=== PATIENT | male | born 1970 | race Two or more races ===

== ENCOUNTER 2024-06-05 03:49 | Inpatient (IN) | payer MEDICARE, MEDICAID ==
[2024-06-05] VITALS (32 sets, daily range): BP systolic 93–166; BP diastolic 49–80; PULSE 0–81; RESP 13–24; TEMP 97.5–100; O2SAT 0–100
[~2024-06-05] VITALS: Ht 170.2 cm; Wt 73.2 kg
[~2024-06-05 03:49] MED LIST: B-CO-6 PO; CARV-217 PO; CHOL20004 PO; CLON0.2D6 TD; DOCU-94 PO; GENT0.1C3 TOP; LOSA-535 PO; MINO10TA2 PO; POM PO
--- NOTE | 2024-06-05 04:13 | ED.PDOC ---
CPR-HPI HPI Comments 53-year-old male came to ER via EMS in cardiac arrest. Per EMS, patient picked up at home, initial call of low blood sugar, upon arrival patient noted to be pale, clammy, diaphoretic, apneic. Blood sugar 51, given D10 and went up to 92. Patient still verbally responding to name, however while patient is being velasco sferred to the gurney, patient aspirated, froth coming out of his mouth and went into cardio respiratory arrest, pulseless and unresponsive. CPR initiated immediately, bagging done, chest compressions, IO fluids, Epinephrine x3 and Calcium given while en route to the ER. Patient does have a history of diabetes, end-stage renal disease, on dialysis. Chief Complaint: CPR Time Seen by MD: 03:44 Reviewed Notes: Alligator Trapper Notes Allergies: Coded Allergies: UNOBTAINABLE (Unverified , 06/05/24) arrived CPR in progress Information Source: Emergency Med Personnel Mode of Arrival: EMS Timing: Minutes Duration: Total time prior hopital: (15 minutes) Onset: Witnessed Inital rhythm: Bradycardia Treatment: CPR, IV, Epinephrine Response: Sustained return of pulse Associated signs and symptoms: Other (Weakness, diaphoresis) Past Medical History PAST MEDICAL HISTORY: DM, ESRD Past Medical History (Other): Dialysis Surgical History: Unobtainable Family History Family History: Unobtainable Social History Smoker: Unobtainable Alcohol: Unobtainable Drugs: Unobtainable Lives In: Home Unable to Obtain due to: Medical Urgency, Intubated Physical Exam General Appearance: Severe Distress, Other (CPR in progress) HEENT: PERRL/EOMI Neck: Normal Inspection Respiratory: Other (Crackles bilaterally) Cardiovascular: Other (CPR in progress) Breast Exam: Normal Gastrointestinal: Other (Peritoneal dialysis catheter in place) Genitalia: Normal Pelvic: Deferred Rectal: Deferred Extremities: Other (IO 2 right tibia) Neurologic: Other (Unresponsive) Cerebellar Function: Unable to Test Reflexes: NOT DONE Skin: Cyanosis Lymphatic: NOT DONE Was a procedure done? 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: Attending Physician Indication: Hypotension, Volume resuscitation, Suspected infection Room prepared for procedure: Yes Call Out Operator performed hand hygien: Yes Maximal sterile barrier precau: Mask/Eye shield, Sterile gown, Cap, Sterlie gloves, Large sterlie drape Skin Preparation: Providine iodine Skin preparation completely dr: Yes Insertion site: Right, Femoral Central line catheter type: Tunneled- not dialysis Number of lumens: 3 Central line exchanged over a: Yes Antiseptic ointment applied to: Yes Post Assessment: Chest X-Ray Informed consent obtained: No Risks/benefits/alt described: No Intubation Indication: Respiratory Insufficiency Prep: Preoxygenation Pretreated with: Nothing Medicated with: Nothing Intubation Approach: Orotracheal Intubation size: cm (8.0) Informed consent obtained: No Risks/benefits/alt described: No Other Procedure Procedure Arterial Line Placement to Right Femoral Artery Indication Post Cardiac Arrest Prep Chloroprep Success Yes Informed consent obtained: No Risks, benefits, and alternati: No Differential Dx CPR Differential Diagnosis: Cardiopulmonary arrest, Dysrhythmia, Electrolyte disorder, Myocardial Infarction, Respiratory Failure X-Ray, Labs, Meds, VS Vital Signs Date Time Temp Pulse Resp B/P (MAP) Pulse Ox O2 Delivery O2 Flow Rate FiO2 06/05/24 04:22 159/103 06/05/24 04:21 131/80 06/05/24 04:21 70 18 127/83 (98) 96 100 06/05/24 04:00 132 06/05/24 03:49 95.1 0 0 0/0 (0) 0 Lab Test 06/05/24 04:00 Range/Units White Blood Count 15.3 H 4.4-10.8 10^3/uL Red Blood Count 4.46 L 4.5-5.90 10^6/uL Hemoglobin 13.5 13.5-17.5 g/dL Hematocrit 41.4 41.0-53.0 % Mean Corpuscular Volume 93.0 80.0-100.0 fL Mean Corpuscular Hemoglobin 30.3 28.0-32.0 pg Mean Corpuscular Hemoglobin Concent 32.5 32.0-36.0 g/dL Red Cell Distribution Width 19.4 H 11.8-14.3 % Platelet Count 75 L 140-450 10^3/uL Mean Platelet Volume 6.8 L 6.9-10.8 fL Neutrophils (%) (Auto) 37.0-80.0 % Lymphocytes (%) (Auto) 10.0-50.0 % Monocytes (%) (Auto) 0.0-12.0 % Basophils (%) (Auto) 0.0-2.0 % Neutrophils # (Auto) 1.6-8.6 10 ^3/uL Lymphocytes # (Auto) 0.4-5.4 10 ^3/uL Monocytes # (Auto) 0-1.3 10 ^3/uL Differential Total Cells Counted Pending Neutrophils % (Manual) Pending Band Neutrophils % (Manual) Pending Lymphocytes % (Manual) Pending Monocytes % (Manual) Pending Eosinophils % (Manual) Pending Basophils % (Manual) Pending Metamyelocytes % (manual) Pending Myelocytes % (Manual) Pending Promyelocytes % (Manual) Pending Blast Cells % (Manual) Pending Reactive Lymphocytes Pending Platelet Estimate Pending Sodium Level 141 136-145 mmol/L Potassium Level 4.2 3.5-5.1 mmol/L Chloride Level 97 L 98-107 mmol/L Carbon Dioxide Level 32 H 20-31 mmol/L Anion Gap 12 5-15 Blood Urea Nitrogen 57 H 9-23 mg/dL Creatinine 15.78 *H 0.700-1.30 mg/dL Glomerular Filtration Rate Calc 3 >90 mL/min BUN/Creatinine Ratio 3.6 L 10.0-20.0 Serum Glucose 201 H 74-106 mg/dL Calcium Level 10.1 8.7-10.4 mg/dL Total Bilirubin < 0.2 L 0.2-1.0 mg/dL Aspartate Amino Transferase (AST) 30 13-40 U/L Alanine Aminotransferase (ALT) 25 7-40 U/L Alkaline Phosphatase 105 46-116 U/L Troponin I High Sensitivity Pending B-Type Natriuretic Peptide Pending Total Protein 5.3 L 5.7-8.2 g/dL Albumin 3.1 L 3.2-4.8 g/dL Lipase 84 H 12-53 U/L Current Medications Medications (Trade) Dose Ordered Sig/Richard Route Start Time Stop Time Status Last Admin Propofol 100 ml @ 2.181 mls/ hr Q24H IV 06/05/24 04:15 06/05/24 04:22 Epinephrine HCl 250 ml @ 7.5 mls/hr Q24H ONCE IV 06/05/24 04:15 06/06/24 04:14 06/05/24 04:21 Time of 1ST Reevaluation: 04:01 Reevaluation 1ST: Unchanged Patient Education/Counseling: Other (Medical urgency), Pt Unresponsive Family Education/Counseling: No Family Present Departure 1 Departure Time of Disposition: 04:41 (Patient presented as a cardiac arrest. ACLS per protocol. We achieve ROSC. Patient was intubated, central line was placed, arterial line was placed. We will admit patient to the ICU for further workup and expert consultation) Impression: Primary Impression: Cardiac arrest Additional Impressions: Hypoglycemia Peritoneal dialysis catheter in place Disposition: ADMITTED INPATIENT Admit to: ICU Condition: Critical Critical Care Note Critical Care Time?: Yes (45 min-critical care time only) Critical care comment: Post arrest Authorized and Performed by: Griselda Rodriguez MD Total critical care time: Approximately 32 minutes Due to a high probability of clinically significant, life threatening deterioration, the patient required my highest level of preparedness to interven e emergently and I personally spent this critical care time directly and personally managing the patient. This critical care time included obtaining a history; examining the patient; pulse oximetry; ordering and review of studies; arranging urgent treatment with development of a management plan; evaluation of patient's response to treatment; frequent reassessment; and, discussions with other providers. This critical care time was performed to assess and manage the high probability of imminent, life-threatening deterioration that could result in multi-organ failure. It was exclusive of separately billable procedures and treating other patients and teaching time. Please see my other sections and the rest of the note for further information on patient assessment and treatment. Heart Score Heart Score: Heart Score Response (Comments) Value History N/A 0 EKG N/A 0 Age N/A 0 Risk Factors N/A 0 Troponin N/A 0 Total 0 Stability Stability form required: No I personally scribed for GRISELDA RODRIGUEZ MD ([email or web address]) on 06/05/24 at 04:13. Electr onically submitted by Kyle Arana ([email or web address]). I personally scribed for GRISELDA RODRIGUEZ MD ([email or web address]) on 06/05/24 at 04:25. El ectronically submitted by Kyle Arana ([email or web address]). GRISELDA RODRIGUEZ MD Jun 05, 2024 04:13
[2024-06-05 04:18] LABS: Band Neutrophils % (manual) 0; Basophils % (manual) 0 (0.0-2.0); Blast Cells 0; Hematocrit 41.4 % (41.0-53.0); Hemoglobin 13.5 g/dL (13.5-17.5); Mean Corpuscular Hemoglobin 30.3 pg (28.0-32.0); Mean Corpuscular Hgb Conc. 32.5 g/dL (32.0-36.0); Metamyelocytes % 0; Myelocytes % 0; Platelet Count (auto) 75 10^3/uL (140-450); Promyelocytes % 0; Red Blood Cells 4.46 10^6/uL (4.5-5.90); Red Cell Distribution Width 19.4 % (11.8-14.3); White Blood Cell 15.3 10^3/uL (4.4-10.8)
[2024-06-05] MEDS: EPINEPHrine HCL 250 ML IV ONE ×2 (04:20→04:21)
[2024-06-05] MEDS: PROPOFOL 100 ML IV ONE (04:20)
[2024-06-05] MEDS: PROPOFOL 100 ML IV SCH (04:22)
[2024-06-05 04:27] LABS: Alanine Aminotransferase 25 U/L (7-40); Alkaline Phosphatase 105 U/L (46-116); Anion Gap 12 (5-15); Aspartate Aminotransferase 30 U/L (13-40); BUN/Creatinine Ratio 3.6 (10.0-20.0); Calcium 10.1 mg/dL (8.7-10.4); Potassium 4.2 mmol/L (3.5-5.1); Sodium 141 mmol/L (136-145)
[2024-06-05] MEDS: EPINEPHrine HCL 250 ML IV SCH (04:30)
[2024-06-05 04:33] LABS: Albumin 3.1 g/dL (3.2-4.8); Bilirubin, Total < 0.2 mg/dL (0.2-1.0); Blood Urea Nitrogen 57 mg/dL (9-23); Carbon Dioxide 32 mmol/L (20-31); Chloride 97 mmol/L (98-107); Glucose 201 mg/dL (74-106); Total Protein 5.3 g/dL (5.7-8.2)
[2024-06-05 04:34] LABS: Lipase 84 U/L (12-53)
[2024-06-05] MEDS: MIDAZOLAM DRIP 50 mg/50mL 50 ML IV ONE (04:35)
[2024-06-05] MEDS: NOREPINEPHRINE 8 MG/250ML KIT 250 ML IV ONE (04:35)
--- NOTE | 2024-06-05 04:47 | DVH ---
CHEST RADIOGRAPH Indication: cardiac arrest Technique: Single frontal view of the chest was obtained COMPARISON: None FINDINGS: Lines and Tubes: Endotracheal tube is above the laurie. The nasogastric tube extends below the diaphr agm with its tip outside field of view. Lungs: Diffuse lung disease, probably multifocal pneumonia or edema. Pleura: No effusion. No pneumothorax. Cardiomediastinal contours: Unremarkable Bones: Unremarkable IMPRESSION: 1. Diffuse lung disease, probably edema or pneumonia.
[2024-06-05 04:54] LABS: Base Excess -11.2 mmol/L (-2.0-3.0)
[2024-06-05] MEDS: NOREPINEPHRINE 8 MG/250ML KIT 250 ML IV SCH (05:30)
[2024-06-05 05:37] LABS: Eosinophils % (manual) 3 (0-7); Lymphocytes % (manual) 35 (10.0-50.0); Monocytes % (manual) 10 (0-12); Reactive Lymphocytes 5
[2024-06-05 05:42] LABS: Platelet Estimate Decreased
[2024-06-05 06:05] LABS: Lactic Acid w/Reflex 6.7 mmol/L (0.4-2.0)
[2024-06-05 06:43] LABS: Base Excess -4.8 mmol/L (-2.0-3.0)
[2024-06-05] MEDS: fentaNYL Drip 2500mCg/250mlNS 250 ML IV SCH (07:15)
[2024-06-05] MEDS: MIDAZOLAM DRIP 50 mg/50mL 50 ML IV SCH (07:15)
--- NOTE | 2024-06-05 08:24 | RESUS ---
CODE BLUE ASSESSSMENT History of Events History of Events: Pt BIBA with CPR in progress via AMBER machine. Per EMS, called to home due to low blood sugar. Pt aspirated during assessment. While moving pt onto EMS rovid, pt coded. Pt received x3 of Epi and IO established to proximal R tibia. Field blood sugar of 51; received 1amp D10 with blood sugar reassess of 92 prior to coding. Initial Information Date: Jun 05, 2024 Time: 03:44 Location of Arrest: In Field Arrest Witnessed: Yes (by EMS) CPR started initial time: 03:30 CPR started by whom: EMS Pre-Hospital Care: ACLS Type of arrest: Cardiac, Respiratory, Adult, Witnessed Spontaneous Respirations: No Pulse Present: No Monitoring: ECG, Pulse Oximetry, Telemetry Crash Cart Opened and Supplies: Yes Airway Ventilation Breathing at Onset: Assisted Oxygen Delivery Method: Ambu-Bag Time of first Assisted Ventila: 03:44 (0330 by EMS; 0344 RT took over upon arrival to ER) Artificial Ventilation: Bag/Mask Intubation Time: 03:50 Intubation Size: 8.0 cuffed Intubated by: Dr Rodriguez Intubation Attempts: 1 Intubated orally: Yes Intubated Nasaly: No Tube secured at: 24 (cm at teeth) Cricoid pressure done: Yes CO2 indicator used: Yes Confirmation: Auscultation, Exhaled CO2, Chest X-ray Circulation Circulation #1: Time: 03:44 Pulse Rate (adult): 0 Blood Pressure Systolic: 0 Blood Pressure Diastolic: 0 Temperature (Fahrenheit): 95.1 (F; rectal) Circulation Comment: Asystole Circulation #2: Time: 03:47 Pulse Rate (adult): 0 Blood Pressure Systolic: 0 Blood Pressure Diastolic: 0 Circulation Comment: Asystole Circulation #3: Time: 03:50 Pulse Rate (adult): 0 Blood Pressure Systolic: 0 Blood Pressure Diastolic: 0 Circulation Comment: Asystole Circulation #4: Time: 03:54 Pulse Rate (adult): 0 Blood Pressure Systolic: 0 Blood Pressure Diastolic: 0 Circulation Comment: PEA Circulation #5: Time: 03:57 Pulse Rate (adult): 76 Circulation Comment: Initial rhythm on monitor PEA; Dr Rodriguez viewed heart via ultrasound and while viewing heart, spontaneous return of activity noted. ROSC official time 0358 Circulation #6: Time: 04:02 Pulse Rate (adult): 125 Blood Pressure Systolic: 131 Blood Pressure Diastolic: 80 Circulation #7: Time: 04:06 Pulse Rate (adult): 107 Blood Pressure Systolic: 159 Blood Pressure Diastolic: 103 Circulation #8: Time: 04:10 Pulse Rate (adult): 94 Blood Pressure Systolic: 127 Blood Pressure Diastolic: 83 Procedure - IV Procedure - IV #1: IV start time: 03:52 IV Side: Right IV Location: Hand IV Catheter Type: Saline Lock IV Placed: ALEKSANDAR IV Placed by Joanna Houston RN IV Gauge: 20 IV Line Care: Saline Flush Procedure - IV #2: IV start time: 03:53 IV Side: Left IV Location: Antecubital IV Catheter Type: Saline Lock IV Placed: ALEKSANDAR IV Placed by John Kerr RN IV Gauge: 20 IV Line Care: Saline Flush Medications & Response Medications and Responses #1: Medication Time: 03:46 ADULT Medications Given ADULT: Epinephrine 1 mg Route of Administration: IO Heart Rate: 0 EKG Rhythm: Asystole Blood Pressure Systolic: 0 Blood Pressure Diastolic: 0 Respiratory Rate: 0 O2 Sat by Pulse Oximetry: 0 EKG Rhythm: Asystole Medications and Responses #2: Medication Time: 03:47 ADULT Medications Given ADULT: Calcium Chloride 10 mL Route of Administration: IO Heart Rate: 0 EKG Rhythm: Asystole Blood Pressure Systolic: 0 Blood Pressure Diastolic: 0 Respiratory Rate: 0 O2 Sat by Pulse Oximetry: 0 EKG Rhythm: Asystole Medications and Responses #3: Medication Time: 03:49 ADULT Medications Given ADULT: Sodium Bacarbinate 50 meq Route of Administration: IO Heart Rate: 0 EKG Rhythm: Asystole Blood Pressure Systolic: 0 Blood Pressure Diastolic: 0 Respiratory Rate: 0 O2 Sat by Pulse Oximetry: 0 EKG Rhythm: Asystole Medications and Responses #4: Medication Time: 03:53 ADULT Medications Given ADULT: Epinephrine 1 mg Route of Administration: IV Heart Rate: 0 EKG Rhythm: Asystole Blood Pressure Systolic: 0 Blood Pressure Diastolic: 0 Respiratory Rate: 0 O2 Sat by Pulse Oximetry: 0 EKG Rhythm: Asystole Medications and Responses #5: Medication Time: 03:54 ADULT Medications Given ADULT: 2 Amps Na Bicarb Route of Administration: IV Heart Rate: 0 EKG Rhythm: PEA Blood Pressure Systolic: 0 Blood Pressure Diastolic: 0 Respiratory Rate: 0 O2 Sat by Pulse Oximetry: 0 EKG Rhythm: PEA Medications and Responses #6: Medication Time: 03:56 ADULT Medications Given ADULT: Epinephrine 1 mg Route of Administration: IV Heart Rate: 0 EKG Rhythm: PEA Blood Pressure Systolic: 0 Blood Pressure Diastolic: 0 Respiratory Rate: 0 O2 Sat by Pulse Oximetry: 0 EKG Rhythm: PEA Procedure - NG/OG Tube Procedure - NG/OG Tube : Type of gastric tube placed: OG Gastric Tube Location: Oral Tube Size: 16 GI Tube Secured: Yes Gastric Tube Suction Type/Desc: Clamped NG/OG tube inserted by: Shantel Blank RN Comment Secured at 55cm at the lip to ETT Procedure - Central Venous Cat Central venous catheter time: 04:24 Central venous catheter site: Rt Femoral Central Venous Catheter Insert: Dr Rodriguez Nurses Notes Randall Coma Scale Eye Opening: None (1) Randall Coma Scale Verbal: None (1) Randall Coma Scale Motor: None (1) Glascow Total: 3 Pupil Reaction: Non Reactive Bedside Blood Glucose: 127 EKG Rhythm: Atrial Fibrillation (HR 131 @ 0402) Nurses Notes - Comment: 0403: Epi drip started at 2mcg per protocol 0409: Propofol drip started 5mg per protocol Time Code Ended Time Code Ended: 03:58 Post Arrest Status: Ventilated Outcome of code: Successful Family notified: Yes Code Team Present: Dr Rodriguez - ER MD; John Kerr RN - ER Charge; Mary Love RN - Supervisor Gate Services; Alpesh Pittman RN; Mary Lou Morris, RN; Shantel Blank RN; Joanna Houston RN; Elza Cardoso, RT; Hao Hill, ERT; Olimpia P, ERT; Sergey Pena, ERT; Betsy S, ERT Post Resuscitation Neurologica Pupil Size: 5 Comment: Equal; fixed - nonreactive ROSC Time of ROSC: 03:58 Mary Naranjo Jun 05, 2024 08:24
[2024-06-05] MEDS ORDERED: ONDANSETRON HCL 4 MG/2 ML VIAL IV PRN (10:15)
[2024-06-05] MEDS ORDERED: VANCOMYCIN PER PHARMACY 0 MG IV SCH (10:15)
[2024-06-05] MEDS ORDERED: DEXTROSE (50%) 50ML SYRG IV PRN (10:30)
--- NOTE | 2024-06-05 10:44 | DVHHP2 ---
History of Present Illness Reason for Visit: CPR History of Present Illness This 53-year-old male is seen in the emergency department orally vented. Medical history obtained from nursing staff and medical record. Unable to contact at this time. According to medical record the patient was noted to be pale, clammy, and diaphoretic and apneic blood sugar was obtained at that time which was in 50s therefore was given D10. The patient was able to communicate at that time and spontaneously lost pulse for which EMS initiated CPR. Twelve lead EKG revealing AFib with RVR. Currently on dual vasopressors for BP support. Past medical history of peritoneal dialysis and diabetes. Past Medical History Peritoneal dialysis Diabetes type 2 Past Surgical History Unknown Family History Unknown Past Social History Unknown Review of Systems Review of Systems ROS see HPI Allergies: Coded Allergies: UNOBTAINABLE (Unverified , 06/05/24) arrived CPR in progress Medications Current Medications Medications Dose Ordered Sig/Richard Route Start Time Stop Time Status Last Admin Dose Admin Propofol 100 ml @ 2.181 mls/ hr Q24H IV 06/05/24 04:15 06/05/24 04:22 2.181 MLS/HR Fentanyl Citrate 250 ml @ 2.5 mls/hr Q24H IV 06/05/24 04:15 Epinephrine HCl 250 ml @ 7.5 mls/hr Q24H IV 06/05/24 04:30 Norepinephrine Bitartrate 250 ml @ 3.75 mls/hr Q24H IV 06/05/24 05:30 06/05/24 05:30 3.75 MLS/HR Midazolam HCl 50 ml @ 1 mls/hr Q24H IV 06/05/24 04:35 06/05/24 07:15 1 MLS/HR Ondansetron HCl 4 mg Q4HP PRN IV 06/05/24 10:15 Enoxaparin Sodium 40 mg DAILY SC 06/06/24 10:00 UNV Vancomycin HCl 0 ml @ 0 mls/hr UD IV 06/05/24 10:15 UNV Cefepime HCl 50 ml @ 12.5 mls/hr DAILY IV 06/06/24 10:00 UNV Diagnostic Test (Pha) 1 strip Q6HR 06/05/24 12:00 Insulin Human Regular Q6HR SC 06/05/24 12:00 Dextrose 50 ml UD PRN IV 06/05/24 10:30 Sodium Bicarbonate 50 ml/ Sodium Chloride 1,050 ml @ 50 mls/hr Q21H IV 06/05/24 10:30 Exam Vital Signs Vital Signs Date Time Temp Pulse Resp B/P (MAP) Pulse Ox O2 Delivery O2 Flow Rate FiO2 06/05/24 09:19 65 18 100 Mechanical Ventilator+ 50 50 06/05/24 09:15 94.6 117/53 (74) 94.6 06/05/24 03:50 0 HEENT: Atraumatic, PERRLA, Mucous membr. moist/pink Respiratory: Other (Diminished lung sounds. Mechanical ventilation) Cardiovascular: Regular rate, Normal S1, Normal S2 Abdominal: Normal bowel sounds, Soft, No tenderness, No hepatospenomegaly Extremities: No clubbing, No cyanosis, No edema, Normal pulses Skin: No rashes, No breakdown, No significant lesion Neuro: Other (Sedated) Labs/Xrays Labs Test 06/05/24 07:30 06/05/24 07:11 06/05/24 06:37 06/05/24 05:00 Range/Units POC Glucose 194 H 70-106 mg/dl Lactic Acid Level 3.5 *H 0.4-2.0 mmol/L Troponin I High Sensitivity 643 *H </=54 ng/L Blood Gas Specimen Type Arterial Blood Gas Sample Site Arterial line Blood Gas Patient Temperature 37.0 Arterial Blood Date Drawn [id number] Arterial Blood pH 7.274 L 7.350-7.450 Arterial Blood Partial Pressure CO2 49.3 H 35.0-48.0 mmHg Arterial Blood Partial Pressure O2 75.0 L 83.0-108.0 mmHg Arterial Blood HCO3 22.3 21.0-28.0 mmol/L Arterial Blood Oxygen Saturation 92.1 L 94.0-98.0 % Arterial Blood Base Excess -4.8 L -2.0-3.0 mmol/L Arterial Blood Oxyhemoglobin 90.5 L 94.0-98.0 % Arterial Blood Carboxyhemoglobin 1.3 0.5-1.5 % Arterial Blood Methemoglobin 0.4 0.0-1.5 % Kevin Test N/a Blood Gas Total Hemoglobin 13.80 13.5-17.5 g/dL Blood Gas Set Respiration Rate 18.0 Blood Gas Modality Vent - ac Blood Gas Spontaneous Rate 18 FiO2 % 50.0 Blood Gas Tidal Volume 500.0 Blood Gas PEEP or CPAP 5.0 Test 06/05/24 04:47 06/05/24 04:00 Range/Units Blood Gas Critical Value Read Back Yes Blood Gas Notified Whom юлия Pinzon Blood Gas Notified Time [id number] Blood Gas Notified By Elza fernandez, constance White Blood Count 15.3 H 4.4-10.8 10^3/uL Red Blood Count 4.46 L 4.5-5.90 10^6/uL Hemoglobin 13.5 13.5-17.5 g/dL Hematocrit 41.4 41.0-53.0 % Mean Corpuscular Volume 93.0 80.0-100.0 fL Mean Corpuscular Hemoglobin 30.3 28.0-32.0 pg Mean Corpuscular Hemoglobin Concent 32.5 32.0-36.0 g/dL Red Cell Distribution Width 19.4 H 11.8-14.3 % Platelet Count 75 L 140-450 10^3/uL Mean Platelet Volume 6.8 L 6.9-10.8 fL Neutrophils (%) (Auto) 37.0-80.0 % Lymphocytes (%) (Auto) 10.0-50.0 % Monocytes (%) (Auto) 0.0-12.0 % Basophils (%) (Auto) 0.0-2.0 % Neutrophils # (Auto) 1.6-8.6 10 ^3/uL Lymphocytes # (Auto) 0.4-5.4 10 ^3/uL Monocytes # (Auto) 0-1.3 10 ^3/uL Differential Total Cells Counted 100.0 100 Neutrophils % (Manual) 47 37.0-80.0 Band Neutrophils % (Manual) 0 Lymphocytes % (Manual) 35 10.0-50.0 Monocytes % (Manual) 10 0-12 Eosinophils % (Manual) 3 0-7 Basophils % (Manual) 0 0.0-2.0 Metamyelocytes % (manual) 0 Myelocytes % (Manual) 0 Promyelocytes % (Manual) 0 Blast Cells % (Manual) 0 Reactive Lymphocytes 5 Platelet Estimate Decreased Sodium Level 141 136-145 mmol/L Potassium Level 4.2 3.5-5.1 mmol/L Chloride Level 97 L 98-107 mmol/L Carbon Dioxide Level 32 H 20-31 mmol/L Anion Gap 12 5-15 Blood Urea Nitrogen 57 H 9-23 mg/dL Creatinine 15.78 *H 0.700-1.30 mg/dL Glomerular Filtration Rate Calc 3 >90 mL/min BUN/Creatinine Ratio 3.6 L 10.0-20.0 Serum Glucose 201 H 74-106 mg/dL Calcium Level 10.1 8.7-10.4 mg/dL Total Bilirubin < 0.2 L 0.2-1.0 mg/dL Aspartate Amino Transferase (AST) 30 13-40 U/L Alanine Aminotransferase (ALT) 25 7-40 U/L Alkaline Phosphatase 105 46-116 U/L B-Type Natriuretic Peptide 302.91 0-100 pg/mL Total Protein 5.3 L 5.7-8.2 g/dL Albumin 3.1 L 3.2-4.8 g/dL Lipase 84 H 12-53 U/L PROCEDURE(s): CXRP - CHEST PORTABLE REASON: cardiac arrest ORDER NUMBER(s): [id number], ACCESSION NUMBER(s): [id number] CHEST RADIOGRAPH Indication: cardiac arrest Technique: Single frontal view of the chest was obtained COMPARISON: None FINDINGS: Lines and Tubes: Endotracheal tube is above the laurie. The nasogastric tube extends below the diaphragm with its tip outside field of view. Lungs: Diffuse lung disease, probably multifocal pneumonia or edema. Pleura: No effusion. No pneumothorax. Cardiomediastinal contours: Unremarkable Bones: Unremarkable IMPRESSION: 1. Diffuse lung disease, probably edema or pneumonia. Assessment/Plan Assessment/Plan # CPR with ROSC # sepsis with shock # aspiration pneumonia Admit to ICU Vanco and cefepime IV fluid resuscitation Pancultures Titrate vasopressors to keep SBP >90 mmHg Cxray in AM # NSTEMI # acute transient AFib with RVR Therapeutic Lovenox Check electrolytes and replete as needed IV fluid Cardiology consult Echo # acute respiratory failure Continue with current vent settings, titrate FiO2 to keep o2 Sat >92% Pulmonary consult Med neb # acute on chronic renal failure # peritoneal dialysis Nephrology consult Indwelling urinary catheter # episodes of hypoglycemia # diabetes type 2 Insulin sliding scale Check A1c PUD/PPI prophylaxis Medical plan discussed with RN Plan discussed with: Patient My Orders Orders - PH[facility]IP [facility] Procedure Category Date Status Time Admit ADMIT 06/05/24 Transmitted 10:03 Code Status CODE 06/05/24 Transmitted 10:03 Ondansetron Hcl PHA 06/05/24 In Process (Zofran) 10:15 Enoxaparin Sodium PHA 06/06/24 Logged (Lovenox) 10:00 Complete Blood Count LAB 06/06/24 Verified 04:00 Comprehensive LAB 06/06/24 Verified Metabolic Panel 04:00 Echo 2d Mode Cardiac US 06/05/24 Logged DOP 10:03 Condition: Serious FAY 06/05/24 In Process 10:03 *Dr. [facility] [employer] CONS 06/05/24 Transmitted -[place] 10:03 * Cardiology Consult CONS 06/05/24 Transmitted 10:03 *Consult Dr Jael Loo CONS 06/05/24 Transmitted 10:03 Urinalysis LAB 06/05/24 Logged 10:03 Insert Castano Catheter FAY 06/05/24 In Process 10:03 Hemoglobin A1c LAB 06/05/24 In Process 10:03 Lipid Panel LAB 06/05/24 In Process 10:03 Thyroid Stimulating LAB 06/05/24 In Process Hormone 10:03 Drug Screen LAB 06/05/24 Logged 10:03 Blood Culture DENNY 06/05/24 In Process 10:03 Urine Bacterial DENNY 06/05/24 Logged Culture 10:03 Respiratory Culture DENNY 06/05/24 Logged W/ Gs 10:03 Vancomycin Per PHA 06/05/24 Logged Pharmacy 10:15 Cefepime 1gm/ 50ml PHA 06/06/24 Logged (Maxipime 1gm/50ml) 10:00 Cefepime 1gm/ 50ml PHA 06/05/24 In Process (Maxipime 1gm/50ml) 10:15 Glucose Blood PHA 06/05/24 In Process (Accu-Chek Comfort 12:00 Insulin R (Human) PHA 06/05/24 In Process (Insulin R) 12:00 Dextrose 50% Syringe PHA 06/05/24 In Process 10:30 Sod Chl 0.45% PHA 06/05/24 In Process (Sodi... W/Sodium 10:30 Sodium Chloride 0.9% PHA 06/05/24 In Process 10:30 Chest Portable XY 06/06/24 Logged 04:00 Electrocardigram EKG 06/06/24 Logged 04:00 Magnesium LAB 06/05/24 Verified 10:42 Electrocardigram EKG 06/05/24 Verified 10:42 Enoxaparin Sodium PHA 06/05/24 Verified (Lovenox) 22:00 Date of Service: Jun 05, 2024 Billing Provider: PHILIP [facility]SI[facility] Common Visit Codes: 02083-EXRQSYY INP/OBS CARE (HIGH) PHILIP H[facility] Jun 05, 2024 10:44
--- NOTE | 2024-06-05 10:45 | ECG ---
[facility] Test Date: 2024-06-05 Test Time: 04:02:29 Pat Name: ALBERTO GALICIA Department: ER Room: [address] [place] [address] A Gender: M Gang Supervisor: NASRIN : 1970 Requested By: PHILIP [facility]SI[facility] Order Number: [id number] Reading MD: Alberto Alicea Measurements Intervals [place] Rate: 131 P: 0 MT: 0 QRS: -86 QRSD: 167 T: 106 QT: 373 QTc: 551 Interpretive Statements Atrial fibrillation RBBB and LAFB Consider left ventricular hypertrophy Abnormal T, consider ischemia, lateral leads Baseline wander in lead(s) V2 Electronically Signed On 06-05-2024 16:11:02 PST by Alberto Alicea Please click the below link to view image of tracing.
[2024-06-05] MEDS ORDERED: IPRATROPIUM BROM 0.5 MG/2.5ML INH SOL NEB PRN (11:00)
[2024-06-05] MEDS ORDERED: ALBUTEROL SULF 2.5 MG/0.5ML(0.5%) NEB SOLN NEB PRN (11:00)
[2024-06-05] MEDS: CEFEPIME 1GM/ 50ML 50 ML IV ONE (11:00)
[2024-06-05] MEDS: SODIUM CHLORIDE 0.9% 2,000 ML IV ONE (11:13)
[2024-06-05 11:14] LABS: Cholesterol 208 mg/dL (< 200); HDL Cholesterol 33 mg/dL (40-59); LDL Cholesterol 143 mg/dL (< 100); Triglycerides 174 mg/dL (< 150)
[2024-06-05] MEDS: PANTOPRAZOLE 40 MG/10 ML VIAL INJ IV ONE (11:28)
[2024-06-05] MEDS: ACCU-CHEK COMFORT CURVE STRIP VI SCH (12:00)
[2024-06-05] MEDS ORDERED: ENOXAPARIN SOD 100 MG/1 ML SYRINGE SC SCH (12:00)
[2024-06-05] MEDS: InsuLIN REG 1unit/0.01ml Soln (100units/ml) SC SCH (13:00)
--- NOTE | 2024-06-05 14:43 | DVHSR ---
APPROVED REPORT EXAM: Two-dimensional and M-mode echocardiogram with Doppler and color Doppler. Blood Pressure: 117/53 mmHg INDICATION Post CPR RISK FACTORS Height: 5'7", Weight: 160 DIMENSIONS LVDd4.1 (3.8-5.7cm)LA (2D)3.7 (1.9-4.0cm)Aortic Root3.8 (2.0-3.7cm) LVDs3.0 (2.5-4.0cm)LA (MM) (1.9-4.0cm)Aortic Cusp Exc1.7 (1.5-2.0cm) EF (%) 50.0 (55-70%)Rt. Atrium3.2 (1.9-4.0cm)Asc. Aorta cm IVSd1.8 (0.7-1.1cm)RV (D) (1.8-2.4cm) PWd1.6 (0.7-1.1cm) Mitral Valve MitralMitral Stenosis E wave0.92m/sMV Mean GR.mmHg A wave0.84m/sMV Peak GR.mmHg E/A ratio1.12D MVAcm2 DECEL [id number] 1/2 Timems Aortic Valve Aortic ValveAortic Stenosis V11.31m/Jeyson Mean GR.4mmHg V21.44m/Jeyson Peak GR.8mmHg LVOT Diameter2.0 (1.8-2.4cm)Doppler AVA2.86cm2 Pulmonic Valve V21.02m/s Tricuspid Valve TR Velocity2.96m/s [id number] Other Information Technically limited study due to body habitus, patient position and on vent. Conclusion lvef 45% by visual estimate severe concentric LVH pattern small LV cavity RV not well seen left atrium enlarged no severe valve abnormaliteis noted peritoneal fluid noted, hx of PD trivial pericardial effusion noted
[2024-06-05] MEDS: SODIUM BICARB 50mEq/50ml Vial 50 ML in SOD CHL 0.45% 1,000 ML IV SCH (15:06)
[2024-06-05] MEDS: ALBUTEROL SULF 2.5 MG/0.5ML(0.5%) NEB SOLN NEB SCH (15:30)
[2024-06-05] MEDS: IPRATROPIUM BROM 0.5 MG/2.5ML INH SOL NEB SCH (15:30)
--- NOTE | 2024-06-05 16:05 | DVHINCON2 ---
CATHY SHEETS [facility] 06/05/24 1605: Date Seen: Jun 05, 2024 Referring Physician ALEXANDRIA Britton Reason for Consultation NSTEMI History of Present Illness This is a 53-year-old man who presented to the emergency room via EMS with a chief complaint cardiopulmonary arrest. At time of assessment, the patient was found mechanically ventilated with 50% FiO2, on dual vasopressor, and chemically sedated. Information obtained from records and family at bedside including son and . Per , they live out of the area and were visiting their son. States it got late to drive back home so they decided to stay the night. Reports the patient skipped his peritoneal dialysis last night and found himself with blood sugar levels in the 300s ng/dL before going to bed for which he took his long acting insulin. Later on throughout the night the patient woke up for what was assumed to intake a sugary drink as he had done in the past when he experiences acute hypoglycemic events. He was found to be altered and clammy which prompted family to check his blood sugars and found at 39 ng/dL. Upon EMS arrival the patient was found pale clammy and with respiratory distress. He was medicated with D10 with improvement in blood glucose level. Per records, the patient aspirated and subsequently went into cardiopulmonary arrest with ACLS protocol initiated including respiratory support, CPR, IVF, three rounds of epinephrine, and calcium chloride. Upon arrival to the emergency room he underwent a 12 lead electrocardiogram revealing an atrial fibrillation rhythm wi th rapid ventricular rate and with subsequent transition into a normal sinus rhythm without AV james blocking agents used. Troponin levels peaked at 698 ng/L. Per , the patient underwent a cardiac catheterization and coronary angiogram at [facility] in 2021 and was found with CAD not severe for intervention. 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 Significant medical history includes hypertension, insulin-dependent diabetes mellitus, and end-stage renal disease on peritoneal dialysis. Past Medical History Past medical history reviewed. No other significant than mentioned above. Past Surgical History Peritoneal dialysis access Family History Family history reviewed. Social History Per family, there is no use of illicit drugs, alcohol, or tobacco use. Allergies: Coded Allergies: UNOBTAINABLE (Unverified , 06/05/24) arrived CPR in progress Home Meds Home medications reviewed. Current Medications Current Medications Medications (Trade) Dose Ordered Sig/Richard Route PRN Reason Start Time Stop Time Status Last Admin Propofol 100 ml @ 2.181 mls/ hr Q24H IV 06/05/24 04:15 06/05/24 04:22 Fentanyl Citrate 250 ml @ 2.5 mls/hr Q24H IV 06/05/24 04:15 Epinephrine HCl 250 ml @ 7.5 mls/hr Q24H IV 06/05/24 04:30 06/05/24 07:15 Norepinephrine Bitartrate 250 ml @ 3.75 mls/hr Q24H IV 06/05/24 05:30 06/05/24 05:30 Midazolam HCl 50 ml @ 1 mls/hr Q24H IV 06/05/24 04:35 06/05/24 07:15 Ondansetron HCl (Zofran) 4 mg Q4HP PRN IV NAUSEA / VOMITING 06/05/24 10:15 Enoxaparin Sodium (Lovenox) 40 mg DAILY SC 06/06/24 10:00 06/05/24 10:44 DC Vancomycin HCl 0 ml @ 0 mls/hr UD IV 06/05/24 10:15 Cefepime HCl 50 ml @ 12.5 mls/hr DAILY IV 06/06/24 10:00 Diagnostic Test (Pha) (Accu-Chek Comfort Curve T) 1 strip Q6HR 06/05/24 12:00 06/05/24 12:00 Insulin Human Regular (InsuLIN R) Q6HR SC 06/05/24 12:00 06/05/24 13:00 Dextrose 50 ml UD PRN IV Blood Sugar LESS THAN 60 06/05/24 10:30 Sodium Bicarbonate 50 ml/ Sodium Chloride 1,050 ml @ 50 mls/hr Q21H IV 06/05/24 10:30 06/05/24 15:06 Enoxaparin Sodium (Lovenox) 70 mg DAILY SC 06/05/24 12:00 Hold Albuterol (Ventolin Medneb) 2.5 mg Q4HPRN PRN NEB SHORTNESS OF BREATH 06/05/24 11:00 Albuterol (Ventolin Medneb) 2.5 mg Q6HR NEB 06/05/24 12:00 06/05/24 15:30 Ipratropium [place] (Atrovent Medneb) 0.5 mg Q4HPRN PRN NEB SHORTNESS OF BREATH 06/05/24 11:00 Ipratropium [place] (Atrovent Medneb) 0.5 mg Q6HR NEB 06/05/24 12:00 06/05/24 15:30 Pantoprazole Sodium (Protonix) 40 mg DAILY IV 06/06/24 10:00 Review of Systems Constitutional: Clamminess Ears, Nose, & Throat: No symptom reported Eyes: No symptom reported Neurological: ALOC Pulmonary/Respiratory: Respiratory distress Cardiovascular: No symptom reported Gastrointestinal: No symptom reported Genitourinary: No symptom reported Musculoskeletal: No symptom reported Skin: No symptom reported Psychiatric: No symptom reported Endocrine: No symptom reported Hemotologic/Lymphatic: No symptom reported Vital Signs Vital Signs Date Time Temp Pulse Resp B/P (MAP) Pulse Ox O2 Delivery O2 Flow Rate FiO2 06/05/24 13:46 100.9 79 18 126/53 (77) 99 100.9 06/05/24 13:16 40 06/05/24 09:19 Mechanical Ventilator+ 06/05/24 03:50 0 Physical Exam General Appearance: Withdrawn. Chemically sedated. Mechanically ventilated with 50% FiO2 Head Exam: Normal inspection Neck Exam: Normal inspection. Normal alignment Pulmonary/Respiratory: Diminished bilateral breath sounds Cardiovascular/Chest: Regular rate and rhythm. S1, S2. Sinus rhythm with nonspecific lateral ST changes. No murmurs. Peripheral Pulses: 2+ Radial (R). 2+ Radial (L). 2+ Pedal (R). 2+ Pedal (L) Abdominal Exam: Normal bowel sounds. Soft. Ankle Exam: Positive ankle edema Lower extremities: Positive lower extremity edema Neuro/Mental Status: Chemically sedated. Withdrawn Thoughts/Psych: Unable to assess at this time Appearance: Withdrawn Skin Exam: Normal inspection. Pale color. Warm. Dry Labs/Diagnostic Data Labs Test 06/05/24 12:04 06/05/24 07:11 06/05/24 06:37 06/05/24 05:00 Range/Units POC Glucose 158 H 70-106 mg/dl Lactic Acid Level 3.5 *H 0.4-2.0 mmol/L Magnesium Level 2.6 1.6-2.6 mg/dL Troponin I High Sensitivity 643 *H </=54 ng/L Blood Gas Specimen Type Arterial Blood Gas Sample Site Arterial line Blood Gas Patient Temperature 37.0 Arterial Blood Date Drawn [id number] Arterial Blood pH 7.274 L 7.350-7.450 Arterial Blood Partial Pressure CO2 49.3 H 35.0-48.0 mmHg Arterial Blood Partial Pressure O2 75.0 L 83.0-108.0 mmHg Arterial Blood HCO3 22.3 21.0-28.0 mmol/L Arterial Blood Oxygen Saturation 92.1 L 94.0-98.0 % Arterial Blood Base Excess -4.8 L -2.0-3.0 mmol/L Arterial Blood Oxyhemoglobin 90.5 L 94.0-98.0 % Arterial Blood Carboxyhemoglobin 1.3 0.5-1.5 % Arterial Blood Methemoglobin 0.4 0.0-1.5 % Kevin Test N/a Blood Gas Total Hemoglobin 13.80 13.5-17.5 g/dL Blood Gas Set Respiration Rate 18.0 Blood Gas Modality Vent - ac Blood Gas Spontaneous Rate 18 FiO2 % 50.0 Blood Gas Tidal Volume 500.0 Blood Gas PEEP or CPAP 5.0 Triglycerides Level 174 H < 150 mg/dL Cholesterol Level 208 H < 200 mg/dL LDL Cholesterol 143 H < 100 mg/dL HDL Cholesterol 33 L 40-59 mg/dL Thyroid Stimulating Hormone (TSH) 5.41 H 0.55-4.78 uIU/mL Test 06/05/24 04:47 06/05/24 04:00 Range/Units Blood Gas Critical Value Read Back Yes Blood Gas Notified Whom юлия Pinzon Blood Gas Notified Time [id number] Blood Gas Notified By Elza fernandez rrt White Blood Count 15.3 H 4.4-10.8 10^3/uL Red Blood Count 4.46 L 4.5-5.90 10^6/uL Hemoglobin 13.5 13.5-17.5 g/dL Hematocrit 41.4 41.0-53.0 % Mean Corpuscular Volume 93.0 80.0-100.0 fL Mean Corpuscular Hemoglobin 30.3 28.0-32.0 pg Mean Corpuscular Hemoglobin Concent 32.5 32.0-36.0 g/dL Red Cell Distribution Width 19.4 H 11.8-14.3 % Platelet Count 75 L 140-450 10^3/uL Mean Platelet Volume 6.8 L 6.9-10.8 fL Neutrophils (%) (Auto) 37.0-80.0 % Lymphocytes (%) (Auto) 10.0-50.0 % Monocytes (%) (Auto) 0.0-12.0 % Basophils (%) (Auto) 0.0-2.0 % Neutrophils # (Auto) 1.6-8.6 10 ^3/uL Lymphocytes # (Auto) 0.4-5.4 10 ^3/uL Monocytes # (Auto) 0-1.3 10 ^3/uL Differential Total Cells Counted 100.0 100 Neutrophils % (Manual) 47 37.0-80.0 Band Neutrophils % (Manual) 0 Lymphocytes % (Manual) 35 10.0-50.0 Monocytes % (Manual) 10 0-12 Eosinophils % (Manual) 3 0-7 Basophils % (Manual) 0 0.0-2.0 Metamyelocytes % (manual) 0 Myelocytes % (Manual) 0 Promyelocytes % (Manual) 0 Blast Cells % (Manual) 0 Reactive Lymphocytes 5 Platelet Estimate Decreased Sodium Level 141 136-145 mmol/L Potassium Level 4.2 3.5-5.1 mmol/L Chloride Level 97 L 98-107 mmol/L Carbon Dioxide Level 32 H 20-31 mmol/L Anion Gap 12 5-15 Blood Urea Nitrogen 57 H 9-23 mg/dL Creatinine 15.78 *H 0.700-1.30 mg/dL Glomerular Filtration Rate Calc 3 >90 mL/min BUN/Creatinine Ratio 3.6 L 10.0-20.0 Serum Glucose 201 H 74-106 mg/dL Hemoglobin A1c 6.3 H <5.7 % A1C Calcium Level 10.1 8.7-10.4 mg/dL Total Bilirubin < 0.2 L 0.2-1.0 mg/dL Aspartate Amino Transferase (AST) 30 13-40 U/L Alanine Aminotransferase (ALT) 25 7-40 U/L Alkaline Phosphatase 105 46-116 U/L B-Type Natriuretic Peptide 302.91 0-100 pg/mL Total Protein 5.3 L 5.7-8.2 g/dL Albumin 3.1 L 3.2-4.8 g/dL Lipase 84 H 12-53 U/L Assessment Cardiopulmonary arrest with ROSC Acute hypoxic respiratory failure ESRD on PD with missed treatment Insulin-dependent diabetes mellitus with acute hypoglycemic events NSTEMI, likely type II secondary to above Transient atrial fibrillation with RVR, now NSR Coronary artery disease, moderate degree HX hypertension Dyslipidemia, newly diagnosed ? Thyroid disease Thrombocytopenia Plan/Recommendation (Dr. Tucker) The patient with missed peritoneal dialysis and acute hypoglycemic events experienced cardiopulmonary arrest with ROSC. He underwent a transthoracic echocardiogram revealing an LVEF of 45% with severe concentric LVH pattern, small LV cavity, and no severe valve abnormalities noted. Continue vasopressor for hemodynamic support. Initiate beta-stefan when appropriate given transient atrial fibrillation. Anticoagulation contraindicated given thrombocytopenia. Initiate lipid lowering agent. Continue Nephrology recommendations. Monitor ECG changes and notify. DVT/VTE prophylaxis: SCDs. There are no invasive cardiac interventions recommended at this time. Thank you for allowing us to participate in this patient's care. Please call if you have any questions or concerns. Critical care time: 35 min. This medical document was created using an electronic medical record system with voice recognition software and computerized dictation system. Although this document has been carefully reviewed, there might still be some phonetic and typographical errors. Occasional wrong-word or ``sound-alike substitutions may have occurred due to the inherent limitations of voice recognition software. These areas are purely typographical due to imperfections of the software programs and do not reflect any compromise in the patient's medical care. Please read the chart carefully and recognize, using context, where these substitutions have occurred. Plan discussed with: Spouse, Son, Other NYHA Physical activity limitations: NA Date of Service: Jun 05, 2024 Billing Provider: CATHY SHEETS Cardiology Common Codes: 18032-GAUEVLOC CARE 30-74 MIN ALON TUCKER MD 06/06/24 1223: Allergies: Coded Allergies: UNOBTAINABLE (Unverified , 06/05/24) arrived CPR in progress Plan/Recommendation trop could be 2/2 to cardiac arrest out of hospital underlyng cad per family plan for PD pressors as needed Plan discussed with: Other (rn) CATHY SHEETS Jun 05, 2024 16:05 ALON TUCKER MD Jun 06, 2024 12:23
[2024-06-05] MEDS: ATORVASTATIN 20 MG TAB PO SCH (22:00)
--- NOTE | 2024-06-05 23:26 | DVHINCON2 ---
Date of service: Jun 05, 2024 Referring Physician LYNN Ruiz Reason for Consultation Acute hypoxic respiratory failure requiring mechanical ventilator, pulmonary edema, aspiration pneumonia History of Present Illness This 53-year-old man with past medical history of end-stage renal disease and diabetes is seen in the ED today orally vented. Medical history obtained from nursing staff and medical record. Unable to contact at this time. According to medical record the patient was noted to be pale, clammy, and di aphoretic and apneic. Blood sugar was obtained at that time which was in 50s, therefore was given D10. The patient was able to communicate at that time and spontaneously lost pulse, for which EMS initiated CPR. Twelve lead EKG revealing AFib with RVR. Currently on dual vasopressors for BP support. Patient was admitted for further care, and pulmonary consultation is requested for evaluation and management of acute hypoxic respiratory failure requiring mechanical ventilator, pulmonary edema, and aspiration pneumonia. Review of Systems: 14-point review of systems negative unless otherwise noted above. Past Medical History: End-stage renal disease and diabetes Past Surgical History: Peritoneal dialysis access Medications: Reviewed. Allergies: Unknown. Family History: Unknown Social History: Unknown Allergies: Coded Allergies: UNOBTAINABLE (Unverified , 06/05/24) arrived CPR in progress Current Medications Current Medications Medications (Trade) Dose Ordered Sig/Richard Route PRN Reason Start Time Stop Time Status Last Admin Propofol 100 ml @ 2.181 mls/ hr Q24H IV 06/05/24 04:15 06/05/24 20:15 Fentanyl Citrate 250 ml @ 2.5 mls/hr Q24H IV 06/05/24 04:15 Epinephrine HCl 250 ml @ 7.5 mls/hr Q24H IV 06/05/24 04:30 06/05/24 07:15 Norepinephrine Bitartrate 250 ml @ 3.75 mls/hr Q24H IV 06/05/24 05:30 06/05/24 05:30 Midazolam HCl 50 ml @ 1 mls/hr Q24H IV 06/05/24 04:35 06/05/24 07:15 Ondansetron HCl (Zofran) 4 mg Q4HP PRN IV NAUSEA / VOMITING 06/05/24 10:15 Enoxaparin Sodium (Lovenox) 40 mg DAILY SC 06/06/24 10:00 06/05/24 10:44 DC Vancomycin HCl 0 ml @ 0 mls/hr UD IV 06/05/24 10:15 Cefepime HCl 50 ml @ 12.5 mls/hr DAILY IV 06/06/24 10:00 Diagnostic Test (Pha) (Accu-Chek Comfort Curve T) 1 strip Q6HR 06/05/24 12:00 06/05/24 19:20 Insulin Human Regular (InsuLIN R) Q6HR SC 06/05/24 12:00 06/05/24 19:18 Dextrose 50 ml UD PRN IV Blood Sugar LESS THAN 60 06/05/24 10:30 Sodium Bicarbonate 50 ml/ Sodium Chloride 1,050 ml @ 50 mls/hr Q21H IV 06/05/24 10:30 06/05/24 15:06 Enoxaparin Sodium (Lovenox) 70 mg DAILY SC 06/05/24 12:00 Hold Albuterol (Ventolin Medneb) 2.5 mg Q4HPRN PRN NEB SHORTNESS OF BREATH 06/05/24 11:00 Albuterol (Ventolin Medneb) 2.5 mg Q6HR NEB 06/05/24 12:00 06/05/24 18:42 Ipratropium [place] (Atrovent Medneb) 0.5 mg Q4HPRN PRN NEB SHORTNESS OF BREATH 06/05/24 11:00 Ipratropium [place] (Atrovent Medneb) 0.5 mg Q6HR NEB 06/05/24 12:00 06/05/24 18:42 Pantoprazole Sodium (Protonix) 40 mg DAILY IV 06/06/24 10:00 Atorvastatin Calcium (Lipitor) 40 mg HS PO 06/05/24 22:00 Vital Signs Vital Signs Date Time Temp Pulse Resp B/P (MAP) Pulse Ox O2 Delivery O2 Flow Rate FiO2 06/05/24 22:30 98.8 75 18 108/55 (72) 99 209.8 101/55 (70) 06/05/24 22:00 Mechanical Ventilator+ 30 30 06/05/24 03:50 0 Physical Exam Gen.: Patient lying in bed in medical ICU. Sedated, intubated on mechanical ventilator. Head: Normocephalic, atraumatic. Eyes: PERRLA. Ears: Normal external anatomy. Throat: Endotracheal tube and orogastric tube in place. Neck: Supple, trachea midline. Chest: Transmitted breath sounds bilaterally. Decreased air entry bilaterally. No wheezing. Bibasilar crackles. Cardiovascular: Positive S1, positive S2. Regular rate and rhythm. Abdomen: Positive bowel sounds in all 4 quadrants. Soft, nontender, nondistended. : Castano in place. Normal external genitalia. Rectal: Deferred. Skin: Warm, dry. Intact. Extremities: 2+ radial pulses bilaterally. No lower extremity edema. Neuro: Sedated. Labs/Diagnostic Data Labs Test 06/05/24 19:14 06/05/24 07:11 06/05/24 06:37 06/05/24 05:00 Range/Units POC Glucose 171 H 70-106 mg/dl Lactic Acid Level 3.5 *H 0.4-2.0 mmol/L Magnesium Level 2.6 1.6-2.6 mg/dL Troponin I High Sensitivity 643 *H </=54 ng/L Blood Gas Specimen Type Arterial Blood Gas Sample Site Arterial line Blood Gas Patient Temperature 37.0 Arterial Blood Date Drawn [id number] Arterial Blood pH 7.274 L 7.350-7.450 Arterial Blood Partial Pressure CO2 49.3 H 35.0-48.0 mmHg Arterial Blood Partial Pressure O2 75.0 L 83.0-108.0 mmHg Arterial Blood HCO3 22.3 21.0-28.0 mmol/L Arterial Blood Oxygen Saturation 92.1 L 94.0-98.0 % Arterial Blood Base Excess -4.8 L -2.0-3.0 mmol/L Arterial Blood Oxyhemoglobin 90.5 L 94.0-98.0 % Arterial Blood Carboxyhemoglobin 1.3 0.5-1.5 % Arterial Blood Methemoglobin 0.4 0.0-1.5 % Kevin Test N/a Blood Gas Total Hemoglobin 13.80 13.5-17.5 g/dL Blood Gas Set Respiration Rate 18.0 Blood Gas Modality Vent - ac Blood Gas Spontaneous Rate 18 FiO2 % 50.0 Blood Gas Tidal Volume 500.0 Blood Gas PEEP or CPAP 5.0 Triglycerides Level 174 H < 150 mg/dL Cholesterol Level 208 H < 200 mg/dL LDL Cholesterol 143 H < 100 mg/dL HDL Cholesterol 33 L 40-59 mg/dL Thyroid Stimulating Hormone (TSH) 5.41 H 0.55-4.78 uIU/mL Test 06/05/24 04:47 06/05/24 04:00 Range/Units Blood Gas Critical Value Read Back Yes Blood Gas Notified Whom юлия Pinzon Blood Gas Notified Time [id number] Blood Gas Notified By Elza fernandez, constance White Blood Count 15.3 H 4.4-10.8 10^3/uL Red Blood Count 4.46 L 4.5-5.90 10^6/uL Hemoglobin 13.5 13.5-17.5 g/dL Hematocrit 41.4 41.0-53.0 % Mean Corpuscular Volume 93.0 80.0-100.0 fL Mean Corpuscular Hemoglobin 30.3 28.0-32.0 pg Mean Corpuscular Hemoglobin Concent 32.5 32.0-36.0 g/dL Red Cell Distribution Width 19.4 H 11.8-14.3 % Platelet Count 75 L 140-450 10^3/uL Mean Platelet Volume 6.8 L 6.9-10.8 fL Neutrophils (%) (Auto) 37.0-80.0 % Lymphocytes (%) (Auto) 10.0-50.0 % Monocytes (%) (Auto) 0.0-12.0 % Basophils (%) (Auto) 0.0-2.0 % Neutrophils # (Auto) 1.6-8.6 10 ^3/uL Lymphocytes # (Auto) 0.4-5.4 10 ^3/uL Monocytes # (Auto) 0-1.3 10 ^3/uL Differential Total Cells Counted 100.0 100 Neutrophils % (Manual) 47 37.0-80.0 Band Neutrophils % (Manual) 0 Lymphocytes % (Manual) 35 10.0-50.0 Monocytes % (Manual) 10 0-12 Eosinophils % (Manual) 3 0-7 Basophils % (Manual) 0 0.0-2.0 Metamyelocytes % (manual) 0 Myelocytes % (Manual) 0 Promyelocytes % (Manual) 0 Blast Cells % (Manual) 0 Reactive Lymphocytes 5 Platelet Estimate Decreased Sodium Level 141 136-145 mmol/L Potassium Level 4.2 3.5-5.1 mmol/L Chloride Level 97 L 98-107 mmol/L Carbon Dioxide Level 32 H 20-31 mmol/L Anion Gap 12 5-15 Blood Urea Nitrogen 57 H 9-23 mg/dL Creatinine 15.78 *H 0.700-1.30 mg/dL Glomerular Filtration Rate Calc 3 >90 mL/min BUN/Creatinine Ratio 3.6 L 10.0-20.0 Serum Glucose 201 H 74-106 mg/dL Hemoglobin A1c 6.3 H <5.7 % A1C Calcium Level 10.1 8.7-10.4 mg/dL Total Bilirubin < 0.2 L 0.2-1.0 mg/dL Aspartate Amino Transferase (AST) 30 13-40 U/L Alanine Aminotransferase (ALT) 25 7-40 U/L Alkaline Phosphatase 105 46-116 U/L B-Type Natriuretic Peptide 302.91 0-100 pg/mL Total Protein 5.3 L 5.7-8.2 g/dL Albumin 3.1 L 3.2-4.8 g/dL Lipase 84 H 12-53 U/L Assessment Impression: Acute hypoxic respiratory failure On mechanical ventilator S/p cardiac arrest s/p ROSC Lactic acidosis Metabolic acidosis Elevated troponin End-stage renal disease, on peritoneal dialysis Pulmonary edema. Aspiration pneumonia Atelectasis Plan: s/p intubation on mechanical ventilator. CXR image and report reviewed. Devices in place. Diffuse lung disease, probably edema or pneumonia. No pneumothorax. No pleural effusion. ABG reviewed, notable for acidemia. On AC mode; RR 18, VT 500, PEEP 5, FiO2 45% Titrate FIO2 to keep O2 saturation above 90%. VAP bundle. Daily ABG and CXR while intubated Sedate for ventilator synchrony On pressors for hemodynamic support Levophed 8 mcg/min, epinephrine 6 mcg/min Titrate to keep mean arterial pressure greater than 65 mmHg. Follow up Echo results Follow up Cardiology recommendations Continue antibiotics. F/u cultures. On bicarb drip. Monitor renal function Monitor electrolytes. Supplement as necessary. Monitor ins and outs. PD per Nephrology Follow up Nephrology recs S/p right femoral arterial line Right femoral central line removed by ID. GI prophylaxis. DVT prophylaxis. Prognosis: Poor given patient's multiple co-morbidities. Condition: Critical Rest of plan per hospitalist and other consultants. A total of 35 minutes of critical care time was spent reviewing the patient record, examining the patient, making a diagnostic and therapeutic plan, discu ssing this plan with the medical personnel, following up on diagnostic studies and following the patient for clinical stability excluding any and all procedures. At least 50% of this time was spent in direct, [id number] contact. Thank you, ALEXANDRIA Britton, for allowing me to participate in this patient's care. Further recommendations will depend on the patient's clinical course. Please do not hesitate to contact me if you have any questions or concerns. This medical document was created using an electronic medical record system with [employer] computerized dictation system. Although these documentations are being carefully reviewed, there may still be some phonetic and typographical changes. The errors are purely typographical, due to imperfection on the software [id number], and do not reflect any compromise in the patient's medical care. Plan discussed with: Spouse, Other (ALEKSANDAR Brandon, ALEKSANDAR Verma/MD Gunnar) AJIT CARDONA MD Jun 05, 2024 23:26
[2024-06-06] VITALS (104 sets, daily range): BP systolic 90–142; BP diastolic 39–68; PULSE 71–85; RESP 6–32; TEMP 97.2–100.4; O2SAT 80–100
[2024-06-06 03:53] LABS: Basophils # (auto) 0 10 ^3/uL (0-0.2); Basophils % (auto) 0.1 % (0.0-2.0); Eosinophils # (auto) 0 10 ^3/uL (0-0.8); Hematocrit 35.5 % (41.0-53.0); Hemoglobin 11.7 g/dL (13.5-17.5); Lymphocytes # (auto) 1.5 10 ^3/uL (0.4-5.4); Lymphocytes % (auto) 6.2 % (10.0-50.0); Mean Corpuscular Hgb Conc. 33.1 g/dL (32.0-36.0); Mean Corpuscular Volume 90.7 fL (80.0-100.0); Monocytes % (auto) 4.1 % (0.0-12.0); Neutrophils # (auto) 22.4 10 ^3/uL (1.6-8.6); Neutrophils % (auto) 89.6 % (37.0-80.0); Platelet Count (auto) 157 10^3/uL (140-450); Red Blood Cells 3.91 10^6/uL (4.5-5.90); Red Cell Distribution Width 19.1 % (11.8-14.3)
--- NOTE | 2024-06-06 04:06 | DVH ---
Critical finding: Examination: CXRP Clinical Indication: post cpr Comparison: None. Technique: Frontal radiograph of the chest was obtained. Findings: Mild cardiomegaly with central pulmonary venous congestion in both lungs. Inhomogeneous radiopacitie s in both lungs, predominantly in both lower lungs suggestive of patchy consolidations. No pleural e ffusion on either side in current study. There is no pneumothorax. Endotracheal tube is noted with its distal end located approximately 5.9 cm proximal to the laurie; n eeds advancement by at least approximately 2 cm. Nasogastric tube is noted with its distal end in the stomach, in appropriate position. Aortic knob calcification noted. No acute osseous abnormality is seen. Impression: 1. Mild cardiomegaly with central pulmonary venous congestion in both lungs. 2. Patchy consolidations in both lungs, predominantly in both lower lungs, likely suggestive of pulm onary edema in the appropriate clinical setting. Advised clinical correlation. 3. Endotracheal tube is noted with its distal end located approximately 5.9 cm proximal to the ishan a, needs advancement by at least approximately 2 cm. 4. Nasogastric tube noted with its distal end in the stomach, in appropriate position. Electronically Signed 06/06/2024 04:05 Ángela Ruiz
[2024-06-06 04:36] LABS: Alanine Aminotransferase 36 U/L (7-40); Alkaline Phosphatase 76 U/L (46-116); Calcium 8.8 mg/dL (8.7-10.4); Carbon Dioxide 22 mmol/L (20-31); Potassium 4.4 mmol/L (3.5-5.1)
[2024-06-06 04:37] LABS: Anion Gap 17 (5-15); BUN/Creatinine Ratio 4.7 (10.0-20.0)
[2024-06-06 04:38] LABS: Aspartate Aminotransferase 31 U/L (13-40)
[2024-06-06 04:40] LABS: Albumin 3.1 g/dL (3.2-4.8); Bilirubin, Total 0.2 mg/dL (0.2-1.0); Blood Urea Nitrogen 75 mg/dL (9-23); Chloride 93 mmol/L (98-107); Glucose 170 mg/dL (74-106); Sodium 132 mmol/L (136-145); Total Protein 5.2 g/dL (5.7-8.2)
[2024-06-06 08:00] LABS: Base Excess -2.9 mmol/L (-2.0-3.0)
[2024-06-06] MEDS: PANTOPRAZOLE 40 MG/10 ML VIAL INJ IV SCH (09:48)
[2024-06-06] MEDS: CEFEPIME 1GM/ 50ML 50 ML IV SCH (09:49)
--- NOTE | 2024-06-06 09:50 | ECG ---
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
[2024-06-06] MEDS ORDERED: ENOXAPARIN SOD 40 MG/0.4 ML SYRINGE SC SCH (10:00)
--- NOTE | 2024-06-06 11:18 | DVH ---
INDICATION: madi TECHNIQUE: Multiple real-time sonographic images of the kidneys and bladder were obtained. COMPARISON: None FINDINGS: The right kidney measures 8.4 cm in length, which is normal in size. There is increased echogenicity of the right kidney. No hydronephrosis. There is a right renal cyst measuring 1 cm. The left kidney measures 9.1 cm in length, which is normal in size. There is increased echogenicity o f the left kidney. No hydronephrosis. There is a subcentimeter nonobstructive left renal calcificatio n The urinary bladder is decompressed with Castano catheter. Small volume ascites. IMPRESSION: Echogenic bilateral kidneys suggestive of chronic medical renal disease. No hydronephrosis. Small vol ume ascites.
[2024-06-06 11:43] LABS: Magnesium 2.5 mg/dL (1.6-2.6)
[2024-06-06 11:52] LABS: Phosphorus 5.5 mg/dL (2.4-5.1)
--- NOTE | 2024-06-06 11:55 | DVHPN2 ---
Progress Note Date Seen: Jun 06, 2024 Medical Necessity Reason Pt with a Central, PICC or Fol: No Subjective Other Systems: intubated sedated on 1 pressor Objective vital signs Vital Sign Date Time Temp Pulse Resp B/P (MAP) Pulse Ox O2 Delivery O2 Flow Rate FiO2 06/06/24 11:22 110/45 06/06/24 10:02 79 20 99 30 06/06/24 08:45 99.3 210.7 06/06/24 06:00 Mechanical Ventilator+ 06/05/24 03:50 0 Total Intake and Output 06/05/24 06/05/24 06/06/24 15:00 23:00 07:00 Intake Total 2506.98 ml 1401.78 ml 827.46 ml Output Total 0 ml Balance 2506.98 ml 1401.78 ml 827.46 ml medications Current Medications Medications Dose Ordered Sig/Richard Route Start Time Stop Time Status Last Admin Dose Admin Propofol 100 ml @ 2.181 mls/ hr Q24H IV 06/05/24 04:15 06/06/24 11:22 19.629 MLS/HR Fentanyl Citrate 250 ml @ 2.5 mls/hr Q24H IV 06/05/24 04:15 Epinephrine HCl 250 ml @ 7.5 mls/hr Q24H IV 06/05/24 04:30 06/05/24 07:15 22.5 MLS/HR Norepinephrine Bitartrate 250 ml @ 3.75 mls/hr Q24H IV 06/05/24 05:30 06/06/24 11:22 18.75 MLS/HR Midazolam HCl 50 ml @ 1 mls/hr Q24H IV 06/05/24 04:35 06/06/24 05:56 8 MLS/HR Ondansetron HCl 4 mg Q4HP PRN IV 06/05/24 10:15 Vancomycin HCl 0 ml @ 0 mls/hr UD IV 06/05/24 10:15 Cefepime HCl 50 ml @ 12.5 mls/hr DAILY IV 06/06/24 10:00 06/06/24 09:49 12.5 MLS/HR Diagnostic Test (Pha) 1 strip Q6HR 06/05/24 12:00 06/06/24 05:57 1 STRIP Insulin Human Regular Q6HR SC 06/05/24 12:00 06/06/24 05:38 3 UNITS Dextrose 50 ml UD PRN IV 06/05/24 10:30 Sodium Bicarbonate 50 ml/ Sodium Chloride 1,050 ml @ 50 mls/hr Q21H IV 06/05/24 10:30 06/05/24 15:06 50 MLS/HR Enoxaparin Sodium 70 mg DAILY SC 06/05/24 12:00 Hold Albuterol 2.5 mg Q4HPRN PRN NEB 06/05/24 11:00 Albuterol 2.5 mg Q6HR NEB 06/05/24 12:00 06/06/24 06:39 2.5 MG Ipratropium [place] 0.5 mg Q4HPRN PRN NEB 06/05/24 11:00 Ipratropium [place] 0.5 mg Q6HR NEB 06/05/24 12:00 06/06/24 06:39 0.5 MG Pantoprazole Sodium 40 mg DAILY IV 06/06/24 10:00 06/06/24 09:48 40 MG Atorvastatin Calcium 40 mg HS PO 06/05/24 22:00 06/06/24 09:48 40 MG Peritoneal Dialysis Solution 2,000 ml @ 0 mls/hr Q4HR IP 06/06/24 14:00 Examination: GENERAL:Abnormal, HEENT:Abnormal, LUNGS:Abnormal, CVS:Abnormal, ABDOMEN:Abnormal laboratory and microbiology Laboratory Tests 06/06/24 03:10 Test 06/06/24 03:10 Range/Units Serum Glucose 170 H 74-106 mg/dL Microbiology Date/Time Source Procedure Growth Status 06/05/24 18:40 Nose MRSA Screen - Final Complete 06/05/24 05:00 Blood Blood Culture - Preliminary NO GROWTH AFTER 24 HOURS OF INCUBATION. Resulted Problem List/Assessment/Plan Problem List/Assessment/Plan cardiac arrest out of hospital afib rvr nstemi esrd on PD hypoglycemic episode r/o aspiration acidemia on admit currently SR cont lovenox, PLT was low but is normal now, echo shows mild CHF per family, pt will get eval for revasc with their own cards as outpt asa daily statin PD today planned wean off 1 remaining pressor after PD today, consider daily awakening and extubation when feasible with specialist Plan discussed with: Patient Date of Service: Jun 06, 2024 Billing Provider: ALON TUCKER MD Common Visit Codes: NOT BILLABLE ALON TUCKER MD Jun 06, 2024 11:55
[2024-06-06 12:31] LABS: Hepatitis B Surface Antigen Negative (Negative)
--- NOTE | 2024-06-06 12:41 | DVHINCON2 ---
Date of service: Jun 06, 2024 Referring Physician Graciela Snow, nurse practitioner Reason for Consultation End-stage renal disease to manage peritoneal dialysis History of Present Illness Patient is a 53-year-old male with past medical history significant for diabetes mellitus type 2, hypertension and congestive heart failure on home protein dialysis followed by his dialysis unit at [place] apparently patient wi th visiting with his to his son here up in the [place] area where patient become pale diaphoretic with hypoglycemia EMS was activated patient apparently with throwing up and aspirated subsequently developed cardiac arrest patient is intubated and admitted to the ICU. Nephrology is consulted to manage her peritoneal dialysis Past Medical History Diabetes mellitus, hypertension, Congestive heart failure, End-stage renal disease on home protein hemodialysis Past Surgical History Protein dialysis catheter Allergies: Coded Allergies: UNOBTAINABLE (Unverified , 06/05/24) arrived CPR in progress Current Medications Current Medications Medications (Trade) Dose Ordered Sig/Richard Route PRN Reason Start Time Stop Time Status Last Admin Enoxaparin Sodium (Lovenox) 40 mg DAILY SC 06/06/24 10:00 06/05/24 10:44 DC Cefepime HCl 50 ml @ 12.5 mls/hr DAILY IV 06/06/24 10:00 06/06/24 09:49 Pantoprazole Sodium (Protonix) 40 mg DAILY IV 06/06/24 10:00 06/06/24 09:48 Atorvastatin Calcium (Lipitor) 40 mg HS PO 06/05/24 22:00 06/06/24 09:48 Peritoneal Dialysis Solution 2,000 ml @ 0 mls/hr Q4HR IP 06/07/24 06:00 06/07/24 21:00 Family History: Chronic liver disease G8 BROTHER Diabetes mellitus G8 MOTHER G8 FATHER G8 BROTHER G8 BROTHER G8 BROTHER G8 BROTHER G8 BROTHER FH: chronic kidney disease G8 MOTHER G8 FATHER G8 BROTHER G8 BROTHER G8 BROTHER Hypertension G8 MOTHER G8 FATHER G8 BROTHER G8 BROTHER G8 BROTHER G8 BROTHER G8 BROTHER Liver cancer G8 BROTHER Liver disease G8 BROTHER Liver transplant G8 BROTHER Review of Systems Review of systems can not be obtained H&P Exam Vital Signs/I&O Vital Sign Date Time Temp Pulse Resp B/P (MAP) Pulse Ox O2 Delivery O2 Flow Rate FiO2 06/06/24 12:21 96/40 06/06/24 10:02 79 20 99 30 06/06/24 08:45 99.3 210.7 06/06/24 06:00 Mechanical Ventilator+ 06/05/24 03:50 0 Intake and Output 06/05/24 06/06/24 19:00 07:00 Intake Total 3374.96 ml 1361.26 ml Output Total 0 ml Balance 3374.96 ml 1361.26 ml Intake Oral 60 ml IV Total 3374.96 ml 1301.26 ml Output Urine Total 0 ml Physical Exam Patient intubated on ventilator Lungs clear to auscultation bilaterally Cardiac exam regular rate and rhythm GI soft nontender bowel sounds are present normal Extremity 1+ edema Neuro patient is a sedated Labs/Diagnostic Data Labs/Diagnostic Data Laboratory Tests Test 06/06/24 11:33 06/06/24 07:32 06/06/24 03:10 06/05/24 23:39 Range/Units Hepatitis B Surface Antigen Negative Negative Blood Gas Specimen Type Arterial Blood Gas Sample Site Arterial line Blood Gas Patient Temperature 37.0 Arterial Blood Date Drawn [id number] Arterial Blood pH 7.380 7.350-7.450 Arterial Blood Partial Pressure CO2 37.7 35.0-48.0 mmHg Arterial Blood Partial Pressure O2 85.1 83.0-108.0 mmHg Arterial Blood HCO3 21.8 21.0-28.0 mmol/L Arterial Blood Oxygen Saturation 95.5 94.0-98.0 % Arterial Blood Base Excess -2.9 L -2.0-3.0 mmol/L Arterial Blood Oxyhemoglobin 93.9 L 94.0-98.0 % Arterial Blood Carboxyhemoglobin 1.5 0.5-1.5 % Arterial Blood Methemoglobin 0.2 0.0-1.5 % Kevin Test N/a Blood Gas Total Hemoglobin 12.30 L 13.5-17.5 g/dL Blood Gas Set Respiration Rate 18.0 Blood Gas Modality Vent - ac Blood Gas Spontaneous Rate 19 FiO2 % 30.0 Blood Gas Tidal Volume 500.0 Blood Gas PEEP or CPAP 5.0 White Blood Count 25.0 #H 4.4-10.8 10^3/uL Red Blood Count 3.91 L 4.5-5.90 10^6/uL Hemoglobin 11.7 L 13.5-17.5 g/dL Hematocrit 35.5 #L 41.0-53.0 % Mean Corpuscular Volume 90.7 80.0-100.0 fL Mean Corpuscular Hemoglobin 30.0 28.0-32.0 pg Mean Corpuscular Hemoglobin Concent 33.1 32.0-36.0 g/dL Red Cell Distribution Width 19.1 H 11.8-14.3 % Platelet Count 157 # 140-450 10^3/uL Mean Platelet Volume 7.5 6.9-10.8 fL Neutrophils (%) (Auto) 89.6 H 37.0-80.0 % Lymphocytes (%) (Auto) 6.2 L 10.0-50.0 % Monocytes (%) (Auto) 4.1 0.0-12.0 % Eosinophils (%) (Auto) 0.0 0.0-7.0 % Basophils (%) (Auto) 0.1 0.0-2.0 % Neutrophils # (Auto) 22.4 H 1.6-8.6 10 ^3/uL Lymphocytes # (Auto) 1.5 0.4-5.4 10 ^3/uL Monocytes # (Auto) 1.0 0-1.3 10 ^3/uL Eosinophils # (Auto) 0 0-0.8 10 ^3/uL Basophils # (Auto) 0 0-0.2 10 ^3/uL Nucleated Red Blood Cells 0.0 % Sodium Level 132 #L 136-145 mmol/L Potassium Level 4.4 3.5-5.1 mmol/L Chloride Level 93 L 98-107 mmol/L Carbon Dioxide Level 22 # 20-31 mmol/L Anion Gap 17 H 5-15 Blood Urea Nitrogen 75 #H 9-23 mg/dL Creatinine 15.88 *H 0.700-1.30 mg/dL Glomerular Filtration Rate Calc 3 >90 mL/min BUN/Creatinine Ratio 4.7 L 10.0-20.0 Serum Glucose 170 H 74-106 mg/dL Calcium Level 8.8 8.7-10.4 mg/dL Phosphorus Level 5.5 H 2.4-5.1 mg/dL Magnesium Level 2.5 1.6-2.6 mg/dL Total Bilirubin 0.2 0.2-1.0 mg/dL Aspartate Amino Transferase (AST) 31 13-40 U/L Alanine Aminotransferase (ALT) 36 7-40 U/L Alkaline Phosphatase 76 46-116 U/L Total Protein 5.2 L 5.7-8.2 g/dL Albumin 3.1 L 3.2-4.8 g/dL Random Vancomycin Level 24.1 H 5-10 ug/mL POC Glucose 179 H 70-106 mg/dl Test 06/05/24 19:14 06/05/24 12:04 06/05/24 07:30 06/05/24 07:11 Range/Units POC Glucose 171 H 158 H 194 H 70-106 mg/dl Lactic Acid Level 3.5 *H 0.4-2.0 mmol/L Magnesium Level 2.6 1.6-2.6 mg/dL Troponin I High Sensitivity 643 *H </=54 ng/L Test 06/05/24 06:37 06/05/24 05:00 06/05/24 04:47 06/05/24 04:00 Range/Units Blood Gas Specimen Type Arterial Arterial Blood Gas Sample Site Arterial line Arterial line Blood Gas Patient Temperature 37.0 37.0 Arterial Blood Date Drawn [id number] Arterial Blood pH 7.274 L 7.165 *L 7.350-7.450 Arterial Blood Partial Pressure CO2 49.3 H 49.5 H 35.0-48.0 mmHg Arterial Blood Partial Pressure O2 75.0 L 440.2 *H 83.0-108.0 mmHg Arterial Blood HCO3 22.3 17.4 L 21.0-28.0 mmol/L Arterial Blood Oxygen Saturation 92.1 L 99.8 H 94.0-98.0 % Arterial Blood Base Excess -4.8 L -11.2 L -2.0-3.0 mmol/L Arterial Blood Oxyhemoglobin 90.5 L 98.3 H 94.0-98.0 % Arterial Blood Carboxyhemoglobin 1.3 1.1 0.5-1.5 % Arterial Blood Methemoglobin 0.4 0.4 0.0-1.5 % Kevin Test N/a N/a Blood Gas Total Hemoglobin 13.80 14.10 13.5-17.5 g/dL Blood Gas Set Respiration Rate 18.0 18.0 Blood Gas Modality Vent - ac Vent - ac Blood Gas Spontaneous Rate 18 FiO2 % 50.0 100.0 Blood Gas Tidal Volume 500.0 500.0 Blood Gas PEEP or CPAP 5.0 5.0 Lactic Acid Level 6.7 *H 0.4-2.0 mmol/L Troponin I High Sensitivity 698 *H 566 *H </=54 ng/L Triglycerides Level 174 H < 150 mg/dL Cholesterol Level 208 H < 200 mg/dL LDL Cholesterol 143 H < 100 mg/dL HDL Cholesterol 33 L 40-59 mg/dL Thyroid Stimulating Hormone (TSH) 5.41 H 0.55-4.78 uIU/mL Blood Gas Critical Value Read Back Yes Blood Gas Notified Whom юлия Pinzon Blood Gas Notified Time [id number] Blood Gas Notified By Elza fernandez rrt White Blood Count 15.3 H 4.4-10.8 10^3/uL Red Blood Count 4.46 L 4.5-5.90 10^6/uL Hemoglobin 13.5 13.5-17.5 g/dL Hematocrit 41.4 41.0-53.0 % Mean Corpuscular Volume 93.0 80.0-100.0 fL Mean Corpuscular Hemoglobin 30.3 28.0-32.0 pg Mean Corpuscular Hemoglobin Concent 32.5 32.0-36.0 g/dL Red Cell Distribution Width 19.4 H 11.8-14.3 % Platelet Count 75 L 140-450 10^3/uL Mean Platelet Volume 6.8 L 6.9-10.8 fL Neutrophils (%) (Auto) 37.0-80.0 % Lymphocytes (%) (Auto) 10.0-50.0 % Monocytes (%) (Auto) 0.0-12.0 % Basophils (%) (Auto) 0.0-2.0 % Neutrophils # (Auto) 1.6-8.6 10 ^3/uL Lymphocytes # (Auto) 0.4-5.4 10 ^3/uL Monocytes # (Auto) 0-1.3 10 ^3/uL Differential Total Cells Counted 100.0 100 Neutrophils % (Manual) 47 37.0-80.0 Band Neutrophils % (Manual) 0 Lymphocytes % (Manual) 35 10.0-50.0 Monocytes % (Manual) 10 0-12 Eosinophils % (Manual) 3 0-7 Basophils % (Manual) 0 0.0-2.0 Metamyelocytes % (manual) 0 Myelocytes % (Manual) 0 Promyelocytes % (Manual) 0 Blast Cells % (Manual) 0 Reactive Lymphocytes 5 Platelet Estimate Decreased Sodium Level 141 136-145 mmol/L Potassium Level 4.2 3.5-5.1 mmol/L Chloride Level 97 L 98-107 mmol/L Carbon Dioxide Level 32 H 20-31 mmol/L Anion Gap 12 5-15 Blood Urea Nitrogen 57 H 9-23 mg/dL Creatinine 15.78 *H 0.700-1.30 mg/dL Glomerular Filtration Rate Calc 3 >90 mL/min BUN/Creatinine Ratio 3.6 L 10.0-20.0 Serum Glucose 201 H 74-106 mg/dL Hemoglobin A1c 6.3 H <5.7 % A1C Calcium Level 10.1 8.7-10.4 mg/dL Total Bilirubin < 0.2 L 0.2-1.0 mg/dL Aspartate Amino Transferase (AST) 30 13-40 U/L Alanine Aminotransferase (ALT) 25 7-40 U/L Alkaline Phosphatase 105 46-116 U/L B-Type Natriuretic Peptide 302.91 0-100 pg/mL Total Protein 5.3 L 5.7-8.2 g/dL Albumin 3.1 L 3.2-4.8 g/dL Lipase 84 H 12-53 U/L Microbiology Date/Time Source Procedure Growth Status 06/05/24 18:40 Nose MRSA Screen - Final Complete Assessment End-stage renal disease on home protein dialysis Acute respiratory failure intubated on ventilator Status post cardiac arrest Septic shock Aspiration pneumonia Congestive heart failure, ejection fraction 45% Anemia of chronic kidney disease, well compensated Recommendations Start peritoneal dialysis five exchanges per 24 hours using 2.5% and 4.25% Leidy shiela PD solution Send PD fluid for white blood cell count and culture and sensitivity Closely monitor fluid and electrolytes IV antibiotics IV pressors Maintain map more than 65 mm Hg Blood cultures Pulmonary consult Cardiology consult We will continue to follow Patient seen and examined by myself ICU bed 10. Critical care time 35 minutes. I discussed my plan of care with the and the primary nurse at the bedside I would like to thank Graciela for the consult, will follow Plan discussed with: Spouse, Other (Nurse) OLEKSANDR JASSO MD Jun 06, 2024 12:41
[2024-06-06 12:54] LABS: Hepatitis C Antibody Negative (Negative)
[2024-06-06] MEDS: CALCIUM ACETATE 667 MG CAP NG SCH (14:00)
[2024-06-06] MEDS: PERITONEAL DIALYSIS 2.5% SOLN 2,000 ML IP SCH (14:00)
[2024-06-06 16:16] LABS: Urine Bacteria None Seen /hpf (None Seen)
--- NOTE | 2024-06-06 16:40 | DVH ---
CT brain without contrast CLINICAL INDICATION: Altered mental status FINDINGS: The study was performed in a multidetector scanner. This study performed taking axial imag es from the skull base up to the vertex. Both brain and bone windows are photographed. Dose lowering techniques have been used including automated exposure control and adjustment of mA and /or KV according to patient size. No intraparenchymal hemorrhage or edema. No extra-axial hemorrhage. No hydrocephalus or midline shift No calvarial fractures There is soft tissue swelling in the left temporal region. Air-fluid level in the right maxillary sinus. Air-fluid levels in the ethmoid sinus. Mucosal thickeni ng in the left maxillary sinus. IMPRESSION: 1. No acute intracranial pathology in the brain. Mild cortical atrophy Severe paranasal sinus disease Soft tissue swelling left temporal scalp Computed Tomographic Radiation Dosimetry Report: Total CTDI vol = 65 mGy Total DLP = 1293 mGy-cm All CT scans at this medical facility are performed using dose modulation techniques as appropriate t o a performed exam including the following: Automated exposure control was utilized; adjustment of the MA and/or KvP according to patient size; a nd use of iterative reconstruction technique.
[2024-06-06 17:23] LABS: Urine Blood TRACE /uL (Negative); Urine Clarity Clear (Clear); Urine Color Colorless (Yellow); Urine Protein, UAD 2+ (Negative); Urine Specific Gravity 1.011 (1.001-1.035); Urine Squamous Epithelial Cell None Seen /hpf (<5); Urine Urobilinogen Normal (Negative); Urine WBC 1 /hpf (0 - 3); Urine pH 7.5 (5.0-9.0)
[2024-06-06 17:45] LABS: Amphetamine Screen, Urine Neg (NEGATIVE); Barbiturate Scree,Urine Neg (NEGATIVE); Benzodiazephine Screen, Urine Pos (NEGATIVE); Cannabinoid Screen, Urine Neg (NEGATIVE); Cocaine Screen, Urine Neg (NEGATIVE); Creatinine, Urine 14.89 mg/dL (30.0-125.0); Opiate Scree,Urine Neg (NEGATIVE); Phencyclidine Screen, Urine Neg (NEGATIVE)
[2024-06-06 18:01] LABS: Protein, Urine 222.9 mg/dL (1-14)
[2024-06-06 18:04] LABS: Creatinine, Urine 15.02 mg/dL (30.0-125.0); Urine Protein/Creatinine Ratio 14.84
--- NOTE | 2024-06-06 18:27 | DVHPNRES ---
Progress Note Date Seen: Jun 06, 2024 Resident Creating Document: PAUL FRYE RESIDENT Medical Necessity Reason Pt with a Central, PICC or Fol: Yes The following are medically ne: Central Line, Castano Catheter Subjective Review of Systems YOLI GALICIA is a 53-year-old male with a PMH of type 2 DM, ESRD on peritoneal dialysis, HTN presented to the ED with cardiopulmonary arrest. Per on the day of admission patient went to the bathroom in the middle of the night at 2:00 a.m., and he is unable to respond properly when call him become quickly unresponsive, diaphoretic, pale, call me and blood sugar was 50s then called EMS, arrived, patient was able to communicate at the time and spontaneously collapse, initiated CPR, and in ER CPR was continued for 14 minutes and obtain his ROSC., patient is intubated, shifted to ICU. patient seen and examined at the bedside along with the family. Unable to obtain ROS due to patient clinical status. Currently intubated with the mechanical ventilation. Monitor . Objective vital signs Vital Sign Date Time Temp Pulse Resp B/P (MAP) Pulse Ox O2 Delivery O2 Flow Rate FiO2 06/06/24 16:00 98.2 75 19 127/51 (76) 208.8 128/64 (85) 06/06/24 15:55 99 30 06/06/24 06:00 Mechanical Ventilator+ 06/05/24 03:50 0 Total Intake and Output 06/05/24 06/05/24 06/06/24 14:59 22:59 06:59 Intake Total 2479.48 ml 1217.28 ml 944.65 ml Output Total 0 ml Balance 2479.48 ml 1217.28 ml 944.65 ml medications Current Medications Medications Dose Ordered Sig/Richard Route Start Time Stop Time Status Last Admin Dose Admin Propofol 100 ml @ 2.181 mls/ hr Q24H IV 06/05/24 04:15 06/06/24 15:33 15.267 MLS/HR Fentanyl Citrate 250 ml @ 2.5 mls/hr Q24H IV 06/05/24 04:15 Epinephrine HCl 250 ml @ 7.5 mls/hr Q24H IV 06/05/24 04:30 06/05/24 07:15 22.5 MLS/HR Norepinephrine Bitartrate 250 ml @ 3.75 mls/hr Q24H IV 06/05/24 05:30 06/06/24 11:22 18.75 MLS/HR Midazolam HCl 50 ml @ 1 mls/hr Q24H IV 06/05/24 04:35 06/06/24 12:21 6 MLS/HR Vancomycin HCl 0 ml @ 0 mls/hr UD IV 06/05/24 10:15 Cefepime HCl 50 ml @ 12.5 mls/hr DAILY IV 06/06/24 10:00 06/06/24 09:49 12.5 MLS/HR Diagnostic Test (Pha) 1 strip Q6HR 06/05/24 12:00 06/06/24 12:59 1 STRIP Insulin Human Regular Q6HR SC 06/05/24 12:00 06/06/24 05:38 3 UNITS Dextrose 50 ml UD PRN IV 06/05/24 10:30 Albuterol 2.5 mg Q4HPRN PRN NEB 06/05/24 11:00 Albuterol 2.5 mg Q6HR NEB 06/05/24 12:00 06/06/24 12:44 2.5 MG Ipratropium [place] 0.5 mg Q4HPRN PRN NEB 06/05/24 11:00 Ipratropium [place] 0.5 mg Q6HR NEB 06/05/24 12:00 06/06/24 12:44 0.5 MG Pantoprazole Sodium 40 mg DAILY IV 06/06/24 10:00 06/06/24 09:48 40 MG Peritoneal Dialysis Solution 2,000 ml @ 0 mls/hr DAILY@0600,1000,1400,1800 IP 06/07/24 06:00 Peritoneal Dialysis Solution 2,000 ml @ 0 mls/hr DAILY@1400,1800 IP 06/06/24 14:00 06/06/24 19:00 06/06/24 14:00 0 MLS/HR Peritoneal Dialysis Solution 2,000 ml DAILY IP 06/06/24 22:00 Calcium Acetate 667 mg TID NG 06/06/24 14:00 06/06/24 14:00 667 MG Examination Pt is lying on bed, General Appearance: Sedated, on mechanical ventilation HEENT: Atraumatic, Mucous membranes moist/pink Respiratory: Clear to auscultation, Normal air movement, No added sounds Cardiovascular: Regular rate, Normal S1, Normal S2, No murmurs Abdominal: Active bowel sounds, Soft, distended likely due to fluid overload, peritoneal dialysis shunt intact Extremities: edematous upper extremities but normal lower extremities Skin: No Significant rash, except past surgical scars Neuro: pupils are constricted Nurse was there as sharperone during examination laboratory and microbiology Laboratory Tests 06/06/24 03:10 Test 06/06/24 03:10 Range/Units Serum Glucose 170 H 74-106 mg/dL Microbiology Date/Time Source Procedure Growth Status 06/05/24 18:40 Nose MRSA Screen - Final Complete 06/05/24 05:00 Blood Blood Culture - Preliminary NO GROWTH AFTER 24 HOURS OF INCUBATION. Resulted Labs and/or images reviewed: Labs reviewed by me, Image(s) reviewed by me Problem List/Assessment/Plan Problem List/Assessment/Plan NEUROLOGY # ? anoxic/ hypoxic encephalopathy # ? anoxic brain injury - currently on mechanical ventilator - ordered head CT, pending CARDIOVASCULAR # cardiopulmonary arrest status post CPR with ROSC # Septic shock likely due to peritoneal origin # NSTEMI likely due to demand mediated # ? acute on chronic diastolic heart failure # Coronary artery disease, moderate degree # HX hypertension # Dyslipidemia, newly diagnosed - ordered pancultures, along with peritoneal fluid analysis and culture - monitor lab - Levophed, propofol, epinephrine,midazolam, fentanyl started on 06/05 - echo showed LVEF 45% - currently on vancomycin and cefepime # Acute transient AFib with RVR - monitor - correct electrolytes if needed - cardiology on board RESPIRATORY # Acute hypoxic respiratory failure likely due to septic shocks # septic shock # ? aspiration pneumonia - ABG reviewed, CXR dialy - CXR reviewed, , diffuse lung disease likely edema or pneumonia - currently on vancomycin and cefepime - ventilatory settings: RRR 18, VT 500, peep 5, FiO2 30% GI/LIVER # likely bacterial peritonitis - currently on antibiotics - monitor lab - Fluid sent to culture and cell count - PUD prophylaxis pantoprazole /KIDNEY/METABOLIC # ESRD on peritoneal dialysis - Nephrology onboard - currently undergoing peritoneal dialysis - Monitor renal function - Monitor electrolytes. Supplement as necessary. - Monitor ins and outs. ENDO # type 2 DM with HbA1c 6.3 - Accu-Cheks and ISS MSK HEME # Thrombocytopenia - monitor lab - hold heparin ID # likely bacterial peritonitis # septic shock likely due to above - currently on antibiotics - monitor lab - Fluid sent to culture and cell count SKIN - Intact peritoneal dialysis catheter LINES Right femoral vein catheter 0n 06/05 Castano catheter DRIPS Levophed Versed, Diprivan NUTRITION Nepro 30ml/hr Goals of care/advance care planning; FULL CODE; discussed on for 27 minutes. PUD prophylaxis: Pantoprazole DVT prophylaxis: HOLD Heparin due low platelets Goals of care has been discussed with the for more than 27 minutes, full code status Critical care time including chart review, discussing with the patient's family excluding procedures: 81 minutes Case discussed with Dr. Tanner. Plan discussed with: Spouse My Orders My Orders Orders - PAUL FRYE Procedure Category Date Status Time Head Without Contrast CT 06/06/24 Resulted 15:53 Body Fluid Ph LAB 06/06/24 Logged 15:53 Body Fluids, Diff. LAB 06/06/24 Logged Cell Count 15:53 Protein, Body Fluid LAB 06/06/24 Logged 15:53 Lactate LAB 06/06/24 Logged Dehydrogenase, Fluid 15:53 Complete Blood Count LAB 06/07/24 Verified 04:00 Comprehensive LAB 06/07/24 Verified Metabolic Panel 04:00 Lactic Acid W/ Reflex LAB 06/07/24 Verified Order 04:00 Magnesium LAB 06/07/24 Verified 04:00 PTPTT LAB 06/06/24 Logged 15:55 Chest Xray 1 View XY 06/07/24 Logged 04:00 Date of Service: Jun 06, 2024 Billing Provider: JOSE TANNER MD Common Visit Codes: [id number] CARE 30-74 MIN, [id number] CARE-EACH +30MIN PAUL FRYE Jun 06, 2024 18:27 JOSE TANNER MD Jun 07, 2024 14:52
[2024-06-06] MEDS ORDERED: CLON-818 PO (19:12)
[2024-06-06] MEDS ORDERED: MIN25T PO (19:12)
[2024-06-06] MEDS: PERITONEAL DIALYSIS 4.25% IP SCH (21:17)
[2024-06-06] MEDS: PERITONEAL DIALYSIS 2.5% IP ONE (22:20)
[2024-06-07] VITALS (97 sets, daily range): BP systolic 105–208; BP diastolic 36–95; PULSE 80–104; RESP 7–35; TEMP 96.6–100.9; O2SAT 88–100
[2024-06-07 03:49] LABS: Basophils # (auto) 0.1 10 ^3/uL (0-0.2); Basophils % (auto) 0.3 % (0.0-2.0); Eosinophils # (auto) 0.1 10 ^3/uL (0-0.8); Eosinophils % (auto) 0.4 % (0.0-7.0); Hematocrit 32.9 % (41.0-53.0); Lymphocytes % (auto) 5.5 % (10.0-50.0); Mean Corpuscular Hemoglobin 30.2 pg (28.0-32.0); Mean Corpuscular Hgb Conc. 33.3 g/dL (32.0-36.0); Mean Corpuscular Volume 90.6 fL (80.0-100.0); Monocytes % (auto) 5.6 % (0.0-12.0); Neutrophils # (auto) 15.7 10 ^3/uL (1.6-8.6); Neutrophils % (auto) 88.2 % (37.0-80.0); Platelet Count (auto) 98 10^3/uL (140-450); Red Blood Cells 3.63 10^6/uL (4.5-5.90); Red Cell Distribution Width 19.8 % (11.8-14.3); White Blood Cell 17.8 10^3/uL (4.4-10.8)
[2024-06-07 03:59] LABS: Alanine Aminotransferase 26 U/L (7-40); Alkaline Phosphatase 75 U/L (46-116); Anion Gap 17 (5-15); Aspartate Aminotransferase 27 U/L (13-40); BUN/Creatinine Ratio 4.9 (10.0-20.0); Calcium 9.1 mg/dL (8.7-10.4); Carbon Dioxide 21 mmol/L (20-31); Magnesium 2.4 mg/dL (1.6-2.6); Potassium 3.9 mmol/L (3.5-5.1)
[2024-06-07 04:05] LABS: Chloride 94 mmol/L (98-107); Glucose 198 mg/dL (74-106); INR 1.07 (0.9-1.15); Partial Thromboplastin Time 29.1 SEC (24.5-34.5); Prothrombin Time 11.3 sec (9.3-11.8); Sodium 132 mmol/L (136-145)
[2024-06-07 04:06] LABS: Albumin 3.1 g/dL (3.2-4.8); Bilirubin, Total 0.2 mg/dL (0.2-1.0); Total Protein 5.3 g/dL (5.7-8.2)
[2024-06-07 04:07] LABS: Blood Urea Nitrogen 80 mg/dL (9-23)
--- NOTE | 2024-06-07 05:20 | DVH ---
CHEST RADIOGRAPH Indication: PNA Technique: Single frontal view of the chest was obtained COMPARISON: XY CHEST PORTABLE on DOS: 06/06/24, XY CHEST PORTABLE on DOS: 06/05/24 FINDINGS: Lines and Tubes: Endotracheal tube and enteric catheter in satisfactory position. Lungs: Right lower lobe airspace disease. Pleura: No effusion. No pneumothorax. Cardiomediastinal contours: Unremarkable Bones: Unremarkable IMPRESSION: Lines and tubes in satisfactory position. No significant interval change.
[2024-06-07] MEDS: PERITONEAL DIALYSIS 2.5% SOLN 2,000 ML IP SCH (05:29)
[2024-06-07 05:38] LABS: Platelet Estimate Decreased
[2024-06-07 07:14] LABS: Base Excess -4.4 mmol/L (-2.0-3.0)
--- NOTE | 2024-06-07 10:01 | DVHPN2 ---
Progress Note Date Seen: Jun 07, 2024 Medical Necessity Reason Pt with a Central, PICC or Fol: Yes The following are medically ne: Central Line, Castano Catheter Subjective Review of Systems: RESPIRATORY:Abnormal Other Systems: Patient seen and examined by myself today in follow-up, patient remained intubated on ventilator Objective vital signs Vital Sign Date Time Temp Pulse Resp B/P (MAP) Pulse Ox O2 Delivery O2 Flow Rate FiO2 06/07/24 09:30 100.0 94 18 140/57 (84) 100 212.0 139/64 (89) 06/07/24 08:27 30 06/07/24 08:00 Mechanical Ventilator+ Total Intake and Output 06/06/24 06/06/24 06/07/24 15:00 23:00 07:00 Intake Total 596.641 ml 6196.539 ml 2203.4 ml Output Total 0 ml Balance 596.641 ml 6196.539 ml 2203.4 ml medications Current Medications Medications Dose Ordered Sig/Richard Route Start Time Stop Time Status Last Admin Dose Admin Propofol 100 ml @ 2.181 mls/ hr Q24H IV 06/05/24 04:15 06/07/24 05:31 13.086 MLS/HR Fentanyl Citrate 250 ml @ 2.5 mls/hr Q24H IV 06/05/24 04:15 Epinephrine HCl 250 ml @ 7.5 mls/hr Q24H IV 06/05/24 04:30 06/05/24 07:15 22.5 MLS/HR Norepinephrine Bitartrate 250 ml @ 3.75 mls/hr Q24H IV 06/05/24 05:30 06/06/24 11:22 18.75 MLS/HR Midazolam HCl 50 ml @ 1 mls/hr Q24H IV 06/05/24 04:35 06/06/24 22:09 4 MLS/HR Vancomycin HCl 0 ml @ 0 mls/hr UD IV 06/05/24 10:15 Cefepime HCl 50 ml @ 12.5 mls/hr DAILY IV 06/06/24 10:00 06/06/24 09:49 12.5 MLS/HR Diagnostic Test (Pha) 1 strip Q6HR 06/05/24 12:00 06/07/24 05:30 1 STRIP Insulin Human Regular Q6HR SC 06/05/24 12:00 06/07/24 05:17 3 UNITS Dextrose 50 ml UD PRN IV 06/05/24 10:30 Albuterol 2.5 mg Q4HPRN PRN [facility] 06/05/24 11:00 Albuterol 2.5 mg Q6HR [facility] 06/05/24 12:00 06/07/24 06:26 2.5 MG Ipratropium [place] 0.5 mg Q4HPRN PRN [facility] 06/05/24 11:00 Ipratropium [place] 0.5 mg Q6HR [facility] 06/05/24 12:00 06/07/24 06:26 0.5 MG Pantoprazole Sodium 40 mg DAILY IV 06/06/24 10:00 06/06/24 09:48 40 MG Peritoneal Dialysis Solution 2,000 ml @ 0 mls/hr DAILY@0600,1000,1400,1800 IP 06/07/24 06:00 06/07/24 05:29 2,000 MLS/HR Calcium Acetate 667 mg TID NG 06/06/24 14:00 06/06/24 22:20 667 MG Enteral Nutritional Formula 1,000 ml 30ML/HR GT 06/06/24 23:00 Hold Docusate Sodium 100 mg BID GT 06/07/24 10:00 Hold Heparin Sodium (Porcine) 5,000 units Q12HR SC 06/07/24 10:00 Hold Peritoneal Dialysis Solution 2,000 ml HS IP 06/07/24 22:00 Examination: LUNGS:Normal, CVS:Normal, MSK:Normal laboratory and microbiology Laboratory Tests 06/07/24 03:02 Test 06/07/24 03:02 Range/Units Serum Glucose 198 H 74-106 mg/dL Microbiology Date/Time Source Procedure Growth Status 06/05/24 18:40 Nose MRSA Screen - Final Complete 06/05/24 05:00 Blood Blood Culture - Preliminary NO GROWTH AFTER 24 HOURS OF INCUBATION. Resulted Problem List/Assessment/Plan Problem List/Assessment/Plan End-stage renal disease on home protein dialysis Acute respiratory failure intubated on ventilator Status post cardiac arrest Septic shock Aspiration pneumonia Congestive heart failure, ejection fraction 45% Anemia of chronic kidney disease, well compensated Recommendations Continue peritoneal dialysis five exchanges per 24 hours using 2.5% and 4.25% Dianeal PD solution Send PD fluid for white blood cell count and culture and sensitivity Closely monitor fluid and electrolytes IV antibiotics IV pressors Maintain map more than 65 mm Hg Blood cultures Pulmonary consult Cardiology consult We will continue to follow I discussed my plan of care with the and the primary nurse at the bedside Plan discussed with: Spouse, Other (Nurse) My Orders My Orders Orders - OLEKSANDR JASSO MD Procedure Category Date Status Time Kidney US 06/06/24 Resulted 10:07 Document Fluid Input FAY 06/06/24 In Process And Outpu 10:15 Peritoneal Dialysis PHA 06/07/24 In Process 2.5% Soln 06:00 Calcium Acetate PHA 06/06/24 In Process Capsule (Phoslo 14:00 Body Fluids, Diff. LAB 06/06/24 Logged Cell Count 15:23 Body Fluid Culture W/ DENNY 06/06/24 Logged GS 15:23 Peritoneal Dialysis PHA 06/07/24 In Process 4.25% Soln 22:00 OLEKSANDR JASSO MD Jun 07, 2024 10:01
--- NOTE | 2024-06-07 10:09 | DVHPNRES ---
Progress Note Date Seen: Jun 07, 2024 Resident Creating Document: PAUL FRYE RESIDENT Medical Necessity Reason Pt with a Central, PICC or Fol: Yes The following are medically ne: Central Line, Castano Catheter Subjective Review of Systems YOLI GALICIA is a 53-year-old male with a PMH of type 2 DM, ESRD on peritoneal dialysis, HTN presented to the ED with cardiopulmonary arrest. Patient seen and examined at the bedside along with the family. Unable to obtain ROS due to patient clinical status. Currently intubated with the mechanical ventilation. Monitor . Off the levophed since housing assistant today. Undergoing peritoneal dialysis. CPAP trail tomorrow morning. Objective vital signs Vital Sign Date Time Temp Pulse Resp B/P (MAP) Pulse Ox O2 Delivery O2 Flow Rate FiO2 06/07/24 09:30 100.0 94 18 140/57 (84) 100 212.0 139/64 (89) 06/07/24 08:27 30 06/07/24 08:00 Mechanical Ventilator+ Total Intake and Output 06/06/24 06/06/24 06/07/24 15:00 23:00 07:00 Intake Total 596.641 ml 6196.539 ml 2203.4 ml Output Total 0 ml Balance 596.641 ml 6196.539 ml 2203.4 ml medications Current Medications Medications Dose Ordered Sig/Richard Route Start Time Stop Time Status Last Admin Dose Admin Propofol 100 ml @ 2.181 mls/ hr Q24H IV 06/05/24 04:15 06/07/24 05:31 13.086 MLS/HR Fentanyl Citrate 250 ml @ 2.5 mls/hr Q24H IV 06/05/24 04:15 Epinephrine HCl 250 ml @ 7.5 mls/hr Q24H IV 06/05/24 04:30 06/05/24 07:15 22.5 MLS/HR Norepinephrine Bitartrate 250 ml @ 3.75 mls/hr Q24H IV 06/05/24 05:30 06/06/24 11:22 18.75 MLS/HR Midazolam HCl 50 ml @ 1 mls/hr Q24H IV 06/05/24 04:35 06/06/24 22:09 4 MLS/HR Vancomycin HCl 0 ml @ 0 mls/hr UD IV 06/05/24 10:15 Cefepime HCl 50 ml @ 12.5 mls/hr DAILY IV 06/06/24 10:00 06/06/24 09:49 12.5 MLS/HR Diagnostic Test (Pha) 1 strip Q6HR 06/05/24 12:00 06/07/24 05:30 1 STRIP Insulin Human Regular Q6HR SC 06/05/24 12:00 06/07/24 05:17 3 UNITS Dextrose 50 ml UD PRN IV 06/05/24 10:30 Albuterol 2.5 mg Q4HPRN PRN NEB 06/05/24 11:00 Albuterol 2.5 mg Q6HR NEB 06/05/24 12:00 06/07/24 06:26 2.5 MG Ipratropium [place] 0.5 mg Q4HPRN PRN NEB 06/05/24 11:00 Ipratropium [place] 0.5 mg Q6HR NEB 06/05/24 12:00 06/07/24 06:26 0.5 MG Pantoprazole Sodium 40 mg DAILY IV 06/06/24 10:00 06/06/24 09:48 40 MG Peritoneal Dialysis Solution 2,000 ml @ 0 mls/hr DAILY@0600,1000,1400,1800 IP 06/07/24 06:00 06/07/24 05:29 2,000 MLS/HR Calcium Acetate 667 mg TID NG 06/06/24 14:00 06/06/24 22:20 667 MG Enteral Nutritional Formula 1,000 ml 30ML/HR GT 06/06/24 23:00 Future Hold Docusate Sodium 100 mg BID GT 06/07/24 10:00 Future Hold Heparin Sodium (Porcine) 5,000 units Q12HR SC 06/07/24 10:00 Future Hold Peritoneal Dialysis Solution 2,000 ml HS IP 06/07/24 22:00 Examination Pt is lying on bed, General Appearance: Sedated, on mechanical ventilation RR 18, VT 500, peep 5, FiO2 30% HEENT: Atraumatic, Mucous membranes moist/pink Respiratory: Clear to auscultation, Normal air movement, No added sounds Cardiovascular: Regular rate, Normal S1, Normal S2, No murmurs Abdominal: Active bowel sounds, Soft, distended likely due to fluid overload, peritoneal dialysis shunt intact Extremities: 1+ edematous upper and lower extremities, intact right femoral catheter Skin: No Significant rash, except past surgical scars Neuro: pupils are constricted laboratory and microbiology Laboratory Tests 06/07/24 03:02 Test 06/07/24 03:02 Range/Units Serum Glucose 198 H 74-106 mg/dL Microbiology Date/Time Source Procedure Growth Status 06/05/24 18:40 Nose MRSA Screen - Final Complete 06/05/24 05:00 Blood Blood Culture - Preliminary NO GROWTH AFTER 24 HOURS OF INCUBATION. Resulted Labs and/or images reviewed: Labs reviewed by me, Image(s) reviewed by me Problem List/Assessment/Plan Problem List/Assessment/Plan NEUROLOGY # ? anoxic/ hypoxic encephalopathy # ? anoxic brain injury - currently on mechanical ventilator - ordered head CT, no acute intracranial pathology except mild cortical atrophy and showed severe paranasal sinus disease with soft tissue swelling of left temporal scalp CARDIOVASCULAR # cardiopulmonary arrest status post CPR with ROSC # Septic shock likely due to peritoneal origin # NSTEMI likely due to demand mediated # ? acute on chronic diastolic heart failure # ? Coronary artery disease, moderate degree # HX hypertension # Dyslipidemia, newly diagnosed - ordered pancultures, along with peritoneal fluid analysis and culture, pemding - monitor lab - Off from Levophed, since 06/06 housing assistant - propofol, epinephrine,midazolam, fentanyl started on 06/05 - echo showed LVEF 45% - currently on vancomycin and cefepime # Acute transient AFib with RVR - monitor - correct electrolytes if needed - cardiology on board RESPIRATORY # Acute hypoxic respiratory failure likely due to septic shock # septic shock # ? aspiration pneumonia - ABG reviewed, CXR dialy - CXR reviewed, , diffuse lung disease likely edema or pneumonia - currently on vancomycin and cefepime - Flagylstarted today 06/07 - ventilatory settings: RR 18, VT 500, peep 5, FiO2 30% - CPAP trail tomorrow. GI/LIVER # likely acute bacterial peritonitis - currently on antibiotics vancomysin, cefepime and added flagyl - monitor lab - Fluid sent to culture and cell count - PUD prophylaxis pantoprazole /KIDNEY/METABOLIC # ESRD on peritoneal dialysis - Nephrology onboard - currently undergoing peritoneal dialysis - Monitor renal function - Monitor electrolytes. Supplement as necessary. - Monitor ins and outs. ENDO # type 2 DM with HbA1c 6.3 - Accu-Cheks and ISS MSK HEME # Thrombocytopenia - monitor lab - held heparin ID # likely bacterial peritonitis # septic shock likely due to above - currently on antibiotics - monitor lab - Fluid sent to culture and cell count SKIN - Intact peritoneal dialysis catheter LINES Right femoral vein catheter 0n 06/05 Castano catheter DRIPS Sarah Kilgore Currently Off from Levophed since housing assistant today 06/07 NUTRITION NPO Goals of care/advance care planning; FULL CODE; discussed on for 27 minutes. PUD prophylaxis: Pantoprazole DVT prophylaxis: HOLD Heparin Goals of care has been discussed with the for more than 27 minutes, full code status Critical care time including chart review, discussing with the patient's family excluding procedures: 54 minutes Case discussed with Dr. Tanner. Plan discussed with: Spouse My Orders My Orders Orders - PAUL FRYE Procedure Category Date Status Time Head Without Contrast CT 06/06/24 Resulted 15:53 Body Fluid Ph LAB 06/06/24 Logged 15:53 Body Fluids, Diff. LAB 06/06/24 Logged Cell Count 15:53 Protein, Body Fluid LAB 06/06/24 Logged 15:53 Lactate LAB 06/06/24 Logged Dehydrogenase, Fluid 15:53 Chest Xray 1 View XY 06/07/24 Resulted 04:00 Date of Service: Jun 07, 2024 Billing Provider: JOSE TANNER MD Common Visit Codes: [id number] CARE 30-74 MIN PAUL FRYE Jun 07, 2024 10:09 JOSE TANNER MD Jun 08, 2024 14:40
--- NOTE | 2024-06-07 12:32 | DVHPN2 ---
Progress Note Date Seen: Jun 07, 2024 Medical Necessity Reason Pt with a Central, PICC or Fol: Yes The following are medically ne: Central Line, Castano Catheter Subjective Other Systems: off pressor Objective vital signs Vital Sign Date Time Temp Pulse Resp B/P (MAP) Pulse Ox O2 Delivery O2 Flow Rate FiO2 06/07/24 11:48 94 22 127/52 (77) 100 30 06/07/24 11:00 99.1 210.4 06/07/24 10:00 Mechanical Ventilator+ Total Intake and Output 06/06/24 06/06/24 06/07/24 14:59 22:59 06:59 Intake Total 639.934 ml 6227.356 ml 2207.1 ml Output Total 0 ml Balance 639.934 ml 6227.356 ml 2207.1 ml medications Current Medications Medications Dose Ordered Sig/Richard Route Start Time Stop Time Status Last Admin Dose Admin Propofol 100 ml @ 2.181 mls/ hr Q24H IV 06/05/24 04:15 06/07/24 10:26 13.086 MLS/HR Fentanyl Citrate 250 ml @ 2.5 mls/hr Q24H IV 06/05/24 04:15 Midazolam HCl 50 ml @ 1 mls/hr Q24H IV 06/05/24 04:35 06/07/24 10:02 4 MLS/HR Vancomycin HCl 0 ml @ 0 mls/hr UD IV 06/05/24 10:15 Cefepime HCl 50 ml @ 12.5 mls/hr DAILY IV 06/06/24 10:00 06/07/24 10:18 12.5 MLS/HR Diagnostic Test (Pha) 1 strip Q6HR 06/05/24 12:00 06/07/24 12:05 1 STRIP Insulin Human Regular Q6HR SC 06/05/24 12:00 06/07/24 12:05 4 UNITS Dextrose 50 ml UD PRN IV 06/05/24 10:30 Albuterol 2.5 mg Q4HPRN PRN NEB 06/05/24 11:00 Albuterol 2.5 mg Q6HR NEB 06/05/24 12:00 06/07/24 11:48 2.5 MG Ipratropium [place] 0.5 mg Q4HPRN PRN NEB 06/05/24 11:00 Ipratropium [place] 0.5 mg Q6HR NEB 06/05/24 12:00 06/07/24 11:48 0.5 MG Pantoprazole Sodium 40 mg DAILY IV 06/06/24 10:00 06/07/24 10:18 40 MG Peritoneal Dialysis Solution 2,000 ml @ 0 mls/hr DAILY@0600,1000,1400,1800 IP 06/07/24 06:00 06/07/24 10:13 0 MLS/HR Calcium Acetate 667 mg TID NG 06/06/24 14:00 06/06/24 22:20 667 MG Enteral Nutritional Formula 1,000 ml 30ML/HR GT 06/06/24 23:00 Hold Docusate Sodium 100 mg BID GT 06/07/24 10:00 Hold Heparin Sodium (Porcine) 5,000 units Q12HR SC 06/07/24 10:00 Hold Peritoneal Dialysis Solution 2,000 ml HS IP 06/07/24 22:00 Acetaminophen 650 mg Q6HP PRN [place] 06/07/24 12:15 UNV Metronidazole 100 ml @ 100 mls/hr Q8HR IV 06/07/24 14:00 UNV Examination: GENERAL:Abnormal, HEENT:Abnormal, LUNGS:Abnormal, CVS:Abnormal, ABDOMEN:Abnormal laboratory and microbiology Laboratory Tests 06/07/24 03:02 Test 06/07/24 03:02 Range/Units Serum Glucose 198 H 74-106 mg/dL Microbiology Date/Time Source Procedure Growth Status 06/05/24 18:40 Nose MRSA Screen - Final Complete 06/05/24 05:00 Blood Blood Culture - Preliminary NO GROWTH AFTER 48 HOURS OF INCUBATION. Resulted Problem List/Assessment/Plan Problem List/Assessment/Plan cardiac arrest out of hospital afib rvr nstemi esrd on PD hypoglycemic episode r/o aspiration acidemia on admit bacterial peritonitis currently SR cont lovenox, PLT was low but is normal now, echo shows mild CHF per family, pt will get eval for revasc with their own cards as outpt asa daily statin PD today planned off pressor consider daily awakening and extubation when feasible with specialist Plan discussed with: Other (rn) Date of Service: Jun 07, 2024 Billing Provider: ALON TUCKER MD Common Visit Codes: NOT BILLABLE ALON TUCKER MD Jun 07, 2024 12:32
[2024-06-07] MEDS: ACETAMINOPHEN 650 MG RECT SUPP PR PRN (12:45)
[2024-06-07] MEDS: metroNIDAZOLE 500MG/100ML 100 ML IV ONE (12:48)
[2024-06-07] MEDS: metroNIDAZOLE 500MG/100ML 100 ML IV SCH (13:27)
--- NOTE | 2024-06-07 13:27 | DVH ---
Date: 06/07/2024 12:30 PM Examination: XY KUB ABDOMEN SINGLE VIEW History: peritonitis Comparison: None TECHNIQUE: Frontal views of the abdomen was obtained. FINDINGS: Bowel gas pattern is unremarkable. Contrast opacifies the rectosigmoid colon. Large stool burden. The lung bases are unremarkable. No acute osseous abnormality identified. IMPRESSION: Nonobstructive bowel gas pattern. Large stool burden.
[2024-06-07 14:52] LABS: Body Fluid Polymorphonuclear 5 % (0-25); Body Fluid Red Blood Cells 0 CUMM (0-2000); Body Fluid White Blood Cells 146 CUMM (0-200)
[2024-06-07] MEDS: ACETAMINOPHEN IV 1000 MG/100ML (10MG/ML) IV ONE (16:36)
[2024-06-07] MEDS: VANCOMYCIN 500mg/100mL 100 ML IV ONE (17:35)
[2024-06-07 19:58] LABS: Potassium 3.7 mmol/L (3.5-5.1)
[2024-06-07 19:59] LABS: Anion Gap 16 (5-15); Carbon Dioxide 22 mmol/L (20-31)
[2024-06-07 20:04] LABS: BUN/Creatinine Ratio 5.1 (10.0-20.0); Magnesium 2.1 mg/dL (1.6-2.6)
[2024-06-07 20:33] LABS: Blood Urea Nitrogen 78 mg/dL (9-23); Chloride 94 mmol/L (98-107); Glucose 224 mg/dL (74-106); Sodium 132 mmol/L (136-145)
[2024-06-07 20:34] LABS: Creatine Kinase IFCC 172 U/L (46-171)
[2024-06-07] MEDS: PERITONEAL DIALYSIS 4.25% IP SCH (22:00)
[2024-06-07] MEDS: PERITONEAL DIALYSIS 2.5% IP ONE (22:24)
[2024-06-08] VITALS (108 sets, daily range): BP systolic 86–220; BP diastolic 30–106; PULSE 78–204; RESP 12–26; TEMP 96.1–98.7; O2SAT 88–100
[2024-06-08 03:45] LABS: Basophils # (auto) 0 10 ^3/uL (0-0.2); Basophils % (auto) 0.1 % (0.0-2.0); Eosinophils # (auto) 0.3 10 ^3/uL (0-0.8); Eosinophils % (auto) 1.5 % (0.0-7.0); Hemoglobin 10.3 g/dL (13.5-17.5); Lymphocytes # (auto) 0.9 10 ^3/uL (0.4-5.4); Mean Corpuscular Hemoglobin 30.2 pg (28.0-32.0); Mean Corpuscular Hgb Conc. 33.2 g/dL (32.0-36.0); Mean Corpuscular Volume 90.9 fL (80.0-100.0); Monocytes # (auto) 1.5 10 ^3/uL (0-1.3); Monocytes % (auto) 8.1 % (0.0-12.0); Neutrophils # (auto) 15.3 10 ^3/uL (1.6-8.6); Neutrophils % (auto) 85.3 % (37.0-80.0); Platelet Count (auto) 106 10^3/uL (140-450); Red Blood Cells 3.41 10^6/uL (4.5-5.90); Red Cell Distribution Width 19.9 % (11.8-14.3)
[2024-06-08 04:05] LABS: Alanine Aminotransferase 21 U/L (7-40); Alkaline Phosphatase 107 U/L (46-116); Anion Gap 15 (5-15); Aspartate Aminotransferase 27 U/L (13-40); BUN/Creatinine Ratio 5.3 (10.0-20.0); Bilirubin, Total 0.3 mg/dL (0.2-1.0); Calcium 8.9 mg/dL (8.7-10.4); Carbon Dioxide 23 mmol/L (20-31); Magnesium 2.3 mg/dL (1.6-2.6); Potassium 3.6 mmol/L (3.5-5.1)
[2024-06-08 04:21] LABS: Albumin 3.1 g/dL (3.2-4.8); Blood Urea Nitrogen 78 mg/dL (9-23); Chloride 94 mmol/L (98-107); Glucose 212 mg/dL (74-106); Sodium 132 mmol/L (136-145); Total Protein 5.3 g/dL (5.7-8.2)
--- NOTE | 2024-06-08 04:49 | DVH ---
CHEST RADIOGRAPH Indication: pna Technique: Single frontal view of the chest was obtained Comparison: XY CHEST XRAY 1 VIEW on DOS: 06/07/24 FINDINGS: Lines and Tubes: The endotracheal tube terminates 4.5 cm above the laurie. The enteric tube courses b elow the left hemidiaphragm and the tip extends outside the field of view. Lungs: There are bibasilar opacities. Pleura: No effusion. No pneumothorax. Cardiomediastinal contours: Unremarkable Bones: No acute osseous abnormality. IMPRESSION: 1. Bibasilar opacities which may reflect atelectasis or pneumonia. 2. Stable position of the support lines and tubes.
[2024-06-08] MEDS: NOREPINEPHRINE 8 MG/250ML KIT 250 ML IV SCH (05:20)
[2024-06-08 08:31] LABS: Base Excess -6.2 mmol/L (-2.0-3.0)
[2024-06-08] MEDS ORDERED: ACETAMINOPHEN IV 1000 MG/100ML (10MG/ML) IV PRN (09:15)
[2024-06-08] MEDS: POTASSIUM CHL 20MEQ/100ML 100 ML IV SCH (09:43)
[2024-06-08] MEDS: MIDAZOLAM HCL 2MG/2ML 2ml VIAL (1mg/ml) IV ONE ×3 (09:43→09:44)
--- NOTE | 2024-06-08 10:08 | DVHINCON2 ---
Date of service: Jun 08, [address] Asher Reason for Consultation Possible brain injury, anoxic History of Present Illness Mr. Montano is a 53 years old right-handed gentleman with a history of diabetes, coronary artery disease, end-stage kidney failure on peritoneal dialysis, the patient was was brought to the [facility] on 06/05/24 with CPR ongoing. At this time, he is sedated, intubated, the history is obtained from his , I have also discussed with his nurse and primary care team On 06/05/2024, the patient was woke up not feeling well, and his sugar level was 39, and he had profuse sweating, his found he blood pressure was 250/?, and soon after, he become nonresponsive, 911 doubt and in 5-10 minutes, EMS crew came over, he was found to be pale, clammy, diaphoretic, apneic, his sugar was 51, the patient aspirated, and went into cardio respiratory arrest when he was transferred to a [place], CPR started immediately, and the total downtime was said to be 28 minutes. Since then, the patient was being nonresponsiveness sedated In the morning on 06/08/2024, the patient had an event in that he was shaking the head, shoulders, stomach for more than 30 minutes, resolved after 6 mg of Ativan, after gag testing, a triggered another similar events. His claimed this happened on 06/07/2024 He was no history of seizure, stroke Blood culture, 05/1974: No growth Peritoneal fluid culture, 06/07/2024: UDS, 06/06/2024: Benzo Urinalysis, 06/06/2024: WBC: 1, urine leukocyte esterase: Negative ABG, 06/05/2024: Combined metabolic and respiratory acidosis, WBC/HB/PLT/MCV, 06/08/2024: 19/10.3/106/90.9 Na, 06/06/2019 5:132, 06/08/2024: Moderate BUN/CR, 06/05/2024: 57/15.78, 06/08/2024: 78/14.78 Lactic acid, 06/05/24: 6.7, 3.5 HGB A1c, 06/05/2019 5:6.3 One high sensitivity, 05/1924: 566, 698, 643 Liver function tests, 06/08/2024: Normal TG/HDL/LDL/HDL, 06/05/2024: 174/208/143/33 TSH, 06/05/2024: 5.41 Chest x-ray, 06/08/2024: 1. Bibasilar opacities which may reflect atelectasis or pneumonia. 2. Stable position of the support lines and tubes CT head, 06/06/2024: No acute intracranial pathology in the brain. Mild cortical atrophy Severe paranasal sinus disease Soft tissue swelling left temporal scal Past Medical History Diabetes, coronary artery disease with open heart surgery on schedule, end-stage renal failure on peritoneal dialysis Past Surgical History No major surgery Family History: Chronic liver disease G8 BROTHER Diabetes mellitus G8 MOTHER G8 FATHER G8 BROTHER G8 BROTHER G8 BROTHER G8 BROTHER G8 BROTHER FH: chronic kidney disease G8 MOTHER G8 FATHER G8 BROTHER G8 BROTHER G8 BROTHER Hypertension G8 MOTHER G8 FATHER G8 BROTHER G8 BROTHER G8 BROTHER G8 BROTHER G8 BROTHER Liver cancer G8 BROTHER Liver disease G8 BROTHER Liver transplant G8 BROTHER Family History Diabetes, coronary artery disease, kidney failure, liver disease Social History He was a tobacco smoker, but no history of drug or alcohol abuse Allergies: Coded Allergies: UNOBTAINABLE (Unverified , 06/05/24) arrived CPR in progress Home Meds Reported Medications Minoxidil (Minoxidil) 10 Mg Tab, 1 TAB PO BID for 30 Days, #60 06/07/24 Clonidine Hydrochloride (Clonidine Hcl) 0.2 Mg/24 Hr Dis, 0.2 MG TD UD for 30 Days, #4 06/07/24 Docusate Sodium (Colace) 100 Mg Cap, 1 CAP PO BID for 90 Days, #180 06/07/24 Gentamicin Sulfate (Gentamicin Sulfate) 0.1 % Cre, 1 APPLIC TOP DAILY for 30 Days, #30 06/07/24 B-Complex W/ C & Folic Acid (Sarah-Toshia Rx) Tab, 1 TAB PO DAILY for 30 Days, #30 06/07/24 Cholecalciferol (D3) 50 Mcg Cap, 1 CAP PO DAILY for 30 Days, #30 06/07/24 Carvedilol (Coreg) 25 Mg Tab, 1 TAB PO BID for 30 Days, #60 06/06/24 Losartan Potassium (Losartan Potassium) 100 Mg Tab, 1 TAB PO DAILY for 30 Days, #30 06/06/24 Discontinued Reported Medications Minoxidil (Loniten) 2.5 Mg Tb, 10 MG PO TID, TAB 06/06/24 Clonidine HCl (Clonidine Hydrochloride) 0.1 Mg Tab, 0.1 MG PO DAILY, TAB 06/06/24 Current Medications Current Medications Medications (Trade) Dose Ordered Sig/Richard Route PRN Reason Start Time Stop Time Status Last Admin Peritoneal Dialysis Solution 2,000 ml HS IP 06/07/24 22:00 06/07/24 22:00 Acetaminophen (Tylenol Suppository) 650 mg Q6HP PRN [place] PAIN SCALE 1-3 OR TEMP>100.4 06/07/24 12:15 06/07/24 19:11 DC 06/07/24 18:21 Metronidazole 100 ml @ 100 mls/hr Q8HR IV 06/07/24 14:00 06/08/24 06:15 Dexmedetomidine HCl 400 mcg/ Dextrose 100 ml @ 4.19 mls/hr [id number] IV 06/07/24 17:00 Norepinephrine Bitartrate 250 ml @ 3.75 mls/hr Q24H IV 06/08/24 05:15 06/08/24 05:20 Potassium Chloride 100 ml @ 50 mls/hr Q2H IV 06/08/24 08:15 06/08/24 12:14 06/08/24 09:43 Acetaminophen (Ofirmev) 1,000 mg [id number] PRN IV PAIN SCALE 1-3 OR TEMP>100.4 06/08/24 09:15 06/08/24 09:33 DC Fentanyl Citrate 250 ml @ 2.5 mls/hr Q24H IV 06/08/24 09:30 Review of Systems As above, the other systems are negative Vital Signs Vital Signs Date Time Temp Pulse Resp B/P (MAP) Pulse Ox O2 Delivery O2 Flow Rate FiO2 06/08/24 08:45 97.9 90 16 148/55 (86) 88 208.2 143/68 (93) 06/08/24 08:16 30 06/08/24 08:00 Mechanical Ventilator+ Physical Exam The patient is well-nourished and well-developed with no distress. The patient is intubated HEENT: Normocephalic, neck supple, no carotid bruits Lungs: Clear to auscultation Cardiovascular: Regular rate and region, S1, S2, no murmurs Abdomen: Soft, nontender, normal bowel sounds MENTAL STATUS: Not responsive to the surroundings, CRANIAL NERVES: Pupils are equal, round and reactive. There are corneal reflexes and doll's eyes phenomenon. No signs of facial weakness. There are weak gagging or coughing reflexes SENSATION: No responses to pain stimuli. MOTOR: Normal tone in the upper and lower extremity. Normal muscle bulk. No fasciculations. No spontaneous movement. REFLEXES: Deep tendon reflexes are symmetrical. No pathological reflexes. CEREBELLAR/COORDINATION: Deferred GAIT/STATION: deferred. Labs/Diagnostic Data Labs Test 06/08/24 07:46 06/08/24 05:33 06/08/24 03:12 06/07/24 23:10 Range/Units Blood Gas Specimen Type Arterial Blood Gas Sample Site Arterial line Blood Gas Patient Temperature 37.0 Arterial Blood Date Drawn [id number] Arterial Blood pH 7.362 7.350-7.450 Arterial Blood Partial Pressure CO2 33.3 L 35.0-48.0 mmHg Arterial Blood Partial Pressure O2 110.8 H 83.0-108.0 mmHg Arterial Blood HCO3 18.5 L 21.0-28.0 mmol/L Arterial Blood Oxygen Saturation 97.5 94.0-98.0 % Arterial Blood Base Excess -6.2 L -2.0-3.0 mmol/L Arterial Blood Oxyhemoglobin 96.4 94.0-98.0 % Arterial Blood Carboxyhemoglobin 0.9 0.5-1.5 % Arterial Blood Methemoglobin 0.2 0.0-1.5 % Kevin Test N/a Blood Gas Total Hemoglobin 9.90 L 13.5-17.5 g/dL Blood Gas Set Respiration Rate 18.0 Blood Gas Modality Vent - ac FiO2 % 30.0 Blood Gas Tidal Volume 500.0 Blood Gas PEEP or CPAP 5.0 POC Glucose 187 H 70-106 mg/dl White Blood Count 18.0 H 4.4-10.8 10^3/uL Red Blood Count 3.41 L 4.5-5.90 10^6/uL Hemoglobin 10.3 L 13.5-17.5 g/dL Hematocrit 31.0 L 41.0-53.0 % Mean Corpuscular Volume 90.9 80.0-100.0 fL Mean Corpuscular Hemoglobin 30.2 28.0-32.0 pg Mean Corpuscular Hemoglobin Concent 33.2 32.0-36.0 g/dL Red Cell Distribution Width 19.9 H 11.8-14.3 % Platelet Count 106 L 140-450 10^3/uL Mean Platelet Volume 7.8 6.9-10.8 fL Neutrophils (%) (Auto) 85.3 H 37.0-80.0 % Lymphocytes (%) (Auto) 5.0 L 10.0-50.0 % Monocytes (%) (Auto) 8.1 0.0-12.0 % Eosinophils (%) (Auto) 1.5 0.0-7.0 % Basophils (%) (Auto) 0.1 0.0-2.0 % Neutrophils # (Auto) 15.3 H 1.6-8.6 10 ^3/uL Lymphocytes # (Auto) 0.9 0.4-5.4 10 ^3/uL Monocytes # (Auto) 1.5 H 0-1.3 10 ^3/uL Eosinophils # (Auto) 0.3 0-0.8 10 ^3/uL Basophils # (Auto) 0 0-0.2 10 ^3/uL Nucleated Red Blood Cells 0.0 % Sodium Level 132 L 136-145 mmol/L Potassium Level 3.6 3.5-5.1 mmol/L Chloride Level 94 L 98-107 mmol/L Carbon Dioxide Level 23 20-31 mmol/L Anion Gap 15 5-15 Blood Urea Nitrogen 78 H 9-23 mg/dL Creatinine 14.78 *H 0.700-1.30 mg/dL Glomerular Filtration Rate Calc 4 >90 mL/min BUN/Creatinine Ratio 5.3 L 10.0-20.0 Serum Glucose 212 H 74-106 mg/dL Calcium Level 8.9 8.7-10.4 mg/dL Magnesium Level 2.3 1.6-2.6 mg/dL Total Bilirubin 0.3 0.2-1.0 mg/dL Aspartate Amino Transferase (AST) 27 13-40 U/L Alanine Aminotransferase (ALT) 21 7-40 U/L Alkaline Phosphatase 107 46-116 U/L Total Protein 5.3 L 5.7-8.2 g/dL Albumin 3.1 L 3.2-4.8 g/dL Lactic Acid Level 1.5 0.4-2.0 mmol/L Test 06/07/24 19:20 06/07/24 10:21 06/07/24 03:02 06/06/24 15:21 Range/Units Creatine Kinase 172 H 46-171 U/L Body Fluid Source Peritoneal fluid Body Fluid pH 7.0 Body Fluid WBC (Manual) 146 0-200 CUMM Body Fluid RBC (Manual) 0 0-2000 CUMM Body Fluid Mononuclear Cells 95 % Body Fluid Polymorphonuclear Cells 5 0-25 % Platelet Estimate Decreased Clumped Platelets None Prothrombin Time 11.3 9.3-11.8 sec Prothrombin Time INR 1.07 0.9-1.15 Activated Partial Thromboplast Time 29.1 24.5-34.5 SEC Random Vancomycin Level 18.6 H 5-10 ug/mL Urine Color Colorless Yellow Urine Clarity Clear Clear Urine pH 7.5 5.0-9.0 Urine Specific [place] 1.011 1.001-1.035 Urine Protein 2+ H Negative Urine Ketones Negative Negative Urine Blood Trace H Negative /uL Urine Nitrite Negative Negative Urine Bilirubin Negative Negative Urine Urobilinogen Normal Negative mg/dL Urine Leukocyte Esterase Negative Negative /uL Urine RBC None seen 0 - 3 /hpf Urine WBC 1 0 - 3 /hpf Urine Squamous Epithelial Cells None seen <5 /hpf Urine Bacteria None seen None Seen /hpf Urine Creatinine 15.02 L 30.0-125.0 mg/dL Urine Protein/Creatinine Ratio 14.84 Urine Sodium 137 40-220 mmol/L Urine Glucose 3+ H Normal mg/dL Urine Total Protein 222.9 H 1-14 mg/dL Urine Opiates Screen Neg NEGATIVE Urine Fentanyl Screen Neg NEGATIVE Urine Barbiturates Screen Neg NEGATIVE Urine Phencyclidine Screen Neg NEGATIVE Urine Amphetamines Screen Neg NEGATIVE Urine Benzodiazepines Screen Pos NEGATIVE Urine Cocaine Screen Neg NEGATIVE Urine Cannabinoids Screen Neg NEGATIVE Test 06/06/24 11:33 06/06/24 07:32 06/06/24 03:10 06/05/24 07:11 Range/Units Hepatitis B Surface Antigen Negative Negative Hepatitis C Antibody Negative Negative Blood Gas Spontaneous Rate 19 Phosphorus Level 5.5 H 2.4-5.1 mg/dL Troponin I High Sensitivity 643 *H </=54 ng/L Test 06/05/24 05:00 06/05/24 04:47 06/05/24 04:00 Range/Units Triglycerides Level 174 H < 150 mg/dL Cholesterol Level 208 H < 200 mg/dL LDL Cholesterol 143 H < 100 mg/dL HDL Cholesterol 33 L 40-59 mg/dL Thyroid Stimulating Hormone (TSH) 5.41 H 0.55-4.78 uIU/mL Blood Gas Critical Value Read Back Yes Blood Gas Notified Whom юлия Pinzon Blood Gas Notified Time [id number] Blood Gas Notified By Elza fernandez rrt Differential Total Cells Counted 100.0 100 Neutrophils % (Manual) 47 37.0-80.0 Band Neutrophils % (Manual) 0 Lymphocytes % (Manual) 35 10.0-50.0 Monocytes % (Manual) 10 0-12 Eosinophils % (Manual) 3 0-7 Basophils % (Manual) 0 0.0-2.0 Metamyelocytes % (manual) 0 Myelocytes % (Manual) 0 Promyelocytes % (Manual) 0 Blast Cells % (Manual) 0 Reactive Lymphocytes 5 Hemoglobin A1c 6.3 H <5.7 % A1C B-Type Natriuretic Peptide 302.91 0-100 pg/mL Lipase 84 H 12-53 U/L Microbiology Date/Time Source Procedure Growth Status 06/07/24 10:21 Peritoneal Fluid Gram Stain - Final Resulted 06/07/24 10:21 Peritoneal Fluid Body Fluid Culture - Preliminary Resulted 06/05/24 18:40 Nose MRSA Screen - Final Complete 06/05/24 05:00 Blood Blood Culture - Preliminary NO GROWTH AFTER 48 HOURS OF INCUBATION. Resulted Assessment Abnormal movement, Myoclonus Rule out status epileptics Coma Hypoxic encephalopathy Metabolic encephalopathy Toxic encephalopathy Cardiopulmonary arrest, status post CPR Metabolic acidosis Respiratory acidosis Coronary artery disease Heart attack Leukocytosis/sepsis/septic shock Pneumonia Plan/Recommendation Monitoring Supportive screaming ICU care EEG Follow-up CT Respiratory support/vent management Stabilize vitals Oxygen IV antibiotics Versed drip with p.r.n. Ativan for tremor/myoclonus control May consider Keppra for myoclonus/tremors control DVT prophylax/heparin GI prophylax/Protonix IV antibiotics Cardiology on case Pulmonology on case Nephrology on case More recommendation per clinical course Progress: Guarded Critical care time spent is 45 minutes This medical document was created using an electronic medical record system with Dragon computerized dictation system. Although this document has been carefully reviewed, there may still be some phonetic and typographical errors. These areas are purely typographical due to imperfections of the software programs, and do not reflect any compromise in the patient's medical care. Plan discussed with: Spouse, Other TINO DOLAN MD Jun 08, 2024 10:08
--- NOTE | 2024-06-08 11:19 | DVHPN2 ---
Progress Note Date Seen: Jun 08, 2024 Medical Necessity Reason Pt with a Central, PICC or Fol: Yes The following are medically ne: Central Line, Castano Catheter Subjective Review of Systems: RESPIRATORY:Abnormal Other Systems: Patient seen and examined by myself today in follow-up Patient examined on peritoneal dialysis, PD fluid is clear Objective vital signs Vital Sign Date Time Temp Pulse Resp B/P (MAP) Pulse Ox O2 Delivery O2 Flow Rate FiO2 06/08/24 10:30 96.8 85 19 130/46 (74) 100 206.2 127/64 (85) 06/08/24 10:10 30 06/08/24 10:00 Mechanical Ventilator+ Total Intake and Output 06/07/24 06/07/24 06/08/24 15:00 23:00 07:00 Intake Total 4686.688 ml 2630.860 ml 4225.791 ml Output Total 5100 ml 2500 ml 15 ml Balance -413.312 ml 130.860 ml 4210.791 ml medications Current Medications Medications Dose Ordered Sig/Richard Route Start Time Stop Time Status Last Admin Dose Admin Propofol 100 ml @ 2.181 mls/ hr Q24H IV 06/05/24 04:15 06/08/24 06:10 13.086 MLS/HR Fentanyl Citrate 250 ml @ 2.5 mls/hr Q24H IV 06/05/24 04:15 Midazolam HCl 50 ml @ 1 mls/hr Q24H IV 06/05/24 04:35 06/08/24 09:45 8 MLS/HR Vancomycin HCl 0 ml @ 0 mls/hr UD IV 06/05/24 10:15 Cefepime HCl 50 ml @ 12.5 mls/hr DAILY IV 06/06/24 10:00 06/08/24 09:45 12.5 MLS/HR Diagnostic Test (Pha) 1 strip Q6HR 06/05/24 12:00 06/08/24 05:33 1 STRIP Insulin Human Regular Q6HR SC 06/05/24 12:00 06/08/24 05:36 3 UNITS Dextrose 50 ml UD PRN IV 06/05/24 10:30 Albuterol 2.5 mg Q4HPRN PRN NEB 06/05/24 11:00 Albuterol 2.5 mg Q6HR NEB 06/05/24 12:00 06/08/24 07:04 2.5 MG Ipratropium [place]man 0.5 mg Q4HPRN PRN NEB 06/05/24 11:00 Ipratropium [place] 0.5 mg Q6HR NEB 06/05/24 12:00 06/08/24 07:04 0.5 MG Pantoprazole Sodium 40 mg DAILY IV 06/06/24 10:00 06/08/24 09:44 40 MG Peritoneal Dialysis Solution 2,000 ml @ 0 mls/hr DAILY@0600,1000,1400,1800 IP 06/07/24 06:00 06/08/24 10:10 0 MLS/HR Calcium Acetate 667 mg TID NG 06/06/24 14:00 06/08/24 06:13 667 MG Enteral Nutritional Formula 1,000 ml 30ML/HR GT 06/06/24 23:00 Hold Docusate Sodium 100 mg BID GT 06/07/24 10:00 Hold Heparin Sodium (Porcine) 5,000 units Q12HR SC 06/07/24 10:00 Hold Peritoneal Dialysis Solution 2,000 ml HS IP 06/07/24 22:00 06/07/24 22:00 2,000 ML Metronidazole 100 ml @ 100 mls/hr Q8HR IV 06/07/24 14:00 06/08/24 06:15 100 MLS/HR Dexmedetomidine HCl 400 mcg/ Dextrose 100 ml @ 4.19 mls/hr [id number] IV 06/07/24 17:00 Norepinephrine Bitartrate 250 ml @ 3.75 mls/hr Q24H IV 06/08/24 05:15 06/08/24 05:20 3.75 MLS/HR Potassium Chloride 100 ml @ 50 mls/hr Q2H IV 06/08/24 08:15 06/08/24 12:14 06/08/24 09:43 50 MLS/HR Fentanyl Citrate 250 ml @ 2.5 mls/hr Q24H IV 06/08/24 09:30 Examination: LUNGS:Normal, CVS:Normal, MSK:Abnormal laboratory and microbiology Laboratory Tests 06/08/24 03:12 Test 06/08/24 03:12 Range/Units Serum Glucose 212 H 74-106 mg/dL Microbiology Date/Time Source Procedure Growth Status 06/07/24 10:21 Peritoneal Fluid Gram Stain - Final Resulted 06/07/24 10:21 Peritoneal Fluid Body Fluid Culture - Preliminary Resulted 06/05/24 18:40 Nose MRSA Screen - Final Complete 06/05/24 05:00 Blood Blood Culture - Preliminary NO GROWTH AFTER 72 HOURS OF INCUBATION. Resulted Problem List/Assessment/Plan Problem List/Assessment/Plan End-stage renal disease on home protein dialysis Acute respiratory failure intubated on ventilator Status post cardiac arrest Septic shock Aspiration pneumonia Congestive heart failure, ejection fraction 45% Anemia of chronic kidney disease, well compensated Hyperphosphatemia Recommendations Increase peritoneal dialysis to 6 exchanges per 24 hours using 2.5% Dianeal PD solution PD fluid is clear culture is negative Closely monitor fluid and electrolytes IV antibiotics IV pressors Maintain map more than 65 mm Hg Calcium acetate per NG tube t.i.d. Pulmonary consult Cardiology consult We will continue to follow I discussed my plan of care with the and the primary nurse at the bedside Plan discussed with: Spouse, Other (Nurse) My Orders My Orders Orders - OLEKSANDR JASSO MD Procedure Category Date Status Time Document Fluid Input FAY 06/08/24 Verified And Outpu 11:12 Peritoneal Dialy 2.5% PHA 06/08/24 Verified 2l Q4hr 14:00 Dietary Evaluation Review Comments: Inccrease protein intake to meet pt's needs. 1. TPN clinimix @41ml/hr provides 42.5g potein 510 kcal, can be a supplement to pt's nepro @30ml/hrproviding 58g pro and 1274 kcal The combined total will be 100.5g pro and 1784 kcal. 2. Offer only TF-Pivot 1.5 @50ml/hr providees 113g pro andd 1800 kcal. 3. Advance to PO 2 gNa high protein diet when pt is off Vent and back to peritoneal dialysis routine. Expected Outcomes/Goals: improved protein status, resume dialysis routine, LOUISA Cabrera HOSAMELDIN H MD Jun 08, 2024 11:19
[2024-06-08 13:06] LABS: Protein, Body Fluid 0.2 g/dL (.)
[2024-06-08] MEDS: PERITONEAL DIALYSIS 2.5% SOLN 2,000 ML IP SCH (14:00)
[2024-06-08] MEDS: hydrALAZINE HCL 20 MG/ML VL ONE (14:23)
[2024-06-08] MEDS ORDERED: hydrALAZINE HCL 20 MG/ML VL IV PRN (14:30)
[2024-06-08] MEDS: hydrALAZINE HCL 20 MG/ML VL IV PRN (15:18)
--- NOTE | 2024-06-08 16:21 | DVHPNRES ---
Progress Note Date Seen: Jun 08, 2024 Resident Creating Document: PAUL FRYE RESIDENT Medical Necessity Reason Pt with a Central, PICC or Fol: Yes The following are medically ne: Central Line, Castano Catheter Subjective Review of Systems YOLI GALICIA is a 53-year-old male with a PMH of type 2 DM, ESRD on peritoneal dialysis, HTN presented to the ED with cardiopulmonary arrest. Patient seen and examined at the bedside along with the family. Unable to obtain ROS due to patient clinical status. Currently intubated with the mechanical ventilation. Monitor. Undergoing peritoneal dialysis. Titrating down sedation. Patient has been having occasional seizure-like activity, consulted Neurology for further evaluation. CPAP trail NOT done bc patient is getting seizure-like activity. Ordered MRI, pending. Changes from previous H/P or p: No Changes Objective vital signs Vital Sign Date Time Temp Pulse Resp B/P (MAP) Pulse Ox O2 Delivery O2 Flow Rate FiO2 06/08/24 16:00 20 100 Mechanical Ventilator+ 30 30 06/08/24 16:00 97.8 95 142/54 (83) 97.8 123/56 (78) Total Intake and Output 06/07/24 06/07/24 06/08/24 15:00 23:00 07:00 Intake Total 4686.688 ml 2630.860 ml 4225.791 ml Output Total 5100 ml 2500 ml 15 ml Balance -413.312 ml 130.860 ml 4210.791 ml medications Current Medications Medications Dose Ordered Sig/Richard Route Start Time Stop Time Status Last Admin Dose Admin Propofol 100 ml @ 2.181 mls/ hr Q24H IV 06/05/24 04:15 06/08/24 15:17 13.086 MLS/HR Midazolam HCl 50 ml @ 1 mls/hr Q24H IV 06/05/24 04:35 06/08/24 09:45 8 MLS/HR Vancomycin HCl 0 ml @ 0 mls/hr UD IV 06/05/24 10:15 Cefepime HCl 50 ml @ 12.5 mls/hr DAILY IV 06/06/24 10:00 06/08/24 09:45 12.5 MLS/HR Diagnostic Test (Pha) 1 strip Q6HR 06/05/24 12:00 06/08/24 11:30 1 STRIP Insulin Human Regular Q6HR SC 06/05/24 12:00 06/08/24 11:31 4 UNITS Dextrose 50 ml UD PRN IV 06/05/24 10:30 Albuterol 2.5 mg Q4HPRN PRN NEB 06/05/24 11:00 Albuterol 2.5 mg Q6HR NEB 06/05/24 12:00 06/08/24 12:03 2.5 MG Ipratropium [place] 0.5 mg Q4HPRN PRN NEB 06/05/24 11:00 Ipratropium [place] 0.5 mg Q6HR NEB 06/05/24 12:00 06/08/24 12:03 0.5 MG Pantoprazole Sodium 40 mg DAILY IV 06/06/24 10:00 06/08/24 09:44 40 MG Calcium Acetate 667 mg TID NG 06/06/24 14:00 06/08/24 13:32 667 MG Enteral Nutritional Formula 1,000 ml 30ML/HR GT 06/06/24 23:00 Hold Docusate Sodium 100 mg BID GT 06/07/24 10:00 Hold Heparin Sodium (Porcine) 5,000 units Q12HR SC 06/07/24 10:00 Hold Metronidazole 100 ml @ 100 mls/hr Q8HR IV 06/07/24 14:00 06/08/24 13:32 100 MLS/HR Dexmedetomidine HCl 400 mcg/ Dextrose 100 ml @ 4.19 mls/hr [id number] IV 06/07/24 17:00 Norepinephrine Bitartrate 250 ml @ 3.75 mls/hr Q24H IV 06/08/24 05:15 06/08/24 05:20 3.75 MLS/HR Fentanyl Citrate 250 ml @ 2.5 mls/hr Q24H IV 06/08/24 09:30 Peritoneal Dialysis Solution 2,000 ml @ 0 mls/hr Q4HR IP 06/08/24 14:00 06/08/24 14:00 0 MLS/HR Hydralazine HCl 10 mg Q6HP PRN IV 06/08/24 14:30 UNV Hydralazine HCl 10 mg Q6HP PRN IV 06/08/24 14:30 06/08/24 15:18 10 MG Examination Pt is lying on bed, General Appearance: Sedated, on mechanical ventilation RR 18, VT 500, peep 5, FiO2 30% HEENT: Atraumatic, Mucous membranes moist/pink Respiratory: Clear to auscultation, Normal air movement, No added sounds Cardiovascular: Regular rate, Normal S1, Normal S2, No murmurs Abdominal: Active bowel sounds, Soft, distended(improved since admission) likely due to fluid overload, peritoneal dialysis shunt intact Extremities: 1+ edematous upper and lower extremities, intact right femoral catheter Skin: No Significant rash, except past surgical scars Neuro: pupils are sluggish to react, weak cough and gag reflex laboratory and microbiology Laboratory Tests 06/08/24 03:12 Test 06/08/24 03:12 Range/Units Serum Glucose 212 H 74-106 mg/dL Microbiology Date/Time Source Procedure Growth Status 06/07/24 10:21 Peritoneal Fluid Gram Stain - Final Resulted 06/07/24 10:21 Peritoneal Fluid Body Fluid Culture - Preliminary Resulted 06/05/24 18:40 Nose MRSA Screen - Final Complete 06/05/24 05:00 Blood Blood Culture - Preliminary NO GROWTH AFTER 72 HOURS OF INCUBATION. Resulted Labs and/or images reviewed: Labs reviewed by me, Image(s) reviewed by me Problem List/Assessment/Plan Problem List/Assessment/Plan NEUROLOGY # ? anoxic/ hypoxic encephalopathy # ? anoxic brain injury - currently on mechanical ventilator - ordered head CT, no acute intracranial pathology except mild cortical atrophy and showed severe paranasal sinus disease with soft tissue swelling of left temporal scalp # Seizure like activity r/o -ordered MRI -consulted neurology CARDIOVASCULAR # cardiopulmonary arrest status post CPR with ROSC # Septic shock likely due to peritoneal origin # NSTEMI likely due to demand mediated # ? acute on chronic diastolic heart failure # ? Coronary artery disease, moderate degree # HX hypertension, uncontrolled # Dyslipidemia, newly diagnosed - ordered pancultures, along with peritoneal fluid analysis and culture, pemding - monitor lab - Off from [facility], since 06/06 - currently on Versed and Diprivan - echo showed LVEF 45% - currently on vancomycin and cefepime - hydralazine p.r.n. # Acute transient AFib with RVR - monitor - correct electrolytes if needed - cardiology on board RESPIRATORY # Acute hypoxic respiratory failure likely due to septic shock # septic shock # ? aspiration pneumonia - ABG reviewed, CXR dialy - CXR reviewed, , diffuse lung disease likely edema or pneumonia - currently on vancomycin and cefepime - Flagylstarted today 06/07 - ventilatory settings: RR 18, VT 500, peep 5, FiO2 30% GI/LIVER # likely acute bacterial peritonitis - currently on antibiotics vancomysin, cefepime and added flagyl - monitor lab - Fluid sent to cell count, negative but pending culture - PUD prophylaxis pantoprazole /KIDNEY/METABOLIC # ESRD on peritoneal dialysis - Nephrology onboard - currently undergoing peritoneal dialysis - Monitor renal function - Monitor electrolytes. Supplement as necessary. - Monitor ins and outs. 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 PUD prophylaxis: Pantoprazole DVT prophylaxis: HOLD Heparin Goals of care has been discussed with the for more than 27 minutes, full code status Critical care time including chart review, discussing with the patient's family excluding procedures: 54 minutes Case discussed with Dr. Tanner. Plan discussed with: Spouse My Orders My Orders Orders - PAUL FRYE RESIDENT Procedure Category Date Status Time D5w 5% (Dextrose 5%) PHA 06/07/24 In Process W/Dexmedetomidine 17:00 Abg W/ Co-Ox RT 06/08/24 Logged 04:00 Chest Xray 1 View XY 06/08/24 Resulted 04:00 Fentanyl Drip PHA 06/08/24 In Process 2500mcg/250mlns 09:30 * Neurology Consult CONS 06/08/24 Transmitted 09:21 Levetiracetam Ivpb PHA 06/08/24 Transmitted Keppra 22:00 Abg W/ Co-Ox RT 06/09/24 Transmitted 04:00 Chest Xray 1 View XY 06/09/24 Transmitted 04:00 Complete Blood Count LAB 06/09/24 Verified 04:00 Comprehensive LAB 06/09/24 Verified Metabolic Panel 04:00 Magnesium LAB 06/09/24 Verified 04:00 Dietary Evaluation Review Comments: Inccrease protein intake to meet pt's needs. 1. TPN clinimix @41ml/hr provides 42.5g potein 510 kcal, can be a supplement to pt's nepro @30ml/hrproviding 58g pro and 1274 kcal The combined total will be 100.5g pro and 1784 kcal. 2. Offer only TF-Pivot 1.5 @50ml/hr providees 113g pro andd 1800 kcal. 3. Advance to PO 2 gNa high protein diet when pt is off Vent and back to peritoneal dialysis routine. Expected Outcomes/Goals: improved protein status, resume dialysis routine, kellie BW, Date of Service: Jun 08, 2024 Billing Provider: JOSE TANNER MD Common Visit Codes: 24391-[id number] CARE 30-74 MIN PAUL FRYE RESIDENT Jun 08, 2024 16:21 JOSE TANNER MD Jun 09, 2024 11:28
[2024-06-08] MEDS: PROPOFOL 100 ML IV ONE (19:47)
[2024-06-08] MEDS: levETIRAcetam 500 mg/100ml 100 ML IV SCH (21:35)
[2024-06-09] VITALS (105 sets, daily range): BP systolic 89–194; BP diastolic 31–88; PULSE 67–95; RESP 12–26; TEMP 97–99.8; O2SAT 81–100
[2024-06-09 01:31] LABS: Body Fluid Polymorphonuclear 5 % (0-25); Body Fluid Red Blood Cells 0 CUMM (0-2000); Body Fluid White Blood Cells 117 CUMM (0-200)
[2024-06-09 03:43] LABS: Basophils # (auto) 0.1 10 ^3/uL (0-0.2); Basophils % (auto) 0.3 % (0.0-2.0); Eosinophils # (auto) 0.4 10 ^3/uL (0-0.8); Eosinophils % (auto) 2.5 % (0.0-7.0); Hematocrit 30.7 % (41.0-53.0); Lymphocytes # (auto) 0.8 10 ^3/uL (0.4-5.4); Lymphocytes % (auto) 4.9 % (10.0-50.0); Mean Corpuscular Hemoglobin 30.1 pg (28.0-32.0); Mean Corpuscular Hgb Conc. 32.6 g/dL (32.0-36.0); Mean Corpuscular Volume 92.6 fL (80.0-100.0); Monocytes # (auto) 1.2 10 ^3/uL (0-1.3); Monocytes % (auto) 7.9 % (0.0-12.0); Neutrophils # (auto) 13.3 10 ^3/uL (1.6-8.6); Neutrophils % (auto) 84.4 % (37.0-80.0); Platelet Count (auto) 125 10^3/uL (140-450); Red Blood Cells 3.32 10^6/uL (4.5-5.90); Red Cell Distribution Width 19.6 % (11.8-14.3); White Blood Cell 15.7 10^3/uL (4.4-10.8)
[2024-06-09 04:08] LABS: Alanine Aminotransferase 18 U/L (7-40); Alkaline Phosphatase 101 U/L (46-116); Anion Gap 16 (5-15); Aspartate Aminotransferase 27 U/L (13-40); BUN/Creatinine Ratio 5.6 (10.0-20.0); Carbon Dioxide 21 mmol/L (20-31)
[2024-06-09 04:09] LABS: Bilirubin, Total 0.3 mg/dL (0.2-1.0)
[2024-06-09 04:12] LABS: Blood Urea Nitrogen 69 mg/dL (9-23); Calcium 8.7 mg/dL (8.7-10.4); Chloride 97 mmol/L (98-107); Glucose 266 mg/dL (74-106); Potassium 3.4 mmol/L (3.5-5.1); Sodium 134 mmol/L (136-145); Total Protein 5.1 g/dL (5.7-8.2)
--- NOTE | 2024-06-09 05:34 | DVH ---
CHEST RADIOGRAPH Indication: pna Technique: Single frontal view of the chest was obtained COMPARISON: XY CHEST XRAY 1 VIEW on DOS: 06/08/24, XY CHEST XRAY 1 VIEW on DOS: 06/07/24, XY CHEST PORT ABLE on DOS: 06/06/24, XY CHEST PORTABLE on DOS: 06/05/24 FINDINGS: Lines and Tubes: Endotracheal tube and enteric catheter in satisfactory position. Lungs: Congestion Pleura: No effusion. No pneumothorax. Cardiomediastinal contours: Cardiomegaly Bones: Unremarkable IMPRESSION: Lines and tubes in satisfactory position. No significant interval change.
[2024-06-09 08:05] LABS: Base Excess 0.4 mmol/L (-2.0-3.0)
[2024-06-09] MEDS: POTASSIUM CHL 20MEQ/100ML 100 ML IV ONE (08:33)
--- NOTE | 2024-06-09 09:23 | DVHPN2 ---
Progress Note - Dictate Date Seen: Jun 09, 2024 Medical Necessity Reason Pt with a Central, PICC or Fol: Yes The following are medically ne: Central Line, Castano Catheter Subjective Mr. Montano is a 53 years old right-handed gentleman with a history of d iabetes, coronary artery disease, end-stage kidney failure on peritoneal dialysis, the patient was was brought to the [facility] on 06/05/24 with CPR ongoing. I have seen and examined the patient, discussed with one thing or one his nurse, primary care team, his family in the room with him He Is sedated, intubated, nonresponsive. Nurse was tremor, but a witnessed one towards the end of physical examination, same to yesterday's Blood culture, 05/1974: No growth Peritoneal fluid culture, 06/07/2024: UDS, 06/06/2024: Benzo Urinalysis, 06/06/2024: WBC: 1, urine leukocyte esterase: Negative ABG, 06/05/2024: Combined metabolic and respiratory acidosis, WBC/HB/PLT/MCV, 06/08/2024: 19/10.3/106/90.9 Na, 06/06/2019 5:132, 06/08/2024: Moderate BUN/CR, 06/05/2024: 57/15.78, 06/08/2024: 78/14.78 Lactic acid, 06/05/24: 6.7, 3.5 HGB A1c, 06/05/2019 5:6.3 One high sensitivity, 05/1924: 566, 698, 643 Liver function tests, 06/08/2024: Normal TG/HDL/LDL/HDL, 06/05/2024: 174/208/143/33 TSH, 06/05/2024: 5.41 Chest x-ray, 06/08/2024: 1. Bibasilar opacities which may reflect atelectasis or pneumonia. 2. Stable position of the support lines and tubes CT head, 06/06/2024: No acute intracranial pathology in the brain. Mild cortical atrophy Severe paranasal sinus disease Soft tissue swelling left temporal scalp vital signs Vital Sign Date Time Temp Pulse Resp B/P (MAP) Pulse Ox O2 Delivery O2 Flow Rate FiO2 06/09/24 08:00 91 18 100 Mechanical Ventilator+ 30 30 06/09/24 08:00 98.2 96/41 (59) 208.8 95/48 (64) Total Intake and Output 06/08/24 06/08/24 06/09/24 15:00 23:00 07:00 Intake Total 382 ml 6618.706 ml 6218.249 ml Output Total 1910 ml 0 ml Balance 382 ml 4708.706 ml 6218.249 ml medications Current Medications Medications Dose Ordered Sig/Richard Route Start Time Stop Time Status Last Admin Dose Admin Propofol 100 ml @ 2.181 mls/ hr Q24H IV 06/05/24 04:15 06/09/24 07:36 10.905 MLS/HR Midazolam HCl 50 ml @ 1 mls/hr Q24H IV 06/05/24 04:35 06/09/24 08:19 9 MLS/HR Vancomycin HCl 0 ml @ 0 mls/hr UD IV 06/05/24 10:15 Cefepime HCl 50 ml @ 12.5 mls/hr DAILY IV 06/06/24 10:00 06/08/24 09:45 12.5 MLS/HR Diagnostic Test (Pha) 1 strip Q6HR 06/05/24 12:00 06/09/24 05:30 1 STRIP Insulin Human Regular Q6HR SC 06/05/24 12:00 06/09/24 05:33 4 UNITS Dextrose 50 ml UD PRN IV 06/05/24 10:30 Albuterol 2.5 mg Q4HPRN PRN NEB 06/05/24 11:00 Albuterol 2.5 mg Q6HR NEB 06/05/24 12:00 06/09/24 07:14 2.5 MG Ipratropium [place] 0.5 mg Q4HPRN PRN NEB 06/05/24 11:00 Ipratropium [place] 0.5 mg Q6HR NEB 06/05/24 12:00 06/09/24 07:14 0.5 MG Pantoprazole Sodium 40 mg DAILY IV 06/06/24 10:00 06/08/24 09:44 40 MG Calcium Acetate 667 mg TID NG 06/06/24 14:00 06/09/24 05:55 667 MG Enteral Nutritional Formula 1,000 ml 30ML/HR GT 06/06/24 23:00 Hold Docusate Sodium 100 mg BID GT 06/07/24 10:00 Hold Heparin Sodium (Porcine) 5,000 units Q12HR SC 06/07/24 10:00 Hold Metronidazole 100 ml @ 100 mls/hr Q8HR IV 06/07/24 14:00 06/09/24 05:54 100 MLS/HR Dexmedetomidine HCl 400 mcg/ Dextrose 100 ml @ 4.19 mls/hr [id number] IV 06/07/24 17:00 Norepinephrine Bitartrate 250 ml @ 3.75 mls/hr Q24H IV 06/08/24 05:15 06/08/24 05:20 3.75 MLS/HR Fentanyl Citrate 250 ml @ 2.5 mls/hr Q24H IV 06/08/24 09:30 Peritoneal Dialysis Solution 2,000 ml @ 0 mls/hr Q4HR IP 06/08/24 14:00 06/09/24 05:54 2,000 MLS/HR Hydralazine HCl 10 mg Q6HP PRN IV 06/08/24 14:30 UNV Hydralazine HCl 10 mg Q6HP PRN IV 06/08/24 14:30 06/08/24 15:18 10 MG Levetiracetam 100 ml @ 400 mls/hr BID IV 06/08/24 22:00 06/08/24 21:35 400 MLS/HR objective The patient is well-nourished and well-developed with no distress. The patient is intubated MENTAL STATUS: Subjective CRANIAL NERVES: Pupils are equal, round and reactive. There are corneal reflexes and doll's eyes phenomenon. No signs of facial weakness. There are weak gagging or coughing reflexes SENSATION: No responses to pain stimuli. MOTOR: Normal tone in the upper and lower extremity. Normal muscle bulk. No fasciculations. No spontaneous movement. REFLEXES: Deep tendon reflexes are symmetrical. No pathological reflexes. CEREBELLAR/COORDINATION: Deferred GAIT/STATION: deferred laboratory and microbiology Laboratory Tests 06/09/24 03:05 Test 06/09/24 03:05 Range/Units Serum Glucose 266 H 74-106 mg/dL Problem List Abnormal movement, Myoclonus Rule out status epileptics Coma Hypoxic encephalopathy Metabolic encephalopathy Toxic encephalopathy Cardiopulmonary arrest, status post CPR Metabolic acidosis Respiratory acidosis Coronary artery disease Heart attack Leukocytosis/sepsis/septic shock Pneumonia Assessment/Plan Monitoring Supportive screaming ICU care EEG Follow-up CT Respiratory support/vent management Stabilize vitals Oxygen IV antibiotics Versed drip with p.r.n. Ativan for tremor/myoclonus control Keppra 500 mg b.i.d. DVT prophylax/heparin GI prophylax/Protonix IV antibiotics Cardiology on case Pulmonology on case Nephrology on case More recommendation per clinical course This medical document was created using an electronic medical record system with [employer] dictation system. Although this document has been carefully reviewed, there may still be some phonetic and typographical errors. These areas are purely typographical due to imperfections of the software programs, and do not reflect any compromise in the patient's medical care Prognosis guarded Dietary Evaluation Review Comments: Inccrease protein intake to meet pt's needs. 1. TPN clinimix @41ml/hr provides 42.5g potein 510 kcal, can be a supplement to pt's nepro @30ml/hrproviding 58g pro and 1274 kcal The combined total will be 100.5g pro and 1784 kcal. 2. Offer only TF-Pivot 1.5 @50ml/hr providees 113g pro andd 1800 kcal. 3. Advance to PO 2 gNa high protein diet when pt is off Vent and back to peritoneal dialysis routine. Expected Outcomes/Goals: improved protein status, resume dialysis routine, kellie BEDOYA, Plan discussed with: Daughter, Other Critical Care Time(min): 35 TINO DOLAN MD Jun 09, 2024 09:23
[2024-06-09] MEDS: fentaNYL Drip 2500mCg/250mlNS 250 ML IV SCH (09:30)
[2024-06-09] MEDS: levETIRAcetam 500 mg/100ml 100 ML IV ONE (10:58)
--- NOTE | 2024-06-09 12:19 | DVH ---
MRI BRAIN WITHOUT CONTRAST CLINICAL HISTORY: post cardiac arrest TECHNIQUE: Multiplanar, multisequence MR images of the brain without intravenous contrast. Comparison: CT head 06/06/2024 FINDINGS: There is no restricted diffusion. There is an 8 mm focus of blooming artifact in the left thalamic re gion. There is no discrete lesion identified on the T2 and T1 images. There is a small hyperintense T 2 and hypointense T1 focus in the left paramidline anterior erika. There is no evidence of acute hemor rhage. There is no evidence of a discrete mass, mass effect or midline shift. There is no hydrocephal us or extra-axial fluid collection. The visualized intracranial vasculature demonstrates appropriate flow-voids. The sagittal midline structures appear unremarkable. The craniocervical junction is withi n normal limits. The calvarium demonstrates normal marrow signal. There is moderate mucosal thickenin g in the paranasal sinuses, worse in the right maxillary sinus. There is small amount of fluid in the bilateral mastoid air cells. IMPRESSION: 1. There is no acute intracranial process. 2. Nonspecific 8 mm focus of blooming artifact in the left thalamic region May relate to chronic micr ohemorrhage. There is no discrete lesion identified on the other sequences to suggest a cavernoma. 3. Nonspecific small hyperintense T2 and hypointense T1 focus in the left paramidline anterior erika. Small chronic ischemic focus is not excluded. HS:Y
[2024-06-09] MEDS ORDERED: fentaNYL Drip 2500mCg/250mlNS 250 ML IV SCH (12:45)
--- NOTE | 2024-06-09 14:25 | DVHPN2 ---
Progress Note Date Seen: Jun 09, 2024 Medical Necessity Reason Pt with a Central, PICC or Fol: Yes The following are medically ne: Central Line, Castano Catheter Subjective Review of Systems: RESPIRATORY:Abnormal Other Systems: Patient seen and examined by myself today in follow-up Patient examined in protein dialysis PD fluid is clear Objective vital signs Vital Sign Date Time Temp Pulse Resp B/P (MAP) Pulse Ox O2 Delivery O2 Flow Rate FiO2 06/09/24 14:05 130/58 06/09/24 12:49 90 18 99 30 06/09/24 12:15 98.0 98.0 06/09/24 12:00 Mechanical Ventilator+ Total Intake and Output 06/08/24 06/08/24 06/09/24 15:00 23:00 07:00 Intake Total 382 ml 6618.706 ml 6218.249 ml Output Total 1910 ml 0 ml Balance 382 ml 4708.706 ml 6218.249 ml medications Current Medications Medications Dose Ordered Sig/Richard Route Start Time Stop Time Status Last Admin Dose Admin Propofol 100 ml @ 2.181 mls/ hr Q24H IV 06/05/24 04:15 06/09/24 14:04 10.905 MLS/HR Midazolam HCl 50 ml @ 1 mls/hr Q24H IV 06/05/24 04:35 06/09/24 14:05 9 MLS/HR Vancomycin HCl 0 ml @ 0 mls/hr UD IV 06/05/24 10:15 Cefepime HCl 50 ml @ 12.5 mls/hr DAILY IV 06/06/24 10:00 06/09/24 10:03 12.5 MLS/HR Diagnostic Test (Pha) 1 strip Q6HR 06/05/24 12:00 06/09/24 12:38 1 STRIP Insulin Human Regular Q6HR SC 06/05/24 12:00 06/09/24 12:39 6 UNITS Dextrose 50 ml UD PRN IV 06/05/24 10:30 Albuterol 2.5 mg Q4HPRN PRN NEB 06/05/24 11:00 Albuterol 2.5 mg Q6HR NEB 06/05/24 12:00 06/09/24 12:48 2.5 MG Ipratropium [place] 0.5 mg Q4HPRN PRN NEB 06/05/24 11:00 Ipratropium [place] 0.5 mg Q6HR NEB 06/05/24 12:00 06/09/24 12:49 0.5 MG Pantoprazole Sodium 40 mg DAILY IV 06/06/24 10:00 06/09/24 10:04 40 MG Calcium Acetate 667 mg TID NG 06/06/24 14:00 06/09/24 13:32 667 MG Enteral Nutritional Formula 1,000 ml 30ML/HR GT 06/06/24 23:00 Hold Docusate Sodium 100 mg BID GT 06/07/24 10:00 Hold Heparin Sodium (Porcine) 5,000 units Q12HR SC 06/07/24 10:00 Hold Metronidazole 100 ml @ 100 mls/hr Q8HR IV 06/07/24 14:00 06/09/24 13:32 100 MLS/HR Dexmedetomidine HCl 400 mcg/ Dextrose 100 ml @ 4.19 mls/hr [id number] IV 06/07/24 17:00 Norepinephrine Bitartrate 250 ml @ 3.75 mls/hr Q24H IV 06/08/24 05:15 06/08/24 05:20 3.75 MLS/HR Fentanyl Citrate 250 ml @ 2.5 mls/hr Q24H IV 06/08/24 09:30 06/09/24 13:36 2.5 MLS/HR Peritoneal Dialysis Solution 2,000 ml @ 0 mls/hr Q4HR IP 06/08/24 14:00 06/09/24 13:33 0 MLS/HR Hydralazine HCl 10 mg Q6HP PRN IV 06/08/24 14:30 UNV Hydralazine HCl 10 mg Q6HP PRN IV 06/08/24 14:30 06/08/24 15:18 10 MG Levetiracetam 100 ml @ 400 mls/hr BID IV 06/09/24 22:00 laboratory and microbiology Laboratory Tests 06/09/24 03:05 Test 06/09/24 03:05 Range/Units Serum Glucose 266 H 74-106 mg/dL Microbiology Date/Time Source Procedure Growth Status 06/07/24 10:21 Peritoneal Fluid Gram Stain - Final Resulted 06/07/24 10:21 Peritoneal Fluid Body Fluid Culture - Preliminary Resulted 06/05/24 18:40 Nose MRSA Screen - Final Complete 06/05/24 05:00 Blood Blood Culture - Preliminary NO GROWTH AFTER 72 HOURS OF INCUBATION. Resulted Problem List/Assessment/Plan Problem List/Assessment/Plan End-stage renal disease on home protein dialysis Acute respiratory failure intubated on ventilator Status post cardiac arrest Septic shock Aspiration pneumonia Congestive heart failure, ejection fraction 45% Anemia of chronic kidney disease, well compensated Hyperphosphatemia Hypokalemia Recommendations Continue intensive peritoneal dialysis x 6 exchanges per 24 hours using 2.5% Dianeal PD solution PD fluid is clear culture is negative Closely monitor fluid and electrolytes IV antibiotics IV pressors Maintain map more than 65 mm Hg Calcium acetate per NG tube t.i.d. KCL replacement Pulmonary consult Cardiology consult We will continue to follow I discussed my plan of care with the and the primary nurse at the bedside Plan discussed with: Other (Nurse) Dietary Evaluation Review Comments: Inccrease protein intake to meet pt's needs. 1. TPN clinimix @41ml/hr provides 42.5g potein 510 kcal, can be a supplement to pt's nepro @30ml/hrproviding 58g pro and 1274 kcal The combined total will be 100.5g pro and 1784 kcal. 2. Offer only TF-Pivot 1.5 @50ml/hr providees 113g pro andd 1800 kcal. 3. Advance to PO 2 gNa high protein diet when pt is off Vent and back to peritoneal dialysis routine. Expected Outcomes/Goals: improved protein status, resume dialysis routine, kellie BEDOYA, OLEKSANDR JASSO MD Jun 09, 2024 14:25
--- NOTE | 2024-06-09 14:56 | DVHPNRES ---
Progress Note Date Seen: Jun 09, 2024 Resident Creating Document: PAUL FRYE RESIDENT Medical Necessity Reason Pt with a Central, PICC or Fol: Yes The following are medically ne: Central Line, Castano Catheter Subjective Review of Systems YOLI GALICIA is a 53-year-old male with a PMH of type 2 DM, ESRD on peritoneal dialysis, HTN presented to the ED with cardiopulmonary arrest. Patient seen and examined at the bedside along with the family. Unable to obtain ROS due to patient clinical status. Currently intubated with the mechanical ventilation. Monitor. Undergoing peritoneal dialysis. Patient has been having occasional seizure-like activity,CPAP trail NOT done. Ordered MRI, which showed no acute intracranial abnormalities except chronic changes. Neurology consult evaluated the patient, advanced to add Mariel. Changes from previous H/P or p: No Changes Objective vital signs Vital Sign Date Time Temp Pulse Resp B/P (MAP) Pulse Ox O2 Delivery O2 Flow Rate FiO2 06/09/24 14:25 140/63 06/09/24 12:49 90 18 99 30 06/09/24 12:15 98.0 98.0 06/09/24 12:00 Mechanical Ventilator+ Total Intake and Output 06/08/24 06/08/24 06/09/24 15:00 23:00 07:00 Intake Total 382 ml 6618.706 ml 6218.249 ml Output Total 1910 ml 0 ml Balance 382 ml 4708.706 ml 6218.249 ml medications Current Medications Medications Dose Ordered Sig/Richard Route Start Time Stop Time Status Last Admin Dose Admin Propofol 100 ml @ 2.181 mls/ hr Q24H IV 06/05/24 04:15 06/09/24 14:04 10.905 MLS/HR Midazolam HCl 50 ml @ 1 mls/hr Q24H IV 06/05/24 04:35 06/09/24 14:25 9 MLS/HR Vancomycin HCl 0 ml @ 0 mls/hr UD IV 06/05/24 10:15 Cefepime HCl 50 ml @ 12.5 mls/hr DAILY IV 06/06/24 10:00 06/09/24 10:03 12.5 MLS/HR Diagnostic Test (Pha) 1 strip Q6HR 06/05/24 12:00 06/09/24 12:38 1 STRIP Insulin Human Regular Q6HR SC 06/05/24 12:00 06/09/24 12:39 6 UNITS Dextrose 50 ml UD PRN IV 06/05/24 10:30 Albuterol 2.5 mg Q4HPRN PRN NEB 06/05/24 11:00 Albuterol 2.5 mg Q6HR NEB 06/05/24 12:00 06/09/24 12:48 2.5 MG Ipratropium [place] 0.5 mg Q4HPRN PRN NEB 06/05/24 11:00 Ipratropium [place] 0.5 mg Q6HR NEB 06/05/24 12:00 06/09/24 12:49 0.5 MG Pantoprazole Sodium 40 mg DAILY IV 06/06/24 10:00 06/09/24 10:04 40 MG Calcium Acetate 667 mg TID NG 06/06/24 14:00 06/09/24 13:32 667 MG Enteral Nutritional Formula 1,000 ml 30ML/HR GT 06/06/24 23:00 Hold Docusate Sodium 100 mg BID GT 06/07/24 10:00 Hold Heparin Sodium (Porcine) 5,000 units Q12HR SC 06/07/24 10:00 Hold Metronidazole 100 ml @ 100 mls/hr Q8HR IV 06/07/24 14:00 06/09/24 13:32 100 MLS/HR Dexmedetomidine HCl 400 mcg/ Dextrose 100 ml @ 4.19 mls/hr [id number] IV 06/07/24 17:00 Norepinephrine Bitartrate 250 ml @ 3.75 mls/hr Q24H IV 06/08/24 05:15 06/08/24 05:20 3.75 MLS/HR Fentanyl Citrate 250 ml @ 2.5 mls/hr Q24H IV 06/08/24 09:30 06/09/24 13:36 2.5 MLS/HR Peritoneal Dialysis Solution 2,000 ml @ 0 mls/hr Q4HR IP 06/08/24 14:00 06/09/24 13:33 0 MLS/HR Hydralazine HCl 10 mg Q6HP PRN IV 06/08/24 14:30 UNV Hydralazine HCl 10 mg Q6HP PRN IV 06/08/24 14:30 06/08/24 15:18 10 MG Levetiracetam 100 ml @ 400 mls/hr BID IV 06/09/24 22:00 Potassium Bicarbonate 25 meq DAILY NG 06/10/24 10:00 Examination Pt is lying on bed, General Appearance: Sedated, on mechanical ventilation RR 18, VT 500, peep 5, FiO2 30% HEENT: Atraumatic, Mucous membranes moist/pink Respiratory: Clear to auscultation, Normal air movement, No added sounds Cardiovascular: Regular rate, Normal S1, Normal S2, No murmurs Abdominal: Active bowel sounds, Soft, distended(improved since admission) likely due to fluid overload, peritoneal dialysis shunt intact Extremities: 1+ edematous upper and lower extremities, intact right femoral catheter Skin: No Significant rash, except past surgical scars Neuro: pupils are sluggish to react and unequal, weak cough and gag reflex laboratory and microbiology Laboratory Tests 06/09/24 03:05 Test 06/09/24 03:05 Range/Units Serum Glucose 266 H 74-106 mg/dL Microbiology Date/Time Source Procedure Growth Status 06/07/24 10:21 Peritoneal Fluid Gram Stain - Final Resulted 06/07/24 10:21 Peritoneal Fluid Body Fluid Culture - Preliminary Resulted 06/05/24 18:40 Nose MRSA Screen - Final Complete 06/05/24 05:00 Blood Blood Culture - Preliminary NO GROWTH AFTER 72 HOURS OF INCUBATION. Resulted Labs and/or images reviewed: Labs reviewed by me, Image(s) reviewed by me Problem List/Assessment/Plan Problem List/Assessment/Plan NEUROLOGY # ? anoxic/ hypoxic encephalopathy # ? anoxic brain injury - currently on mechanical ventilator - ordered head CT, no acute intracranial pathology except mild cortical atrophy and showed severe paranasal sinus disease with soft tissue swelling of left temporal scalp # Seizure like activity r/o # Myoclonus # Rule out status epileptics -ordered MRI, no acute changes but existence of chronic changes -consulted neurology, at bed to continue ongoing treatment along with Kera CARDIOVASCULAR # cardiopulmonary arrest status post CPR with ROSC # Septic shock likely due to peritoneal origin # NSTEMI likely due to demand mediated # ? acute on chronic diastolic heart failure # ? Coronary artery disease, moderate degree # HX hypertension, uncontrolled # Dyslipidemia, newly diagnosed - ordered pancultures, along with peritoneal fluid analysis and culture, pemding - monitor lab - Off from Levophed, since 06/06 - currently on Versed and Diprivan - added fentanyl 06/09 - echo showed LVEF 45% - currently on vancomycin and cefepime - hydralazine p.r.n. # Acute transient AFib with RVR - monitor - correct electrolytes if needed - cardiology on board RESPIRATORY # Acute hypoxic respiratory failure likely due to septic shock # septic shock # ? aspiration pneumonia - ABG reviewed, CXR dialy - CXR reviewed, , diffuse lung disease likely edema or pneumonia - currently on vancomycin and cefepime - Flagylstarted 06/07 - ventilatory settings: RR 18, VT 500, peep 5, FiO2 30% - - added fentanyl 06/09 GI/LIVER # likely acute bacterial peritonitis - currently on antibiotics vancomysin, cefepime and added flagyl - monitor lab - Fluid sent to cell count, negative but pending culture - PUD prophylaxis pantoprazole /KIDNEY/METABOLIC # ESRD on peritoneal dialysis - Nephrology onboard - currently undergoing peritoneal dialysis - Monitor renal function - Monitor electrolytes. Supplement as necessary. - Monitor ins and outs. ENDO # type 2 DM with HbA1c 6.3 - Accu-Cheks and ISS MSK HEME # Thrombocytopenia - monitor lab - held heparin ID # likely bacterial peritonitis # septic shock likely due to above - currently on antibiotics - monitor lab - Fluid sent to cell count, negative but pending culture SKIN - Intact peritoneal dialysis catheter LINES Right femoral vein catheter 0n 06/05 Castano catheter DRIPS Sarah Kilgore Fntanyl 06/09 Currently Off from Levophed 06/07 NUTRITION NPO Goals of care/advance care planning; FULL CODE; discussed on for 27 minutes. PUD prophylaxis: Pantoprazole DVT prophylaxis: HOLD Heparin Goals of care has been discussed with the for more than 27 minutes, full code status Critical care time including chart review, discussing with the patient's family excluding procedures: 54 minutes Case discussed with Dr. Tanner. Plan discussed with: Spouse My Orders My Orders Orders - PAUL FRYE RESIDENT Procedure Category Date Status Time Abg W/ Co-Ox RT 06/09/24 Logged 04:00 Chest Xray 1 View XY 06/09/24 Resulted 04:00 Levetiracetam 500 PHA 06/09/24 In Process Mg/100ml (Levetiraceta 22:00 Dietary Evaluation Review Comments: Inccrease protein intake to meet pt's needs. 1. TPN clinimix @41ml/hr provides 42.5g potein 510 kcal, can be a supplement to pt's nepro @30ml/hrproviding 58g pro and 1274 kcal The combined total will be 100.5g pro and 1784 kcal. 2. Offer only TF-Pivot 1.5 @50ml/hr providees 113g pro andd 1800 kcal. 3. Advance to PO 2 gNa high protein diet when pt is off Vent and back to peritoneal dialysis routine. Expected Outcomes/Goals: improved protein status, resume dialysis routine, kellie BEDOYA, Date of Service: Jun 09, 2024 Billing Provider: JOSE TANNER MD Common Visit Codes: [id number] CARE 30-74 MIN PAUL FRYE RESIDENT Jun 09, 2024 14:56 JOSE TANNER MD Jun 12, 2024 12:08
[2024-06-09] MEDS: levETIRAcetam 500 mg/100ml 100 ML IV SCH (21:16)
[2024-06-10] VITALS (107 sets, daily range): BP systolic 86–216; BP diastolic 36–106; PULSE 74–94; RESP 13–34; TEMP 96.6–99.7; O2SAT 95–100
[2024-06-10] MEDS: LORazepam 2MG/ML-1ML VIAL IV PRN (01:51)
[2024-06-10 04:02] LABS: Basophils # (auto) 0.1 10 ^3/uL (0-0.2); Basophils % (auto) 0.3 % (0.0-2.0); Eosinophils # (auto) 0.6 10 ^3/uL (0-0.8); Eosinophils % (auto) 3.7 % (0.0-7.0); Hematocrit 34.5 % (41.0-53.0); Lymphocytes # (auto) 0.9 10 ^3/uL (0.4-5.4); Lymphocytes % (auto) 5.2 % (10.0-50.0); Mean Corpuscular Hemoglobin 29.2 pg (28.0-32.0); Mean Corpuscular Hgb Conc. 31.9 g/dL (32.0-36.0); Mean Corpuscular Volume 91.5 fL (80.0-100.0); Monocytes # (auto) 1.4 10 ^3/uL (0-1.3); Monocytes % (auto) 8.3 % (0.0-12.0); Neutrophils % (auto) 82.5 % (37.0-80.0); Platelet Count (auto) 207 10^3/uL (140-450); Red Blood Cells 3.77 10^6/uL (4.5-5.90); Red Cell Distribution Width 19.6 % (11.8-14.3)
[2024-06-10 04:44] LABS: Alanine Aminotransferase 18 U/L (7-40); Albumin 3.2 g/dL (3.2-4.8); Alkaline Phosphatase 112 U/L (46-116); Anion Gap 15 (5-15); Aspartate Aminotransferase 24 U/L (13-40); BUN/Creatinine Ratio 5.7 (10.0-20.0); Calcium 9.7 mg/dL (8.7-10.4); Carbon Dioxide 23 mmol/L (20-31); Magnesium 1.9 mg/dL (1.6-2.6); Potassium 3.6 mmol/L (3.5-5.1)
[2024-06-10 04:45] LABS: Bilirubin, Total 0.4 mg/dL (0.2-1.0)
[2024-06-10 04:49] LABS: Blood Urea Nitrogen 65 mg/dL (9-23); Chloride 94 mmol/L (98-107); Glucose 258 mg/dL (74-106); Sodium 132 mmol/L (136-145)
[2024-06-10 04:51] LABS: Total Protein 5.7 g/dL (5.7-8.2)
--- NOTE | 2024-06-10 05:48 | DVH ---
CHEST RADIOGRAPH Indication: pna Technique: Single frontal view of the chest was obtained Comparison: XY CHEST XRAY 1 VIEW on DOS: 06/09/24 FINDINGS: Lines and Tubes: The endotracheal tube terminates 4.4 cm above the laurie. The enteric tube terminat es in the stomach. Lungs: Mild pulmonary congestion similar to prior study. Pleura: No effusion. No pneumothorax. Cardiomediastinal contours: Unremarkable Bones: No acute osseous abnormality. IMPRESSION: 1. No significant interval change in mild pulmonary congestion. 2. Stable position of the support lines and tubes.
[2024-06-10] MEDS ORDERED: POTASSIUM CHL 20MEQ/100ML 100 ML IV ONE (07:00)
[2024-06-10 08:58] LABS: Base Excess 0.5 mmol/L (-2.0-3.0)
--- NOTE | 2024-06-10 09:40 | DVHPNRES ---
Progress Note Date Seen: Jun 10, 2024 Resident Creating Document: PAUL FRYE RESIDENT Medical Necessity Reason Pt with a Central, PICC or Fol: Yes The following are medically ne: Central Line, Castano Catheter Subjective Review of Systems YOLI GALICIA is a 53-year-old male with a PMH of type 2 DM, ESRD on peritoneal dialysis, HTN presented to the ED with cardiopulmonary arrest. Patient seen and examined at the bedside along with the family. Unable to obtain ROS due to patient clinical status. Currently intubated with the mechanical ventilation. Undergoing peritoneal dialysis. Patient has been having occasional seizure-like activity. Ordered MRI, which showed no acute intracranial abnormalities except chronic changes. Neurology consult evaluated the patient, advanced to add Keppra. Currently sedated, continuously monitoring. Changed cefepime and flagyll to Zosyn. Changes from previous H/P or p: No Changes Objective vital signs Vital Sign Date Time Temp Pulse Resp B/P (MAP) Pulse Ox O2 Delivery O2 Flow Rate FiO2 06/10/24 08:49 148/61 06/10/24 08:35 87 22 100 30 06/10/24 06:30 98.2 208.8 06/10/24 06:00 Mechanical Ventilator+ Total Intake and Output 06/09/24 06/09/24 06/10/24 15:00 23:00 07:00 Intake Total 414 ml 6303 ml 6352 ml Output Total 1900 ml 1300 ml Balance 414 ml 4403 ml 5052 ml medications Current Medications Medications Dose Ordered Sig/Richard Route Start Time Stop Time Status Last Admin Dose Admin Propofol 100 ml @ 2.181 mls/ hr Q24H IV 06/05/24 04:15 06/10/24 01:57 10.905 MLS/HR Midazolam HCl 50 ml @ 1 mls/hr Q24H IV 06/05/24 04:35 06/10/24 06:07 4 MLS/HR Vancomycin HCl 0 ml @ 0 mls/hr UD IV 06/05/24 10:15 Cefepime HCl 50 ml @ 12.5 mls/hr DAILY IV 06/06/24 10:00 06/09/24 10:03 12.5 MLS/HR Diagnostic Test (Pha) 1 strip Q6HR 06/05/24 12:00 06/10/24 05:47 1 STRIP Insulin Human Regular Q6HR SC 06/05/24 12:00 06/10/24 06:26 218 UNITS Dextrose 50 ml UD PRN IV 06/05/24 10:30 Albuterol 2.5 mg Q4HPRN PRN NEB 06/05/24 11:00 Albuterol 2.5 mg Q6HR NEB 06/05/24 12:00 06/10/24 07:22 2.5 MG Ipratropium [place] 0.5 mg Q4HPRN PRN NEB 06/05/24 11:00 Ipratropium [place] 0.5 mg Q6HR NEB 06/05/24 12:00 06/10/24 07:22 0.5 MG Pantoprazole Sodium 40 mg DAILY IV 06/06/24 10:00 06/09/24 10:04 40 MG Calcium Acetate 667 mg TID NG 06/06/24 14:00 06/10/24 05:47 667 MG Enteral Nutritional Formula 1,000 ml 30ML/HR GT 06/06/24 23:00 Hold Docusate Sodium 100 mg BID GT 06/07/24 10:00 Hold Heparin Sodium (Porcine) 5,000 units Q12HR SC 06/07/24 10:00 Hold Metronidazole 100 ml @ 100 mls/hr Q8HR IV 06/07/24 14:00 06/10/24 05:48 100 MLS/HR Dexmedetomidine HCl 400 mcg/ Dextrose 100 ml @ 4.19 mls/hr [id number] IV 06/07/24 17:00 Norepinephrine Bitartrate 250 ml @ 3.75 mls/hr Q24H IV 06/08/24 05:15 06/10/24 06:27 3.75 MLS/HR Fentanyl Citrate 250 ml @ 2.5 mls/hr Q24H IV 06/08/24 09:30 06/09/24 13:36 2.5 MLS/HR Peritoneal Dialysis Solution 2,000 ml @ 0 mls/hr Q4HR IP 06/08/24 14:00 06/10/24 05:48 2,000 MLS/HR Hydralazine HCl 10 mg Q6HP PRN IV 06/08/24 14:30 UNV Hydralazine HCl 10 mg Q6HP PRN IV 06/08/24 14:30 06/10/24 02:09 10 MG Levetiracetam 100 ml @ 400 mls/hr BID IV 06/09/24 22:00 06/09/24 21:16 400 MLS/HR Potassium Bicarbonate 25 meq DAILY NG 06/10/24 10:00 Lorazepam 1 mg Q5MINP PRN IV 06/09/24 19:30 06/10/24 01:51 1 MG Examination Pt is lying on bed, General Appearance: Sedated, on mechanical ventilation RR 18, VT 500, peep 5, FiO2 30% HEENT: Atraumatic, Mucous membranes moist/pink Respiratory: Clear to auscultation, Normal air movement, No added sounds Cardiovascular: Regular rate, Normal S1, Normal S2, No murmurs Abdominal: Active bowel sounds, Soft, distended(improved since admission) likely due to fluid overload, peritoneal dialysis shunt intact Extremities: 1+ edematous upper and lower extremities, intact right femoral catheter Skin: No Significant rash, except past surgical scars Neuro: pupils are sluggish to react, weak cough and gag reflex laboratory and microbiology Laboratory Tests 06/10/24 03:08 Test 06/10/24 03:08 Range/Units Serum Glucose 258 H 74-106 mg/dL Microbiology Date/Time Source Procedure Growth Status 06/07/24 10:21 Peritoneal Fluid Gram Stain - Final Resulted 06/07/24 10:21 Peritoneal Fluid Body Fluid Culture - Preliminary Resulted 06/05/24 18:40 Nose MRSA Screen - Final Complete 06/05/24 05:00 Blood Blood Culture - Preliminary NO GROWTH AFTER 72 HOURS OF INCUBATION. Resulted Labs and/or images reviewed: Labs reviewed by me, Image(s) reviewed by me Problem List/Assessment/Plan Problem List/Assessment/Plan NEUROLOGY # ? anoxic/ hypoxic encephalopathy # ? anoxic brain injury - currently on mechanical ventilator - ordered head CT, no acute intracranial pathology except mild cortical atrophy and showed severe paranasal sinus disease with soft tissue swelling of left temporal scalp # Seizure like activity r/o # Myoclonus # Rule out status epileptics -ordered MRI, no acute changes but existence of chronic changes -consulted neurology,advised to continue ongoing treatment along with Keppra CARDIOVASCULAR # cardiopulmonary arrest status post CPR with ROSC # Septic shock likely due to peritoneal origin # NSTEMI likely due to demand mediated # ? acute on chronic diastolic heart failure # ? Coronary artery disease, moderate degree # HX hypertension, uncontrolled # Dyslipidemia, newly diagnosed - ordered pancultures, along with peritoneal fluid analysis and culture, preliminary is negative - monitor lab - Off from Levophed, since 06/06 - started levophed today and later discontinued. - currently on Versed and Diprivan - added fentanyl 06/09 - echo showed LVEF 45% - Currently on vancomycin and Zosyn - Cefepime DC 06/10 switched to Zosyn today 06/10 - hydralazine p.r.n. # Acute transient AFib with RVR - monitor - correct electrolytes if needed - cardiology on board RESPIRATORY # Acute hypoxic respiratory failure likely due to septic shock # septic shock # ? aspiration pneumonia - ABG reviewed, CXR dialy - CXR reviewed, , diffuse lung disease likely edema or pneumonia - Currently on vancomycin and Zosyn - Cefepime DC 06/10 switched to Zosyn today 06/10 - Flagylstarted 06/07, DC06/10 - ventilatory settings: RR 18, VT 500, peep 5, FiO2 30% - - added fentanyl 06/09 GI/LIVER # likely acute bacterial peritonitis - currently on antibiotics vancomysin, cefepime and added flagyl - monitor lab - Fluid sent to cell count, negative but pending culture - PUD prophylaxis pantoprazole /KIDNEY/METABOLIC # ESRD on peritoneal dialysis - Nephrology onboard - currently undergoing peritoneal dialysis - Monitor renal function - Monitor electrolytes. Supplement as necessary. - Monitor ins and outs. ENDO # type 2 DM with HbA1c 6.3 - Accu-Cheks and ISS MSK HEME # Thrombocytopenia - monitor lab - held heparin ID # likely bacterial peritonitis # septic shock likely due to above - currently on antibiotics - monitor lab - Fluid sent to cell count, negative but pending culture SKIN - Intact peritoneal dialysis catheter LINES Right femoral vein catheter 0n 06/05 Castano catheter DRIPS Versed, Diprivan Fntanyl 06/09 Currently Off from Levophed 06/07 again started Levophed today and later discontinued 06/10 NUTRITION Nepro 30ml/hr Goals of care/advance care planning; FULL CODE; discussed on for 27 minutes. PUD prophylaxis: Pantoprazole DVT prophylaxis: HOLD Heparin Goals of care has been discussed with the for more than 27 minutes, full code status Critical care time including chart review, discussing with the patient's family excluding procedures: 54 minutes Case discussed with Dr. Peralta Plan discussed with: Son, Other (brother ) My Orders My Orders Orders - MELVA,KHAJA RESIDENT Procedure Category Date Status Time Levetiracetam 500 PHA 06/09/24 In Process Mg/100ml (Levetiraceta 22:00 Chest Xray 1 View XY 06/10/24 Resulted 04:00 Abg W/ Co-Ox RT 06/10/24 Logged 04:00 Communication Order ORDERS 06/09/24 Transmitted 17:55 Dietary Evaluation Review Comments: Inccrease protein intake to meet pt's needs. 1. TPN clinimix @41ml/hr provides 42.5g potein 510 kcal, can be a supplement to pt's nepro @30ml/hrproviding 58g pro and 1274 kcal The combined total will be 100.5g pro and 1784 kcal. 2. Offer only TF-Pivot 1.5 @50ml/hr providees 113g pro andd 1800 kcal. 3. Advance to PO 2 gNa high protein diet when pt is off Vent and back to peritoneal dialysis routine. Expected Outcomes/Goals: improved protein status, resume dialysis routine, kellie BEDOYA, PAUL FRYE RESIDENT Jun 10, 2024 09:40
[2024-06-10] MEDS: POTASSIUM EFFERVESENT TAB 25 MEQ NG SCH (10:42)
[2024-06-10] MEDS: VANCOMYCIN 500mg/100mL 100 ML IV ONE (11:24)
--- NOTE | 2024-06-10 11:52 | DVHPN2 ---
Progress Note Date Seen: Jun 10, 2024 Medical Necessity Reason Pt with a Central, PICC or Fol: Yes The following are medically ne: Central Line, Castano Catheter Subjective Review of Systems: RESPIRATORY:Abnormal Other Systems: Patient seen and examined by myself today in follow-up Patient remained intubated on ventilator Patient examined protein dialysis PD fluid is clear Objective vital signs Vital Sign Date Time Temp Pulse Resp B/P (MAP) Pulse Ox O2 Delivery O2 Flow Rate FiO2 06/10/24 11:31 83 18 102/46 (64) 99 30 06/10/24 06:30 98.2 208.8 06/10/24 06:00 Mechanical Ventilator+ Total Intake and Output 06/09/24 06/09/24 06/10/24 15:00 23:00 07:00 Intake Total 414 ml 6303 ml 6352 ml Output Total 1900 ml 1300 ml Balance 414 ml 4403 ml 5052 ml medications Current Medications Medications Dose Ordered Sig/Richard Route Start Time Stop Time Status Last Admin Dose Admin Propofol 100 ml @ 2.181 mls/ hr Q24H IV 06/05/24 04:15 06/10/24 10:15 2.181 MLS/HR Midazolam HCl 50 ml @ 1 mls/hr Q24H IV 06/05/24 04:35 06/10/24 06:07 4 MLS/HR Vancomycin HCl 0 ml @ 0 mls/hr UD IV 06/05/24 10:15 Diagnostic Test (Pha) 1 strip Q6HR 06/05/24 12:00 06/10/24 05:47 1 STRIP Insulin Human Regular Q6HR SC 06/05/24 12:00 06/10/24 06:26 218 UNITS Dextrose 50 ml UD PRN IV 06/05/24 10:30 Albuterol 2.5 mg Q4HPRN PRN NEB 06/05/24 11:00 Albuterol 2.5 mg Q6HR NEB 06/05/24 12:00 06/10/24 11:30 2.5 MG Ipratropium [place] 0.5 mg Q4HPRN PRN NEB 06/05/24 11:00 Ipratropium [place] 0.5 mg Q6HR NEB 06/05/24 12:00 06/10/24 11:30 0.5 MG Pantoprazole Sodium 40 mg DAILY IV 06/06/24 10:00 06/10/24 10:17 40 MG Calcium Acetate 667 mg TID NG 06/06/24 14:00 06/10/24 05:47 667 MG Enteral Nutritional Formula 1,000 ml 30ML/HR GT 06/06/24 23:00 Docusate Sodium 100 mg BID GT 06/07/24 10:00 Hold Heparin Sodium (Porcine) 5,000 units Q12HR SC 06/07/24 10:00 Hold Dexmedetomidine HCl 400 mcg/ Dextrose 100 ml @ 4.19 mls/hr [id number] IV 06/07/24 17:00 Norepinephrine Bitartrate 250 ml @ 3.75 mls/hr Q24H IV 06/08/24 05:15 06/10/24 06:27 3.75 MLS/HR Fentanyl Citrate 250 ml @ 2.5 mls/hr Q24H IV 06/08/24 09:30 06/09/24 13:36 2.5 MLS/HR Peritoneal Dialysis Solution 2,000 ml @ 0 mls/hr Q4HR IP 06/08/24 14:00 06/10/24 10:05 2,000 MLS/HR Hydralazine HCl 10 mg Q6HP PRN IV 06/08/24 14:30 UNV Hydralazine HCl 10 mg Q6HP PRN IV 06/08/24 14:30 06/10/24 10:31 10 MG Levetiracetam 100 ml @ 400 mls/hr BID IV 06/09/24 22:00 06/10/24 10:19 400 MLS/HR Potassium Bicarbonate 25 meq DAILY NG 06/10/24 10:00 06/10/24 10:42 25 MEQ Lorazepam 1 mg Q5MINP PRN IV 06/09/24 19:30 06/10/24 10:03 1 MG Piperacillin Sod/ Tazobactam Sod 50 ml @ 12.5 mls/hr Q12HR IV 06/10/24 22:00 UNV Examination: LUNGS:Normal, CVS:Normal, MSK:Normal laboratory and microbiology Laboratory Tests 06/10/24 03:08 Test 06/10/24 03:08 Range/Units Serum Glucose 258 H 74-106 mg/dL Microbiology Date/Time Source Procedure Growth Status 06/07/24 10:21 Peritoneal Fluid Gram Stain - Final Resulted 06/07/24 10:21 Peritoneal Fluid Body Fluid Culture - Preliminary Resulted 06/05/24 18:40 Nose MRSA Screen - Final Complete 06/05/24 05:00 Blood Blood Culture - Final NO GROWTH AFTER 5 DAYS OF INCUBATION. Complete Problem List/Assessment/Plan Problem List/Assessment/Plan End-stage renal disease on home protein dialysis Acute respiratory failure intubated on ventilator Status post cardiac arrest Septic shock Aspiration pneumonia Congestive heart failure, ejection fraction 45% Anemia of chronic kidney disease, well compensated Hyperphosphatemia Hypokalemia Recommendations Continue intensive peritoneal dialysis x 6 exchanges per 24 hours using 2.5% Dianeal PD solution PD fluid is clear culture is negative Closely monitor fluid and electrolytes IV antibiotics IV pressors Maintain map more than 65 mm Hg Calcium acetate per NG tube t.i.d. KCL replacement Renal vitamin daily Pulmonary consult Cardiology consult We will continue to follow I discussed my plan of care with the and the primary nurse at the bedside Plan discussed with: Spouse, Son, Other (Nurse) My Orders My Orders Orders - OLEKSANDR JASSO MD Procedure Category Date Status Time Potassium Effervesent PHA 06/10/24 In Process Tab (Klor-Con/Ef) 10:00 Dietary Evaluation Review Comments: Inccrease protein intake to meet pt's needs. 1. TPN clinimix @41ml/hr provides 42.5g potein 510 kcal, can be a supplement to pt's nepro @30ml/hrproviding 58g pro and 1274 kcal The combined total will be 100.5g pro and 1784 kcal. 2. Offer only TF-Pivot 1.5 @50ml/hr providees 113g pro andd 1800 kcal. 3. Advance to PO 2 gNa high protein diet when pt is off Vent and back to peritoneal dialysis routine. Expected Outcomes/Goals: improved protein status, resume dialysis routine, LOUISA Cabrera HOSAMELDIN H MD Jun 10, 2024 11:52
--- NOTE | 2024-06-10 12:42 | DVH ---
Exam: XY KUB ABDOMEN SINGLE VIEW Indication: distended Comparison: XY KUB ABDOMEN SINGLE VIEW on DOS: 06/07/24 Technique: 1 radiographic views of the abdomen. Findings: Enteric catheter in satisfactory position. Right central venous catheter, partially imaged in satisfactory position, grossly. Peritoneal dialysis catheter in the pelvis. Nonobstructive bowel gas pattern noted. There is no definite evidence for pneumoperitoneum. No abnormal calcifications noted. Impression: Nonobstructive bowel gas pattern noted.
[2024-06-10] MEDS: B-COMPLEX W/ C & FOLIC ACID(NEPHROVITE TAB) NG SCH (12:58)
[2024-06-10] MEDS: PIPERACILLIN-TAZOB 2.25GM 50 ML IV ONE (12:59)
[2024-06-10] MEDS: Nepro With Carb Steady 1 Liter Bottle GT SCH (13:29)
[2024-06-10 17:38] LABS: INR 1.15 (0.9-1.15); Partial Thromboplastin Time 29.4 SEC (24.5-34.5)
--- NOTE | 2024-06-10 18:32 | DVHPN2 ---
Progress Note - Dictate Date Seen: Jun 10, 2024 Medical Necessity Reason Pt with a Central, PICC or Fol: Yes The following are medically ne: Central Line, Castano Catheter Subjective Mr. Montano is a 53 years old right-handed gentleman with a history of d iabetes, coronary artery disease, end-stage kidney failure on peritoneal dialysis, the patient was was brought to the [facility] on 06/05/24 with CPR ongoing. I have seen and examined the patient, discussed with one thing or one his nurse, primary care team, his family in the room with him He is sedated, intubated, nonresponsive, I have discussed with Dr. Rodriguez. With less sedation, the patient had obvious myoclonus Blood culture, 05/1974: No growth Peritoneal fluid culture, 06/07/2024: UDS, 06/06/2024: Benzo Urinalysis, 06/06/2024: WBC: 1, urine leukocyte esterase: Negative ABG, 06/05/2024: Combined metabolic and respiratory acidosis, WBC/HB/PLT/MCV, 06/08/2024: 19/10.3/106/90.9 Na, 06/06/2019 5:132, 06/08/2024: Moderate BUN/CR, 06/05/2024: 57/15.78, 06/08/2024: 78/14.78 Lactic acid, 06/05/24: 6.7, 3.5 HGB A1c, 06/05/2019 5:6.3 One high sensitivity, 05/1924: 566, 698, 643 Liver function tests, 06/08/2024: Normal TG/HDL/LDL/HDL, 06/05/2024: 174/208/143/33 TSH, 06/05/2024: 5.41 Chest x-ray, 06/08/2024: 1. Bibasilar opacities which may reflect atelectasis or pneumonia. 2. Stable position of the support lines and tubes CT head, 06/06/2024: No acute intracranial pathology in the brain. Mild cortical atrophy Severe paranasal sinus disease Soft tissue swelling left temporal scalp MRI head, 06/09/2024: 1. There is no acute intracranial process. 2. Nonspecific 8 mm focus of blooming artifact in the left thalamic region May relate to chronic microhemorrhage. There is no discrete lesion identified on the other sequences to suggest a cavernoma. 3. Nonspecific small hyperintense T2 and hypointense T1 focus in the left paramidline anterior erika. Small chronic ischemic focus is not excluded. vital signs Vital Sign Date Time Temp Pulse Resp B/P (MAP) Pulse Ox O2 Delivery O2 Flow Rate FiO2 06/10/24 17:45 103/53 06/10/24 16:00 90 06/10/24 16:00 30 06/10/24 16:00 19 100 06/10/24 16:00 Mechanical Ventilator+ 06/10/24 15:45 98.6 209.5 Total Intake and Output 06/09/24 06/09/24 06/10/24 15:00 23:00 07:00 Intake Total 414 ml 6303 ml 6352 ml Output Total 1900 ml 1300 ml Balance 414 ml 4403 ml 5052 ml medications Current Medications Medications Dose Ordered Sig/Richard Route Start Time Stop Time Status Last Admin Dose Admin Propofol 100 ml @ 2.181 mls/ hr Q24H IV 06/05/24 04:15 06/10/24 17:45 8.724 MLS/HR Midazolam HCl 50 ml @ 1 mls/hr Q24H IV 06/05/24 04:35 06/10/24 06:07 4 MLS/HR Vancomycin HCl 0 ml @ 0 mls/hr UD IV 06/05/24 10:15 Diagnostic Test (Pha) 1 strip Q6HR 06/05/24 12:00 06/10/24 17:44 1 STRIP Insulin Human Regular Q6HR SC 06/05/24 12:00 06/10/24 17:42 6 UNITS Dextrose 50 ml UD PRN IV 06/05/24 10:30 Albuterol 2.5 mg Q4HPRN PRN NEB 06/05/24 11:00 Albuterol 2.5 mg Q6HR NEB 06/05/24 12:00 06/10/24 18:20 2.5 MG Ipratropium Bovill 0.5 mg Q4HPRN PRN NEB 06/05/24 11:00 Ipratropium Bovill 0.5 mg Q6HR NEB 06/05/24 12:00 06/10/24 18:21 0.5 MG Pantoprazole Sodium 40 mg DAILY IV 06/06/24 10:00 06/10/24 10:17 40 MG Calcium Acetate 667 mg TID NG 06/06/24 14:00 06/10/24 13:52 667 MG Enteral Nutritional Formula 1,000 ml 30ML/HR GT 06/06/24 23:00 06/10/24 13:29 1,000 ML Docusate Sodium 100 mg BID GT 06/07/24 10:00 Hold Heparin Sodium (Porcine) 5,000 units Q12HR SC 06/07/24 10:00 Hold Dexmedetomidine HCl 400 mcg/ Dextrose 100 ml @ 4.19 mls/hr [id number] IV 06/07/24 17:00 Norepinephrine Bitartrate 250 ml @ 3.75 mls/hr Q24H IV 06/08/24 05:15 06/10/24 06:27 3.75 MLS/HR Fentanyl Citrate 250 ml @ 2.5 mls/hr Q24H IV 06/08/24 09:30 06/09/24 13:36 2.5 MLS/HR Peritoneal Dialysis Solution 2,000 ml @ 0 mls/hr Q4HR IP 06/08/24 14:00 06/10/24 18:07 2,000 MLS/HR Hydralazine HCl 10 mg Q6HP PRN IV 06/08/24 14:30 UNV Hydralazine HCl 10 mg Q6HP PRN IV 06/08/24 14:30 06/10/24 10:31 10 MG Levetiracetam 100 ml @ 400 mls/hr BID IV 06/09/24 22:00 06/10/24 10:19 400 MLS/HR Potassium Bicarbonate 25 meq DAILY NG 06/10/24 10:00 06/10/24 10:42 25 MEQ Lorazepam 1 mg Q5MINP PRN IV 06/09/24 19:30 06/10/24 10:03 1 MG Piperacillin Sod/ Tazobactam Sod 50 ml @ 12.5 mls/hr Q8H IV 06/10/24 20:00 Multivit/Ca Carb/ B Cmplx/FA/Prenat 1 tab DAILY NG 06/10/24 12:00 06/10/24 12:58 1 TAB objective The patient is well-nourished and well-developed with no distress. The patient is intubated MENTAL STATUS: Subjective CRANIAL NERVES: Pupils are equal, round and reactive. There are corneal reflexes and doll's eyes phenomenon. No signs of facial weakness. There are gagging or coughing reflexes SENSATION: No responses to pain stimuli. MOTOR: Normal tone in the upper and lower extremity. Normal muscle bulk. No fasciculations. No spontaneous movement. REFLEXES: Deep tendon reflexes are symmetrical. No pathological reflexes. CEREBELLAR/COORDINATION: Deferred GAIT/STATION: deferred laboratory and microbiology Laboratory Tests 06/10/24 03:08 Test 06/10/24 03:08 Range/Units Serum Glucose 258 H 74-106 mg/dL Problem List Abnormal movement, Myoclonus Rule out status epileptics Coma Hypoxic encephalopathy Metabolic encephalopathy Toxic encephalopathy Cardiopulmonary arrest, status post CPR Metabolic acidosis Respiratory acidosis Coronary artery disease Heart attack Leukocytosis/sepsis/septic shock Pneumonia Assessment/Plan Monitoring Supportive screaming ICU care EEG Follow-up CT Respiratory support/vent management Stabilize vitals Oxygen IV antibiotics Versed drip with p.r.n. Ativan for tremor/myoclonus control Increase Keppra to 1000 mg b.i.d. DVT prophylax/heparin GI prophylax/Protonix IV antibiotics Cardiology on case Pulmonology on case Nephrology on case More recommendation per clinical course This medical document was created using an electronic medical record system with [employer] computerized dictation system. Although this document has been carefully reviewed, there may still be some phonetic and typographical errors. These areas are purely typographical due to imperfections of the software programs, and do not reflect any compromise in the patient's medical care Prognosis guarded Dietary Evaluation Review Comments: Inccrease protein intake to meet pt's needs. 1. TPN clinimix @41ml/hr provides 42.5g potein 510 kcal, can be a supplement to pt's nepro @30ml/hrproviding 58g pro and 1274 kcal The combined total will be 100.5g pro and 1784 kcal. 2. Offer only TF-Pivot 1.5 @50ml/hr providees 113g pro andd 1800 kcal. 3. Advance to PO 2 gNa high protein diet when pt is off Vent and back to peritoneal dialysis routine. Expected Outcomes/Goals: improved protein status, resume dialysis routine, kellie BEDOYA, Plan discussed with: Other TINO DOLAN MD Jun 10, 2024 18:32
[2024-06-10] MEDS: PIPERACILLIN-TAZOB 2.25GM 50 ML IV SCH (19:47)
[2024-06-10] MEDS: levETIRAcetam INJ 750 MG in SODIUM CHL 0.9% 100 ML IV SCH (22:01)
[2024-06-10] MEDS: HEPARIN SODIUM (PORCINE) 5000 UNITS/ML 1ML VIAL SC SCH (22:08)
--- NOTE | 2024-06-10 22:28 | DVHEEG2 ---
Neurology EEG Procedural Note Procedural Note EXAM DATE: 06/09/2024 REFERRING DOCTOR: Dr. Dolan TECHNIQUE: Eighteen channels of EEG, 2 channels of EOG, and 1 channel of EKG were recorded using the International 10/20 system. CLINICAL DATA: The patient was referred for an EEG evaluation for the evidence of seizure disorder. MEDICATIONS: See chart BACKGROUND ACTIVITY: There was electrode and environmental artifacts in the recording. The record appeared to be low amplitude diffuse delta and theta activity over both hemispheres, and was reactive to external stimuli ACTIVATION: Hyperventilation: Not done Photic Stimulation: Not done Sleep: Nonresponsiveness IMPRESSION: This is a remarkably abnormal EEG, this EEG seen in severe cerebral dysfunction due to metabolic/hypoxic encephalopathy or medication effects, please correlate clinically The EKG channel showed a regular heart rate of 90/minute[place] [address] TINO DOLAN MD Jun 10, 2024 22:28
[2024-06-11] VITALS (107 sets, daily range): BP systolic 93–199; BP diastolic 42–104; PULSE 75–103; RESP 11–27; TEMP 96.3–99.9; O2SAT 96–100
[2024-06-11 04:01] LABS: Basophils # (auto) 0.1 10 ^3/uL (0-0.2); Basophils % (auto) 0.4 % (0.0-2.0); Eosinophils # (auto) 0.6 10 ^3/uL (0-0.8); Eosinophils % (auto) 4.6 % (0.0-7.0); Hematocrit 32.4 % (41.0-53.0); Hemoglobin 10.7 g/dL (13.5-17.5); Lymphocytes # (auto) 1.1 10 ^3/uL (0.4-5.4); Lymphocytes % (auto) 9.1 % (10.0-50.0); Mean Corpuscular Hemoglobin 29.9 pg (28.0-32.0); Mean Corpuscular Volume 90.7 fL (80.0-100.0); Monocytes # (auto) 1.3 10 ^3/uL (0-1.3); Monocytes % (auto) 10.3 % (0.0-12.0); Neutrophils # (auto) 9.5 10 ^3/uL (1.6-8.6); Neutrophils % (auto) 75.6 % (37.0-80.0); Platelet Count (auto) 252 10^3/uL (140-450); Red Blood Cells 3.57 10^6/uL (4.5-5.90); Red Cell Distribution Width 18.7 % (11.8-14.3); White Blood Cell 12.6 10^3/uL (4.4-10.8)
[2024-06-11 04:20] LABS: Alanine Aminotransferase 20 U/L (7-40); Anion Gap 14 (5-15); BUN/Creatinine Ratio 6.1 (10.0-20.0); Calcium 9.7 mg/dL (8.7-10.4); Carbon Dioxide 24 mmol/L (20-31); Magnesium 1.9 mg/dL (1.6-2.6); Potassium 3.8 mmol/L (3.5-5.1)
[2024-06-11 04:21] LABS: Aspartate Aminotransferase 28 U/L (13-40); Bilirubin, Total 0.4 mg/dL (0.2-1.0)
[2024-06-11 04:23] LABS: Albumin 3.2 g/dL (3.2-4.8); Alkaline Phosphatase 135 U/L (46-116); Blood Urea Nitrogen 65 mg/dL (9-23); Chloride 93 mmol/L (98-107); Glucose 259 mg/dL (74-106); Sodium 131 mmol/L (136-145); Total Protein 5.6 g/dL (5.7-8.2)
--- NOTE | 2024-06-11 06:30 | DVH ---
CHEST RADIOGRAPH Indication: pna Technique: Single frontal view of the chest was obtained Comparison: XY CHEST XRAY 1 VIEW on DOS: 06/10/24, XY CHEST XRAY 1 VIEW on DOS: 06/09/24, XY CHEST XRAY 1 VIEW on DOS: 06/08/24 IMPRESSION: The heart is prominent size. Support lines and tubes appear unchanged in position. There is subdiaphragmatic free air on the right which may be related to known peritoneal dialysis cat heter. Clinical correlation is recommended for other etiologies including bowel perforation.
[2024-06-11 08:18] LABS: Base Excess 0.7 mmol/L (-2.0-3.0)
[2024-06-11] MEDS: MAGNESIUM SULFATE 1GM/100ML 100 ML IV ONE (11:02)
--- NOTE | 2024-06-11 11:03 | DVHPN2 ---
Progress Note Date Seen: Jun 11, 2024 Medical Necessity Reason Pt with a Central, PICC or Fol: Yes The following are medically ne: Central Line, Castano Catheter Subjective Review of Systems: RESPIRATORY:Abnormal Other Systems: Patient seen and examined by myself today in follow-up, patient remained intubated on ventilator Patient examined in peritoneal dialysis fluid remained clear with good catheter drainage Objective vital signs Vital Sign Date Time Temp Pulse Resp B/P (MAP) Pulse Ox O2 Delivery O2 Flow Rate FiO2 06/11/24 10:18 87 20 120/64 (82) 99 30 06/11/24 08:00 Mechanical Ventilator+ 06/11/24 07:00 99.7 211.5 Total Intake and Output 06/10/24 06/10/24 06/11/24 15:00 23:00 07:00 Intake Total 418.292 ml 6319.292 ml 6396.042 ml Output Total 6050 ml 6000 ml Balance 418.292 ml 269.292 ml 396.042 ml medications Current Medications Medications Dose Ordered Sig/Richard Route Start Time Stop Time Status Last Admin Dose Admin Propofol 100 ml @ 2.181 mls/ hr Q24H IV 06/05/24 04:15 06/11/24 03:49 8.724 MLS/HR Midazolam HCl 50 ml @ 1 mls/hr Q24H IV 06/05/24 04:35 06/11/24 03:49 6 MLS/HR Vancomycin HCl 0 ml @ 0 mls/hr UD IV 06/05/24 10:15 Diagnostic Test (Pha) 1 strip Q6HR 06/05/24 12:00 06/11/24 05:33 1 STRIP Insulin Human Regular Q6HR SC 06/05/24 12:00 06/11/24 05:33 6 UNITS Dextrose 50 ml UD PRN IV 06/05/24 10:30 Albuterol 2.5 mg Q4HPRN PRN NEB 06/05/24 11:00 Albuterol 2.5 mg Q6HR NEB 06/05/24 12:00 06/11/24 06:38 2.5 MG Ipratropium Pearson 0.5 mg Q4HPRN PRN NEB 06/05/24 11:00 Ipratropium Pearson 0.5 mg Q6HR NEB 06/05/24 12:00 06/11/24 06:38 0.5 MG Pantoprazole Sodium 40 mg DAILY IV 06/06/24 10:00 06/11/24 10:40 40 MG Calcium Acetate 667 mg TID NG 06/06/24 14:00 06/11/24 05:37 667 MG Enteral Nutritional Formula 1,000 ml 30ML/HR GT 06/06/24 23:00 06/10/24 13:29 1,000 ML Docusate Sodium 100 mg BID GT 06/07/24 10:00 Hold Heparin Sodium (Porcine) 5,000 units Q12HR SC 06/07/24 10:00 06/11/24 10:31 5,000 UNITS Dexmedetomidine HCl 400 mcg/ Dextrose 100 ml @ 4.19 mls/hr [id number] IV 06/07/24 17:00 Norepinephrine Bitartrate 250 ml @ 3.75 mls/hr Q24H IV 06/08/24 05:15 06/10/24 06:27 3.75 MLS/HR Fentanyl Citrate 250 ml @ 2.5 mls/hr Q24H IV 06/08/24 09:30 06/11/24 07:40 2.5 MLS/HR Peritoneal Dialysis Solution 2,000 ml @ 0 mls/hr Q4HR IP 06/08/24 14:00 06/11/24 10:10 0 MLS/HR Hydralazine HCl 10 mg Q6HP PRN IV 06/08/24 14:30 UNV Hydralazine HCl 10 mg Q6HP PRN IV 06/08/24 14:30 06/11/24 06:41 10 MG Potassium Bicarbonate 25 meq DAILY NG 06/10/24 10:00 06/11/24 10:51 25 MEQ Lorazepam 1 mg Q5MINP PRN IV 06/09/24 19:30 06/11/24 03:07 1 MG Piperacillin Sod/ Tazobactam Sod 50 ml @ 12.5 mls/hr Q8H IV 06/10/24 20:00 06/11/24 03:52 12.5 MLS/HR Multivit/Ca Carb/ B Cmplx/FA/Prenat 1 tab DAILY NG 06/10/24 12:00 06/11/24 10:40 1 TAB Levetiracetam 750 mg/Sodium Chloride 107.5 ml @ 430 mls/hr BID IV 06/10/24 22:00 06/10/24 22:01 430 MLS/HR Examination: LUNGS:Normal, CVS:Normal, MSK:Normal laboratory and microbiology Laboratory Tests 06/11/24 03:20 Test 06/11/24 03:20 Range/Units Serum Glucose 259 H 74-106 mg/dL Microbiology Date/Time Source Procedure Growth Status 06/07/24 10:21 Peritoneal Fluid Gram Stain - Final Resulted 06/07/24 10:21 Peritoneal Fluid Body Fluid Culture - Preliminary Resulted 06/05/24 18:40 Nose MRSA Screen - Final Complete 06/05/24 05:00 Blood Blood Culture - Final NO GROWTH AFTER 5 DAYS OF INCUBATION. Complete Problem List/Assessment/Plan Problem List/Assessment/Plan End-stage renal disease on home protein dialysis Acute respiratory failure intubated on ventilator Status post cardiac arrest Septic shock Aspiration pneumonia Congestive heart failure, ejection fraction 45% Anemia of chronic kidney disease, well compensated Hyperphosphatemia Hypokalemia Recommendations Continue intensive peritoneal dialysis x 6 exchanges per 24 hours using 2.5% Dianeal PD solution PD fluid is clear culture is negative Closely monitor fluid and electrolytes IV antibiotics IV pressors Maintain map more than 65 mm Hg Calcium acetate per NG tube t.i.d. KCL replacement Renal vitamin daily Pulmonary consult Cardiology consult We will continue to follow I discussed my plan of care with the and the primary nurse at the bedside Plan discussed with: Spouse, Son, Other (Nurse) My Orders My Orders Orders - OLEKSANDR JASSO MD Procedure Category Date Status Time B-Complex W/ C & PHA 06/10/24 In Process Folic Tablet 12:00 Discontinue Castano FAY 06/10/24 In Process Catheter 13:16 Dietary Evaluation Review Comments: Inccrease protein intake to meet pt's needs. 1. TPN clinimix @41ml/hr provides 42.5g potein 510 kcal, can be a supplement to pt's nepro @30ml/hrproviding 58g pro and 1274 kcal The combined total will be 100.5g pro and 1784 kcal. 2. Offer only TF-Pivot 1.5 @50ml/hr providees 113g pro andd 1800 kcal. 3. Advance to PO 2 gNa high protein diet when pt is off Vent and back to peritoneal dialysis routine. Expected Outcomes/Goals: improved protein status, resume dialysis routine, LOUISA Cabrera HOSAMELDIN H MD Jun 11, 2024 11:03
[2024-06-11] MEDS: LIDOCAINE 1% (LOCAL ANESTH.) PF 5ml SDV ID ONE (12:44)
--- NOTE | 2024-06-11 14:22 | DVHPN2 ---
Subjective Still intubated and sedated Reviewed: Care Plan, H&P, Labs, Medications, Previous Orders, Radiology, Other (Consultations) Changes from previous H/P or p: No Changes Objective Vitals Vital Signs Date Time Temp Pulse Resp B/P (MAP) Pulse Ox O2 Delivery O2 Flow Rate FiO2 06/11/24 13:45 97.5 87 16 119/55 (76) 99 207.5 109/59 (76) 06/11/24 12:16 30 06/11/24 12:00 Mechanical Ventilator+ Intake/Output Intake and Output 06/11/24 07:00 Intake Total 31216.626 ml Output Total 33308 ml Balance 1083.626 ml Intake Oral 90 ml IV Total 906.626 ml Tube Feeding 137 ml Intraperitoneal 13746 ml Gastric Drainage Total 50 ml Other 11667 ml General Appearance: Other (Intubated and sedated) HEENT: Atraumatic Lungs: Other (Mechanical ventilation sounds) Cardiovascular: Regular rate, Normal S1, Normal S2 Abdomen: Normal bowel sounds, Soft, Other (Peritoneal dialysis catheter in place) Genitourinary: Other (Castano's catheter) Neuro: Other (Sedated) Psych/Mental Status: Other (Sedated) Medications Current Medications Medications Dose Ordered Sig/Richard Route Start Time Stop Time Status Last Admin Dose Admin Propofol 100 ml @ 2.181 mls/ hr Q24H IV 06/05/24 04:15 06/11/24 03:49 8.724 MLS/HR Midazolam HCl 50 ml @ 1 mls/hr Q24H IV 06/05/24 04:35 06/11/24 11:54 6 MLS/HR Vancomycin HCl 0 ml @ 0 mls/hr UD IV 06/05/24 10:15 Diagnostic Test (Pha) 1 strip Q6HR 06/05/24 12:00 06/11/24 12:33 1 STRIP Insulin Human Regular Q6HR SC 06/05/24 12:00 06/11/24 12:32 10 UNITS Dextrose 50 ml UD PRN IV 06/05/24 10:30 Albuterol 2.5 mg Q4HPRN PRN NEB 06/05/24 11:00 Albuterol 2.5 mg Q6HR NEB 06/05/24 12:00 06/11/24 12:16 2.5 MG Ipratropium Toney 0.5 mg Q4HPRN PRN NEB 06/05/24 11:00 Ipratropium Toney 0.5 mg Q6HR NEB 06/05/24 12:00 06/11/24 12:16 0.5 MG Pantoprazole Sodium 40 mg DAILY IV 06/06/24 10:00 06/11/24 10:40 40 MG Calcium Acetate 667 mg TID NG 06/06/24 14:00 06/11/24 05:37 667 MG Enteral Nutritional Formula 1,000 ml 30ML/HR GT 06/06/24 23:00 06/10/24 13:29 1,000 ML Docusate Sodium 100 mg BID GT 06/07/24 10:00 Hold Heparin Sodium (Porcine) 5,000 units Q12HR SC 06/07/24 10:00 06/11/24 10:31 5,000 UNITS Dexmedetomidine HCl 400 mcg/ Dextrose 100 ml @ 4.19 mls/hr [id number] IV 06/07/24 17:00 Norepinephrine Bitartrate 250 ml @ 3.75 mls/hr Q24H IV 06/08/24 05:15 06/10/24 06:27 3.75 MLS/HR Fentanyl Citrate 250 ml @ 2.5 mls/hr Q24H IV 06/08/24 09:30 06/11/24 07:40 2.5 MLS/HR Peritoneal Dialysis Solution 2,000 ml @ 0 mls/hr Q4HR IP 06/08/24 14:00 06/11/24 10:10 0 MLS/HR Hydralazine HCl 10 mg Q6HP PRN IV 06/08/24 14:30 UNV Hydralazine HCl 10 mg Q6HP PRN IV 06/08/24 14:30 06/11/24 06:41 10 MG Potassium Bicarbonate 25 meq DAILY NG 06/10/24 10:00 06/11/24 10:51 25 MEQ Lorazepam 1 mg Q5MINP PRN IV 06/09/24 19:30 06/11/24 03:07 1 MG Multivit/Ca Carb/ B Cmplx/FA/Prenat 1 tab DAILY NG 06/10/24 12:00 06/11/24 10:40 1 TAB Levetiracetam 750 mg/Sodium Chloride 107.5 ml @ 430 mls/hr BID IV 06/10/24 22:00 06/11/24 11:11 430 MLS/HR Sodium Chloride 10 ml QSHIFT@10,22 IV 06/11/24 22:00 Piperacillin Sod/ Tazobactam Sod 100 ml @ 25 mls/hr Q12H IV 06/11/24 20:00 Laboratory Results Laboratory Tests 06/11/24 03:20 Chemistry Test 06/11/24 03:20 Albumin 3.2 g/dL (3.2-4.8) Calcium Level 9.7 mg/dL (8.7-10.4) Magnesium Level 1.9 mg/dL (1.6-2.6) Total Protein 5.6 g/dL (5.7-8.2) L Coagulation Test 06/10/24 17:04 Prothrombin Time 12.0 sec (9.3-11.8) H Prothrombin Time INR 1.15 (0.9-1.15) Activated Partial Thromboplast Time 29.4 SEC (24.5-34.5) LFT Test 06/11/24 03:20 Alanine Aminotransferase (ALT) 20 U/L (7-40) Alkaline Phosphatase 135 U/L (46-116) H Aspartate Amino Transferase (AST) 28 U/L (13-40) Total Bilirubin 0.4 mg/dL (0.2-1.0) Urinalysis Test 06/06/24 15:21 Urine Color Colorless (Yellow) Urine Clarity Clear (Clear) Urine pH 7.5 (5.0-9.0) Urine Specific [place] 1.011 (1.001-1.035) Urine Protein 2+ (Negative) H Urine Ketones Negative (Negative) Urine Blood Trace /uL (Negative) H Urine Nitrite Negative (Negative) Urine Bilirubin Negative (Negative) Urine Urobilinogen Normal mg/dL (Negative) Urine Leukocyte Esterase Negative /uL (Negative) Urine RBC None seen /hpf (0 - 3) Urine WBC 1 /hpf (0 - 3) Urine Squamous Epithelial Cells None seen /hpf (<5) Urine Bacteria None seen /hpf (None Seen) Urine Creatinine 15.02 mg/dL (30.0-125.0) L Urine Protein/Creatinine Ratio 14.84 Urine Sodium 137 mmol/L (40-220) Urine Glucose 3+ mg/dL (Normal) H Urine Total Protein 222.9 mg/dL (1-14) H Blood Gas Results Test 06/11/24 08:08 Arterial Blood pH 7.444 (7.350-7.450) FiO2 % 30.0 Microbiology Microbiology Date/Time Source Procedure Growth Status 06/07/24 10:21 Peritoneal Fluid Gram Stain - Final Resulted 06/07/24 10:21 Peritoneal Fluid Body Fluid Culture - Preliminary Resulted 06/05/24 18:40 Nose MRSA Screen - Final Complete 06/05/24 05:00 Blood Blood Culture - Final NO GROWTH AFTER 5 DAYS OF INCUBATION. Complete Labs and/or images reviewed: Labs reviewed by me, Image(s) reviewed by me Assessment/Plan Assessment/Plan Covering Dr. Gibson: #Acute hypoxic/metabolic/toxic encephalopathy; reviewed the available imaging studies including brain MRI and EEG; currently sedated; neurology is following; continue close monitoring #Abnormal movement, likely myoclonus; details as above; continue IV antiseizure medications; continue close monitoring #Status post cardiopulmonary arrest with ROSC; telemetry; cardiology is following; continue close monitoring NSTEMI; most likely type 2 NC; demand ischemia; due to above; telemetry; cardiology is following; continue close monitoring #Acute hypoxic respiratory failure due to aspiration pneumonia; continue oxygen therapy via mechanical ventilation as per pulmonology; reviewed ABGs and chest x-rays; continue close monitoring #Septic shock with leukocytosis and lactic acidosis due to aspiration pneumonia; continue broad-spectrum IV antibiotics; continue IV vasopressor as indicated; reviewed available cultures; continue close monitoring #ESRD on peritoneal dialysis; nephrology is following; continue close monitoring #Electrolyte abnormalities due to above; correct/brace as indicated as per Nephrology; continue close monitoring #Coronary artery disease; telemetry; cardiology is following; continue close monitoring Goals of care discussed with the patient's for 20 minutes; full code. 110 minutes of critical care time. Late Entry. This medical document was created using an electronic medical record system with computerized dictation system. Although this document has been carefully reviewed, there might still be some phonetic and typographical errors. These areas are purely typographical due to imperfections of the software programs, and do not reflect any compromise in the patient's medical care. Plan discussed with: Spouse, Other (Nurse) Date of Service: Jun 11, 2024 Billing Provider: MARGE THOMAS MD Common Visit Codes: 53176-[id number] CARE 30-74 MIN (110 minutes), [id number] CARE-EACH +30MIN Secondary Visit Codes: 76609-[id number] CARE PLAN 30 MINUTES (20 minutes) MARGE THOMAS MD Jun 11, 2024 14:22
[2024-06-11] MEDS: InsuLIN REG 1unit/0.01ml Soln (100units/ml) SC SCH (18:29)
[2024-06-11] MEDS: ACCU-CHEK COMFORT CURVE STRIP VI SCH (18:29)
[2024-06-11] MEDS: PIPERACILLIN-TAZOB 3.375GM 100 ML IV SCH (20:28)
[2024-06-11] MEDS: SODIUM CHLOR 0.9% PF (SALINE LOCK) 10ML VIAL/SYR IV SCH (22:19)
--- NOTE | 2024-06-11 23:29 | DVHPN2 ---
Progress Note - Dictate Date Seen: Jun 11, 2024 Medical Necessity Reason Pt with a Central, PICC or Fol: Yes The following are medically ne: Central Line, Castano Catheter Subjective Mr. Montano is a 53 years old right-handed gentleman with a history of d iabetes, coronary artery disease, end-stage kidney failure on peritoneal dialysis, the patient was was brought to the [facility] on 06/05/24 with CPR ongoing. I have seen and examined the patient, discussed with his nurse. He had myoclonus last night Fentanyl 75 mcg/hour, Versed 6 mg/hour propofol 20 mcg/minute Blood culture, 05/1974: No growth Peritoneal fluid culture, 06/07/2024: UDS, 06/06/2024: Benzo Urinalysis, 06/06/2024: WBC: 1, urine leukocyte esterase: Negative ABG, 06/05/2024: Combined metabolic and respiratory acidosis, WBC/HB/PLT/MCV, 06/08/2024: 19/10.3/106/90.9 Na, 06/06/2019 5:132, 06/08/2024: Moderate BUN/CR, 06/05/2024: 57/15.78, 06/08/2024: 78/14.78 Lactic acid, 06/05/24: 6.7, 3.5 HGB A1c, 06/05/2019 5:6.3 One high sensitivity, 05/1924: 566, 698, 643 Liver function tests, 06/08/2024: Normal TG/HDL/LDL/HDL, 06/05/2024: 174/208/143/33 TSH, 06/05/2024: 5.41 Chest x-ray, 06/08/2024: 1. Bibasilar opacities which may reflect atelectasis or pneumonia. 2. Stable position of the support lines and tubes CT head, 06/06/2024: No acute intracranial pathology in the brain. Mild cortical atrophy Severe paranasal sinus disease Soft tissue swelling left temporal scalp MRI head, 06/09/2024: 1. There is no acute intracranial process. 2. Nonspecific 8 mm focus of blooming artifact in the left thalamic region May relate to chronic microhemorrhage. There is no discrete lesion identified on the other sequences to suggest a cavernoma. 3. Nonspecific small hyperintense T2 and hypointense T1 focus in the left paramidline anterior erika. Small chronic ischemic focus is not excluded. vital signs Vital Sign Date Time Temp Pulse Resp B/P (MAP) Pulse Ox O2 Delivery O2 Flow Rate FiO2 06/11/24 22:17 92 20 120/66 (84) 98 30 06/11/24 20:00 Mechanical Ventilator+ 06/11/24 19:15 97.0 206.6 Total Intake and Output 06/10/24 06/10/24 06/11/24 15:00 23:00 07:00 Intake Total 418.292 ml 6319.292 ml 6396.042 ml Output Total 6050 ml 6000 ml Balance 418.292 ml 269.292 ml 396.042 ml medications Current Medications Medications Dose Ordered Sig/Richard Route Start Time Stop Time Status Last Admin Dose Admin Propofol 100 ml @ 2.181 mls/ hr Q24H IV 06/05/24 04:15 06/11/24 20:47 8.724 MLS/HR Midazolam HCl 50 ml @ 1 mls/hr Q24H IV 06/05/24 04:35 06/11/24 17:45 6 MLS/HR Vancomycin HCl 0 ml @ 0 mls/hr UD IV 06/05/24 10:15 Dextrose 50 ml UD PRN IV 06/05/24 10:30 Albuterol 2.5 mg Q4HPRN PRN NEB 06/05/24 11:00 Albuterol 2.5 mg Q6HR NEB 06/05/24 12:00 06/11/24 18:37 2.5 MG Ipratropium [place] 0.5 mg Q4HPRN PRN NEB 06/05/24 11:00 Ipratropium [place] 0.5 mg Q6HR NEB 06/05/24 12:00 06/11/24 18:37 0.5 MG Pantoprazole Sodium 40 mg DAILY IV 06/06/24 10:00 06/11/24 10:40 40 MG Calcium Acetate 667 mg TID NG 06/06/24 14:00 06/11/24 22:31 667 MG Enteral Nutritional Formula 1,000 ml 30ML/HR GT 06/06/24 23:00 06/11/24 20:28 1,000 ML Docusate Sodium 100 mg BID GT 06/07/24 10:00 Hold Heparin Sodium (Porcine) 5,000 units Q12HR SC 06/07/24 10:00 06/11/24 22:20 5,000 UNITS Dexmedetomidine HCl 400 mcg/ Dextrose 100 ml @ 4.19 mls/hr [id number] IV 06/07/24 17:00 Norepinephrine Bitartrate 250 ml @ 3.75 mls/hr Q24H IV 06/08/24 05:15 06/10/24 06:27 3.75 MLS/HR Fentanyl Citrate 250 ml @ 2.5 mls/hr Q24H IV 06/08/24 09:30 06/11/24 07:40 2.5 MLS/HR Peritoneal Dialysis Solution 2,000 ml @ 0 mls/hr Q4HR IP 06/08/24 14:00 06/11/24 22:19 0 MLS/HR Hydralazine HCl 10 mg Q6HP PRN IV 06/08/24 14:30 UNV Hydralazine HCl 10 mg Q6HP PRN IV 06/08/24 14:30 06/11/24 21:19 10 MG Potassium Bicarbonate 25 meq DAILY NG 06/10/24 10:00 06/11/24 10:51 25 MEQ Lorazepam 1 mg Q5MINP PRN IV 06/09/24 19:30 06/11/24 03:07 1 MG Multivit/Ca Carb/ B Cmplx/FA/Prenat 1 tab DAILY NG 06/10/24 12:00 06/11/24 10:40 1 TAB Levetiracetam 750 mg/Sodium Chloride 107.5 ml @ 430 mls/hr BID IV 06/10/24 22:00 06/11/24 22:18 430 MLS/HR Sodium Chloride 10 ml QSHIFT@10,22 IV 06/11/24 22:00 06/11/24 22:19 10 ML Piperacillin Sod/ Tazobactam Sod 100 ml @ 25 mls/hr Q12H IV 06/11/24 20:00 06/11/24 20:28 25 MLS/HR Diagnostic Test (Pha) 1 strip Q6HR 06/11/24 18:00 06/11/24 18:29 1 STRIP Insulin Human Regular Q6HR SC 06/11/24 18:00 06/11/24 18:29 16 UNITS objective The patient is well-nourished and well-developed with no distress. The patient is intubated MENTAL STATUS: Subjective CRANIAL NERVES: Pupils are equal, round and reactive. There are corneal reflexes and doll's eyes phenomenon. No signs of facial weakness. There are gagging or coughing reflexes SENSATION: No responses to pain stimuli. MOTOR: Normal tone in the upper and lower extremity. Normal muscle bulk. No fasciculations. No spontaneous movement. REFLEXES: Deep tendon reflexes are symmetrical. No pathological reflexes. CEREBELLAR/COORDINATION: Deferred GAIT/STATION: deferred laboratory and microbiology Laboratory Tests 06/11/24 03:20 Test 06/11/24 03:20 Range/Units Serum Glucose 259 H 74-106 mg/dL Problem List Abnormal movement, Myoclonus Rule out status epileptics Coma Hypoxic encephalopathy Metabolic encephalopathy Toxic encephalopathy Cardiopulmonary arrest, status post CPR Metabolic acidosis Respiratory acidosis Coronary artery disease Heart attack Leukocytosis/sepsis/septic shock Pneumonia Assessment/Plan Monitoring Supportive screaming ICU care EEG Follow-up CT Respiratory support/vent management Stabilize vitals Oxygen IV antibiotics Versed drip with p.r.n. Ativan for tremor/myoclonus control Increase Keppra to 1000 mg b.i.d. DVT prophylax/heparin GI prophylax/Protonix IV antibiotics Cardiology on case Pulmonology on case Nephrology on case More recommendation per clinical course This medical document was created using an electronic medical record system with [employer] dictation system. Although this document has been carefully reviewed, there may still be some phonetic and typographical errors. These areas are purely typographical due to imperfections of the software programs, and do not reflect any compromise in the patient's medical care Prognosis poor, guarded Dietary Evaluation Review Comments: Inccrease protein intake to meet pt's needs. 1. TPN clinimix @41ml/hr provides 42.5g potein 510 kcal, can be a supplement to pt's nepro @30ml/hrproviding 58g pro and 1274 kcal The combined total will be 100.5g pro and 1784 kcal. 2. Offer only TF-Pivot 1.5 @50ml/hr providees 113g pro andd 1800 kcal. 3. Advance to PO 2 gNa high protein diet when pt is off Vent and back to peritoneal dialysis routine. Expected Outcomes/Goals: improved protein status, resume dialysis routine, maintian BW, Plan discussed with: Other TINO DOLAN MD Jun 11, 2024 23:29
--- NOTE | 2024-06-11 23:30 | DVHPN2 ---
Progress Note - Dictate Date Seen: Jun 11, 2024 Medical Necessity Reason Pt with a Central, PICC or Fol: Yes The following are medically ne: Central Line, Reeder Catheter Reason for reeder catheter: Strict I&O Subjective Patient seen and examined at bedside. Sedated, intubated on mechanical ventilator. Overnight events reviewed. vital signs Vital Sign Date Time Temp Pulse Resp B/P (MAP) Pulse Ox O2 Delivery O2 Flow Rate FiO2 06/11/24 22:17 92 20 120/66 (84) 98 30 06/11/24 20:00 Mechanical Ventilator+ 06/11/24 19:15 97.0 206.6 Total Intake and Output 06/10/24 06/10/24 06/11/24 15:00 23:00 07:00 Intake Total 418.292 ml 6319.292 ml 6396.042 ml Output Total 6050 ml 6000 ml Balance 418.292 ml 269.292 ml 396.042 ml medications Current Medications Medications Dose Ordered Sig/Richard Route Start Time Stop Time Status Last Admin Dose Admin Propofol 100 ml @ 2.181 mls/ hr Q24H IV 06/05/24 04:15 06/11/24 20:47 8.724 MLS/HR Midazolam HCl 50 ml @ 1 mls/hr Q24H IV 06/05/24 04:35 06/11/24 17:45 6 MLS/HR Vancomycin HCl 0 ml @ 0 mls/hr UD IV 06/05/24 10:15 Dextrose 50 ml UD PRN IV 06/05/24 10:30 Albuterol 2.5 mg Q4HPRN PRN NEB 06/05/24 11:00 Albuterol 2.5 mg Q6HR NEB 06/05/24 12:00 06/11/24 18:37 2.5 MG Ipratropium [place] 0.5 mg Q4HPRN PRN NEB 06/05/24 11:00 Ipratropium [place] 0.5 mg Q6HR NEB 06/05/24 12:00 06/11/24 18:37 0.5 MG Pantoprazole Sodium 40 mg DAILY IV 06/06/24 10:00 06/11/24 10:40 40 MG Calcium Acetate 667 mg TID NG 06/06/24 14:00 06/11/24 22:31 667 MG Enteral Nutritional Formula 1,000 ml 30ML/HR GT 06/06/24 23:00 06/11/24 20:28 1,000 ML Docusate Sodium 100 mg BID GT 06/07/24 10:00 Hold Heparin Sodium (Porcine) 5,000 units Q12HR SC 06/07/24 10:00 06/11/24 22:20 5,000 UNITS Dexmedetomidine HCl 400 mcg/ Dextrose 100 ml @ 4.19 mls/hr [id number] IV 06/07/24 17:00 Norepinephrine Bitartrate 250 ml @ 3.75 mls/hr Q24H IV 06/08/24 05:15 06/10/24 06:27 3.75 MLS/HR Fentanyl Citrate 250 ml @ 2.5 mls/hr Q24H IV 06/08/24 09:30 06/11/24 07:40 2.5 MLS/HR Peritoneal Dialysis Solution 2,000 ml @ 0 mls/hr Q4HR IP 06/08/24 14:00 06/11/24 22:19 0 MLS/HR Hydralazine HCl 10 mg Q6HP PRN IV 06/08/24 14:30 UNV Hydralazine HCl 10 mg Q6HP PRN IV 06/08/24 14:30 06/11/24 21:19 10 MG Potassium Bicarbonate 25 meq DAILY NG 06/10/24 10:00 06/11/24 10:51 25 MEQ Lorazepam 1 mg Q5MINP PRN IV 06/09/24 19:30 06/11/24 03:07 1 MG Multivit/Ca Carb/ B Cmplx/FA/Prenat 1 tab DAILY NG 06/10/24 12:00 06/11/24 10:40 1 TAB Levetiracetam 750 mg/Sodium Chloride 107.5 ml @ 430 mls/hr BID IV 06/10/24 22:00 06/11/24 22:18 430 MLS/HR Sodium Chloride 10 ml QSHIFT@10,22 IV 06/11/24 22:00 06/11/24 22:19 10 ML Piperacillin Sod/ Tazobactam Sod 100 ml @ 25 mls/hr Q12H IV 06/11/24 20:00 06/11/24 20:28 25 MLS/HR Diagnostic Test (Pha) 1 strip Q6HR 06/11/24 18:00 06/11/24 18:29 1 STRIP Insulin Human Regular Q6HR SC 06/11/24 18:00 06/11/24 18:29 16 UNITS objective Gen.: Patient lying in bed in medical ICU. Sedated, intubated on mechanical ventilator. Head: Normocephalic, atraumatic. Eyes: PERRLA. Ears: Normal external anatomy. Throat: Endotracheal tube and orogastric tube in place. Neck: Supple, trachea midline. Chest: Transmitted breath sounds bilaterally. Decreased air entry bilaterally. No wheezing. Bibasilar crackles. Cardiovascular: Positive S1, positive S2. Regular rate and rhythm. Abdomen: Positive bowel sounds in all 4 quadrants. Soft, nontender, nondistended. : Reeder in place. Normal external genitalia. Rectal: Deferred. Skin: Warm, dry. Intact. Extremities: 2+ radial pulses bilaterally. No lower extremity edema. Neuro: Sedated. laboratory and microbiology Laboratory Tests 06/11/24 03:20 Test 06/11/24 03:20 Range/Units Serum Glucose 259 H 74-106 mg/dL Assessment/Plan Impression: Acute hypoxic respiratory failure On mechanical ventilator S/p cardiac arrest s/p ROSC Lactic acidosis Metabolic acidosis Elevated troponin End-stage renal disease, on peritoneal dialysis Pulmonary edema. Aspiration pneumonia Atelectasis Events: Remains on vent support On AC mode; RR 16, VT 500, PEEP 5, FiO2 30% Neurology recs appreciated. Sedated on Versed, Propofol, Fentanyl ABG reviewed, compensated. Continue antibiotics Tube feeds for nutritional support ESRD, on PD PD per Nephrology Monitor renal function Labs and imaging reviewed. Rest of plan as noted below. Plan: s/p intubation on mechanical ventilator. On AC mode; RR 16, VT 500, PEEP 5, FiO2 30% Titrate FIO2 to keep O2 saturation above 90%. VAP bundle. Daily ABG and CXR while intubated Sedate for ventilator synchrony Pressors as necessary for hemodynamic support Titrate to keep mean arterial pressure greater than 65 mmHg. Follow up Echo results Follow up Cardiology recommendations Continue antibiotics. F/u cultures. Monitor renal function Monitor electrolytes. Supplement as necessary. Monitor ins and outs. PD per Nephrology Nephrology recs appreciated GI prophylaxis. DVT prophylaxis. Prognosis: Poor given patient's multiple co-morbidities. Condition: Critical Rest of plan per hospitalist and other consultants. A total of 35 minutes of critical care time was spent reviewing the patient record, examining the patient, making a diagnostic and therapeutic plan, discussing this plan with the medical personnel, following up on diagnostic studies and following the patient for clinical stability excluding any and all procedures. At least 50% of this time was spent in direct, [id number] contact. Thank you, ALEXANDRIA Britton, for allowing me to participate in this patient's care. Further recommendations will depend on the patient's clinical course. Please do not hesitate to contact me if you have any questions or concerns. This medical document was created using an electronic medical record system with [employer] dictation system. Although these documentations are being carefully reviewed, there may still be some phonetic and typographical changes. The errors are purely typographical, due to imperfection on the software program, and do not reflect any compromise in the patient's medical care. Dietary Evaluation Review Comments: Inccrease protein intake to meet pt's needs. 1. TPN clinimix @41ml/hr provides 42.5g potein 510 kcal, can be a supplement to pt's nepro @30ml/hrproviding 58g pro and 1274 kcal The combined total will be 100.5g pro and 1784 kcal. 2. Offer only TF-Pivot 1.5 @50ml/hr providees 113g pro andd 1800 kcal. 3. Advance to PO 2 gNa high protein diet when pt is off Vent and back to peritoneal dialysis routine. Expected Outcomes/Goals: improved protein status, resume dialysis routine, kellie BW, Plan discussed with: Other (ALEKSANDAR Morrow) Critical Care Time(min): 35 AJIT CARDONA MD Jun 11, 2024 23:30
[2024-06-12] VITALS (104 sets, daily range): BP systolic 95–203; BP diastolic 44–98; PULSE 79–106; RESP 10–30; TEMP 96.3–99.9; O2SAT 98–100
[2024-06-12 04:01] LABS: Basophils # (auto) 0.1 10 ^3/uL (0-0.2); Basophils % (auto) 0.8 % (0.0-2.0); Eosinophils # (auto) 0.7 10 ^3/uL (0-0.8); Eosinophils % (auto) 6.1 % (0.0-7.0); Hematocrit 34.5 % (41.0-53.0); Hemoglobin 11.2 g/dL (13.5-17.5); Lymphocytes # (auto) 1.2 10 ^3/uL (0.4-5.4); Lymphocytes % (auto) 10.6 % (10.0-50.0); Mean Corpuscular Hemoglobin 29.5 pg (28.0-32.0); Mean Corpuscular Hgb Conc. 32.4 g/dL (32.0-36.0); Mean Corpuscular Volume 90.9 fL (80.0-100.0); Monocytes # (auto) 1.2 10 ^3/uL (0-1.3); Monocytes % (auto) 10.3 % (0.0-12.0); Neutrophils # (auto) 8.1 10 ^3/uL (1.6-8.6); Neutrophils % (auto) 72.2 % (37.0-80.0); Platelet Count (auto) 315 10^3/uL (140-450); Red Cell Distribution Width 18.8 % (11.8-14.3); White Blood Cell 11.3 10^3/uL (4.4-10.8)
[2024-06-12 04:17] LABS: Alanine Aminotransferase 34 U/L (7-40); Albumin 3.4 g/dL (3.2-4.8); Anion Gap 13 (5-15); BUN/Creatinine Ratio 6.4 (10.0-20.0); Carbon Dioxide 25 mmol/L (20-31); Potassium 4.1 mmol/L (3.5-5.1)
[2024-06-12 04:18] LABS: Alkaline Phosphatase 184 U/L (46-116); Aspartate Aminotransferase 41 U/L (13-40); Bilirubin, Total 0.4 mg/dL (0.2-1.0); Blood Urea Nitrogen 61 mg/dL (9-23); Chloride 92 mmol/L (98-107); Glucose 227 mg/dL (74-106); Phosphorus 6.1 mg/dL (2.4-5.1); Sodium 130 mmol/L (136-145)
[2024-06-12] MEDS: PROPOFOL 100 ML IV SCH (04:59)
--- NOTE | 2024-06-12 05:35 | DVH ---
CHEST RADIOGRAPH Indication: Intubated Technique: Single frontal view of the chest was obtained Comparison: XY CHEST XRAY 1 VIEW on DOS: 06/11/24, XY CHEST XRAY 1 VIEW on DOS: 06/10/24, XY CHEST XRAY 1 VIEW on DOS: 06/09/24 IMPRESSION: Subdiaphragmatic free air is slightly more pronounced from prior examination, patient has peritoneal dialysis catheter, however clinical correlation is recommended for concern of bowel perforation, cons ider cross-sectional imaging if clinically indicated. Support lines and tubes appear unchanged in position. The lungs appear otherwise clear without focal airspace opacity, effusion, or pneumothorax.
--- NOTE | 2024-06-12 06:27 | DVH ---
Date: 06/11/2024 11:28 AM Clinical History: PICC line placement. Comparison: None Technique: Sonographic images were obtained to assist in PICC placement. Finding/Impression: Sonographic images were obtained to assist and PICC placement. Refer to operative report for further evaluation.
[2024-06-12 08:10] LABS: Base Excess 0.8 mmol/L (-2.0-3.0)
--- NOTE | 2024-06-12 09:22 | DVH ---
CLINICAL INFORMATION: 53 years old, Male; suspected bowel perfuration. TECHNIQUE: Axial CT images of the abdomen and pelvis were obtained without IV contrast. Coronal and sagittal reformatted images were obtained, reviewed, and stored. Evaluation of the parenchymal organs is limited without IV contrast. Evaluation of the bowel and mesentery is limited without oral contra st. All CT scans at this medical facility are performed using dose modulation techniques as appropria te to a performed exam including the following: Automated exposure control was utilized; adjustment o f the MA and/or KV according to patient size; and use of iterative reconstruction technique. CTDIvol = 22.15 mGy DLP = 1267.09 mGy-cm COMPARISON: Correlation made to chest radiograph dated 06/12/2024 and prior abdominal radiographs martha ed 06/10/2024 and 06/07/2024. FINDINGS: Lung bases: Trace bilateral pleural effusions with overlying atelectasis and/or consolidations. 4 mm nodule in the right middle lobe. Liver: Small volume perihepatic fluid. Biliary: No calcified gallstones or biliary ductal dilatation. Spleen: Small to moderate perisplenic fluid. Pancreas: Grossly unremarkable in its noncontrast enhanced appearance. Adrenal glands: Unremarkable. No mass. Kidneys: No hydronephrosis. No renal or ureteral calculi. Aorta/Vascular: Dense arterial calcification. No abdominal aortic aneurysm. Retroperitoneum: No mass or lymphadenopathy. Bowel/mesentery: There is a small volume pneumoperitoneum in the anterior aspect of the abdomen adjac ent to the ventral abdominal wall. Appendix is visualized and in thickness mildly thickened, with rakesh endicoliths within the lumen of the appendix. There is a small amount of free fluid in the abdomen an d pelvis. Peritoneal dialysis catheter extends through the ventral abdominal wall and into the pelvis . Pelvic organs: Grossly unremarkable. Bladder: Underdistended and suboptimally evaluated. Abdominal wall: Mild diffuse body wall edema / anasarca. The right lower extremity is imaged within t he [id number] of the exam demonstrates moderate to marked subcutaneous edema from the level of the distal humerus through the right hand. Bones: No acute fracture or suspicious intraosseous lesion. IMPRESSION: 1. Small volume pneumoperitoneum again seen, may be due to the miguel dialysis catheter, although the v olume of pneumoperitoneum is greater than expected for peritoneal dialysis. Perforated viscus can not be completely excluded, although no obvious bowel perforation is seen. Correlation with clinical fin dings recommended. 2. Small amount of free fluid in the abdomen and pelvis. 3. Appendix is thickened contains appendicoliths. No definite inflammatory changes are seen adjacent to the appendix, although limited evaluation for periappendiceal stranding due to the free fluid in t he abdomen. Correlation with clinical findings is needed. 4. No small bowel obstruction. 5. Trace bilateral pleural effusions with overlying atelectasis and/or consolidations. 6. 4 mm nodule in the right middle lobe. Correlate with patient risk factors for lung cancer. If the patient is high risk, follow-up CT chest in 12 months could be obtained per Fleischner society guide lines. Critical findings Critical Result: Pneumoperitoneum. Thickened appendix. Findings were called to the [facility] call center to contact the ordering physician at 10:56 a.m. TEST [employer] on 06/12/2024. The report will be submitted pending discussion with the ordering physician. ..
--- NOTE | 2024-06-12 10:40 | DVHPN2 ---
Progress Note Date Seen: Jun 12, 2024 Medical Necessity Reason Pt with a Central, PICC or Fol: Yes The following are medically ne: Central Line, Reeder Catheter Reason for reeder catheter: Strict I&O Subjective Review of Systems: RESPIRATORY:Abnormal Other Systems: Patient seen and examined by myself today in follow-up Patient remained intubated on ventilator Objective vital signs Vital Sign Date Time Temp Pulse Resp B/P (MAP) Pulse Ox O2 Delivery O2 Flow Rate FiO2 06/12/24 09:56 89 21 160/71 (100) 100 30 06/12/24 06:45 99.1 210.4 06/12/24 06:00 Mechanical Ventilator+ Total Intake and Output 06/11/24 06/11/24 06/12/24 15:00 23:00 07:00 Intake Total 230.568 ml 6628.292 ml 6328.112 ml Output Total 5800 ml 6200 ml Balance 230.568 ml 828.292 ml 128.112 ml medications Current Medications Medications Dose Ordered Sig/Richard Route Start Time Stop Time Status Last Admin Dose Admin Midazolam HCl 50 ml @ 1 mls/hr Q24H IV 06/05/24 04:35 06/12/24 07:53 6 MLS/HR Vancomycin HCl 0 ml @ 0 mls/hr UD IV 06/05/24 10:15 Dextrose 50 ml UD PRN IV 06/05/24 10:30 Albuterol 2.5 mg Q4HPRN PRN NEB 06/05/24 11:00 Albuterol 2.5 mg Q6HR NEB 06/05/24 12:00 06/12/24 05:56 2.5 MG Ipratropium [place] 0.5 mg Q4HPRN PRN NEB 06/05/24 11:00 Ipratropium [place] 0.5 mg Q6HR NEB 06/05/24 12:00 06/12/24 05:56 0.5 MG Pantoprazole Sodium 40 mg DAILY IV 06/06/24 10:00 06/11/24 10:40 40 MG Calcium Acetate 667 mg TID NG 06/06/24 14:00 06/12/24 05:25 667 MG Enteral Nutritional Formula 1,000 ml 30ML/HR GT 06/06/24 23:00 06/12/24 00:22 1,000 ML Docusate Sodium 100 mg BID GT 06/07/24 10:00 Hold Heparin Sodium (Porcine) 5,000 units Q12HR SC 06/07/24 10:00 06/11/24 22:20 5,000 UNITS Dexmedetomidine HCl 400 mcg/ Dextrose 100 ml @ 4.19 mls/hr [id number] IV 06/07/24 17:00 Norepinephrine Bitartrate 250 ml @ 3.75 mls/hr Q24H IV 06/08/24 05:15 06/10/24 06:27 3.75 MLS/HR Fentanyl Citrate 250 ml @ 2.5 mls/hr Q24H IV 06/08/24 09:30 06/11/24 07:40 2.5 MLS/HR Peritoneal Dialysis Solution 2,000 ml @ 0 mls/hr Q4HR IP 06/08/24 14:00 06/12/24 06:28 0 MLS/HR Hydralazine HCl 10 mg Q6HP PRN IV 06/08/24 14:30 UNV Hydralazine HCl 10 mg Q6HP PRN IV 06/08/24 14:30 06/11/24 21:19 10 MG Potassium Bicarbonate 25 meq DAILY NG 06/10/24 10:00 06/11/24 10:51 25 MEQ Lorazepam 1 mg Q5MINP PRN IV 06/09/24 19:30 06/11/24 03:07 1 MG Multivit/Ca Carb/ B Cmplx/FA/Prenat 1 tab DAILY NG 06/10/24 12:00 06/11/24 10:40 1 TAB Levetiracetam 750 mg/Sodium Chloride 107.5 ml @ 430 mls/hr BID IV 06/10/24 22:00 06/11/24 22:18 430 MLS/HR Sodium Chloride 10 ml QSHIFT@10,22 IV 06/11/24 22:00 06/11/24 22:19 10 ML Piperacillin Sod/ Tazobactam Sod 100 ml @ 25 mls/hr Q12H IV 06/11/24 20:00 06/12/24 07:54 25 MLS/HR Diagnostic Test (Pha) 1 strip Q6HR 06/11/24 18:00 06/12/24 05:26 1 STRIP Insulin Human Regular Q6HR SC 06/11/24 18:00 06/12/24 05:27 12 UNITS Propofol 100 ml @ 2.124 mls/ hr Q24H IV 06/12/24 04:30 06/12/24 04:59 8.496 MLS/HR Examination: LUNGS:Normal, CVS:Normal, MSK:Normal laboratory and microbiology Laboratory Tests 06/12/24 03:28 Test 06/12/24 03:28 Range/Units Serum Glucose 227 H 74-106 mg/dL Microbiology Date/Time Source Procedure Growth Status 06/11/24 16:15 Catheter Tip Other Aerobic Culture - Preliminary Resulted 06/10/24 22:30 Sputum Gram Stain Pending Resulted 06/10/24 22:30 Sputum Respiratory Culture - Preliminary Resulted 06/07/24 10:21 Peritoneal Fluid Gram Stain - Final Complete 06/07/24 10:21 Peritoneal Fluid Body Fluid Culture - Final Complete 06/05/24 05:00 Blood Blood Culture - Final NO GROWTH AFTER 5 DAYS OF INCUBATION. Complete Problem List/Assessment/Plan Problem List/Assessment/Plan End-stage renal disease on home protein dialysis, out of the area Acute respiratory failure intubated on ventilator Status post cardiac arrest Septic shock Aspiration pneumonia Congestive heart failure, ejection fraction 45% Anemia of chronic kidney disease, well compensated Hyperphosphatemia Hypokalemia Recommendations Continue intensive peritoneal dialysis x 6 exchanges per 24 hours using 2.5% Dianeal PD solution PD fluid is clear culture is negative Closely monitor fluid and electrolytes IV antibiotics IV pressors Maintain map more than 65 mm Hg Calcium acetate per NG tube t.i.d. KCL replacement Renal vitamin daily Pulmonary consult Cardiology consult We will continue to follow I discussed my plan of care with the and the primary nurse at the bedside Plan discussed with: Spouse, Son, Other (Nurse) Dietary Evaluation Review Comments: Inccrease protein intake to meet pt's needs. 1. TPN clinimix @41ml/hr provides 42.5g potein 510 kcal, can be a supplement to pt's nepro @30ml/hrproviding 58g pro and 1274 kcal The combined total will be 100.5g pro and 1784 kcal. 2. Offer only TF-Pivot 1.5 @50ml/hr providees 113g pro andd 1800 kcal. 3. Advance to PO 2 gNa high protein diet when pt is off Vent and back to peritoneal dialysis routine. Expected Outcomes/Goals: improved protein status, resume dialysis routine, kellie BEDOYA, OLEKSANDR JASSO MD Jun 12, 2024 10:40
[2024-06-12] MEDS: GASTROGRAFIN 30 ML SOL ONE (11:39)
[2024-06-12] MEDS: IOHEXOL 300 MG/ML 100ML BOTTLE IJ ONE (15:26)
--- NOTE | 2024-06-12 16:27 | DVH ---
Exam: CT CT ABD PELVIS W CON-ORAL IV History: pneumoperitoneum Comparison Study: None available at time of dictation. Contrast: Type of contrast: Omnipaque 300 Contrast injected: 100 Oral Contrast 1000 mL TECHNIQUE: A digital brusher image was obtained. During the uneventful, intravenous administration of c ontrast material, multislice data acquisition was obtained through the abdomen and pelvis. The data s et was subsequently reconstructed into axial images. Images were reviewed on a work station using a c ombination of axial and multiplanar using a variety of window levels and settings. Radiation Dose Information: CT Dose: CTDI volume is 16.76 mGy. Dose-length product is 1067.36 mGy*cm FINDINGS: Lung Bases: Bibasilar airspace disease. Coronary artery calcifications. No pleural or pericardial ef fusion. Liver: The liver is normal in size. No focal lesions. Normal hepatic vascular enhancement. Gallbladder and Biliary Tree: Unremarkable Spleen: Unremarkable Pancreas: The pancreas is normal in appearance without focal lesions or abnormal enhancement. Adrenal Glands: Unremarkable Kidneys: Kidneys demonstrate normal symmetric enhancement without focal lesions, calculi or hydroneph rosis. Bladder: Unremarkable Bowel: The stomach is grossly normal in appearance. Small bowel and colon are normal in caliber and d istribution. Peritoneal dialysis catheter in place. The appendix is not visualized; however, no secon annalise findings of acute appendicitis identified. Ascites: Small amount of ascites scattered throughout the abdomen and pelvis Lymphadenopathy: No mesenteric, retroperitoneal or periportal lymphadenopathy. Abdominal Wall and Mesentery: Unremarkable. Vasculature: The visualized abdominal aorta is normal in size and caliber. Abdominal and pelvic vess els demonstrate normal enhancement. Pelvic Organs: Unremarkable Musculoskeletal: No aggressive focal bony lesions, acute fractures or dislocation. Soft tissues: Unremarkable. IMPRESSION: 1. Peritoneal dialysis catheter in place with fluid around the liver spleen and scattered throughout the abdomen and pelvis May all be secondary to pollicis and dialysate liquid. 2. No change amount of free air when compared with CT abdomen and pelvis done 8:20 a.m. On 06/12/[address] scans at this medical facility are performed using dose modulation techniques as appropriate to a performed exam including the following: Automated exposure control was utilized; adjustment of t he MA and/or KV according to patient size; and use of iterative reconstruction technique.
--- NOTE | 2024-06-12 16:49 | DVHPN2 ---
Subjective Still intubated and sedated Reviewed: Care Plan, H&P, Labs, Medications, Previous Orders, Radiology, Other (Consultations) Changes from previous H/P or p: No Changes Objective Vitals Vital Signs Date Time Temp Pulse Resp B/P (MAP) Pulse Ox O2 Delivery O2 Flow Rate FiO2 06/12/24 16:15 84 23 185/80 (115) 100 30 06/12/24 13:15 97.2 207.0 06/12/24 12:00 Mechanical Ventilator+ Intake/Output Intake and Output 06/12/24 07:00 Intake Total 81663.968 ml Output Total 14000 ml Balance 1203.968 ml Intake Oral 180 ml IV Total 707.968 ml Tube Feeding 316 ml Intraperitoneal 55798 ml Gastric Drainage Total 150 ml Other 49619 ml General Appearance: Other (Intubated and sedated) HEENT: Atraumatic Lungs: Other (Mechanical ventilation sounds) Cardiovascular: Regular rate, Normal S1, Normal S2 Abdomen: Normal bowel sounds, Soft, Other (Peritoneal dialysis catheter in place) Genitourinary: Other (Castano's catheter) Neuro: Other (Sedated) Psych/Mental Status: Other (Sedated) Medications Current Medications Medications Dose Ordered Sig/Richard Route Start Time Stop Time Status Last Admin Dose Admin Midazolam HCl 50 ml @ 1 mls/hr Q24H IV 06/05/24 04:35 06/12/24 15:21 6 MLS/HR Vancomycin HCl 0 ml @ 0 mls/hr UD IV 06/05/24 10:15 Dextrose 50 ml UD PRN IV 06/05/24 10:30 Albuterol 2.5 mg Q4HPRN PRN NEB 06/05/24 11:00 Albuterol 2.5 mg Q6HR NEB 06/05/24 12:00 06/12/24 11:19 2.5 MG Ipratropium Everest 0.5 mg Q4HPRN PRN NEB 06/05/24 11:00 Ipratropium Everest 0.5 mg Q6HR NEB 06/05/24 12:00 06/12/24 11:19 0.5 MG Pantoprazole Sodium 40 mg DAILY IV 06/06/24 10:00 06/12/24 11:24 40 MG Calcium Acetate 667 mg TID NG 06/06/24 14:00 06/12/24 05:25 667 MG Enteral Nutritional Formula 1,000 ml 30ML/HR GT 06/06/24 23:00 06/12/24 00:22 1,000 ML Docusate Sodium 100 mg BID GT 06/07/24 10:00 Hold Heparin Sodium (Porcine) 5,000 units Q12HR SC 06/07/24 10:00 06/11/24 22:20 5,000 UNITS Dexmedetomidine HCl 400 mcg/ Dextrose 100 ml @ 4.19 mls/hr [id number] IV 06/07/24 17:00 Norepinephrine Bitartrate 250 ml @ 3.75 mls/hr Q24H IV 06/08/24 05:15 06/10/24 06:27 3.75 MLS/HR Fentanyl Citrate 250 ml @ 2.5 mls/hr Q24H IV 06/08/24 09:30 06/12/24 12:31 2.5 MLS/HR Peritoneal Dialysis Solution 2,000 ml @ 0 mls/hr Q4HR IP 06/08/24 14:00 06/12/24 15:00 2,000 MLS/HR Hydralazine HCl 10 mg Q6HP PRN IV 06/08/24 14:30 UNV Hydralazine HCl 10 mg Q6HP PRN IV 06/08/24 14:30 06/11/24 21:19 10 MG Potassium Bicarbonate 25 meq DAILY NG 06/10/24 10:00 06/12/24 11:26 25 MEQ Lorazepam 1 mg Q5MINP PRN IV 06/09/24 19:30 06/11/24 03:07 1 MG Multivit/Ca Carb/ B Cmplx/FA/Prenat 1 tab DAILY NG 06/10/24 12:00 06/12/24 11:25 1 TAB Levetiracetam 750 mg/Sodium Chloride 107.5 ml @ 430 mls/hr BID IV 06/10/24 22:00 06/12/24 12:11 430 MLS/HR Sodium Chloride 10 ml QSHIFT@10,22 IV 06/11/24 22:00 06/12/24 10:00 10 ML Piperacillin Sod/ Tazobactam Sod 100 ml @ 25 mls/hr Q12H IV 06/11/24 20:00 06/12/24 07:54 25 MLS/HR Diagnostic Test (Pha) 1 strip Q6HR 06/11/24 18:00 06/12/24 11:43 1 STRIP Insulin Human Regular Q6HR SC 06/11/24 18:00 06/12/24 05:27 12 UNITS Propofol 100 ml @ 2.124 mls/ hr Q24H IV 06/12/24 04:30 06/12/24 15:13 8.496 MLS/HR Laboratory Results Laboratory Tests 06/12/24 03:28 Chemistry Test 06/12/24 03:28 Albumin 3.4 g/dL (3.2-4.8) Calcium Level 10.0 mg/dL (8.7-10.4) Magnesium Level 2.0 mg/dL (1.6-2.6) Phosphorus Level 6.1 mg/dL (2.4-5.1) H Total Protein 6.0 g/dL (5.7-8.2) LFT Test 06/12/24 03:28 Alanine Aminotransferase (ALT) 34 U/L (7-40) Alkaline Phosphatase 184 U/L (46-116) H Aspartate Amino Transferase (AST) 41 U/L (13-40) H Total Bilirubin 0.4 mg/dL (0.2-1.0) Urinalysis Test 06/06/24 15:21 Urine Color Colorless (Yellow) Urine Clarity Clear (Clear) Urine pH 7.5 (5.0-9.0) Urine Specific [place] 1.011 (1.001-1.035) Urine Protein 2+ (Negative) H Urine Ketones Negative (Negative) Urine Blood Trace /uL (Negative) H Urine Nitrite Negative (Negative) Urine Bilirubin Negative (Negative) Urine Urobilinogen Normal mg/dL (Negative) Urine Leukocyte Esterase Negative /uL (Negative) Urine RBC None seen /hpf (0 - 3) Urine WBC 1 /hpf (0 - 3) Urine Squamous Epithelial Cells None seen /hpf (<5) Urine Bacteria None seen /hpf (None Seen) Urine Creatinine 15.02 mg/dL (30.0-125.0) L Urine Protein/Creatinine Ratio 14.84 Urine Sodium 137 mmol/L (40-220) Urine Glucose 3+ mg/dL (Normal) H Urine Total Protein 222.9 mg/dL (1-14) H Blood Gas Results Test 06/12/24 07:14 Arterial Blood pH 7.396 (7.350-7.450) FiO2 % 30.0 Microbiology Microbiology Date/Time Source Procedure Growth Status 06/11/24 16:15 Catheter Tip Other Aerobic Culture - Preliminary Resulted 06/10/24 22:30 Sputum Gram Stain - Final Resulted 06/10/24 22:30 Sputum Respiratory Culture - Preliminary Resulted 06/07/24 10:21 Peritoneal Fluid Gram Stain - Final Complete 06/07/24 10:21 Peritoneal Fluid Body Fluid Culture - Final Complete 06/05/24 05:00 Blood Blood Culture - Final NO GROWTH AFTER 5 DAYS OF INCUBATION. Complete Labs and/or images reviewed: Labs reviewed by me, Image(s) reviewed by me Assessment/Plan Assessment/Plan Covering Dr. Gibson: #Acute hypoxic/metabolic/toxic encephalopathy; reviewed the available imaging studies including brain MRI and EEG; currently sedated; neurology is following; continue close monitoring #Abnormal movement, likely myoclonus; details as above; continue IV antiseizure medications; continue close monitoring #Status post cardiopulmonary arrest with ROSC; telemetry; cardiology is following; continue close monitoring NSTEMI; most likely type 2 MO; demand ischemia; due to above; telemetry; cardiology is following; continue close monitoring #Acute hypoxic respiratory failure due to aspiration pneumonia; continue oxygen therapy via mechanical ventilation as per pulmonology; reviewed ABGs and chest x-rays; continue close monitoring #Septic shock with leukocytosis and lactic acidosis due to aspiration pneumonia; continue broad-spectrum IV antibiotics; continue IV vasopressor as indicated; reviewed available cultures; continue close monitoring #ESRD on peritoneal dialysis; nephrology is following; continue close monitoring #Electrolyte abnormalities due to above; correct/brace as indicated as per Nephrology; continue close monitoring #Coronary artery disease; telemetry; cardiology is following; continue close monitoring 55 minutes of critical care time. Late Entry. This medical document was created using an electronic medical record system with computerized dictation system. Although this document has been carefully reviewed, there might still be some phonetic and typographical errors. These areas are purely typographical due to imperfections of the software programs, and do not reflect any compromise in the patient's medical care. Plan discussed with: Other (Nurse) My Orders Orders - MARGE THOMAS MD Procedure Category Date Status Time Ventilator Orders RT 06/12/24 Transmitted 05:57 Ct Ab Pel Wo Con-No CT 06/12/24 Resulted Oral Or Iv 07:21 * Surgical Consult CONS 06/12/24 Transmitted Comprehensive LAB 06/13/24 Verified Metabolic Panel 04:00 Chest Xray 1 View XY 06/13/24 Logged 04:00 Abg W/ Co-Ox RT 06/13/24 Logged 06:00 Date of Service: Jun 12, 2024 Billing Provider: MARGE THOMAS MD Common Visit Codes: 11399-[id number] CARE 30-74 MIN (55 minutes) MARGE THOMAS MD Jun 12, 2024 16:49
--- NOTE | 2024-06-12 17:43 | DVHINCON2 ---
Date of service: Jun 12, 2024 History of Present Illness 53-year-old male with end-stage renal disease on peritoneal dialysis who was admitted in the ICU secondary to cardiopulmonary arrest and his CT of the abdo men and pelvis showed pneumoperitoneum therefore surgical consultation was requested. Past Medical History End-stage renal disease on peritoneal dialysis Past Surgical History Peritoneal dialysis catheter placement Family History: Chronic liver disease G8 BROTHER Diabetes mellitus G8 MOTHER G8 FATHER G8 BROTHER G8 BROTHER G8 BROTHER G8 BROTHER G8 BROTHER FH: chronic kidney disease G8 MOTHER G8 FATHER G8 BROTHER G8 BROTHER G8 BROTHER Hypertension G8 MOTHER G8 FATHER G8 BROTHER G8 BROTHER G8 BROTHER G8 BROTHER G8 BROTHER Liver cancer G8 BROTHER Liver disease G8 BROTHER Liver transplant G8 BROTHER Family History Noncontributory Social History No alcohol, tobacco, IV drug use Allergies: Coded Allergies: UNOBTAINABLE (Unverified , 06/05/24) arrived CPR in progress Home Meds Reported Medications Minoxidil (Minoxidil) 10 Mg Tab, 1 TAB PO BID for 30 Days, #60 06/07/24 Clonidine Hydrochloride (Clonidine Hcl) 0.2 Mg/24 Hr Dis, 0.2 MG TD UD for 30 Days, #4 06/07/24 Docusate Sodium (Colace) 100 Mg Cap, 1 CAP PO BID for 90 Days, #180 06/07/24 Gentamicin Sulfate (Gentamicin Sulfate) 0.1 % Cre, 1 APPLIC TOP DAILY for 30 Days, #30 06/07/24 B-Complex W/ C & Folic Acid (Sarah-Tosh[facility] Rx) Tab, 1 TAB PO DAILY for 30 Days, #30 06/07/24 Cholecalciferol (D3) 50 Mcg Cap, 1 CAP PO DAILY for 30 Days, #30 06/07/24 Carvedilol (Coreg) 25 Mg Tab, 1 TAB PO BID for 30 Days, #60 06/06/24 Losartan Potassium (Losartan Potassium) 100 Mg Tab, 1 TAB PO DAILY for 30 Days, #30 06/06/24 Discontinued Reported Medications Minoxidil (Loniten) 2.5 Mg Tb, 10 MG PO TID, TAB 06/06/24 Clonidine HCl (Clonidine Hydrochloride) 0.1 Mg Tab, 0.1 MG PO DAILY, TAB 06/06/24 Current Medications Current Medications Medications (Trade) Dose Ordered Sig/Richard Route PRN Reason Start Time Stop Time Status Last Admin Sodium Chloride (Saline Lock Ns) 10 ml QSHIFT@10,22 IV 06/11/24 22:00 06/12/24 10:00 Piperacillin Sod/ Tazobactam Sod 100 ml @ 25 mls/hr Q12H IV 06/11/24 20:00 06/12/24 07:54 Diagnostic Test (Pha) (Accu-Chek Comfort Curve T) 1 strip Q6HR 06/11/24 18:00 06/12/24 11:43 Insulin Human Regular (InsuLIN R) Q6HR SC 06/11/24 18:00 06/12/24 05:27 Propofol 100 ml @ 2.124 mls/ hr Q24H IV 06/12/24 04:30 06/12/24 15:13 Vital Signs Vital Signs Date Time Temp Pulse Resp B/P (MAP) Pulse Ox O2 Delivery O2 Flow Rate FiO2 06/12/24 17:00 185/78 06/12/24 16:45 97.5 84 18 100 207.5 06/12/24 16:15 30 06/12/24 16:00 Mechanical Ventilator+ Physical Exam GEN: Age-appropriate male intubated and sedated HEENT: Normocephalic atraumatic. Moist mucous membranes. Anicteric sclerae. CV: RRR Respiratory: Coarse breath sounds ABD: There is a peritoneal dialysis catheter intact. Abdomen is otherwise soft and nondistended. CT of the abdomen and pelvis with oral and IV contrast: Minimal ascites with intact peritoneal dialysis catheter. No obvious extravasation of contrast seen. Small amount of pneumoperitoneum anteriorly. Labs/Diagnostic Data Labs Test 06/12/24 11:36 06/12/24 07:14 06/12/24 03:28 06/10/24 17:04 Range/Units POC Glucose 202 H 70-106 mg/dl Blood Gas Specimen Type Arterial Blood Gas Sample Site Arterial line Blood Gas Patient Temperature 37.0 Arterial Blood Date Drawn [id number] Arterial Blood pH 7.396 7.350-7.450 Arterial Blood Partial Pressure CO2 43.1 35.0-48.0 mmHg Arterial Blood Partial Pressure O2 125.2 H 83.0-108.0 mmHg Arterial Blood HCO3 25.9 21.0-28.0 mmol/L Arterial Blood Oxygen Saturation 98.1 H 94.0-98.0 % Arterial Blood Base Excess 0.8 -2.0-3.0 mmol/L Arterial Blood Oxyhemoglobin 97.3 94.0-98.0 % Arterial Blood Carboxyhemoglobin 0.6 0.5-1.5 % Arterial Blood Methemoglobin 0.2 0.0-1.5 % Kevin Test N/a Blood Gas Total Hemoglobin 11.10 L 13.5-17.5 g/dL Blood Gas Set Respiration Rate 16.0 Blood Gas Modality Vent - ac FiO2 % 30.0 Blood Gas Tidal Volume 500.0 Blood Gas PEEP or CPAP 5.0 White Blood Count 11.3 H 4.4-10.8 10^3/uL Red Blood Count 3.80 L 4.5-5.90 10^6/uL Hemoglobin 11.2 L 13.5-17.5 g/dL Hematocrit 34.5 L 41.0-53.0 % Mean Corpuscular Volume 90.9 80.0-100.0 fL Mean Corpuscular Hemoglobin 29.5 28.0-32.0 pg Mean Corpuscular Hemoglobin Concent 32.4 32.0-36.0 g/dL Red Cell Distribution Width 18.8 H 11.8-14.3 % Platelet Count 315 140-450 10^3/uL Mean Platelet Volume 7.8 6.9-10.8 fL Neutrophils (%) (Auto) 72.2 37.0-80.0 % Lymphocytes (%) (Auto) 10.6 10.0-50.0 % Monocytes (%) (Auto) 10.3 0.0-12.0 % Eosinophils (%) (Auto) 6.1 0.0-7.0 % Basophils (%) (Auto) 0.8 0.0-2.0 % Neutrophils # (Auto) 8.1 1.6-8.6 10 ^3/uL Lymphocytes # (Auto) 1.2 0.4-5.4 10 ^3/uL Monocytes # (Auto) 1.2 0-1.3 10 ^3/uL Eosinophils # (Auto) 0.7 0-0.8 10 ^3/uL Basophils # (Auto) 0.1 0-0.2 10 ^3/uL Nucleated Red Blood Cells 0.0 % Sodium Level 130 L 136-145 mmol/L Potassium Level 4.1 3.5-5.1 mmol/L Chloride Level 92 L 98-107 mmol/L Carbon Dioxide Level 25 20-31 mmol/L Anion Gap 13 5-15 Blood Urea Nitrogen 61 H 9-23 mg/dL Creatinine 9.60 H 0.700-1.30 mg/dL Glomerular Filtration Rate Calc 6 >90 mL/min BUN/Creatinine Ratio 6.4 L 10.0-20.0 Serum Glucose 227 H 74-106 mg/dL Calcium Level 10.0 8.7-10.4 mg/dL Phosphorus Level 6.1 H 2.4-5.1 mg/dL Magnesium Level 2.0 1.6-2.6 mg/dL Total Bilirubin 0.4 0.2-1.0 mg/dL Aspartate Amino Transferase (AST) 41 H 13-40 U/L Alanine Aminotransferase (ALT) 34 7-40 U/L Alkaline Phosphatase 184 H 46-116 U/L Total Protein 6.0 5.7-8.2 g/dL Albumin 3.4 3.2-4.8 g/dL Prothrombin Time 12.0 H 9.3-11.8 sec Prothrombin Time INR 1.15 0.9-1.15 Activated Partial Thromboplast Time 29.4 24.5-34.5 SEC Test 06/10/24 08:26 06/10/24 03:08 06/08/24 22:00 06/07/24 23:10 Range/Units Blood Gas Spontaneous Rate 22 Random Vancomycin Level 17.7 H 5-10 ug/mL Body Fluid Source Peritoneal fluid Body Fluid WBC (Manual) 117 0-200 CUMM Body Fluid RBC (Manual) 0 0-2000 CUMM Body Fluid Mononuclear Cells 95 % Body Fluid Polymorphonuclear Cells 5 0-25 % Lactic Acid Level 1.5 0.4-2.0 mmol/L Test 06/07/24 19:20 06/07/24 10:21 06/07/24 03:02 06/06/24 15:21 Range/Units Creatine Kinase 172 H 46-171 U/L Body Fluid pH 7.0 Body Fluid Total Protein 0.2 . g/dL Body Fluid Lactate Dehydrogenase 13 . IU/L Platelet Estimate Decreased Clumped Platelets None Urine Color Colorless Yellow Urine Clarity Clear Clear Urine pH 7.5 5.0-9.0 Urine Specific [place] 1.011 1.001-1.035 Urine Protein 2+ H Negative Urine Ketones Negative Negative Urine Blood Trace H Negative /uL Urine Nitrite Negative Negative Urine Bilirubin Negative Negative Urine Urobilinogen Normal Negative mg/dL Urine Leukocyte Esterase Negative Negative /uL Urine RBC None seen 0 - 3 /hpf Urine WBC 1 0 - 3 /hpf Urine Squamous Epithelial Cells None seen <5 /hpf Urine Bacteria None seen None Seen /hpf Urine Creatinine 15.02 L 30.0-125.0 mg/dL Urine Protein/Creatinine Ratio 14.84 Urine Sodium 137 40-220 mmol/L Urine Glucose 3+ H Normal mg/dL Urine Total Protein 222.9 H 1-14 mg/dL Urine Opiates Screen Neg NEGATIVE Urine Fentanyl Screen Neg NEGATIVE Urine Barbiturates Screen Neg NEGATIVE Urine Phencyclidine Screen Neg NEGATIVE Urine Amphetamines Screen Neg NEGATIVE Urine Benzodiazepines Screen Pos NEGATIVE Urine Cocaine Screen Neg NEGATIVE Urine Cannabinoids Screen Neg NEGATIVE Test 06/06/24 11:33 06/05/24 07:11 06/05/24 05:00 06/05/24 04:47 Range/Units Hepatitis B Surface Antigen Negative Negative Hepatitis C Antibody Negative Negative Troponin I High Sensitivity 643 *H </=54 ng/L Triglycerides Level 174 H < 150 mg/dL Cholesterol Level 208 H < 200 mg/dL LDL Cholesterol 143 H < 100 mg/dL HDL Cholesterol 33 L 40-59 mg/dL Thyroid Stimulating Hormone (TSH) 5.41 H 0.55-4.78 uIU/mL Blood Gas Critical Value Read Back Yes Blood Gas Notified Whom юлия Pinzon Blood Gas Notified Time [id number] Blood Gas Notified By Elza fernandez rrt Test 06/05/24 04:00 Range/Units Differential Total Cells Counted 100.0 100 Neutrophils % (Manual) 47 37.0-80.0 Band Neutrophils % (Manual) 0 Lymphocytes % (Manual) 35 10.0-50.0 Monocytes % (Manual) 10 0-12 Eosinophils % (Manual) 3 0-7 Basophils % (Manual) 0 0.0-2.0 Metamyelocytes % (manual) 0 Myelocytes % (Manual) 0 Promyelocytes % (Manual) 0 Blast Cells % (Manual) 0 Reactive Lymphocytes 5 Hemoglobin A1c 6.3 H <5.7 % A1C B-Type Natriuretic Peptide 302.91 0-100 pg/mL Lipase 84 H 12-53 U/L Microbiology Date/Time Source Procedure Growth Status 06/11/24 16:15 Catheter Tip Other Aerobic Culture - Preliminary Resulted 06/10/24 22:30 Sputum Gram Stain - Final Resulted 06/10/24 22:30 Sputum Respiratory Culture - Preliminary Resulted 06/07/24 10:21 Peritoneal Fluid Gram Stain - Final Complete 06/07/24 10:21 Peritoneal Fluid Body Fluid Culture - Final Complete 06/05/24 05:00 Blood Blood Culture - Final NO GROWTH AFTER 5 DAYS OF INCUBATION. Complete Assessment 1. Cardiopulmonary arrest currently intubated in the ICU 2. Pneumoperitoneum likely from a peritoneal dialysis catheter and not from perforation. Plan/Recommendation 1. No acute indication for surgical exploration at this time. Plan discussed with: Other ABDOULAYE DELGADO MD Jun 12, 2024 17:43
--- NOTE | 2024-06-12 22:53 | DVHPN2 ---
Progress Note - Dictate Date Seen: Jun 12, 2024 Medical Necessity Reason Pt with a Central, PICC or Fol: Yes The following are medically ne: Central Line, Reeder Catheter Reason for reeder catheter: Strict I&O Subjective Mr. Montano is a 53 years old right-handed gentleman with a history of d iabetes, coronary artery disease, end-stage kidney failure on peritoneal dialysis, the patient was was brought to the [facility] on 06/05/24 with CPR ongoing. I have seen and examined the patient, discussed with his nurse. No myoclonus reported today Fentanyl 25 mcg/hour, Versed 6 mg/hour, propofol 20 mcg/minute Blood culture, 05/1974: No growth Peritoneal fluid culture, 06/07/2024: UDS, 06/06/2024: Benzo Urinalysis, 06/06/2024: WBC: 1, urine leukocyte esterase: Negative ABG, 06/05/2024: Combined metabolic and respiratory acidosis, WBC/HB/PLT/MCV, 06/08/2024: 19/10.3/106/90.9 Na, 06/06/2019 5:132, 06/08/2024: Moderate BUN/CR, 06/05/2024: 57/15.78, 06/08/2024: 78/14.78 Lactic acid, 06/05/24: 6.7, 3.5 HGB A1c, 06/05/2019 5:6.3 One high sensitivity, 05/1924: 566, 698, 643 Liver function tests, 06/08/2024: Normal TG/HDL/LDL/HDL, 06/05/2024: 174/208/143/33 TSH, 06/05/2024: 5.41 Chest x-ray, 06/08/2024: 1. Bibasilar opacities which may reflect atelectasis or pneumonia. 2. Stable position of the support lines and tubes CT head, 06/06/2024: No acute intracranial pathology in the brain. Mild cortical atrophy Severe paranasal sinus disease Soft tissue swelling left temporal scalp MRI head, 06/09/2024: 1. There is no acute intracranial process. 2. Nonspecific 8 mm focus of blooming artifact in the left thalamic region May relate to chronic microhemorrhage. There is no discrete lesion identified on the other sequences to suggest a cavernoma. 3. Nonspecific small hyperintense T2 and hypointense T1 focus in the left paramidline anterior erika. Small chronic ischemic focus is not excluded. vital signs Vital Sign Date Time Temp Pulse Resp B/P (MAP) Pulse Ox O2 Delivery O2 Flow Rate FiO2 06/12/24 22:07 93 21 147/78 (101) 99 30 06/12/24 19:15 96.4 205.5 06/12/24 18:00 Mechanical Ventilator+ Total Intake and Output 06/11/24 06/11/24 06/12/24 15:00 23:00 07:00 Intake Total 230.568 ml 6628.292 ml 6345.108 ml Output Total 5800 ml 6200 ml Balance 230.568 ml 828.292 ml 145.108 ml medications Current Medications Medications Dose Ordered Sig/Richard Route Start Time Stop Time Status Last Admin Dose Admin Midazolam HCl 50 ml @ 1 mls/hr Q24H IV 06/05/24 04:35 06/12/24 15:21 6 MLS/HR Vancomycin HCl 0 ml @ 0 mls/hr UD IV 06/05/24 10:15 Dextrose 50 ml UD PRN IV 06/05/24 10:30 Albuterol 2.5 mg Q4HPRN PRN NEB 06/05/24 11:00 Albuterol 2.5 mg Q6HR NEB 06/05/24 12:00 06/12/24 18:08 2.5 MG Ipratropium [place] 0.5 mg Q4HPRN PRN NEB 06/05/24 11:00 Ipratropium [place] 0.5 mg Q6HR NEB 06/05/24 12:00 06/12/24 18:09 0.5 MG Pantoprazole Sodium 40 mg DAILY IV 06/06/24 10:00 06/12/24 11:24 40 MG Calcium Acetate 667 mg TID NG 06/06/24 14:00 06/12/24 21:55 667 MG Enteral Nutritional Formula 1,000 ml 30ML/HR GT 06/06/24 23:00 06/12/24 00:22 1,000 ML Docusate Sodium 100 mg BID GT 06/07/24 10:00 Hold Heparin Sodium (Porcine) 5,000 units Q12HR SC 06/07/24 10:00 06/12/24 18:27 5,000 UNITS Dexmedetomidine HCl 400 mcg/ Dextrose 100 ml @ 4.19 mls/hr [id number] IV 06/07/24 17:00 Norepinephrine Bitartrate 250 ml @ 3.75 mls/hr Q24H IV 06/08/24 05:15 06/10/24 06:27 3.75 MLS/HR Fentanyl Citrate 250 ml @ 2.5 mls/hr Q24H IV 06/08/24 09:30 06/12/24 12:31 2.5 MLS/HR Peritoneal Dialysis Solution 2,000 ml @ 0 mls/hr Q4HR IP 06/08/24 14:00 06/12/24 22:27 2,000 MLS/HR Hydralazine HCl 10 mg Q6HP PRN IV 06/08/24 14:30 UNV Hydralazine HCl 10 mg Q6HP PRN IV 06/08/24 14:30 06/12/24 17:00 10 MG Potassium Bicarbonate 25 meq DAILY NG 06/10/24 10:00 06/12/24 11:26 25 MEQ Lorazepam 1 mg Q5MINP PRN IV 06/09/24 19:30 06/11/24 03:07 1 MG Multivit/Ca Carb/ B Cmplx/FA/Prenat 1 tab DAILY NG 06/10/24 12:00 06/12/24 11:25 1 TAB Levetiracetam 750 mg/Sodium Chloride 107.5 ml @ 430 mls/hr BID IV 06/10/24 22:00 06/12/24 21:55 430 MLS/HR Sodium Chloride 10 ml QSHIFT@10,22 IV 06/11/24 22:00 06/12/24 21:55 10 ML Piperacillin Sod/ Tazobactam Sod 100 ml @ 25 mls/hr Q12H IV 06/11/24 20:00 06/12/24 20:06 25 MLS/HR Diagnostic Test (Pha) 1 strip Q6HR 06/11/24 18:00 06/12/24 18:08 1 STRIP Insulin Human Regular Q6HR SC 06/11/24 18:00 06/12/24 18:10 16 UNITS Propofol 100 ml @ 2.124 mls/ hr Q24H IV 06/12/24 04:30 06/12/24 15:13 8.496 MLS/HR objective The patient is well-nourished and well-developed with no distress. The patient is intubated MENTAL STATUS: Subjective CRANIAL NERVES: Pupils are equal, round and reactive. There are corneal reflexes and doll's eyes phenomenon. No signs of facial weakness. There are gagging or coughing reflexes SENSATION: No responses to pain stimuli. MOTOR: Normal tone in the upper and lower extremity. Normal muscle bulk. No fasciculations. No spontaneous movement. REFLEXES: Deep tendon reflexes are symmetrical. No pathological reflexes. CEREBELLAR/COORDINATION: Deferred GAIT/STATION: deferred laboratory and microbiology Laboratory Tests 06/12/24 03:28 Test 06/12/24 03:28 Range/Units Serum Glucose 227 H 74-106 mg/dL Problem List Abnormal movement, Myoclonus Rule out status epileptics Coma Hypoxic encephalopathy Metabolic encephalopathy Toxic encephalopathy Cardiopulmonary arrest, status post CPR Metabolic acidosis Respiratory acidosis Coronary artery disease Heart attack Leukocytosis/sepsis/septic shock Pneumonia Assessment/Plan Monitoring Supportive screaming ICU care EEG Respiratory support/vent management Stabilize vitals Oxygen IV antibiotics Versed drip with p.r.n. Ativan for tremor/myoclonus control Keppra to 750 mg b.i.d. DVT prophylax/heparin GI prophylax/Protonix IV antibiotics Cardiology on case Pulmonology on case Nephrology on case More recommendation per clinical course This medical document was created using an electronic medical record system with [employer] dictation system. Although this document has been carefully reviewed, there may still be some phonetic and typographical errors. These areas are purely typographical due to imperfections of the software programs, and do not reflect any compromise in the patient's medical care Prognosis guarded Dietary Evaluation Review Comments: Inccrease protein intake to meet pt's needs. 1. TPN clinimix @41ml/hr provides 42.5g potein 510 kcal, can be a supplement to pt's nepro @30ml/hrproviding 58g pro and 1274 kcal The combined total will be 100.5g pro and 1784 kcal. 2. Offer only TF-Pivot 1.5 @50ml/hr providees 113g pro andd 1800 kcal. 3. Advance to PO 2 gNa high protein diet when pt is off Vent and back to peritoneal dialysis routine. Expected Outcomes/Goals: improved protein status, resume dialysis routine, maintian BW, Plan discussed with: Other TINO DOLAN MD Jun 12, 2024 22:53
--- NOTE | 2024-06-12 22:58 | DVHPN2 ---
Progress Note - Dictate Date Seen: Jun 12, 2024 Medical Necessity Reason Pt with a Central, PICC or Fol: Yes The following are medically ne: Central Line, Reeder Catheter Reason for reeder catheter: Strict I&O Subjective Patient seen and examined at bedside. Sedated, intubated on mechanical ventilator. Overnight events reviewed. vital signs Vital Sign Date Time Temp Pulse Resp B/P (MAP) Pulse Ox O2 Delivery O2 Flow Rate FiO2 06/12/24 22:07 93 21 147/78 (101) 99 30 06/12/24 19:15 96.4 205.5 06/12/24 18:00 Mechanical Ventilator+ Total Intake and Output 06/11/24 06/11/24 06/12/24 15:00 23:00 07:00 Intake Total 230.568 ml 6628.292 ml 6345.108 ml Output Total 5800 ml 6200 ml Balance 230.568 ml 828.292 ml 145.108 ml medications Current Medications Medications Dose Ordered Sig/Richard Route Start Time Stop Time Status Last Admin Dose Admin Midazolam HCl 50 ml @ 1 mls/hr Q24H IV 06/05/24 04:35 06/12/24 15:21 6 MLS/HR Vancomycin HCl 0 ml @ 0 mls/hr UD IV 06/05/24 10:15 Dextrose 50 ml UD PRN IV 06/05/24 10:30 Albuterol 2.5 mg Q4HPRN PRN NEB 06/05/24 11:00 Albuterol 2.5 mg Q6HR NEB 06/05/24 12:00 06/12/24 18:08 2.5 MG Ipratropium [place] 0.5 mg Q4HPRN PRN NEB 06/05/24 11:00 Ipratropium [place] 0.5 mg Q6HR NEB 06/05/24 12:00 06/12/24 18:09 0.5 MG Pantoprazole Sodium 40 mg DAILY IV 06/06/24 10:00 06/12/24 11:24 40 MG Calcium Acetate 667 mg TID NG 06/06/24 14:00 06/12/24 21:55 667 MG Enteral Nutritional Formula 1,000 ml 30ML/HR GT 06/06/24 23:00 06/12/24 00:22 1,000 ML Docusate Sodium 100 mg BID GT 06/07/24 10:00 Hold Heparin Sodium (Porcine) 5,000 units Q12HR SC 06/07/24 10:00 06/12/24 18:27 5,000 UNITS Dexmedetomidine HCl 400 mcg/ Dextrose 100 ml @ 4.19 mls/hr [id number] IV 06/07/24 17:00 Norepinephrine Bitartrate 250 ml @ 3.75 mls/hr Q24H IV 06/08/24 05:15 06/10/24 06:27 3.75 MLS/HR Fentanyl Citrate 250 ml @ 2.5 mls/hr Q24H IV 06/08/24 09:30 06/12/24 12:31 2.5 MLS/HR Peritoneal Dialysis Solution 2,000 ml @ 0 mls/hr Q4HR IP 06/08/24 14:00 06/12/24 22:27 2,000 MLS/HR Hydralazine HCl 10 mg Q6HP PRN IV 06/08/24 14:30 UNV Hydralazine HCl 10 mg Q6HP PRN IV 06/08/24 14:30 06/12/24 17:00 10 MG Potassium Bicarbonate 25 meq DAILY NG 06/10/24 10:00 06/12/24 11:26 25 MEQ Lorazepam 1 mg Q5MINP PRN IV 06/09/24 19:30 06/11/24 03:07 1 MG Multivit/Ca Carb/ B Cmplx/FA/Prenat 1 tab DAILY NG 06/10/24 12:00 06/12/24 11:25 1 TAB Levetiracetam 750 mg/Sodium Chloride 107.5 ml @ 430 mls/hr BID IV 06/10/24 22:00 06/12/24 21:55 430 MLS/HR Sodium Chloride 10 ml QSHIFT@10,22 IV 06/11/24 22:00 06/12/24 21:55 10 ML Piperacillin Sod/ Tazobactam Sod 100 ml @ 25 mls/hr Q12H IV 06/11/24 20:00 06/12/24 20:06 25 MLS/HR Diagnostic Test (Pha) 1 strip Q6HR 06/11/24 18:00 06/12/24 18:08 1 STRIP Insulin Human Regular Q6HR SC 06/11/24 18:00 06/12/24 18:10 16 UNITS Propofol 100 ml @ 2.124 mls/ hr Q24H IV 06/12/24 04:30 06/12/24 15:13 8.496 MLS/HR objective Gen.: Patient lying in bed in medical ICU. Sedated, intubated on mechanical ventilator. Head: Normocephalic, atraumatic. Eyes: PERRLA. Ears: Normal external anatomy. Throat: Endotracheal tube and orogastric tube in place. Neck: Supple, trachea midline. Chest: Transmitted breath sounds bilaterally. Decreased air entry bilaterally. No wheezing. Bibasilar crackles. Cardiovascular: Positive S1, positive S2. Regular rate and rhythm. Abdomen: Positive bowel sounds in all 4 quadrants. Soft, nontender, nondistended. : Reeder in place. Normal external genitalia. Rectal: Deferred. Skin: Warm, dry. Intact. Extremities: 2+ radial pulses bilaterally. No lower extremity edema. Neuro: Sedated. laboratory and microbiology Laboratory Tests 06/12/24 03:28 Test 06/12/24 03:28 Range/Units Serum Glucose 227 H 74-106 mg/dL Assessment/Plan Impression: Acute hypoxic respiratory failure On mechanical ventilator S/p cardiac arrest s/p ROSC Lactic acidosis Metabolic acidosis Elevated troponin End-stage renal disease, on peritoneal dialysis Pulmonary edema. Aspiration pneumonia Atelectasis Events: Remains on vent support On AC mode; RR 16, VT 500, PEEP 5, FiO2 30% Sedated on Versed, Propofol, Fentanyl ABG reviewed, compensated. CT abdomen-pelvis: repeat with contrast PO/IV Rule out perforated bowel Surgery recs appreciated. Continue antibiotics Tube feeds for nutritional support ESRD, on PD PD per Nephrology Monitor renal function Prolonged down time Poor prognosis Followup Neurology recs Labs and imaging reviewed. Rest of plan as noted below. Plan: s/p intubation on mechanical ventilator. On AC mode; RR 16, VT 500, PEEP 5, FiO2 30% Titrate FIO2 to keep O2 saturation above 90%. VAP bundle. Daily ABG and CXR while intubated Sedate for ventilator synchrony Pressors as necessary for hemodynamic support Titrate to keep mean arterial pressure greater than 65 mmHg. Follow up Echo results Follow up Cardiology recommendations Continue antibiotics. F/u cultures. Monitor renal function Monitor electrolytes. Supplement as necessary. Monitor ins and outs. PD per Nephrology Nephrology recs appreciated GI prophylaxis. DVT prophylaxis. Prognosis: Poor given patient's multiple co-morbidities. Condition: Critical Rest of plan per hospitalist and other consultants. A total of 35 minutes of critical care time was spent reviewing the patient record, examining the patient, making a diagnostic and therapeutic plan, discussing this plan with the medical personnel, following up on diagnostic studies and following the patient for clinical stability excluding any and all procedures. At least 50% of this time was spent in direct, [id number] contact. Thank you, ALEXANDRIA Britton, for allowing me to participate in this patient's care. Further recommendations will depend on the patient's clinical course. Please do not hesitate to contact me if you have any questions or concerns. This medical document was created using an electronic medical record system with [employer] dictation system. Although these documentations are being carefully reviewed, there may still be some phonetic and typographical changes. The errors are purely typographical, due to imperfection on the software program, and do not reflect any compromise in the patient's medical care. Dietary Evaluation Review Comments: Inccrease protein intake to meet pt's needs. 1. TPN clinimix @41ml/hr provides 42.5g potein 510 kcal, can be a supplement to pt's nepro @30ml/hrproviding 58g pro and 1274 kcal The combined total will be 100.5g pro and 1784 kcal. 2. Offer only TF-Pivot 1.5 @50ml/hr providees 113g pro andd 1800 kcal. 3. Advance to PO 2 gNa high protein diet when pt is off Vent and back to peritoneal dialysis routine. Expected Outcomes/Goals: improved protein status, resume dialysis routine, kellie BEDOYA, Plan discussed with: Other (ALEKSANDAR Mercado/Briseyda) Critical Care Time(min): 35 AJIT ACRDONA MD Jun 12, 2024 22:58
[2024-06-13] VITALS (107 sets, daily range): BP systolic 95–227; BP diastolic 44–111; PULSE 58–99; RESP 14–32; TEMP 96.6–98.4; O2SAT 97–100
[2024-06-13 03:44] LABS: Basophils # (auto) 0.1 10 ^3/uL (0-0.2); Basophils % (auto) 0.6 % (0.0-2.0); Eosinophils % (auto) 9.6 % (0.0-7.0); Hematocrit 34.6 % (41.0-53.0); Hemoglobin 11.4 g/dL (13.5-17.5); Lymphocytes # (auto) 1.2 10 ^3/uL (0.4-5.4); Mean Corpuscular Hemoglobin 29.4 pg (28.0-32.0); Mean Corpuscular Hgb Conc. 32.9 g/dL (32.0-36.0); Mean Corpuscular Volume 89.4 fL (80.0-100.0); Monocytes # (auto) 1.2 10 ^3/uL (0-1.3); Monocytes % (auto) 11.5 % (0.0-12.0); Neutrophils # (auto) 6.8 10 ^3/uL (1.6-8.6); Neutrophils % (auto) 66.3 % (37.0-80.0); Nucleated Red Blood Cells % 0.1 %; Platelet Count (auto) 348 10^3/uL (140-450); Red Blood Cells 3.87 10^6/uL (4.5-5.90); Red Cell Distribution Width 18.2 % (11.8-14.3); White Blood Cell 10.3 10^3/uL (4.4-10.8)
[2024-06-13 04:15] LABS: Alanine Aminotransferase 37 U/L (7-40); Albumin 3.2 g/dL (3.2-4.8); Anion Gap 14 (5-15); BUN/Creatinine Ratio 6.4 (10.0-20.0); Carbon Dioxide 25 mmol/L (20-31); Magnesium 1.9 mg/dL (1.6-2.6); Potassium 3.6 mmol/L (3.5-5.1)
[2024-06-13 04:16] LABS: Bilirubin, Total 0.4 mg/dL (0.2-1.0); Total Protein 5.7 g/dL (5.7-8.2)
[2024-06-13 04:22] LABS: Aspartate Aminotransferase 37 U/L (13-40)
[2024-06-13 04:29] LABS: Alkaline Phosphatase 209 U/L (46-116); Blood Urea Nitrogen 58 mg/dL (9-23); Chloride 91 mmol/L (98-107); Glucose 196 mg/dL (74-106); Phosphorus 5.6 mg/dL (2.4-5.1); Sodium 130 mmol/L (136-145)
--- NOTE | 2024-06-13 05:29 | DVH ---
CHEST RADIOGRAPH Indication: Intubated. Thank You! Technique: Single frontal view of the chest was obtained COMPARISON: XY CHEST XRAY 1 VIEW on DOS: 06/12/24, XY CHEST XRAY 1 VIEW on DOS: 06/11/24, XY CHEST XRAY 1 VIEW on DOS: 06/10/24, XY CHEST XRAY 1 VIEW on DOS: 06/09/24, XY CHEST XRAY 1 VIEW on DOS: 06/08/24 FINDINGS: Lines and Tubes: Endotracheal tube, enteric catheter and right PICC in satisfactory position. Lungs: Congestion Pleura: No effusion. No pneumothorax. Cardiomediastinal contours: Unremarkable No definite appreciable free intraperitoneal air. Bones: Unremarkable IMPRESSION: Lines and tubes in satisfactory position. No significant interval change.
[2024-06-13 08:01] LABS: Base Excess 2.6 mmol/L (-2.0-3.0)
--- NOTE | 2024-06-13 09:28 | DVHPNRES ---
Progress Note Date Seen: Jun 13, 2024 Resident Creating Document: PAUL FRYE RESIDENT Medical Necessity Reason Pt with a Central, PICC or Fol: Yes The following are medically ne: Central Line, Reeder Catheter Reason for reeder catheter: Strict I&O Subjective Review of Systems YOLI GALICIA is a 53-year-old male with a PMH of type 2 DM, ESRD on peritoneal dialysis, HTN presented to the ED with cardiopulmonary arrest. Patient seen and examined at the bedside along with the family. Unable to obtain ROS due to patient clinical status. Currently intubated with the mechanical ventilation. business risk consultant evaluated the patient for pneumoperitoneum, advised no surgical intervention for now. Monitoring. Changes from previous H/P or p: No Changes Objective vital signs Vital Sign Date Time Temp Pulse Resp B/P (MAP) Pulse Ox O2 Delivery O2 Flow Rate FiO2 06/13/24 08:14 92 17 129/59 (82) 97 30 06/13/24 07:15 96.8 206.2 06/13/24 06:00 Mechanical Ventilator+ Total Intake and Output 06/12/24 06/12/24 06/13/24 15:00 23:00 07:00 Intake Total 225.972 ml 6977.460 ml 6290.972 ml Output Total 6150 ml 6000 ml Balance 225.972 ml 827.460 ml 290.972 ml medications Current Medications Medications Dose Ordered Sig/Richard Route Start Time Stop Time Status Last Admin Dose Admin Midazolam HCl 50 ml @ 1 mls/hr Q24H IV 06/05/24 04:35 06/13/24 08:18 6 MLS/HR Vancomycin HCl 0 ml @ 0 mls/hr UD IV 06/05/24 10:15 Dextrose 50 ml UD PRN IV 06/05/24 10:30 Albuterol 2.5 mg Q4HPRN PRN NEB 06/05/24 11:00 Albuterol 2.5 mg Q6HR NEB 06/05/24 12:00 06/13/24 05:55 2.5 MG Ipratropium [place] 0.5 mg Q4HPRN PRN NEB 06/05/24 11:00 Ipratropium [place] 0.5 mg Q6HR NEB 06/05/24 12:00 06/13/24 05:55 0.5 MG Pantoprazole Sodium 40 mg DAILY IV 06/06/24 10:00 06/12/24 11:24 40 MG Calcium Acetate 667 mg TID NG 06/06/24 14:00 06/13/24 05:37 667 MG Enteral Nutritional Formula 1,000 ml 30ML/HR GT 06/06/24 23:00 06/12/24 00:22 1,000 ML Docusate Sodium 100 mg BID GT 06/07/24 10:00 Hold Heparin Sodium (Porcine) 5,000 units Q12HR SC 06/07/24 10:00 06/12/24 18:27 5,000 UNITS Dexmedetomidine HCl 400 mcg/ Dextrose 100 ml @ 4.19 mls/hr [id number] IV 06/07/24 17:00 Norepinephrine Bitartrate 250 ml @ 3.75 mls/hr Q24H IV 06/08/24 05:15 06/10/24 06:27 3.75 MLS/HR Fentanyl Citrate 250 ml @ 2.5 mls/hr Q24H IV 06/08/24 09:30 06/12/24 12:31 2.5 MLS/HR Peritoneal Dialysis Solution 2,000 ml @ 0 mls/hr Q4HR IP 06/08/24 14:00 06/13/24 06:13 2,000 MLS/HR Hydralazine HCl 10 mg Q6HP PRN IV 06/08/24 14:30 UNV Hydralazine HCl 10 mg Q6HP PRN IV 06/08/24 14:30 06/13/24 05:06 10 MG Potassium Bicarbonate 25 meq DAILY NG 06/10/24 10:00 06/12/24 11:26 25 MEQ Lorazepam 1 mg Q5MINP PRN IV 06/09/24 19:30 06/11/24 03:07 1 MG Multivit/Ca Carb/ B Cmplx/FA/Prenat 1 tab DAILY NG 06/10/24 12:00 06/12/24 11:25 1 TAB Levetiracetam 750 mg/Sodium Chloride 107.5 ml @ 430 mls/hr BID IV 06/10/24 22:00 06/12/24 21:55 430 MLS/HR Sodium Chloride 10 ml QSHIFT@10,22 IV 06/11/24 22:00 06/12/24 21:55 10 ML Piperacillin Sod/ Tazobactam Sod 100 ml @ 25 mls/hr Q12H IV 06/11/24 20:00 06/13/24 08:18 25 MLS/HR Diagnostic Test (Pha) 1 strip Q6HR 06/11/24 18:00 06/13/24 05:39 1 STRIP Insulin Human Regular Q6HR SC 06/11/24 18:00 06/13/24 05:38 8 UNITS Propofol 100 ml @ 2.124 mls/ hr Q24H IV 06/12/24 04:30 06/12/24 23:43 8.496 MLS/HR Examination Pt is lying on bed, General Appearance: Sedated, on mechanical ventilation RR 16, VT 500, peep 5, FiO2 30% HEENT: Atraumatic, Mucous membranes moist/pink Respiratory: Clear to auscultation, Normal air movement, No added sounds Cardiovascular: Regular rate, Normal S1, Normal S2, No murmurs Abdominal: Active bowel sounds, Soft, distended(improved since admission) likely due to fluid overload, peritoneal dialysis shunt intact Extremities:No edema, no cyanosis, PICC line intact in RUE Skin: No Significant rash, except past surgical scars Neuro: pupils are sluggish to react, weak cough and gag reflex laboratory and microbiology Laboratory Tests 06/13/24 03:28 Test 06/13/24 03:28 Range/Units Serum Glucose 196 H 74-106 mg/dL Microbiology Date/Time Source Procedure Growth Status 06/11/24 16:15 Catheter Tip Other Aerobic Culture - Preliminary Resulted 06/10/24 22:30 Sputum Gram Stain - Final Resulted 06/10/24 22:30 Sputum Respiratory Culture - Preliminary Resulted 06/07/24 10:21 Peritoneal Fluid Gram Stain - Final Complete 06/07/24 10:21 Peritoneal Fluid Body Fluid Culture - Final Complete 06/05/24 05:00 Blood Blood Culture - Final NO GROWTH AFTER 5 DAYS OF INCUBATION. Complete Labs and/or images reviewed: Labs reviewed by me, Image(s) reviewed by me Problem List/Assessment/Plan Problem List/Assessment/Plan NEUROLOGY # ? anoxic/ hypoxic encephalopathy # ? anoxic brain injury - currently on mechanical ventilator - ordered head CT, no acute intracranial pathology except mild cortical atrophy and showed severe paranasal sinus disease with soft tissue swelling of left temporal scalp # ACute CVA, Ischemic stroke - New MRI showed acute to subacute posterior right cerebellum infarct changes - neuro on board # Seizure like activity r/o # Myoclonus # Rule out status epileptics -ordered MRI, Diffusion restriction of the bilateral medial occipital lobe sulci with prominence on the T2 Flair images could be seen with ishemic changes. -consulted neurology,advised to continue ongoing treatment along with [facility] # cardiopulmonary arrest status post CPR with ROSC # Septic shock likely due to peritoneal origin # NSTEMI likely due to demand mediated # ? acute on chronic diastolic heart failure # ? Coronary artery disease, moderate degree # HX hypertension, uncontrolled # Dyslipidemia, newly diagnosed - ordered pancultures, along with peritoneal fluid analysis and culture, preliminary is negative - monitor lab - Off from Levophed, since 06/06 - started levophed today and later discontinued. - currently on Versed and Diprivan - added fentanyl 06/09 - echo showed LVEF 45% - Currently on vancomycin and Zosyn - Cefepime DC 06/10 switched to Zosyn today 06/10 - hydralazine p.r.n. # Acute transient AFib with RVR - monitor - correct electrolytes if needed - cardiology on board RESPIRATORY # Acute hypoxic respiratory failure likely due to septic shock # septic shock # ? aspiration pneumonia - ABG reviewed, CXR dialy - CXR reviewed, , diffuse lung disease likely edema or pneumonia - Currently on vancomycin and Zosyn - Cefepime DC 06/10 switched to Zosyn today 06/10 - Flagylstarted 06/07, DC06/10 - ventilatory settings: RR 18, VT 500, peep 5, FiO2 30% - - added fentanyl 06/09 GI/LIVER # Pneumoperitoneum # Thickened appendix with appendicoliths - Evident on CT abdominal pelvis - consulted surgeon, advised no surgical intervention for now # likely acute bacterial peritonitis - currently on antibiotics vancomysin, Zosyn - monitor lab - Fluid sent to cell count, negative but pending culture - PUD prophylaxis pantoprazole /KIDNEY/METABOLIC # ESRD on peritoneal dialysis - Nephrology onboard - currently undergoing peritoneal dialysis - Monitor renal function - Monitor electrolytes. Supplement as necessary. - Monitor ins and outs. ENDO # type 2 DM with HbA1c 6.3 - Accu-Cheks and ISS MSK HEME # Thrombocytopenia - monitor lab - held heparin ID # likely bacterial peritonitis # septic shock likely due to above - currently on antibiotics - monitor lab - Fluid sent to cell count, negative but pending culture SKIN - Intact peritoneal dialysis catheter LINES Right femoral vein catheter DC 06/10 PICC line 06/10 Reeder catheter DRIPS Versed, Diprivan Fetanyl 06/09 Currently Off from Levophed 06/10 NUTRITION Nepro 30ml/hr Goals of care/advance care planning; FULL CODE; discussed on for 27 minutes. PUD prophylaxis: Pantoprazole DVT prophylaxis: HOLD Heparin Goals of care has been discussed with the for more than 27 minutes, full code status Critical care time including chart review, discussing with the patient's family excluding procedures: 54 minutes Case discussed with Dr. Tanner Plan discussed with: Son Dietary Evaluation Review Comments: Inccrease protein intake to meet pt's needs. 1. TPN clinimix @41ml/hr provides 42.5g potein 510 kcal, can be a supplement to pt's nepro @30ml/hrproviding 58g pro and 1274 kcal The combined total will be 100.5g pro and 1784 kcal. 2. Offer only TF-Pivot 1.5 @50ml/hr providees 113g pro andd 1800 kcal. 3. Advance to PO 2 gNa high protein diet when pt is off Vent and back to peritoneal dialysis routine. Expected Outcomes/Goals: improved protein status, resume dialysis routine, kellie BW, Date of Service: Jun 13, 2024 Billing Provider: JOSE TANNER MD Common Visit Codes: [id number] CARE 30-74 MIN PAUL FRYE RESIDENT Jun 13, 2024 09:28 JOSE TANNER MD Jun 14, 2024 14:53
--- NOTE | 2024-06-13 10:41 | DVHPN2 ---
Progress Note - Dictate Date Seen: Jun 13, 2024 Medical Necessity Reason Pt with a Central, PICC or Fol: Yes The following are medically ne: Central Line, Reeder Catheter Reason for reeder catheter: Strict I&O Subjective Mr. Montano is a 53 years old right-handed gentleman with a history of d iabetes, coronary artery disease, end-stage kidney failure on peritoneal dialysis, the patient was was brought to the [facility] on 06/05/24 with CPR ongoing. I have seen and examined the patient, discussed with his nurse. His son in the room with him. He only responsive to stroke painful stimuli. No spontaneous or evoked myoclonus Fentanyl 25 mcg/hour, Versed 6 mg/hour, propofol 20 mcg/minute Blood culture, 05/1974: No growth Peritoneal fluid culture, 06/07/2024: UDS, 06/06/2024: Benzo Urinalysis, 06/06/2024: WBC: 1, urine leukocyte esterase: Negative ABG, 06/05/2024: Combined metabolic and respiratory acidosis, WBC/HB/PLT/MCV, 06/08/2024: 19/10.3/106/90.9 Na, 06/06/2019 5:132, 06/08/2024: Moderate BUN/CR, 06/05/2024: 57/15.78, 06/08/2024: 78/14.78 Lactic acid, 06/05/24: 6.7, 3.5 HGB A1c, 06/05/2019 5:6.3 One high sensitivity, 05/1924: 566, 698, 643 Liver function tests, 06/08/2024: Normal TG/HDL/LDL/HDL, 06/05/2024: 174/208/143/33 TSH, 06/05/2024: 5.41 Chest x-ray, 06/08/2024: 1. Bibasilar opacities which may reflect atelectasis or pneumonia. 2. Stable position of the support lines and tubes CT head, 06/06/2024: No acute intracranial pathology in the brain. Mild cortical atrophy Severe paranasal sinus disease Soft tissue swelling left temporal scalp MRI head, 06/09/2024: 1. There is no acute intracranial process. 2. Nonspecific 8 mm focus of blooming artifact in the left thalamic region May relate to chronic microhemorrhage. There is no discrete lesion identified on the other sequences to suggest a cavernoma. 3. Nonspecific small hyperintense T2 and hypointense T1 focus in the left paramidline anterior erika. Small chronic ischemic focus is not excluded. vital signs Vital Sign Date Time Temp Pulse Resp B/P (MAP) Pulse Ox O2 Delivery O2 Flow Rate FiO2 06/13/24 09:59 150/64 06/13/24 09:49 84 21 100 30 06/13/24 07:15 96.8 206.2 06/13/24 06:00 Mechanical Ventilator+ Total Intake and Output 06/12/24 06/12/24 06/13/24 15:00 23:00 07:00 Intake Total 225.972 ml 6977.460 ml 6290.972 ml Output Total 6150 ml 6000 ml Balance 225.972 ml 827.460 ml 290.972 ml medications Current Medications Medications Dose Ordered Sig/Richard Route Start Time Stop Time Status Last Admin Dose Admin Midazolam HCl 50 ml @ 1 mls/hr Q24H IV 06/05/24 04:35 06/13/24 08:18 6 MLS/HR Vancomycin HCl 0 ml @ 0 mls/hr UD IV 06/05/24 10:15 Dextrose 50 ml UD PRN IV 06/05/24 10:30 Albuterol 2.5 mg Q4HPRN PRN NEB 06/05/24 11:00 Albuterol 2.5 mg Q6HR NEB 06/05/24 12:00 06/13/24 05:55 2.5 MG Ipratropium [place] 0.5 mg Q4HPRN PRN NEB 06/05/24 11:00 Ipratropium [place] 0.5 mg Q6HR [facility] 06/05/24 12:00 06/13/24 05:55 0.5 MG Pantoprazole Sodium 40 mg DAILY IV 06/06/24 10:00 06/13/24 09:57 40 MG Calcium Acetate 667 mg TID NG 06/06/24 14:00 06/13/24 05:37 667 MG Enteral Nutritional Formula 1,000 ml 30ML/HR GT 06/06/24 23:00 06/12/24 00:22 1,000 ML Docusate Sodium 100 mg BID GT 06/07/24 10:00 Hold Heparin Sodium (Porcine) 5,000 units Q12HR SC 06/07/24 10:00 06/13/24 09:58 5,000 UNITS Dexmedetomidine HCl 400 mcg/ Dextrose 100 ml @ 4.19 mls/hr [id number] IV 06/07/24 17:00 Norepinephrine Bitartrate 250 ml @ 3.75 mls/hr Q24H IV 06/08/24 05:15 06/10/24 06:27 3.75 MLS/HR Fentanyl Citrate 250 ml @ 2.5 mls/hr Q24H IV 06/08/24 09:30 06/12/24 12:31 2.5 MLS/HR Peritoneal Dialysis Solution 2,000 ml @ 0 mls/hr Q4HR IP 06/08/24 14:00 06/13/24 10:01 0 MLS/HR Hydralazine HCl 10 mg Q6HP PRN IV 06/08/24 14:30 UNV Hydralazine HCl 10 mg Q6HP PRN IV 06/08/24 14:30 06/13/24 05:06 10 MG Potassium Bicarbonate 25 meq DAILY NG 06/10/24 10:00 06/13/24 09:58 25 MEQ Lorazepam 1 mg Q5MINP PRN IV 06/09/24 19:30 06/11/24 03:07 1 MG Multivit/Ca Carb/ B Cmplx/FA/Prenat 1 tab DAILY NG 06/10/24 12:00 06/12/24 11:25 1 TAB Levetiracetam 750 mg/Sodium Chloride 107.5 ml @ 430 mls/hr BID IV 06/10/24 22:00 06/12/24 21:55 430 MLS/HR Sodium Chloride 10 ml QSHIFT@10,22 IV 06/11/24 22:00 06/13/24 09:57 10 ML Piperacillin Sod/ Tazobactam Sod 100 ml @ 25 mls/hr Q12H IV 06/11/24 20:00 06/13/24 08:18 25 MLS/HR Diagnostic Test (Pha) 1 strip Q6HR 06/11/24 18:00 06/13/24 05:39 1 STRIP Insulin Human Regular Q6HR SC 06/11/24 18:00 06/13/24 05:38 8 UNITS Propofol 100 ml @ 2.124 mls/ hr Q24H IV 06/12/24 04:30 06/13/24 09:59 8.496 MLS/HR objective The patient is well-nourished and well-developed with no distress. The patient is intubated MENTAL STATUS: Subjective CRANIAL NERVES: Pupils are equal, round and reactive. There are corneal reflexes and doll's eyes phenomenon. No signs of facial weakness. There are gagging or coughing reflexes SENSATION: No responses to pain stimuli. MOTOR: Normal tone in the upper and lower extremity. Normal muscle bulk. No fasciculations. No spontaneous movement. REFLEXES: Deep tendon reflexes are symmetrical. No pathological reflexes. CEREBELLAR/COORDINATION: Deferred GAIT/STATION: deferred laboratory and microbiology Laboratory Tests 06/13/24 03:28 Test 06/13/24 03:28 Range/Units Serum Glucose 196 H 74-106 mg/dL Problem List Abnormal movement, Myoclonus Rule out status epileptics Coma Hypoxic encephalopathy Metabolic encephalopathy Toxic encephalopathy Cardiopulmonary arrest, status post CPR Metabolic acidosis Respiratory acidosis Coronary artery disease Heart attack Leukocytosis/sepsis/septic shock Pneumonia Assessment/Plan Monitoring Supportive screaming ICU care EEG Respiratory support/vent management Stabilize vitals Oxygen IV antibiotics Versed drip with p.r.n. Ativan for tremor/myoclonus control Keppra to 750 mg b.i.d. DVT prophylax/heparin GI prophylax/Protonix IV antibiotics Cardiology on case Pulmonology on case Nephrology on case More recommendation per clinical course This medical document was created using an electronic medical record system with [employer] computerized dictation system. Although this document has been carefully reviewed, there may still be some phonetic and typographical errors. These areas are purely typographical due to imperfections of the software programs, and do not reflect any compromise in the patient's medical care Prognosis guarded Dietary Evaluation Review Comments: Inccrease protein intake to meet pt's needs. 1. TPN clinimix @41ml/hr provides 42.5g potein 510 kcal, can be a supplement to pt's nepro @30ml/hrproviding 58g pro and 1274 kcal The combined total will be 100.5g pro and 1784 kcal. 2. Offer only TF-Pivot 1.5 @50ml/hr providees 113g pro andd 1800 kcal. 3. Advance to PO 2 gNa high protein diet when pt is off Vent and back to peritoneal dialysis routine. Expected Outcomes/Goals: improved protein status, resume dialysis routine, kellie BEDOYA, Plan discussed with: Other TINO DOLAN MD Jun 13, 2024 10:41
--- NOTE | 2024-06-13 12:09 | DVHPN2 ---
Progress Note Date Seen: Jun 13, 2024 Medical Necessity Reason Pt with a Central, PICC or Fol: Yes The following are medically ne: Central Line, Reeder Catheter Reason for reeder catheter: Strict I&O Subjective Patient reports: Other Review of Systems: RESPIRATORY:Abnormal Objective vital signs Vital Sign Date Time Temp Pulse Resp B/P (MAP) Pulse Ox O2 Delivery O2 Flow Rate FiO2 06/13/24 11:34 84 16 138/64 (88) 99 30 06/13/24 07:15 96.8 206.2 06/13/24 06:00 Mechanical Ventilator+ Total Intake and Output 06/12/24 06/12/24 06/13/24 15:00 23:00 07:00 Intake Total 225.972 ml 6977.460 ml 6330.468 ml Output Total 6150 ml 6000 ml Balance 225.972 ml 827.460 ml 330.468 ml medications Current Medications Medications Dose Ordered Sig/Richard Route Start Time Stop Time Status Last Admin Dose Admin Midazolam HCl 50 ml @ 1 mls/hr Q24H IV 06/05/24 04:35 06/13/24 08:18 6 MLS/HR Vancomycin HCl 0 ml @ 0 mls/hr UD IV 06/05/24 10:15 Dextrose 50 ml UD PRN IV 06/05/24 10:30 Albuterol 2.5 mg Q4HPRN PRN NEB 06/05/24 11:00 Albuterol 2.5 mg Q6HR [facility] 06/05/24 12:00 06/13/24 11:34 2.5 MG Ipratropium [place] 0.5 mg Q4HPRN PRN NEB 06/05/24 11:00 Ipratropium [place] 0.5 mg Q6HR [facility] 06/05/24 12:00 06/13/24 11:34 0.5 MG Pantoprazole Sodium 40 mg DAILY IV 06/06/24 10:00 06/13/24 09:57 40 MG Calcium Acetate 667 mg TID NG 06/06/24 14:00 06/13/24 05:37 667 MG Enteral Nutritional Formula 1,000 ml 30ML/HR GT 06/06/24 23:00 06/12/24 00:22 1,000 ML Docusate Sodium 100 mg BID GT 06/07/24 10:00 Hold Heparin Sodium (Porcine) 5,000 units Q12HR SC 06/07/24 10:00 06/13/24 09:58 5,000 UNITS Dexmedetomidine HCl 400 mcg/ Dextrose 100 ml @ 4.19 mls/hr [id number] IV 06/07/24 17:00 Norepinephrine Bitartrate 250 ml @ 3.75 mls/hr Q24H IV 06/08/24 05:15 06/10/24 06:27 3.75 MLS/HR Fentanyl Citrate 250 ml @ 2.5 mls/hr Q24H IV 06/08/24 09:30 06/12/24 12:31 2.5 MLS/HR Peritoneal Dialysis Solution 2,000 ml @ 0 mls/hr Q4HR IP 06/08/24 14:00 06/13/24 10:01 0 MLS/HR Hydralazine HCl 10 mg Q6HP PRN IV 06/08/24 14:30 UNV Hydralazine HCl 10 mg Q6HP PRN IV 06/08/24 14:30 06/13/24 05:06 10 MG Potassium Bicarbonate 25 meq DAILY NG 06/10/24 10:00 06/13/24 09:58 25 MEQ Lorazepam 1 mg Q5MINP PRN IV 06/09/24 19:30 06/11/24 03:07 1 MG Multivit/Ca Carb/ B Cmplx/FA/Prenat 1 tab DAILY NG 06/10/24 12:00 06/12/24 11:25 1 TAB Levetiracetam 750 mg/Sodium Chloride 107.5 ml @ 430 mls/hr BID IV 06/10/24 22:00 06/12/24 21:55 430 MLS/HR Sodium Chloride 10 ml QSHIFT@10,22 IV 06/11/24 22:00 06/13/24 09:57 10 ML Piperacillin Sod/ Tazobactam Sod 100 ml @ 25 mls/hr Q12H IV 06/11/24 20:00 06/13/24 08:18 25 MLS/HR Diagnostic Test (Pha) 1 strip Q6HR 06/11/24 18:00 06/13/24 05:39 1 STRIP Insulin Human Regular Q6HR SC 06/11/24 18:00 06/13/24 05:38 8 UNITS Propofol 100 ml @ 2.124 mls/ hr Q24H IV 06/12/24 04:30 06/13/24 09:59 8.496 MLS/HR Examination: GENERAL:Abnormal, LUNGS:Abnormal, CVS:Abnormal, ABDOMEN:Abnormal laboratory and microbiology Laboratory Tests 06/13/24 03:28 Test 06/13/24 03:28 Range/Units Serum Glucose 196 H 74-106 mg/dL Microbiology Date/Time Source Procedure Growth Status 06/11/24 16:15 Catheter Tip Other Aerobic Culture - Preliminary Resulted 06/10/24 22:30 Sputum Gram Stain - Final Complete 06/10/24 22:30 Sputum Respiratory Culture - Final Complete 06/07/24 10:21 Peritoneal Fluid Gram Stain - Final Complete 06/07/24 10:21 Peritoneal Fluid Body Fluid Culture - Final Complete 06/05/24 05:00 Blood Blood Culture - Final NO GROWTH AFTER 5 DAYS OF INCUBATION. Complete Problem List/Assessment/Plan Problem List/Assessment/Plan End-stage renal disease on home peritioneal dialysis, out of the area Acute respiratory failure intubated on ventilator Status post cardiac arrest Septic shock Aspiration pneumonia Congestive heart failure, ejection fraction 45% Anemia of chronic kidney disease, well compensated Hyperphosphatemia Hypokalemia Continue intensive peritoneal dialysis x 6 exchanges per 24 hours using 2.5% Dianeal PD solution PD fluid is clear culture is negative Closely monitor fluid and electrolytes IV antibiotics IV pressors Maintain map more than 65 mm Hg Calcium acetate per NG tube t.i.d. KCL replacement daily Renal vitamin daily Pulmonary consult Cardiology consult We will continue to follow Plan discussed with: Other Dietary Evaluation Review Comments: Inccrease protein intake to meet pt's needs. 1. TPN clinimix @41ml/hr provides 42.5g potein 510 kcal, can be a supplement to pt's nepro @30ml/hrproviding 58g pro and 1274 kcal The combined total will be 100.5g pro and 1784 kcal. 2. Offer only TF-Pivot 1.5 @50ml/hr providees 113g pro andd 1800 kcal. 3. Advance to PO 2 gNa high protein diet when pt is off Vent and back to peritoneal dialysis routine. Expected Outcomes/Goals: improved protein status, resume dialysis routine, kellie BEDOYA, MARGY ANDRADE MD Jun 13, 2024 12:09
--- NOTE | 2024-06-13 15:31 | DVH ---
MRI BRAIN WITHOUT CONTRAST CLINICAL HISTORY: coma TECHNIQUE: Multiplanar, multisequence MR images of the brain without intravenous contrast. Comparison: MRI BRAIN HEAD WO CONTRAST on DOS: 06/09/24 FINDINGS: There is a new small focus of restricted diffusion in the posterior right cerebellum compatible with an acute to subacute infarct. There is no evidence of acute hemorrhage or significant surrounding cathy ma. There is no associated mass effect. There is a stable nonspecific 8 mm focus of blooming artifact in the left thalamic region. Again seen is a small nonspecific hyperintense T2 and hypointense T1 focus in the left paramedian anterior erika . There is no hydrocephalus or extra-axial fluid collection. The visualized intracranial vasculature demonstrates appropriate flow-voids. The sagittal midline structures appear unremarkable. The cranio cervical junction is within normal limits. The calvarium demonstrates normal marrow signal. There is moderate mucosal thickening in the paranasal sinuses. There is fluid in the bilateral mastoid air ce lls. IMPRESSION: 1. New focus of restricted diffusion in the posterior right cerebellum compatible with an acute to choudhury bacute infarct. There is no evidence of acute hemorrhage or surrounding edema. There is no significa nt associated mass effect. 2. Stable nonspecific 8 mm focus of blooming artifact in the left thalamic region. 3. Stable nonspecific small hyperintense T2 and hypointense T1 focus in the left paramedian anterior erika. HS:Y
[2024-06-14] VITALS (108 sets, daily range): BP systolic 79–210; BP diastolic 45–168; PULSE 58–104; RESP 12–30; TEMP 96.5–100; O2SAT 98–100
[2024-06-14 03:46] LABS: Basophils # (auto) 0.1 10 ^3/uL (0-0.2); Basophils % (auto) 0.7 % (0.0-2.0); Eosinophils # (auto) 0.7 10 ^3/uL (0-0.8); Eosinophils % (auto) 5.4 % (0.0-7.0); Hematocrit 36.2 % (41.0-53.0); Hemoglobin 11.8 g/dL (13.5-17.5); Lymphocytes # (auto) 1.2 10 ^3/uL (0.4-5.4); Lymphocytes % (auto) 9.3 % (10.0-50.0); Mean Corpuscular Hemoglobin 29.5 pg (28.0-32.0); Mean Corpuscular Hgb Conc. 32.7 g/dL (32.0-36.0); Mean Corpuscular Volume 90.4 fL (80.0-100.0); Monocytes # (auto) 0.9 10 ^3/uL (0-1.3); Monocytes % (auto) 7.2 % (0.0-12.0); Neutrophils # (auto) 9.7 10 ^3/uL (1.6-8.6); Neutrophils % (auto) 77.4 % (37.0-80.0); Platelet Count (auto) 446 10^3/uL (140-450); Red Cell Distribution Width 18.3 % (11.8-14.3); White Blood Cell 12.6 10^3/uL (4.4-10.8)
[2024-06-14 04:06] LABS: Alanine Aminotransferase 39 U/L (7-40); Albumin 3.3 g/dL (3.2-4.8); Anion Gap 14 (5-15); Aspartate Aminotransferase 37 U/L (13-40); BUN/Creatinine Ratio 6.6 (10.0-20.0); Calcium 10.3 mg/dL (8.7-10.4); Carbon Dioxide 26 mmol/L (20-31); Magnesium 2.1 mg/dL (1.6-2.6); Potassium 3.8 mmol/L (3.5-5.1)
[2024-06-14 04:07] LABS: Total Protein 6.1 g/dL (5.7-8.2)
[2024-06-14 04:12] LABS: Alkaline Phosphatase 229 U/L (46-116); Bilirubin, Total 0.3 mg/dL (0.2-1.0); Blood Urea Nitrogen 56 mg/dL (9-23); Chloride 90 mmol/L (98-107); Glucose 268 mg/dL (74-106); Sodium 130 mmol/L (136-145)
--- NOTE | 2024-06-14 04:37 | DVH ---
EXAM: XY CHEST XRAY 1 VIEW Indication: pna Technique: Single frontal view of the chest was obtained Comparison: XY CHEST XRAY 1 VIEW on DOS: 06/13/24, XY CHEST XRAY 1 VIEW on DOS: 06/12/24, XY CHEST XRAY 1 VIEW on DOS: 06/11/24, XY CHEST XRAY 1 VIEW on DOS: 06/10/24, XY CHEST XRAY 1 VIEW on DOS: 06/09/24, XY CHEST XRAY 1 VIEW on DOS: 06/13/24 FINDINGS: Lines and Tubes: Endotracheal tube, enteric catheter and right PICC in satisfactory position. Lungs: Congestion Pleura: No effusion. No pneumothorax. Cardiomediastinal contours: Unremarkable No definite appreciable free intraperitoneal air. Bones: Unremarkable IMPRESSION: Lines and tubes in satisfactory position. No significant interval change.
--- NOTE | 2024-06-14 09:25 | DVHPN2 ---
Progress Note - Dictate Date Seen: Jun 14, 2024 Medical Necessity Reason Pt with a Central, PICC or Fol: Yes The following are medically ne: Central Line, Reeder Catheter Reason for reeder catheter: Strict I&O Subjective Mr. Montano is a 53 years old right-handed gentleman with a history of d iabetes, coronary artery disease, end-stage kidney failure on peritoneal dialysis, the patient was was brought to the [facility] on 06/05/24 with CPR ongoing. I have seen and examined the patient, discussed with his nurse. His son in the room with him. He only responsive to strong painful stimuli. No spontaneous or evoked myoclonus I have spent long time discussing with his son about his symptoms, MR brain reports, in the likely poor prognosis for meaningful recovery and plan in the near future, his son is to discuss with the family Blood culture, 06/05/24: No growth Peritoneal fluid culture, 06/07/2024: UDS, 06/06/2024: Benzo Urinalysis, 06/06/2024: WBC: 1, urine leukocyte esterase: Negative ABG, 06/05/2024: Combined metabolic and respiratory acidosis, WBC/HB/PLT/MCV, 06/08/2024: 19/10.3/106/90.9 Na, 06/06/2019 5:132, 06/08/2024: Moderate BUN/CR, 06/05/2024: 57/15.78, 06/08/2024: 78/14.78 Lactic acid, 06/05/24: 6.7, 3.5 HGB A1c, 06/05/2019 5:6.3 One high sensitivity, 05/1924: 566, 698, 643 Liver function tests, 06/08/2024: Normal TG/HDL/LDL/HDL, 06/05/2024: 174/208/143/33 TSH, 06/05/2024: 5.41 Chest x-ray, 06/08/2024: 1. Bibasilar opacities which may reflect atelectasis or pneumonia. 2. Stable position of the support lines and tubes CT head, 06/06/2024: No acute intracranial pathology in the brain. Mild cortical atrophy Severe paranasal sinus disease Soft tissue swelling left temporal scalp MRI head, 06/09/2024: 1. There is no acute intracranial process. 2. Nonspecific 8 mm focus of blooming artifact in the left thalamic region May relate to chronic microhemorrhage. There is no discrete lesion identified on the other sequences to suggest a cavernoma. 3. Nonspecific small hyperintense T2 and hypointense T1 focus in the left paramidline anterior erika. Small chronic ischemic focus is not excluded. (addendum: Diffusion restriction of the bilateral medial occipital lobe sulci with prominence on the T2 Flair images could be seen with ishemic changes. Consider Follow up MRI brain) MRI head, 06/13/2024: 1. New focus of restricted diffusion in the posterior right cerebellum compatible with an acute to subacute infarct. There is no evidence of acute hemorrhage or surrounding edema. There is no significant associated mass effect. 2. Stable nonspecific 8 mm focus of blooming artifact in the left thalamic region. 3. Stable nonspecific small hyperintense T2 and hypointense T1 focus in the left paramedian anterior erika vital signs Vital Sign Date Time Temp Pulse Resp B/P (MAP) Pulse Ox O2 Delivery O2 Flow Rate FiO2 06/14/24 08:39 100 16 100/62 (75) 98 30 06/14/24 06:00 Mechanical Ventilator+ 06/14/24 04:00 98.9 98.9 Total Intake and Output 06/13/24 06/13/24 06/14/24 15:00 23:00 07:00 Intake Total 212.968 ml 6580.468 ml 6336.596 ml Balance 212.968 ml 6580.468 ml 6336.596 ml medications Current Medications Medications Dose Ordered Sig/Richard Route Start Time Stop Time Status Last Admin Dose Admin Midazolam HCl 50 ml @ 1 mls/hr Q24H IV 06/05/24 04:35 06/13/24 08:18 6 MLS/HR Vancomycin HCl 0 ml @ 0 mls/hr UD IV 06/05/24 10:15 Dextrose 50 ml UD PRN IV 06/05/24 10:30 Albuterol 2.5 mg Q4HPRN PRN NEB 06/05/24 11:00 Albuterol 2.5 mg Q6HR NEB 06/05/24 12:00 06/14/24 06:44 2.5 MG Ipratropium [place] 0.5 mg Q4HPRN PRN NEB 06/05/24 11:00 Ipratropium [place] 0.5 mg Q6HR NEB 06/05/24 12:00 06/14/24 06:44 0.5 MG Pantoprazole Sodium 40 mg DAILY IV 06/06/24 10:00 06/13/24 09:57 40 MG Calcium Acetate 667 mg TID NG 06/06/24 14:00 06/14/24 05:31 667 MG Enteral Nutritional Formula 1,000 ml 30ML/HR GT 06/06/24 23:00 06/12/24 00:22 1,000 ML Docusate Sodium 100 mg BID GT 06/07/24 10:00 Hold Heparin Sodium (Porcine) 5,000 units Q12HR SC 06/07/24 10:00 06/13/24 21:37 5,000 UNITS Dexmedetomidine HCl 400 mcg/ Dextrose 100 ml @ 4.19 mls/hr [id number] IV 06/07/24 17:00 Norepinephrine Bitartrate 250 ml @ 3.75 mls/hr Q24H IV 06/08/24 05:15 06/14/24 05:11 3.75 MLS/HR Fentanyl Citrate 250 ml @ 2.5 mls/hr Q24H IV 06/08/24 09:30 06/12/24 12:31 2.5 MLS/HR Peritoneal Dialysis Solution 2,000 ml @ 0 mls/hr Q4HR IP 06/08/24 14:00 06/14/24 05:31 0 MLS/HR Hydralazine HCl 10 mg Q6HP PRN IV 06/08/24 14:30 UNV Hydralazine HCl 10 mg Q6HP PRN IV 06/08/24 14:30 06/13/24 23:05 10 MG Potassium Bicarbonate 25 meq DAILY NG 06/10/24 10:00 06/13/24 09:58 25 MEQ Lorazepam 1 mg Q5MINP PRN IV 06/09/24 19:30 06/11/24 03:07 1 MG Multivit/Ca Carb/ B Cmplx/FA/Prenat 1 tab DAILY NG 06/10/24 12:00 06/13/24 10:00 1 TAB Levetiracetam 750 mg/Sodium Chloride 107.5 ml @ 430 mls/hr BID IV 06/10/24 22:00 06/13/24 22:23 430 MLS/HR Sodium Chloride 10 ml QSHIFT@10,22 IV 06/11/24 22:00 06/13/24 22:29 10 ML Piperacillin Sod/ Tazobactam Sod 100 ml @ 25 mls/hr Q12H IV 06/11/24 20:00 06/14/24 08:57 25 MLS/HR Diagnostic Test (Pha) 1 strip Q6HR 06/11/24 18:00 06/14/24 05:32 1 STRIP Insulin Human Regular Q6HR SC 06/11/24 18:00 06/14/24 05:44 4 UNITS Propofol 100 ml @ 2.124 mls/ hr Q24H IV 06/12/24 04:30 06/13/24 21:41 8.496 MLS/HR objective The patient is well-nourished and well-developed with no distress. The patient is intubated MENTAL STATUS: Subjective CRANIAL NERVES: Pupils are equal, round and reactive. There are corneal reflexes and doll's eyes phenomenon. No signs of facial weakness. There are gagging or coughing reflexes SENSATION: No responses to pain stimuli. MOTOR: Normal tone in the upper and lower extremity. Normal muscle bulk. No fasciculations. No spontaneous movement. REFLEXES: Deep tendon reflexes are symmetrical. No pathological reflexes. CEREBELLAR/COORDINATION: Deferred GAIT/STATION: deferred laboratory and microbiology Laboratory Tests 06/14/24 03:15 Test 06/14/24 03:15 Range/Units Serum Glucose 268 H 74-106 mg/dL Problem List Abnormal movement, Myoclonus Rule out status epileptics Coma Hypoxic encephalopathy Metabolic encephalopathy Toxic encephalopathy Cardiopulmonary arrest, status post CPR Metabolic acidosis Respiratory acidosis Coronary artery disease Heart attack Leukocytosis/sepsis/septic shock Pneumonia Assessment/Plan Monitoring Supportive screaming ICU care Respiratory support/vent management Stabilize vitals Oxygen IV antibiotics Versed drip with p.r.n. Ativan for tremor/myoclonus control Keppra to 750 mg b.i.d. DVT prophylax/heparin GI prophylax/Protonix IV antibiotics Cardiology on case Pulmonology on case Nephrology on case He is likely to have a poor prognosis for meaningful recovery More recommendation per clinical course This medical document was created using an electronic medical record system with [employer] dictation system. Although this document has been carefully reviewed, there may still be some phonetic and typographical errors. These areas are purely typographical due to imperfections of the software programs, and do not reflect any compromise in the patient's medical care Prognosis poor, guarded Dietary Evaluation Review Comments: Inccrease protein intake to meet pt's needs. 1. TPN clinimix @41ml/hr provides 42.5g potein 510 kcal, can be a supplement to pt's nepro @30ml/hrproviding 58g pro and 1274 kcal The combined total will be 100.5g pro and 1784 kcal. 2. Offer only TF-Pivot 1.5 @50ml/hr providees 113g pro andd 1800 kcal. 3. Advance to PO 2 gNa high protein diet when pt is off Vent and back to peritoneal dialysis routine. Expected Outcomes/Goals: improved protein status, resume dialysis routine, kellie BEDOYA, Plan discussed with: Son, Other Critical Care Time(min): 35 TINO DOLAN MD Jun 14, 2024 09:25
[2024-06-14] MEDS: VANCOMYCIN 500mg/100mL 100 ML IV ONE (10:23)
--- NOTE | 2024-06-14 11:21 | DVHPN2 ---
Progress Note Date Seen: Jun 14, 2024 Medical Necessity Reason Pt with a Central, PICC or Fol: Yes The following are medically ne: Central Line, Reeder Catheter Reason for reeder catheter: Strict I&O Subjective Patient reports: No new complaints Objective vital signs Vital Sign Date Time Temp Pulse Resp B/P (MAP) Pulse Ox O2 Delivery O2 Flow Rate FiO2 06/14/24 10:10 84 16 117/67 (84) 99 30 06/14/24 06:00 Mechanical Ventilator+ 06/14/24 04:00 98.9 98.9 Total Intake and Output 06/13/24 06/13/24 06/14/24 15:00 23:00 07:00 Intake Total 212.968 ml 6580.468 ml 6336.596 ml Balance 212.968 ml 6580.468 ml 6336.596 ml medications Current Medications Medications Dose Ordered Sig/Richard Route Start Time Stop Time Status Last Admin Dose Admin Midazolam HCl 50 ml @ 1 mls/hr Q24H IV 06/05/24 04:35 06/13/24 08:18 6 MLS/HR Vancomycin HCl 0 ml @ 0 mls/hr UD IV 06/05/24 10:15 Dextrose 50 ml UD PRN IV 06/05/24 10:30 Albuterol 2.5 mg Q4HPRN PRN NEB 06/05/24 11:00 Albuterol 2.5 mg Q6HR NEB 06/05/24 12:00 06/14/24 06:44 2.5 MG Ipratropium [place] 0.5 mg Q4HPRN PRN NEB 06/05/24 11:00 Ipratropium [place] 0.5 mg Q6HR [facility] 06/05/24 12:00 06/14/24 06:44 0.5 MG Pantoprazole Sodium 40 mg DAILY IV 06/06/24 10:00 06/14/24 10:19 40 MG Calcium Acetate 667 mg TID NG 06/06/24 14:00 06/14/24 05:31 667 MG Enteral Nutritional Formula 1,000 ml 30ML/HR GT 06/06/24 23:00 06/12/24 00:22 1,000 ML Docusate Sodium 100 mg BID GT 06/07/24 10:00 Hold Heparin Sodium (Porcine) 5,000 units Q12HR SC 06/07/24 10:00 06/14/24 10:20 5,000 UNITS Dexmedetomidine HCl 400 mcg/ Dextrose 100 ml @ 4.19 mls/hr [id number] IV 06/07/24 17:00 Norepinephrine Bitartrate 250 ml @ 3.75 mls/hr Q24H IV 06/08/24 05:15 06/14/24 05:11 3.75 MLS/HR Fentanyl Citrate 250 ml @ 2.5 mls/hr Q24H IV 06/08/24 09:30 06/12/24 12:31 2.5 MLS/HR Peritoneal Dialysis Solution 2,000 ml @ 0 mls/hr Q4HR IP 06/08/24 14:00 06/14/24 10:50 0 MLS/HR Hydralazine HCl 10 mg Q6HP PRN IV 06/08/24 14:30 UNV Hydralazine HCl 10 mg Q6HP PRN IV 06/08/24 14:30 06/13/24 23:05 10 MG Potassium Bicarbonate 25 meq DAILY NG 06/10/24 10:00 06/14/24 10:20 25 MEQ Lorazepam 1 mg Q5MINP PRN IV 06/09/24 19:30 06/11/24 03:07 1 MG Multivit/Ca Carb/ B Cmplx/FA/Prenat 1 tab DAILY NG 06/10/24 12:00 06/14/24 10:20 1 TAB Levetiracetam 750 mg/Sodium Chloride 107.5 ml @ 430 mls/hr BID IV 06/10/24 22:00 06/14/24 10:22 430 MLS/HR Sodium Chloride 10 ml QSHIFT@10,22 IV 06/11/24 22:00 06/14/24 10:00 10 ML Piperacillin Sod/ Tazobactam Sod 100 ml @ 25 mls/hr Q12H IV 06/11/24 20:00 06/14/24 08:57 25 MLS/HR Diagnostic Test (Pha) 1 strip Q6HR 06/11/24 18:00 06/14/24 05:32 1 STRIP Insulin Human Regular Q6HR SC 06/11/24 18:00 06/14/24 05:44 4 UNITS Propofol 100 ml @ 2.124 mls/ hr Q24H IV 06/12/24 04:30 06/13/24 21:41 8.496 MLS/HR Examination: GENERAL:Normal, LUNGS:Abnormal, ABDOMEN:Normal laboratory and microbiology Laboratory Tests 06/14/24 03:15 Test 06/14/24 03:15 Range/Units Serum Glucose 268 H 74-106 mg/dL Microbiology Date/Time Source Procedure Growth Status 06/11/24 16:15 Catheter Tip Other Aerobic Culture - Preliminary Resulted 06/10/24 22:30 Sputum Gram Stain - Final Complete 06/10/24 22:30 Sputum Respiratory Culture - Final Complete 06/07/24 10:21 Peritoneal Fluid Gram Stain - Final Complete 06/07/24 10:21 Peritoneal Fluid Body Fluid Culture - Final Complete 06/05/24 05:00 Blood Blood Culture - Final NO GROWTH AFTER 5 DAYS OF INCUBATION. Complete Problem List/Assessment/Plan Problem List/Assessment/Plan End-stage renal disease on home peritioneal dialysis, out of the area Acute respiratory failure intubated on ventilator Status post cardiac arrest Septic shock Aspiration pneumonia Congestive heart failure, ejection fraction 45% Anemia of chronic kidney disease, well compensated Hyperphosphatemia Hypokalemia Continue intensive peritoneal dialysis x 6 exchanges per 24 hours using 2.5% Dianeal PD solution PD fluid is clear culture is negative Closely monitor fluid and electrolytes IV antibiotics IV pressors Maintain map more than 65 mm Hg Calcium acetate per NG tube t.i.d. KCL replacement daily Renal vitamin daily Pulmonary consult Cardiology consult We will continue to follow Plan discussed with: Other Dietary Evaluation Review Comments: Inccrease protein intake to meet pt's needs. 1. TPN clinimix @41ml/hr provides 42.5g potein 510 kcal, can be a supplement to pt's nepro @30ml/hrproviding 58g pro and 1274 kcal The combined total will be 100.5g pro and 1784 kcal. 2. Offer only TF-Pivot 1.5 @50ml/hr providees 113g pro andd 1800 kcal. 3. Advance to PO 2 gNa high protein diet when pt is off Vent and back to peritoneal dialysis routine. Expected Outcomes/Goals: improved protein status, resume dialysis routine, LUPE Cabrera OPEYEMI M MD Jun 14, 2024 11:21
[2024-06-14] MEDS: MUPIROCIN 2% OINT 15gm or 22gm TOP SCH (11:30)
[2024-06-14] MEDS ORDERED: DEXTROSE (50%) 50ML SYRG IV PRN (17:00)
--- NOTE | 2024-06-14 17:04 | DVHPNRES ---
Progress Note Date Seen: Jun 14, 2024 Resident Creating Document: PAUL FRYE RESIDENT Medical Necessity Reason Pt with a Central, PICC or Fol: Yes The following are medically ne: PICC Line, Reeder Catheter Reason for reeder catheter: Strict I&O Subjective Review of Systems YOLI GALICIA is a 53-year-old male with a PMH of type 2 DM, ESRD on peritoneal dialysis, HTN presented to the ED with cardiopulmonary arrest. Patient seen and examined at the bedside along with the family. Unable to obtain ROS due to patient clinical status. Currently intubated with the mechanical ventilation.The patient is off from all sedation, not waking up, monitoring. Changes from previous H/P or p: No Changes Objective vital signs Vital Sign Date Time Temp Pulse Resp B/P (MAP) Pulse Ox O2 Delivery O2 Flow Rate FiO2 06/14/24 17:00 194/100 06/14/24 16:15 84 19 100 06/14/24 16:07 30 06/14/24 16:00 97.8 97.8 06/14/24 16:00 Mechanical Ventilator+ Total Intake and Output 06/13/24 06/13/24 06/14/24 14:59 22:59 06:59 Intake Total 243.968 ml 6447.968 ml 6473.344 ml Balance 243.968 ml 6447.968 ml 6473.344 ml medications Current Medications Medications Dose Ordered Sig/Richard Route Start Time Stop Time Status Last Admin Dose Admin Midazolam HCl 50 ml @ 1 mls/hr Q24H IV 06/05/24 04:35 06/13/24 08:18 6 MLS/HR Vancomycin HCl 0 ml @ 0 mls/hr UD IV 06/05/24 10:15 Albuterol 2.5 mg Q4HPRN PRN NEB 06/05/24 11:00 Albuterol 2.5 mg Q6HR NEB 06/05/24 12:00 06/14/24 12:42 2.5 MG Ipratropium [place] 0.5 mg Q4HPRN PRN NEB 06/05/24 11:00 Ipratropium [place] 0.5 mg Q6HR NEB 06/05/24 12:00 06/14/24 12:42 0.5 MG Pantoprazole Sodium 40 mg DAILY IV 06/06/24 10:00 06/14/24 10:19 40 MG Calcium Acetate 667 mg TID NG 06/06/24 14:00 06/14/24 14:09 667 MG Enteral Nutritional Formula 1,000 ml 30ML/HR GT 06/06/24 23:00 06/12/24 00:22 1,000 ML Docusate Sodium 100 mg BID GT 06/07/24 10:00 Hold Heparin Sodium (Porcine) 5,000 units Q12HR SC 06/07/24 10:00 06/14/24 10:20 5,000 UNITS Norepinephrine Bitartrate 250 ml @ 3.75 mls/hr Q24H IV 06/08/24 05:15 06/14/24 05:11 3.75 MLS/HR Fentanyl Citrate 250 ml @ 2.5 mls/hr Q24H IV 06/08/24 09:30 06/12/24 12:31 2.5 MLS/HR Peritoneal Dialysis Solution 2,000 ml @ 0 mls/hr Q4HR IP 06/08/24 14:00 06/14/24 10:50 0 MLS/HR Hydralazine HCl 10 mg Q6HP PRN IV 06/08/24 14:30 UNV Hydralazine HCl 10 mg Q6HP PRN IV 06/08/24 14:30 06/14/24 17:00 10 MG Potassium Bicarbonate 25 meq DAILY NG 06/10/24 10:00 06/14/24 10:20 25 MEQ Lorazepam 1 mg Q5MINP PRN IV 06/09/24 19:30 06/11/24 03:07 1 MG Multivit/Ca Carb/ B Cmplx/FA/Prenat 1 tab DAILY NG 06/10/24 12:00 06/14/24 10:20 1 TAB Levetiracetam 750 mg/Sodium Chloride 107.5 ml @ 430 mls/hr BID IV 06/10/24 22:00 06/14/24 10:22 430 MLS/HR Sodium Chloride 10 ml QSHIFT@10,22 IV 06/11/24 22:00 06/14/24 10:00 10 ML Piperacillin Sod/ Tazobactam Sod 100 ml @ 25 mls/hr Q12H IV 06/11/24 20:00 06/14/24 08:57 25 MLS/HR Propofol 100 ml @ 2.124 mls/ hr Q24H IV 06/12/24 04:30 06/13/24 21:41 8.496 MLS/HR Mupirocin 1 applic DAILY TOP 06/14/24 11:30 Insulin Glargine 10 units QAM SC 06/15/24 07:00 UNV Diagnostic Test (Pha) 1 strip ACHS 06/14/24 17:00 UNV Insulin Human Regular ACHS SC 06/14/24 17:00 UNV Dextrose 50 ml UD PRN IV 06/14/24 17:00 UNV Examination Pt is lying on bed, General Appearance: Sedated, on mechanical ventilation RR 16, VT 500, peep 5, FiO2 30% HEENT: Atraumatic, Mucous membranes moist/pink Respiratory: Clear to auscultation, Normal air movement, No added sounds Cardiovascular: Regular rate, Normal S1, Normal S2, No murmurs Abdominal: Active bowel sounds, Soft, distended(improved since admission) likely due to fluid overload, peritoneal dialysis shunt intact Extremities:No edema, no cyanosis, PICC line intact in RUE Skin: No Significant rash, except past surgical scars Neuro: pupils are sluggish to react, weak cough and gag reflex laboratory and microbiology Laboratory Tests 06/14/24 03:15 Test 06/14/24 03:15 Range/Units Serum Glucose 268 H 74-106 mg/dL Microbiology Date/Time Source Procedure Growth Status 06/11/24 16:15 Catheter Tip Other Aerobic Culture - Preliminary Resulted 06/10/24 22:30 Sputum Gram Stain - Final Complete 06/10/24 22:30 Sputum Respiratory Culture - Final Complete 06/07/24 10:21 Peritoneal Fluid Gram Stain - Final Complete 06/07/24 10:21 Peritoneal Fluid Body Fluid Culture - Final Complete 06/05/24 05:00 Blood Blood Culture - Final NO GROWTH AFTER 5 DAYS OF INCUBATION. Complete Labs and/or images reviewed: Labs reviewed by me, Image(s) reviewed by me Problem List/Assessment/Plan Problem List/Assessment/Plan NEUROLOGY # ? anoxic/ hypoxic encephalopathy # ? anoxic brain injury - currently on mechanical ventilator - ordered head CT, no acute intracranial pathology except mild cortical atrophy and showed severe paranasal sinus disease with soft tissue swelling of left temporal scalp # ACute CVA, Ischemic stroke - New MRI showed acute to subacute posterior right cerebellum infarct changes - neuro on board # Seizure like activity r/o # Myoclonus # Rule out status epileptics -ordered MRI, Diffusion restriction of the bilateral medial occipital lobe sulci with prominence on the T2 Flair images could be seen with ishemic changes. -consulted neurology,advised to continue ongoing treatment along with [facility] # cardiopulmonary arrest status post CPR with ROSC # Septic shock likely due to peritoneal origin # NSTEMI likely due to demand mediated # ? acute on chronic diastolic heart failure # ? Coronary artery disease, moderate degree # HX hypertension, uncontrolled # Dyslipidemia, newly diagnosed - ordered pancultures, along with peritoneal fluid analysis and culture, preliminary is negative - monitor lab - Off from Levophed, since 06/06 - started levophed today and later discontinued. - currently on Versed and Diprivan DC06/14 - added fentanyl 06/09 Dc06/14 - echo showed LVEF 45% - Currently on vancomycin and Zosyn - Cefepime DC 06/10 switched to Zosyn today 06/10 - hydralazine p.r.n. # Acute transient AFib with RVR - monitor - correct electrolytes if needed - cardiology on board RESPIRATORY # Acute hypoxic respiratory failure likely due to septic shock # septic shock # ? aspiration pneumonia - ABG reviewed, CXR dialy - CXR reviewed, , diffuse lung disease likely edema or pneumonia - Currently on vancomycin and Zosyn - Cefepime DC 06/10 switched to Zosyn 06/10 - Flagylstarted 06/07, DC06/10 - ventilatory settings: RR 18, VT 500, peep 5, FiO2 30% - - added fentanyl 06/09 GI/LIVER # Pneumoperitoneum # Thickened appendix with appendicoliths - Evident on CT abdominal pelvis - consulted surgeon, advised no surgical intervention for now # likely acute bacterial peritonitis - currently on antibiotics vancomysin, Zosyn - monitor lab - Fluid sent to cell count, negative but pending culture - PUD prophylaxis pantoprazole /KIDNEY/METABOLIC # ESRD on peritoneal dialysis - Nephrology onboard - currently undergoing peritoneal dialysis - Monitor renal function - Monitor electrolytes. Supplement as necessary. - Monitor ins and outs. ENDO # type 2 DM with HbA1c 6.3 - Accu-Cheks and ISS -Lantus 10 units and mild ISS MSK HEME # Thrombocytopenia - monitor lab - held heparin ID # likely bacterial peritonitis # septic shock likely due to above - currently on antibiotics - monitor lab - Fluid sent to cell count, negative but pending culture SKIN - Intact peritoneal dialysis catheter LINES Right femoral vein catheter DC 06/10 PICC line 06/10 Reeder catheter DRIPS Versed, DC 06/14 Diprivan DC 06/14 Fetanyl DC 06/14 Currently Off from Levophed 06/10 NUTRITION Nepro 30ml/hr Goals of care/advance care planning; FULL CODE; discussed on for 27 minutes. PUD prophylaxis: Pantoprazole DVT prophylaxis: Heparin Goals of care has been discussed with the for more than 27 minutes, full code status Critical care time including chart review, discussing with the patient's family excluding procedures: 53 minutes Family meeting tomorrow to discuss goals of care tomorrow again. Case discussed with Dr. Tanner Plan discussed with: Son My Orders My Orders Orders - PAUL FRYE RESIDENT Procedure Category Date Status Time Remove A Line FAY 06/13/24 In Process 17:16 Chest Xray 1 View XY 06/14/24 Resulted 04:00 Abg W/ Co-Ox RT 06/14/24 Logged 04:00 Insulin Lantus PHA 06/15/24 Logged (Glargine) (Lantus) 07:00 Glucose Blood PHA 06/14/24 Logged (Accu-Chek Comfort 17:00 Insulin R (Human) PHA 06/14/24 Logged (Insulin R) 17:00 Dextrose 50% Syringe PHA 06/14/24 Logged 17:00 Chest Xray 1 View XY 06/15/24 Logged 04:00 Complete Blood Count LAB 06/15/24 Verified 04:00 Comprehensive LAB 06/15/24 Verified Metabolic Panel 04:00 Magnesium LAB 06/15/24 Verified 04:00 Abg W/ Co-Ox RT 06/15/24 Logged 04:00 Dietary Evaluation Review Comments: Inccrease protein intake to meet pt's needs. 1. TPN clinimix @41ml/hr provides 42.5g potein 510 kcal, can be a supplement to pt's nepro @30ml/hrproviding 58g pro and 1274 kcal The combined total will be 100.5g pro and 1784 kcal. 2. Offer only TF-Pivot 1.5 @50ml/hr providees 113g pro andd 1800 kcal. 3. Advance to PO 2 gNa high protein diet when pt is off Vent and back to peritoneal dialysis routine. Expected Outcomes/Goals: improved protein status, resume dialysis routine, kellie BW, Date of Service: Jun 14, 2024 Billing Provider: JOSE TANNER MD Common Visit Codes: [id number] CARE 30-74 MIN PAUL FRYE RESIDENT Jun 14, 2024 17:04 JOSE TANNER MD Jun 15, 2024 15:10
[2024-06-14] MEDS: InsuLIN REG 1unit/0.01ml Soln (100units/ml) SC SCH (17:10)
[2024-06-14] MEDS: ACCU-CHEK COMFORT CURVE STRIP VI SCH (17:12)
[2024-06-14] MEDS: LABETALOL HCL 20 MG/4 ML VL IV PRN (18:21)
[2024-06-15] VITALS (108 sets, daily range): BP systolic 100–195; BP diastolic 56–108; PULSE 78–107; RESP 12–27; TEMP 97.3–98.9; O2SAT 96–100
[2024-06-15 04:09] LABS: Basophils # (auto) 0.1 10 ^3/uL (0-0.2); Basophils % (auto) 0.7 % (0.0-2.0); Eosinophils # (auto) 0.6 10 ^3/uL (0-0.8); Eosinophils % (auto) 3.2 % (0.0-7.0); Hematocrit 37.4 % (41.0-53.0); Hemoglobin 12.3 g/dL (13.5-17.5); Lymphocytes % (auto) 5.9 % (10.0-50.0); Mean Corpuscular Hemoglobin 29.6 pg (28.0-32.0); Mean Corpuscular Hgb Conc. 32.8 g/dL (32.0-36.0); Mean Corpuscular Volume 90.4 fL (80.0-100.0); Monocytes % (auto) 5.4 % (0.0-12.0); Neutrophils # (auto) 15.2 10 ^3/uL (1.6-8.6); Neutrophils % (auto) 84.8 % (37.0-80.0); Platelet Count (auto) 479 10^3/uL (140-450); Red Blood Cells 4.14 10^6/uL (4.5-5.90); Red Cell Distribution Width 17.9 % (11.8-14.3); White Blood Cell 17.9 10^3/uL (4.4-10.8)
[2024-06-15 04:24] LABS: Anion Gap 15 (5-15); BUN/Creatinine Ratio 6.5 (10.0-20.0); Carbon Dioxide 25 mmol/L (20-31); Potassium 3.7 mmol/L (3.5-5.1)
[2024-06-15 04:25] LABS: Albumin 3.3 g/dL (3.2-4.8); Bilirubin, Total 0.3 mg/dL (0.2-1.0); Total Protein 6.2 g/dL (5.7-8.2)
[2024-06-15 04:30] LABS: Alanine Aminotransferase 48 U/L (7-40); Alkaline Phosphatase 264 U/L (46-116); Aspartate Aminotransferase 54 U/L (13-40); Blood Urea Nitrogen 55 mg/dL (9-23); Calcium 10.5 mg/dL (8.7-10.4); Chloride 91 mmol/L (98-107); Glucose 361 mg/dL (74-106); Sodium 131 mmol/L (136-145)
--- NOTE | 2024-06-15 05:11 | DVH ---
CHEST RADIOGRAPH Indication: pma Technique: Single frontal view of the chest was obtained COMPARISON: XY CHEST XRAY 1 VIEW on DOS: 06/14/24, XY CHEST XRAY 1 VIEW on DOS: 06/13/24, XY CHEST XRAY 1 VIEW on DOS: 06/12/24, XY CHEST XRAY 1 VIEW on DOS: 06/11/24, XY CHEST XRAY 1 VIEW on DOS: 06/10/24, XY CHEST XRAY 1 VIEW on DOS: 06/14/24 FINDINGS: Lines and Tubes: Endotracheal tube, enteric catheter and right PICC in satisfactory position. Lungs: Congestion Pleura: No effusion. No pneumothorax. Cardiomediastinal contours: Unremarkable No definite appreciable free intraperitoneal air. Bones: Unremarkable IMPRESSION: Lines and tubes in satisfactory position. No significant interval change.
[2024-06-15] MEDS: INSULIN LANTUS (GLARGINE) 1 /0.01ml (100units/ml) SC SCH ×2 (06:05→22:00)
[2024-06-15] MEDS ORDERED: DEXTROSE (50%) 50ML SYRG IV PRN (09:45)
--- NOTE | 2024-06-15 10:15 | DVHPN2 ---
Progress Note Date Seen: Jun 15, 2024 Medical Necessity Reason Pt with a Central, PICC or Fol: Yes The following are medically ne: PICC Line, Reeder Catheter Reason for reeder catheter: Strict I&O Subjective Review of Systems: RESPIRATORY:Abnormal Objective vital signs Vital Sign Date Time Temp Pulse Resp B/P (MAP) Pulse Ox O2 Delivery O2 Flow Rate FiO2 06/15/24 08:35 98 20 149/82 (104) 99 30 06/15/24 06:00 Mechanical Ventilator+ 06/15/24 04:00 98.9 98.9 Total Intake and Output 06/14/24 06/14/24 06/15/24 15:00 23:00 07:00 Intake Total 179.248 ml 6338.5 ml 6310 ml Output Total 0 ml Balance 179.248 ml 6338.5 ml 6310 ml medications Current Medications Medications Dose Ordered Sig/Richard Route Start Time Stop Time Status Last Admin Dose Admin Midazolam HCl 50 ml @ 1 mls/hr Q24H IV 06/05/24 04:35 06/13/24 08:18 6 MLS/HR Vancomycin HCl 0 ml @ 0 mls/hr UD IV 06/05/24 10:15 Albuterol 2.5 mg Q4HPRN PRN NEB 06/05/24 11:00 Albuterol 2.5 mg Q6HR NEB 06/05/24 12:00 06/15/24 06:18 2.5 MG Ipratropium [place] 0.5 mg Q4HPRN PRN NEB 06/05/24 11:00 Ipratropium [place] 0.5 mg Q6HR NEB 06/05/24 12:00 06/15/24 06:18 0.5 MG Pantoprazole Sodium 40 mg DAILY IV 06/06/24 10:00 06/15/24 09:33 40 MG Calcium Acetate 667 mg TID NG 06/06/24 14:00 06/15/24 05:58 667 MG Enteral Nutritional Formula 1,000 ml 30ML/HR GT 06/06/24 23:00 06/12/24 00:22 1,000 ML Docusate Sodium 100 mg BID GT 06/07/24 10:00 Hold Heparin Sodium (Porcine) 5,000 units Q12HR SC 06/07/24 10:00 06/15/24 09:43 5,000 UNITS Norepinephrine Bitartrate 250 ml @ 3.75 mls/hr Q24H IV 06/08/24 05:15 06/14/24 05:11 3.75 MLS/HR Fentanyl Citrate 250 ml @ 2.5 mls/hr Q24H IV 06/08/24 09:30 06/12/24 12:31 2.5 MLS/HR Peritoneal Dialysis Solution 2,000 ml @ 0 mls/hr Q4HR IP 06/08/24 14:00 06/15/24 05:48 0 MLS/HR Hydralazine HCl 10 mg Q6HP PRN IV 06/08/24 14:30 UNV Hydralazine HCl 10 mg Q6HP PRN IV 06/08/24 14:30 06/14/24 17:00 10 MG Potassium Bicarbonate 25 meq DAILY NG 06/10/24 10:00 06/15/24 09:41 25 MEQ Lorazepam 1 mg Q5MINP PRN IV 06/09/24 19:30 06/11/24 03:07 1 MG Multivit/Ca Carb/ B Cmplx/FA/Prenat 1 tab DAILY NG 06/10/24 12:00 06/15/24 09:41 1 TAB Levetiracetam 750 mg/Sodium Chloride 107.5 ml @ 430 mls/hr BID IV 06/10/24 22:00 06/14/24 21:36 430 MLS/HR Sodium Chloride 10 ml QSHIFT@10,22 IV 06/11/24 22:00 06/14/24 21:36 10 ML Piperacillin Sod/ Tazobactam Sod 100 ml @ 25 mls/hr Q12H IV 06/11/24 20:00 06/15/24 07:48 25 MLS/HR Propofol 100 ml @ 2.124 mls/ hr Q24H IV 06/12/24 04:30 06/13/24 21:41 8.496 MLS/HR Mupirocin 1 applic DAILY TOP 06/14/24 11:30 Insulin Glargine 10 units QAM SC 06/15/24 07:00 06/15/24 06:05 10 UNITS Labetalol HCl 5 mg Q2HPRN PRN IV 06/14/24 18:15 06/14/24 22:06 5 MG Diagnostic Test (Pha) 1 strip Q6HR 06/15/24 12:00 Insulin Human Regular Q6HR SC 06/15/24 12:00 Dextrose 50 ml UD PRN IV 06/15/24 09:45 Examination: GENERAL:Abnormal, LUNGS:Abnormal, ABDOMEN:Abnormal laboratory and microbiology Laboratory Tests 06/15/24 03:00 Test 06/15/24 03:00 Range/Units Serum Glucose 361 H 74-106 mg/dL Microbiology Date/Time Source Procedure Growth Status 06/11/24 16:15 Catheter Tip Other Aerobic Culture - Preliminary Resulted 06/10/24 22:30 Sputum Gram Stain - Final Complete 06/10/24 22:30 Sputum Respiratory Culture - Final Complete 06/07/24 10:21 Peritoneal Fluid Gram Stain - Final Complete 06/07/24 10:21 Peritoneal Fluid Body Fluid Culture - Final Complete 06/05/24 05:00 Blood Blood Culture - Final NO GROWTH AFTER 5 DAYS OF INCUBATION. Complete Problem List/Assessment/Plan Problem List/Assessment/Plan End-stage renal disease on home peritioneal dialysis, out of the area Acute respiratory failure intubated on ventilator Status post cardiac arrest Septic shock Aspiration pneumonia Congestive heart failure, ejection fraction 45% Anemia of chronic kidney disease, well compensated Hyperphosphatemia Hypokalemia Continue intensive peritoneal dialysis x 6 exchanges per 24 hours using 2.5% Dianeal PD solution PD fluid is clear culture is negative Closely monitor fluid and electrolytes IV antibiotics Maintain map more than 65 mm Hg Calcium acetate per NG tube t.i.d. KCL replacement daily Renal vitamin daily Pulmonary consult Cardiology consult We will continue to follow poor overall prognosis, patient h as been off sedation for several days defer family meeting to primary medical team Plan discussed with: Spouse My Orders My Orders Orders - MARGY ANDRADE MD Procedure Category Date Status Time Mupirocin 2% Ointment PHA 06/14/24 In Process (Bactroban 2% Oint 11:30 Dietary Evaluation Review Comments: Inccrease protein intake to meet pt's needs. 1. TPN clinimix @41ml/hr provides 42.5g potein 510 kcal, can be a supplement to pt's nepro @30ml/hrproviding 58g pro and 1274 kcal The combined total will be 100.5g pro and 1784 kcal. 2. Offer only TF-Pivot 1.5 @50ml/hr providees 113g pro andd 1800 kcal. 3. Advance to PO 2 gNa high protein diet when pt is off Vent and back to peritoneal dialysis routine. Expected Outcomes/Goals: improved protein status, resume dialysis routine, kellie BW, Total Time (mins): 33 MARGY ANDRADE MD Jun 15, 2024 10:15
--- NOTE | 2024-06-15 10:57 | DVHPN2 ---
Progress Note - Dictate Date Seen: Jun 15, 2024 Medical Necessity Reason Pt with a Central, PICC or Fol: Yes The following are medically ne: PICC Line, Reeder Catheter Reason for reeder catheter: Strict I&O Subjective Mr. Montano is a 53 years old right-handed gentleman with a history of d iabetes, coronary artery disease, end-stage kidney failure on peritoneal dialysis, the patient was was brought to the [facility] on 06/05/24 with CPR ongoing. I have seen and examined the patient, discussed with his nurse. His son in the room with him. He only responsive to strong painful stimuli. No spontaneous or evoked myoclonus Again I have his son about his symptoms, MR brain reports, and the likely poor prognosis for meaningful recovery He is not on sedation Blood culture, 06/05/24: No growth Peritoneal fluid culture, 06/07/2024: UDS, 06/06/2024: Benzo Urinalysis, 06/06/2024: WBC: 1, urine leukocyte esterase: Negative ABG, 06/05/2024: Combined metabolic and respiratory acidosis, WBC/HB/PLT/MCV, 06/08/2024: 19/10.3/106/90.9 Na, 06/06/2019 5:132, 06/08/2024: Moderate BUN/CR, 06/05/2024: 57/15.78, 06/08/2024: 78/14.78 Lactic acid, 06/05/24: 6.7, 3.5 HGB A1c, 06/05/2019 5:6.3 One high sensitivity, 05/1924: 566, 698, 643 Liver function tests, 06/08/2024: Normal TG/HDL/LDL/HDL, 06/05/2024: 174/208/143/33 TSH, 06/05/2024: 5.41 Chest x-ray, 06/08/2024: 1. Bibasilar opacities which may reflect atelectasis or pneumonia. 2. Stable position of the support lines and tubes CT head, 06/06/2024: No acute intracranial pathology in the brain. Mild cortical atrophy Severe paranasal sinus disease Soft tissue swelling left temporal scalp MRI head, 06/09/2024: 1. There is no acute intracranial process. 2. Nonspecific 8 mm focus of blooming artifact in the left thalamic region May relate to chronic microhemorrhage. There is no discrete lesion identified on the other sequences to suggest a cavernoma. 3. Nonspecific small hyperintense T2 and hypointense T1 focus in the left paramidline anterior erika. Small chronic ischemic focus is not excluded. (addendum: Diffusion restriction of the bilateral medial occipital lobe sulci with prominence on the T2 Flair images could be seen with ishemic changes. Consider Follow up MRI brain) MRI head, 06/13/2024: 1. New focus of restricted diffusion in the posterior right cerebellum compatible with an acute to subacute infarct. There is no evidence of acute hemorrhage or surrounding edema. There is no significant associated mass effect. 2. Stable nonspecific 8 mm focus of blooming artifact in the left thalamic region. 3. Stable nonspecific small hyperintense T2 and hypointense T1 focus in the left paramedian anterior erika vital signs Vital Sign Date Time Temp Pulse Resp B/P (MAP) Pulse Ox O2 Delivery O2 Flow Rate FiO2 06/15/24 10:17 94 20 113/69 (84) 99 30 06/15/24 06:00 Mechanical Ventilator+ 06/15/24 04:00 98.9 98.9 Total Intake and Output 06/14/24 06/14/24 06/15/24 15:00 23:00 07:00 Intake Total 179.248 ml 6338.5 ml 6310 ml Output Total 0 ml Balance 179.248 ml 6338.5 ml 6310 ml medications Current Medications Medications Dose Ordered Sig/Richard Route Start Time Stop Time Status Last Admin Dose Admin Midazolam HCl 50 ml @ 1 mls/hr Q24H IV 06/05/24 04:35 06/13/24 08:18 6 MLS/HR Vancomycin HCl 0 ml @ 0 mls/hr UD IV 06/05/24 10:15 Albuterol 2.5 mg Q4HPRN PRN NEB 06/05/24 11:00 Albuterol 2.5 mg Q6HR NEB 06/05/24 12:00 06/15/24 06:18 2.5 MG Ipratropium [place] 0.5 mg Q4HPRN PRN NEB 06/05/24 11:00 Ipratropium [place] 0.5 mg Q6HR NEB 06/05/24 12:00 06/15/24 06:18 0.5 MG Pantoprazole Sodium 40 mg DAILY IV 06/06/24 10:00 06/15/24 09:33 40 MG Calcium Acetate 667 mg TID NG 06/06/24 14:00 06/15/24 05:58 667 MG Enteral Nutritional Formula 1,000 ml 30ML/HR GT 06/06/24 23:00 06/12/24 00:22 1,000 ML Docusate Sodium 100 mg BID GT 06/07/24 10:00 Hold Heparin Sodium (Porcine) 5,000 units Q12HR SC 06/07/24 10:00 06/15/24 09:43 5,000 UNITS Norepinephrine Bitartrate 250 ml @ 3.75 mls/hr Q24H IV 06/08/24 05:15 06/14/24 05:11 3.75 MLS/HR Fentanyl Citrate 250 ml @ 2.5 mls/hr Q24H IV 06/08/24 09:30 06/12/24 12:31 2.5 MLS/HR Peritoneal Dialysis Solution 2,000 ml @ 0 mls/hr Q4HR IP 06/08/24 14:00 06/15/24 10:18 0 MLS/HR Hydralazine HCl 10 mg Q6HP PRN IV 06/08/24 14:30 UNV Hydralazine HCl 10 mg Q6HP PRN IV 06/08/24 14:30 06/14/24 17:00 10 MG Potassium Bicarbonate 25 meq DAILY NG 06/10/24 10:00 06/15/24 09:41 25 MEQ Lorazepam 1 mg Q5MINP PRN IV 06/09/24 19:30 06/11/24 03:07 1 MG Multivit/Ca Carb/ B Cmplx/FA/Prenat 1 tab DAILY NG 06/10/24 12:00 06/15/24 09:41 1 TAB Levetiracetam 750 mg/Sodium Chloride 107.5 ml @ 430 mls/hr BID IV 06/10/24 22:00 06/15/24 10:33 430 MLS/HR Sodium Chloride 10 ml QSHIFT@10,22 IV 06/11/24 22:00 06/15/24 10:17 10 ML Piperacillin Sod/ Tazobactam Sod 100 ml @ 25 mls/hr Q12H IV 06/11/24 20:00 06/15/24 07:48 25 MLS/HR Propofol 100 ml @ 2.124 mls/ hr Q24H IV 06/12/24 04:30 06/13/24 21:41 8.496 MLS/HR Mupirocin 1 applic DAILY TOP 06/14/24 11:30 06/15/24 10:28 1 APPLIC Insulin Glargine 10 units QAM SC 06/15/24 07:00 06/15/24 06:05 10 UNITS Labetalol HCl 5 mg Q2HPRN PRN IV 06/14/24 18:15 06/14/24 22:06 5 MG Diagnostic Test (Pha) 1 strip Q6HR 06/15/24 12:00 Insulin Human Regular Q6HR SC 06/15/24 12:00 Dextrose 50 ml UD PRN IV 06/15/24 09:45 objective The patient is well-nourished and well-developed with no distress. The patient is intubated MENTAL STATUS: Subjective CRANIAL NERVES: Pupils are equal, round and reactive. There are corneal reflexes and doll's eyes phenomenon. No signs of facial weakness. There are gagging or coughing reflexes SENSATION: No responses to pain stimuli. MOTOR: Normal tone in the upper and lower extremity. Normal muscle bulk. No fasciculations. No spontaneous movement. REFLEXES: Deep tendon reflexes are symmetrical. No pathological reflexes. CEREBELLAR/COORDINATION: Deferred GAIT/STATION: deferred laboratory and microbiology Laboratory Tests 06/15/24 03:00 Test 06/15/24 03:00 Range/Units Serum Glucose 361 H 74-106 mg/dL Problem List Abnormal movement, Myoclonus Rule out status epileptics Coma Hypoxic encephalopathy Metabolic encephalopathy Toxic encephalopathy Cardiopulmonary arrest, status post CPR Metabolic acidosis Respiratory acidosis Coronary artery disease Heart attack Leukocytosis/sepsis/septic shock Pneumonia Assessment/Plan Monitoring Supportive screaming ICU care Respiratory support/vent management Stabilize vitals Oxygen IV antibiotics Versed drip with p.r.n. Ativan for tremor/myoclonus control Keppra 750 mg b.i.d., consider wean off Keppra later DVT prophylax/heparin GI prophylax/Protonix IV antibiotics Cardiology on case Pulmonology on case Nephrology on case He is likely to have a poor prognosis for meaningful recovery More recommendation per clinical course This medical document was created using an electronic medical record system with Dragon computerized dictation system. Although this document has been carefully reviewed, there may still be some phonetic and typographical errors. These areas are purely typographical due to imperfections of the software programs, and do not reflect any compromise in the patient's medical care Prognosis guarded Dietary Evaluation Review Comments: Inccrease protein intake to meet pt's needs. 1. TPN clinimix @41ml/hr provides 42.5g potein 510 kcal, can be a supplement to pt's nepro @30ml/hrproviding 58g pro and 1274 kcal The combined total will be 100.5g pro and 1784 kcal. 2. Offer only TF-Pivot 1.5 @50ml/hr providees 113g pro andd 1800 kcal. 3. Advance to PO 2 gNa high protein diet when pt is off Vent and back to peritoneal dialysis routine. Expected Outcomes/Goals: improved protein status, resume dialysis routine, kellie BEDOYA, Plan discussed with: Jeyson, Other TINO DOLAN MD Jun 15, 2024 10:57
[2024-06-15] MEDS ORDERED: ACCU-CHEK COMFORT CURVE STRIP VI SCH (12:00)
[2024-06-15] MEDS ORDERED: InsuLIN REG 1unit/0.01ml Soln (100units/ml) SC SCH (12:00)
[2024-06-15] MEDS: InsuLIN REG 1unit/0.01ml Soln (100units/ml) SC SCH (12:44)
[2024-06-15] MEDS: ACCU-CHEK COMFORT CURVE STRIP VI SCH (12:48)
--- NOTE | 2024-06-15 15:00 | DVHPNRES ---
Progress Note Date Seen: Jun 15, 2024 Resident Creating Document: PAUL FRYE RESIDENT Medical Necessity Reason Pt with a Central, PICC or Fol: Yes The following are medically ne: PICC Line, Reeder Catheter Reason for reeder catheter: Strict I&O Subjective Review of Systems YOLI GALICIA is a 53-year-old male with a PMH of type 2 DM, ESRD on peritoneal dialysis, HTN presented to the ED with cardiopulmonary arrest. Patient seen and examined at the bedside along with the family. Unable to obtain ROS due to patient clinical status. Currently intubated with the mechanical ventilation.The patient is off from all sedation, not waking up, monitoring. Started having myoclonus again, started propofol. Changes from previous H/P or p: No Changes Objective vital signs Vital Sign Date Time Temp Pulse Resp B/P (MAP) Pulse Ox O2 Delivery O2 Flow Rate FiO2 06/15/24 14:13 91 17 139/79 (99) 100 30 06/15/24 14:00 Mechanical Ventilator+ 06/15/24 12:00 98.3 98.3 Total Intake and Output 06/14/24 06/14/24 06/15/24 14:59 22:59 06:59 Intake Total 183.496 ml 6313.5 ml 6335 ml Output Total 0 ml Balance 183.496 ml 6313.5 ml 6335 ml medications Current Medications Medications Dose Ordered Sig/Richard Route Start Time Stop Time Status Last Admin Dose Admin Midazolam HCl 50 ml @ 1 mls/hr Q24H IV 06/05/24 04:35 06/13/24 08:18 6 MLS/HR Vancomycin HCl 0 ml @ 0 mls/hr UD IV 06/05/24 10:15 Albuterol 2.5 mg Q4HPRN PRN NEB 06/05/24 11:00 Albuterol 2.5 mg Q6HR NEB 06/05/24 12:00 06/15/24 12:10 2.5 MG Ipratropium [place] 0.5 mg Q4HPRN PRN NEB 06/05/24 11:00 Ipratropium [place] 0.5 mg Q6HR NEB 06/05/24 12:00 06/15/24 12:10 0.5 MG Pantoprazole Sodium 40 mg DAILY IV 06/06/24 10:00 06/15/24 09:33 40 MG Calcium Acetate 667 mg TID NG 06/06/24 14:00 06/15/24 14:31 667 MG Enteral Nutritional Formula 1,000 ml 30ML/HR GT 06/06/24 23:00 06/12/24 00:22 1,000 ML Docusate Sodium 100 mg BID GT 06/07/24 10:00 Hold Heparin Sodium (Porcine) 5,000 units Q12HR SC 06/07/24 10:00 06/15/24 09:43 5,000 UNITS Norepinephrine Bitartrate 250 ml @ 3.75 mls/hr Q24H IV 06/08/24 05:15 06/14/24 05:11 3.75 MLS/HR Fentanyl Citrate 250 ml @ 2.5 mls/hr Q24H IV 06/08/24 09:30 06/12/24 12:31 2.5 MLS/HR Peritoneal Dialysis Solution 2,000 ml @ 0 mls/hr Q4HR IP 06/08/24 14:00 06/15/24 14:24 0 MLS/HR Hydralazine HCl 10 mg Q6HP PRN IV 06/08/24 14:30 UNV Hydralazine HCl 10 mg Q6HP PRN IV 06/08/24 14:30 06/14/24 17:00 10 MG Potassium Bicarbonate 25 meq DAILY NG 06/10/24 10:00 06/15/24 09:41 25 MEQ Lorazepam 1 mg Q5MINP PRN IV 06/09/24 19:30 06/15/24 11:56 1 MG Multivit/Ca Carb/ B Cmplx/FA/Prenat 1 tab DAILY NG 06/10/24 12:00 06/15/24 09:41 1 TAB Levetiracetam 750 mg/Sodium Chloride 107.5 ml @ 430 mls/hr BID IV 06/10/24 22:00 06/15/24 10:33 430 MLS/HR Sodium Chloride 10 ml QSHIFT@10,22 IV 06/11/24 22:00 06/15/24 10:17 10 ML Piperacillin Sod/ Tazobactam Sod 100 ml @ 25 mls/hr Q12H IV 06/11/24 20:00 06/15/24 07:48 25 MLS/HR Propofol 100 ml @ 2.124 mls/ hr Q24H IV 06/12/24 04:30 06/15/24 12:39 2.124 MLS/HR Mupirocin 1 applic DAILY TOP 06/14/24 11:30 06/15/24 10:28 1 APPLIC Insulin Glargine 10 units QAM SC 06/15/24 07:00 06/15/24 06:05 10 UNITS Labetalol HCl 5 mg Q2HPRN PRN IV 06/14/24 18:15 06/14/24 22:06 5 MG Dextrose 50 ml UD PRN IV 06/15/24 09:45 Diagnostic Test (Pha) 1 strip Q6HR 06/15/24 12:00 06/15/24 12:48 1 STRIP Insulin Human Regular Q6HR SC 06/15/24 12:00 06/15/24 12:44 15 UNITS Examination Pt is lying on bed, General Appearance: Sedated, on mechanical ventilation RR 16, VT 500, peep 5, FiO2 30% HEENT: Atraumatic, Mucous membranes moist/pink Respiratory: Clear to auscultation, Normal air movement, No added sounds Cardiovascular: Regular rate, Normal S1, Normal S2, No murmurs Abdominal: Active bowel sounds, Soft, distended(improved since admission) likely due to fluid overload, peritoneal dialysis shunt intact Extremities:No edema, no cyanosis, PICC line intact in RUE Skin: No Significant rash, except past surgical scars Neuro: pupils are sluggish to react, weak cough and gag reflex laboratory and microbiology Laboratory Tests 06/15/24 03:00 Test 06/15/24 03:00 Range/Units Serum Glucose 361 H 74-106 mg/dL Microbiology Date/Time Source Procedure Growth Status 06/11/24 16:15 Catheter Tip Other Aerobic Culture - Final Complete 06/10/24 22:30 Sputum Gram Stain - Final Complete 06/10/24 22:30 Sputum Respiratory Culture - Final Complete 06/07/24 10:21 Peritoneal Fluid Gram Stain - Final Complete 06/07/24 10:21 Peritoneal Fluid Body Fluid Culture - Final Complete 06/05/24 05:00 Blood Blood Culture - Final NO GROWTH AFTER 5 DAYS OF INCUBATION. Complete Labs and/or images reviewed: Labs reviewed by me, Image(s) reviewed by me Problem List/Assessment/Plan Problem List/Assessment/Plan NEUROLOGY # ? anoxic/ hypoxic encephalopathy # ? anoxic brain injury - currently on mechanical ventilator - ordered head CT, no acute intracranial pathology except mild cortical atrophy and showed severe paranasal sinus disease with soft tissue swelling of left temporal scalp # ACute CVA, Ischemic stroke - New MRI showed acute to subacute posterior right cerebellum infarct changes - neuro on board # Seizure like activity r/o # Myoclonus # Rule out status epileptics -ordered MRI, Diffusion restriction of the bilateral medial occipital lobe sulci with prominence on the T2 Flair images could be seen with ishemic changes. -consulted neurology,advised to continue ongoing treatment along with [facility] CARDIOVASCULAR # cardiopulmonary arrest status post CPR with ROSC # Septic shock likely due to peritoneal origin # NSTEMI likely due to demand mediated # ? acute on chronic diastolic heart failure # ? Coronary artery disease, moderate degree # HX hypertension, uncontrolled # Dyslipidemia, newly diagnosed - ordered pancultures, along with peritoneal fluid analysis and culture, preliminary is negative - monitor lab - Off from Levophed, since 06/06 - started levophed today and later discontinued. - currently on Versed and Diprivan DC06/14 - added fentanyl 06/09 Dc06/14 - echo showed LVEF 45% - Currently on vancomycin and Zosyn - Cefepime DC 06/10 switched to Zosyn today 06/10 - hydralazine p.r.n. # Acute transient AFib with RVR - monitor - correct electrolytes if needed - cardiology on board RESPIRATORY # Acute hypoxic respiratory failure likely due to septic shock # septic shock # ? aspiration pneumonia - ABG reviewed, CXR dialy - CXR reviewed, , diffuse lung disease likely edema or pneumonia - Currently on vancomycin and Zosyn - Cefepime DC 06/10 switched to Zosyn 06/10 - Flagylstarted 06/07, DC06/10 - ventilatory settings: RR 18, VT 500, peep 5, FiO2 30% GI/LIVER # Pneumoperitoneum # Thickened appendix with appendicoliths - Evident on CT abdominal pelvis - consulted surgeon, advised no surgical intervention for now # likely acute bacterial peritonitis - currently on antibiotics vancomysin, Zosyn - monitor lab - Fluid sent to cell count, negative but pending culture - PUD prophylaxis pantoprazole /KIDNEY/METABOLIC # ESRD on peritoneal dialysis - Nephrology onboard - currently undergoing peritoneal dialysis - Monitor renal function - Monitor electrolytes. Supplement as necessary. - Monitor ins and outs. ENDO # type 2 DM with HbA1c 6.3 - Accu-Cheks and ISS -Lantus 10 units and mild ISS MSK HEME # Thrombocytopenia - monitor lab - held heparin ID # likely bacterial peritonitis # septic shock likely due to above - currently on antibiotics - monitor lab - Fluid sent to cell count, negative but pending culture SKIN - Intact peritoneal dialysis catheter LINES Right femoral vein catheter DC 06/10 PICC line 06/10 Reeder catheter DRIPS Versed, DC 06/14 Diprivan DC 06/14 Fetanyl DC 06/14 Currently Off from Levophed 06/10 Propofol started again 06/15 NUTRITION Nepro 30ml/hr Goals of care/advance care planning; FULL CODE; discussed on for 27 minutes. PUD prophylaxis: Pantoprazole DVT prophylaxis: Heparin Goals of care has been discussed with the for more than 27 minutes, full code status(no CPR or defibrillation if coded again) Critical care time including chart review, discussing with the patient's family- multiple times excluding procedures: 116 minutes Family meeting today 06/15 to discuss goals of care for 40 mins provided all information, dicision pending. Patient's found some doubt regarding ACLS drugs, called her to clarify did not olive picker the phone, we will talk tomorrow. Case discussed with Dr. Tanner Plan discussed with: Patient, Spouse, Son My Orders My Orders Orders - PAUL FRYE RESIDENT Procedure Category Date Status Time Insulin Lantus PHA 06/15/24 In Process (Glargine) (Lantus) 07:00 Chest Xray 1 View XY 06/15/24 Resulted 04:00 Abg W/ Co-Ox RT 06/15/24 Logged 04:00 Dietary Evaluation Review Comments: Inccrease protein intake to meet pt's needs. 1. TPN clinimix @41ml/hr provides 42.5g potein 510 kcal, can be a supplement to pt's nepro @30ml/hrproviding 58g pro and 1274 kcal The combined total will be 100.5g pro and 1784 kcal. 2. Offer only TF-Pivot 1.5 @50ml/hr providees 113g pro andd 1800 kcal. 3. Advance to PO 2 gNa high protein diet when pt is off Vent and back to peritoneal dialysis routine. Expected Outcomes/Goals: improved protein status, resume dialysis routine, kellie BEDOYA, Date of Service: Jun 15, 2024 Billing Provider: JOSE TANNER MD Common Visit Codes: 41602-[id number] CARE 30-74 MIN, [id number] CARE-EACH +30MIN PAUL FRYE RESIDENT Jun 15, 2024 15:00 JOSE TANNER MD Jun 16, 2024 12:22
[2024-06-16] VITALS (106 sets, daily range): BP systolic 78–203; BP diastolic 45–109; PULSE 76–100; RESP 13–26; TEMP 97.7–98.5; O2SAT 91–100
[2024-06-16 03:36] LABS: Basophils # (auto) 0.1 10 ^3/uL (0-0.2); Basophils % (auto) 0.7 % (0.0-2.0); Eosinophils # (auto) 0.6 10 ^3/uL (0-0.8); Eosinophils % (auto) 3.8 % (0.0-7.0); Hematocrit 34.7 % (41.0-53.0); Hemoglobin 11.3 g/dL (13.5-17.5); Lymphocytes # (auto) 1.8 10 ^3/uL (0.4-5.4); Lymphocytes % (auto) 10.9 % (10.0-50.0); Mean Corpuscular Hemoglobin 29.4 pg (28.0-32.0); Mean Corpuscular Hgb Conc. 32.4 g/dL (32.0-36.0); Mean Corpuscular Volume 90.6 fL (80.0-100.0); Monocytes % (auto) 6.3 % (0.0-12.0); Neutrophils # (auto) 12.6 10 ^3/uL (1.6-8.6); Neutrophils % (auto) 78.3 % (37.0-80.0); Platelet Count (auto) 445 10^3/uL (140-450); Red Blood Cells 3.83 10^6/uL (4.5-5.90); Red Cell Distribution Width 17.6 % (11.8-14.3); White Blood Cell 16.1 10^3/uL (4.4-10.8)
[2024-06-16 03:52] LABS: Anion Gap 14 (5-15); BUN/Creatinine Ratio 6.8 (10.0-20.0); Calcium 10.4 mg/dL (8.7-10.4); Carbon Dioxide 28 mmol/L (20-31); Magnesium 2.1 mg/dL (1.6-2.6); Potassium 3.6 mmol/L (3.5-5.1); Total Protein 5.8 g/dL (5.7-8.2)
[2024-06-16 04:03] LABS: Alanine Aminotransferase 53 U/L (7-40); Albumin 3.1 g/dL (3.2-4.8); Alkaline Phosphatase 229 U/L (46-116); Aspartate Aminotransferase 47 U/L (13-40); Bilirubin, Total 0.2 mg/dL (0.2-1.0); Blood Urea Nitrogen 57 mg/dL (9-23); Chloride 92 mmol/L (98-107); Glucose 314 mg/dL (74-106); Sodium 134 mmol/L (136-145)
--- NOTE | 2024-06-16 05:27 | DVH ---
EXAM: XR Chest, 1 View CLINICAL INDICATION: pna TECHNIQUE: Frontal view of the chest. COMPARISON: XY CHEST XRAY 1 VIEW on DOS: 06/15/24, XY CHEST XRAY 1 VIEW on DOS: 06/14/24, XY CHEST XR AY 1 VIEW on DOS: 06/13/24, XY CHEST XRAY 1 VIEW on DOS: 06/12/24, XY CHEST XRAY 1 VIEW on DOS: 06/11/24 FINDINGS: LUNGS AND PLEURAL SPACES: Mild CHF. No consolidation. No pneumothorax. HEART: Unremarkable. No cardiomegaly. MEDIASTINUM: Unremarkable. Normal mediastinal contour. BONES/JOINTS: Unremarkable. No acute fracture. TUBES, LINES AND DEVICES: The endotracheal tube (ETT) is in satisfactory position. Right periphera lly inserted central catheter (PICC) tip in the superior vena cava. OTHER FINDINGS: . . IMPRESSION: Mild CHF.
[2024-06-16 07:45] LABS: Base Excess 2.2 mmol/L (-2.0-3.0)
[2024-06-16] MEDS ORDERED: DEXTROSE (50%) 50ML SYRG IV PRN (10:15)
[2024-06-16] MEDS: INSULIN LANTUS (GLARGINE) 1 /0.01ml (100units/ml) SC SCH (10:20)
--- NOTE | 2024-06-16 10:36 | DVHPN2 ---
Progress Note - Dictate Date Seen: Jun 16, 2024 Medical Necessity Reason Pt with a Central, PICC or Fol: Yes The following are medically ne: PICC Line, Reeder Catheter Reason for reeder catheter: Strict I&O Subjective Mr. Montano is a 53 years old right-handed gentleman with a history of d iabetes, coronary artery disease, end-stage kidney failure on peritoneal dialysis, the patient was was brought to the [facility] on 06/05/24 with CPR ongoing. I have seen and examined the patient, discussed with his nurse. He only responsive to strong painful stimuli. No spontaneous or evoked myoclonus Family is considering code status Blood culture, 06/05/24: No growth Peritoneal fluid culture, 06/07/2024: UDS, 06/06/2024: Benzo Urinalysis, 06/06/2024: WBC: 1, urine leukocyte esterase: Negative ABG, 06/05/2024: Combined metabolic and respiratory acidosis, WBC/HB/PLT/MCV, 06/08/2024: 19/10.3/106/90.9 Na, 06/06/2019 5:132, 06/08/2024: Moderate BUN/CR, 06/05/2024: 57/15.78, 06/08/2024: 78/14.78 Lactic acid, 06/05/24: 6.7, 3.5 HGB A1c, 06/05/2019 5:6.3 One high sensitivity, 05/1924: 566, 698, 643 Liver function tests, 06/08/2024: Normal TG/HDL/LDL/HDL, 06/05/2024: 174/208/143/33 TSH, 06/05/2024: 5.41 Chest x-ray, 06/08/2024: 1. Bibasilar opacities which may reflect atelectasis or pneumonia. 2. Stable position of the support lines and tubes CT head, 06/06/2024: No acute intracranial pathology in the brain. Mild cortical atrophy Severe paranasal sinus disease Soft tissue swelling left temporal scalp MRI head, 06/09/2024: 1. There is no acute intracranial process. 2. Nonspecific 8 mm focus of blooming artifact in the left thalamic region May relate to chronic microhemorrhage. There is no discrete lesion identified on the other sequences to suggest a cavernoma. 3. Nonspecific small hyperintense T2 and hypointense T1 focus in the left paramidline anterior erika. Small chronic ischemic focus is not excluded. (addendum: Diffusion restriction of the bilateral medial occipital lobe sulci with prominence on the T2 Flair images could be seen with ishemic changes. Consider Follow up MRI brain) MRI head, 06/13/2024: 1. New focus of restricted diffusion in the posterior right cerebellum compatible with an acute to subacute infarct. There is no evidence of acute hemorrhage or surrounding edema. There is no significant associated mass effect. 2. Stable nonspecific 8 mm focus of blooming artifact in the left thalamic region. 3. Stable nonspecific small hyperintense T2 and hypointense T1 focus in the left paramedian anterior erika vital signs Vital Sign Date Time Temp Pulse Resp B/P (MAP) Pulse Ox O2 Delivery O2 Flow Rate FiO2 06/16/24 10:31 196/109 06/16/24 07:28 96 19 98 30 06/16/24 06:00 Mechanical Ventilator+ 06/16/24 04:00 97.8 97.8 Total Intake and Output 06/15/24 06/15/24 06/16/24 15:00 23:00 07:00 Intake Total 226.616 ml 6478.770 ml 6552.762 ml Output Total 6300 ml 6000 ml Balance 226.616 ml 178.770 ml 552.762 ml medications Current Medications Medications Dose Ordered Sig/Richard Route Start Time Stop Time Status Last Admin Dose Admin Midazolam HCl 50 ml @ 1 mls/hr Q24H IV 06/05/24 04:35 06/13/24 08:18 6 MLS/HR Vancomycin HCl 0 ml @ 0 mls/hr UD IV 06/05/24 10:15 Albuterol 2.5 mg Q4HPRN PRN NEB 06/05/24 11:00 Albuterol 2.5 mg Q6HR NEB 06/05/24 12:00 06/16/24 06:02 2.5 MG Ipratropium [place] 0.5 mg Q4HPRN PRN NEB 06/05/24 11:00 Ipratropium [place] 0.5 mg Q6HR NEB 06/05/24 12:00 06/16/24 06:02 0.5 MG Pantoprazole Sodium 40 mg DAILY IV 06/06/24 10:00 06/16/24 09:48 40 MG Calcium Acetate 667 mg TID NG 06/06/24 14:00 06/16/24 05:37 667 MG Enteral Nutritional Formula 1,000 ml 30ML/HR GT 06/06/24 23:00 06/15/24 20:34 1,000 ML Docusate Sodium 100 mg BID GT 06/07/24 10:00 Hold Heparin Sodium (Porcine) 5,000 units Q12HR SC 06/07/24 10:00 06/16/24 09:42 5,000 UNITS Norepinephrine Bitartrate 250 ml @ 3.75 mls/hr Q24H IV 06/08/24 05:15 06/14/24 05:11 3.75 MLS/HR Fentanyl Citrate 250 ml @ 2.5 mls/hr Q24H IV 06/08/24 09:30 06/12/24 12:31 2.5 MLS/HR Peritoneal Dialysis Solution 2,000 ml @ 0 mls/hr Q4HR IP 06/08/24 14:00 06/16/24 10:18 0 MLS/HR Hydralazine HCl 10 mg Q6HP PRN IV 06/08/24 14:30 UNV Hydralazine HCl 10 mg Q6HP PRN IV 06/08/24 14:30 06/16/24 04:44 10 MG Lorazepam 1 mg Q5MINP PRN IV 06/09/24 19:30 06/15/24 11:56 1 MG Multivit/Ca Carb/ B Cmplx/FA/Prenat 1 tab DAILY NG 06/10/24 12:00 06/16/24 09:52 1 TAB Levetiracetam 750 mg/Sodium Chloride 107.5 ml @ 430 mls/hr BID IV 06/10/24 22:00 06/16/24 10:23 430 MLS/HR Sodium Chloride 10 ml QSHIFT@10,22 IV 06/11/24 22:00 06/16/24 09:49 10 ML Piperacillin Sod/ Tazobactam Sod 100 ml @ 25 mls/hr Q12H IV 06/11/24 20:00 06/16/24 07:32 25 MLS/HR Propofol 100 ml @ 2.124 mls/ hr Q24H IV 06/12/24 04:30 06/16/24 07:22 14.868 MLS/HR Mupirocin 1 applic DAILY TOP 06/14/24 11:30 06/16/24 10:23 1 APPLIC Labetalol HCl 5 mg Q2HPRN PRN IV 06/14/24 18:15 06/14/24 22:06 5 MG Insulin Glargine 13 units BID SC 06/16/24 10:00 06/16/24 10:20 13 UNITS Diagnostic Test (Pha) 1 strip Q6HR 06/16/24 12:00 UNV Insulin Human Regular Q6HR SC 06/16/24 12:00 UNV Dextrose 50 ml UD PRN IV 06/16/24 10:15 UNV objective The patient is well-nourished and well-developed with no distress. The patient is intubated MENTAL STATUS: Subjective CRANIAL NERVES: Pupils are equal, round and reactive. There are corneal reflexes and doll's eyes phenomenon. No signs of facial weakness. There are gagging or coughing reflexes SENSATION: No responses to pain stimuli. MOTOR: Normal tone in the upper and lower extremity. Normal muscle bulk. No fasciculations. No spontaneous movement. REFLEXES: Deep tendon reflexes are symmetrical. No pathological reflexes. CEREBELLAR/COORDINATION: Deferred GAIT/STATION: deferred laboratory and microbiology Laboratory Tests 06/16/24 03:00 Test 06/16/24 03:00 Range/Units Serum Glucose 314 H 74-106 mg/dL Problem List Abnormal movement, Myoclonus Rule out status epileptics Coma Hypoxic encephalopathy Metabolic encephalopathy Toxic encephalopathy Cardiopulmonary arrest, status post CPR Metabolic acidosis Respiratory acidosis Coronary artery disease Heart attack Leukocytosis/sepsis/septic shock Pneumonia Assessment/Plan Monitoring Supportive screaming ICU care Respiratory support/vent management Stabilize vitals Oxygen IV antibiotics Versed drip with p.r.n. Ativan for tremor/myoclonus control Keppra 750 mg b.i.d., consider wean off Keppra later DVT prophylax/heparin GI prophylax/Protonix IV antibiotics Cardiology on case Pulmonology on case Nephrology on case He is likely to have a poor prognosis for meaningful recovery More recommendation per clinical course This medical document was created using an electronic medical record system with [employer] (formerly [employer]) dictation system. Although this document has been carefully reviewed, there may still be some phonetic and typographical errors. These areas are purely typographical due to imperfections of the software programs, and do not reflect any compromise in the patient's medical care Prognosis poor Dietary Evaluation Review Comments: Inccrease protein intake to meet pt's needs. 1. TPN clinimix @41ml/hr provides 42.5g potein 510 kcal, can be a supplement to pt's nepro @30ml/hrproviding 58g pro and 1274 kcal The combined total will be 100.5g pro and 1784 kcal. 2. Offer only TF-Pivot 1.5 @50ml/hr providees 113g pro andd 1800 kcal. 3. Advance to PO 2 gNa high protein diet when pt is off Vent and back to peritoneal dialysis routine. Expected Outcomes/Goals: improved protein status, resume dialysis routine, kellie BEDOYA, Plan discussed with: Other TINO DOLAN MD Jun 16, 2024 10:36
--- NOTE | 2024-06-16 11:51 | DVHPNRES ---
Progress Note Date Seen: Jun 16, 2024 Resident Creating Document: PAUL FRYE RESIDENT Medical Necessity Reason Pt with a Central, PICC or Fol: Yes The following are medically ne: PICC Line, Reeder Catheter Reason for reeder catheter: Strict I&O Subjective Review of Systems YOLI GALICIA is a 53-year-old male with a PMH of type 2 DM, ESRD on peritoneal dialysis, HTN presented to the ED with cardiopulmonary arrest. Patient seen and examined at the bedside along with the family. Unable to obtain ROS due to patient clinical status. Currently intubated with the mechanical ventilation.The patient is off from all sedation, not waking up, monitoring. Started having myoclonus again, started propofol. Changes from previous H/P or p: No Changes Objective vital signs Vital Sign Date Time Temp Pulse Resp B/P (MAP) Pulse Ox O2 Delivery O2 Flow Rate FiO2 06/16/24 11:30 91 18 165/92 (116) 100 06/16/24 07:28 30 06/16/24 06:00 Mechanical Ventilator+ 06/16/24 04:00 97.8 97.8 Total Intake and Output 06/15/24 06/15/24 06/16/24 15:00 23:00 07:00 Intake Total 226.616 ml 6478.770 ml 6552.762 ml Output Total 6300 ml 6000 ml Balance 226.616 ml 178.770 ml 552.762 ml medications Current Medications Medications Dose Ordered Sig/Richard Route Start Time Stop Time Status Last Admin Dose Admin Midazolam HCl 50 ml @ 1 mls/hr Q24H IV 06/05/24 04:35 06/13/24 08:18 6 MLS/HR Vancomycin HCl 0 ml @ 0 mls/hr UD IV 06/05/24 10:15 Albuterol 2.5 mg Q4HPRN PRN NEB 06/05/24 11:00 Albuterol 2.5 mg Q6HR NEB 06/05/24 12:00 06/16/24 06:02 2.5 MG Ipratropium [place] 0.5 mg Q4HPRN PRN NEB 06/05/24 11:00 Ipratropium [place] 0.5 mg Q6HR NEB 06/05/24 12:00 06/16/24 06:02 0.5 MG Pantoprazole Sodium 40 mg DAILY IV 06/06/24 10:00 06/16/24 09:48 40 MG Calcium Acetate 667 mg TID NG 06/06/24 14:00 06/16/24 05:37 667 MG Enteral Nutritional Formula 1,000 ml 30ML/HR GT 06/06/24 23:00 06/15/24 20:34 1,000 ML Docusate Sodium 100 mg BID GT 06/07/24 10:00 Hold Heparin Sodium (Porcine) 5,000 units Q12HR SC 06/07/24 10:00 06/16/24 09:42 5,000 UNITS Norepinephrine Bitartrate 250 ml @ 3.75 mls/hr Q24H IV 06/08/24 05:15 06/14/24 05:11 3.75 MLS/HR Fentanyl Citrate 250 ml @ 2.5 mls/hr Q24H IV 06/08/24 09:30 06/12/24 12:31 2.5 MLS/HR Peritoneal Dialysis Solution 2,000 ml @ 0 mls/hr Q4HR IP 06/08/24 14:00 06/16/24 10:18 0 MLS/HR Hydralazine HCl 10 mg Q6HP PRN IV 06/08/24 14:30 UNV Hydralazine HCl 10 mg Q6HP PRN IV 06/08/24 14:30 06/16/24 04:44 10 MG Lorazepam 1 mg Q5MINP PRN IV 06/09/24 19:30 06/15/24 11:56 1 MG Multivit/Ca Carb/ B Cmplx/FA/Prenat 1 tab DAILY NG 06/10/24 12:00 06/16/24 09:52 1 TAB Levetiracetam 750 mg/Sodium Chloride 107.5 ml @ 430 mls/hr BID IV 06/10/24 22:00 06/16/24 10:23 430 MLS/HR Sodium Chloride 10 ml QSHIFT@10,22 IV 06/11/24 22:00 06/16/24 09:49 10 ML Piperacillin Sod/ Tazobactam Sod 100 ml @ 25 mls/hr Q12H IV 06/11/24 20:00 06/16/24 07:32 25 MLS/HR Propofol 100 ml @ 2.124 mls/ hr Q24H IV 06/12/24 04:30 06/16/24 07:22 14.868 MLS/HR Mupirocin 1 applic DAILY TOP 06/14/24 11:30 06/16/24 10:23 1 APPLIC Labetalol HCl 5 mg Q2HPRN PRN IV 06/14/24 18:15 06/14/24 22:06 5 MG Insulin Glargine 13 units BID SC 06/16/24 10:00 06/16/24 10:20 13 UNITS Diagnostic Test (Pha) 1 strip Q6HR 06/16/24 12:00 Insulin Human Regular Q6HR SC 06/16/24 12:00 Dextrose 50 ml UD PRN IV 06/16/24 10:15 Examination Pt is lying on bed, General Appearance: Sedated, on mechanical ventilation RR 16, VT 500, peep 5, FiO2 30% HEENT: Atraumatic, Mucous membranes moist/pink Respiratory: Clear to auscultation, Normal air movement, No added sounds Cardiovascular: Regular rate, Normal S1, Normal S2, No murmurs Abdominal: Active bowel sounds, Soft, distended likely due to fluid , peritoneal dialysis catheter intact Extremities:No edema, no cyanosis, PICC line intact in RUE Skin: No Significant rash, except past surgical scars Neuro: pupils dilated, sluggish to react, weak cough and gag reflex laboratory and microbiology Laboratory Tests 06/16/24 03:00 Test 06/16/24 03:00 Range/Units Serum Glucose 314 H 74-106 mg/dL Microbiology Date/Time Source Procedure Growth Status 06/11/24 16:15 Catheter Tip Other Aerobic Culture - Final Complete 06/10/24 22:30 Sputum Gram Stain - Final Complete 06/10/24 22:30 Sputum Respiratory Culture - Final Complete 06/07/24 10:21 Peritoneal Fluid Gram Stain - Final Complete 06/07/24 10:21 Peritoneal Fluid Body Fluid Culture - Final Complete 06/05/24 05:00 Blood Blood Culture - Final NO GROWTH AFTER 5 DAYS OF INCUBATION. Complete Labs and/or images reviewed: Labs reviewed by me, Image(s) reviewed by me Problem List/Assessment/Plan Problem List/Assessment/Plan NEUROLOGY # ? anoxic/ hypoxic encephalopathy # ? anoxic brain injury - currently on mechanical ventilator - ordered head CT, no acute intracranial pathology except mild cortical atrophy and showed severe paranasal sinus disease with soft tissue swelling of left temporal scalp # ACute CVA, Ischemic stroke - New MRI showed acute to subacute posterior right cerebellum infarct changes - neuro on board # Seizure like activity r/o # Myoclonus # Rule out status epileptics -ordered MRI, Diffusion restriction of the bilateral medial occipital lobe sulci with prominence on the T2 Flair images could be seen with ishemic changes. -consulted neurology,advised to continue ongoing treatment along with Keppra CARDIOVASCULAR # cardiopulmonary arrest status post CPR with ROSC # Septic shock likely due to peritoneal origin # NSTEMI likely due to demand mediated # ? acute on chronic diastolic heart failure # ? Coronary artery disease, moderate degree # HX hypertension, uncontrolled # Dyslipidemia, newly diagnosed - ordered pancultures, along with peritoneal fluid analysis and culture, preliminary is negative - monitor lab - Off from Levophed, since 06/06 - started levophed today and later discontinued. - currently on Versed and Diprivan DC06/14 - added fentanyl 06/09 Dc06/14 - echo showed LVEF 45% - Currently on vancomycin and Zosyn - Cefepime DC 06/10 switched to Zosyn today 06/10 - hydralazine p.r.n. # Acute transient AFib with RVR - monitor - correct electrolytes if needed - cardiology on board RESPIRATORY # Acute hypoxic respiratory failure likely due to septic shock # septic shock # ? aspiration pneumonia - ABG reviewed, CXR dialy - CXR reviewed, , diffuse lung disease likely edema or pneumonia - Currently on vancomycin and Zosyn - Cefepime DC 06/10 switched to Zosyn 06/10 - Flagylstarted 06/07, DC06/10 - ventilatory settings: RR 18, VT 500, peep 5, FiO2 30% GI/LIVER # Pneumoperitoneum # Thickened appendix with appendicoliths - Evident on CT abdominal pelvis - consulted surgeon, advised no surgical intervention for now # likely acute bacterial peritonitis - currently on antibiotics vancomysin, Zosyn - monitor lab - Fluid sent to cell count, negative but pending culture - PUD prophylaxis pantoprazole /KIDNEY/METABOLIC # ESRD on peritoneal dialysis - Nephrology onboard - currently undergoing peritoneal dialysis - Monitor renal function - Monitor electrolytes. Supplement as necessary. - Monitor ins and outs. ENDO # type 2 DM with HbA1c 6.3 - Accu-Cheks and ISS -Lantus 13 units BID and aggressive ISS MSK HEME # Thrombocytopenia - monitor lab - held heparin ID # likely bacterial peritonitis # septic shock likely due to above - currently on antibiotics - monitor lab - Fluid sent to cell count, negative but pending culture SKIN - Intact peritoneal dialysis catheter LINES Intubated 06/05 Right femoral vein catheter DC 06/10 PICC line 06/10 Reeder catheter DRIPS Versed, DC 06/14 Diprivan DC 06/14 Fetanyl DC 06/14 Currently Off from Levophed 06/10 Propofol started again 06/15 NUTRITION Nepro 30ml/hr Goals of care/advance care planning; FULL CODE; discussed on for 27 minutes. PUD prophylaxis: Pantoprazole DVT prophylaxis: Heparin Goals of care has been discussed with the for more than 27 minutes, full code status(no CPR or defibrillation if coded again) Critical care time including chart review, discussing with the patient's family excluding procedures: 57 minutes Family meeting today 06/15 to discuss goals of care for 40 mins , addressed and provided answers for all questions. Case discussed with Dr. Tanner Plan discussed with: Spouse, Son My Orders My Orders Orders - PAUL FRYE RESIDENT Procedure Category Date Status Time Chest Xray 1 View XY 06/16/24 Resulted 04:00 Abg W/ Co-Ox RT 06/16/24 Logged 04:00 Insulin Lantus PHA 06/16/24 In Process (Glargine) (Lantus) 10:00 Glucose Blood PHA 06/16/24 In Process (Accu-Chek Comfort 12:00 Insulin R (Human) PHA 06/16/24 In Process (Insulin R) 12:00 Dextrose 50% Syringe PHA 06/16/24 In Process 10:15 Dietary Evaluation Review Comments: Inccrease protein intake to meet pt's needs. 1. TPN clinimix @41ml/hr provides 42.5g potein 510 kcal, can be a supplement to pt's nepro @30ml/hrproviding 58g pro and 1274 kcal The combined total will be 100.5g pro and 1784 kcal. 2. Offer only TF-Pivot 1.5 @50ml/hr providees 113g pro andd 1800 kcal. 3. Advance to PO 2 gNa high protein diet when pt is off Vent and back to peritoneal dialysis routine. Expected Outcomes/Goals: improved protein status, resume dialysis routine, kellie BEDOYA, Date of Service: Jun 16, 2024 Billing Provider: JOSE TANNER MD Common Visit Codes: 97241-[id number] CARE 30-74 MIN PAUL FRYE RESIDENT Jun 16, 2024 11:51 JOSE TANNER MD Jun 19, 2024 15:32
[2024-06-16] MEDS: InsuLIN REG 1unit/0.01ml Soln (100units/ml) SC SCH (12:22)
[2024-06-16] MEDS: ACCU-CHEK COMFORT CURVE STRIP VI SCH (12:23)
--- NOTE | 2024-06-16 15:41 | DVHPN2 ---
Progress Note Date Seen: Jun 16, 2024 Medical Necessity Reason Pt with a Central, PICC or Fol: Yes The following are medically ne: PICC Line, Reeder Catheter Reason for reeder catheter: Strict I&O Subjective Patient reports: Other Objective vital signs Vital Sign Date Time Temp Pulse Resp B/P (MAP) Pulse Ox O2 Delivery O2 Flow Rate FiO2 06/16/24 14:30 93 16 151/84 (106) 99 06/16/24 13:52 30 06/16/24 07:45 98.5 98.5 06/16/24 06:00 Mechanical Ventilator+ Total Intake and Output 06/15/24 06/15/24 06/16/24 15:00 23:00 07:00 Intake Total 226.616 ml 6478.770 ml 6552.762 ml Output Total 6300 ml 6000 ml Balance 226.616 ml 178.770 ml 552.762 ml medications Current Medications Medications Dose Ordered Sig/Richard Route Start Time Stop Time Status Last Admin Dose Admin Midazolam HCl 50 ml @ 1 mls/hr Q24H IV 06/05/24 04:35 06/13/24 08:18 6 MLS/HR Albuterol 2.5 mg Q4HPRN PRN NEB 06/05/24 11:00 Albuterol 2.5 mg Q6HR NEB 06/05/24 12:00 06/16/24 11:40 2.5 MG Ipratropium [place] 0.5 mg Q4HPRN PRN NEB 06/05/24 11:00 Ipratropium [place] 0.5 mg Q6HR NEB 06/05/24 12:00 06/16/24 11:40 0.5 MG Pantoprazole Sodium 40 mg DAILY IV 06/06/24 10:00 06/16/24 09:48 40 MG Calcium Acetate 667 mg TID NG 06/06/24 14:00 06/16/24 14:23 667 MG Enteral Nutritional Formula 1,000 ml 30ML/HR GT 06/06/24 23:00 06/15/24 20:34 1,000 ML Docusate Sodium 100 mg BID GT 06/07/24 10:00 Hold Heparin Sodium (Porcine) 5,000 units Q12HR SC 06/07/24 10:00 06/16/24 09:42 5,000 UNITS Norepinephrine Bitartrate 250 ml @ 3.75 mls/hr Q24H IV 06/08/24 05:15 06/14/24 05:11 3.75 MLS/HR Fentanyl Citrate 250 ml @ 2.5 mls/hr Q24H IV 06/08/24 09:30 06/12/24 12:31 2.5 MLS/HR Peritoneal Dialysis Solution 2,000 ml @ 0 mls/hr Q4HR IP 06/08/24 14:00 06/16/24 14:01 0 MLS/HR Hydralazine HCl 10 mg Q6HP PRN IV 06/08/24 14:30 UNV Hydralazine HCl 10 mg Q6HP PRN IV 06/08/24 14:30 06/16/24 04:44 10 MG Lorazepam 1 mg Q5MINP PRN IV 06/09/24 19:30 06/15/24 11:56 1 MG Multivit/Ca Carb/ B Cmplx/FA/Prenat 1 tab DAILY NG 06/10/24 12:00 06/16/24 09:52 1 TAB Levetiracetam 750 mg/Sodium Chloride 107.5 ml @ 430 mls/hr BID IV 06/10/24 22:00 06/16/24 10:23 430 MLS/HR Sodium Chloride 10 ml QSHIFT@10,22 IV 06/11/24 22:00 06/16/24 09:49 10 ML Piperacillin Sod/ Tazobactam Sod 100 ml @ 25 mls/hr Q12H IV 06/11/24 20:00 06/16/24 07:32 25 MLS/HR Propofol 100 ml @ 2.124 mls/ hr Q24H IV 06/12/24 04:30 06/16/24 07:22 14.868 MLS/HR Mupirocin 1 applic DAILY TOP 06/14/24 11:30 06/16/24 10:23 1 APPLIC Labetalol HCl 5 mg Q2HPRN PRN IV 06/14/24 18:15 06/14/24 22:06 5 MG Insulin Glargine 13 units BID SC 06/16/24 10:00 06/16/24 10:20 13 UNITS Diagnostic Test (Pha) 1 strip Q6HR 06/16/24 12:00 06/16/24 12:23 1 STRIP Insulin Human Regular Q6HR SC 06/16/24 12:00 06/16/24 12:22 16 UNITS Dextrose 50 ml UD PRN IV 06/16/24 10:15 Examination: GENERAL:Abnormal, LUNGS:Abnormal, SKIN:Normal laboratory and microbiology Laboratory Tests 06/16/24 03:00 Test 06/16/24 03:00 Range/Units Serum Glucose 314 H 74-106 mg/dL Microbiology Date/Time Source Procedure Growth Status 06/11/24 16:15 Catheter Tip Other Aerobic Culture - Final Complete 06/10/24 22:30 Sputum Gram Stain - Final Complete 06/10/24 22:30 Sputum Respiratory Culture - Final Complete 06/07/24 10:21 Peritoneal Fluid Gram Stain - Final Complete 06/07/24 10:21 Peritoneal Fluid Body Fluid Culture - Final Complete 06/05/24 05:00 Blood Blood Culture - Final NO GROWTH AFTER 5 DAYS OF INCUBATION. Complete Problem List/Assessment/Plan Problem List/Assessment/Plan End-stage renal disease on home peritioneal dialysis, out of the area Acute respiratory failure intubated on ventilator Status post cardiac arrest Septic shock Aspiration pneumonia Congestive heart failure, ejection fraction 45% Anemia of chronic kidney disease, well compensated Hyperphosphatemia Hypokalemia will change fluid to 7.5% manual exchanges PD fluid is clear culture is negative Closely monitor fluid and electrolytes IV antibiotics Maintain map more than 65 mm Hg Calcium acetate per NG tube t.i.d. KCL replacement daily Renal vitamin daily Pulmonary consult Cardiology consult We will continue to follow poor overall prognosis, patient h as been off sedation for several days defer family meeting to primary medical team Plan discussed with: Daughter My Orders My Orders Orders - MARGY ANDRADE MD Procedure Category Date Status Time Communication Order ORDERS 06/16/24 Transmitted 15:30 Dietary Evaluation Review Comments: Inccrease protein intake to meet pt's needs. 1. TPN clinimix @41ml/hr provides 42.5g potein 510 kcal, can be a supplement to pt's nepro @30ml/hrproviding 58g pro and 1274 kcal The combined total will be 100.5g pro and 1784 kcal. 2. Offer only TF-Pivot 1.5 @50ml/hr providees 113g pro andd 1800 kcal. 3. Advance to PO 2 gNa high protein diet when pt is off Vent and back to peritoneal dialysis routine. Expected Outcomes/Goals: improved protein status, resume dialysis routine, kellie BEDOYA, MARGY ANDRADE MD Jun 16, 2024 15:41
[2024-06-17] VITALS (108 sets, daily range): BP systolic 80–171; BP diastolic 47–98; PULSE 83–95; RESP 14–25; TEMP 98.3–98.8; O2SAT 98–100
[2024-06-17 04:03] LABS: Basophils # (auto) 0.1 10 ^3/uL (0-0.2); Basophils % (auto) 0.7 % (0.0-2.0); Eosinophils # (auto) 0.7 10 ^3/uL (0-0.8); Hemoglobin 11.3 g/dL (13.5-17.5); White Blood Cell 17.6 10^3/uL (4.4-10.8)
[2024-06-17 04:05] LABS: Eosinophils % (auto) 4.2 % (0.0-7.0); Hematocrit 34.7 % (41.0-53.0); Lymphocytes # (auto) 1.8 10 ^3/uL (0.4-5.4); Lymphocytes % (auto) 10.3 % (10.0-50.0); Mean Corpuscular Hemoglobin 29.5 pg (28.0-32.0); Mean Corpuscular Hgb Conc. 32.5 g/dL (32.0-36.0); Mean Corpuscular Volume 90.8 fL (80.0-100.0); Monocytes # (auto) 1.2 10 ^3/uL (0-1.3); Monocytes % (auto) 6.7 % (0.0-12.0); Neutrophils # (auto) 13.7 10 ^3/uL (1.6-8.6); Neutrophils % (auto) 78.1 % (37.0-80.0); Platelet Count (auto) 521 10^3/uL (140-450); Red Blood Cells 3.83 10^6/uL (4.5-5.90)
[2024-06-17 04:22] LABS: Albumin 3.4 g/dL (3.2-4.8); Anion Gap 14 (5-15); BUN/Creatinine Ratio 6.4 (10.0-20.0); Calcium 10.3 mg/dL (8.7-10.4); Carbon Dioxide 28 mmol/L (20-31); Magnesium 2.2 mg/dL (1.6-2.6); Potassium 3.6 mmol/L (3.5-5.1)
[2024-06-17 04:23] LABS: Total Protein 6.1 g/dL (5.7-8.2)
[2024-06-17 04:26] LABS: Alanine Aminotransferase 71 U/L (7-40); Alkaline Phosphatase 243 U/L (46-116); Aspartate Aminotransferase 61 U/L (13-40); Bilirubin, Total 0.2 mg/dL (0.2-1.0); Blood Urea Nitrogen 54 mg/dL (9-23); Chloride 91 mmol/L (98-107); Glucose 249 mg/dL (74-106); Sodium 133 mmol/L (136-145)
--- NOTE | 2024-06-17 05:28 | DVH ---
EXAM: XR Chest, 1 View CLINICAL INDICATION: pna TECHNIQUE: Frontal view of the chest. COMPARISON: XY CHEST XRAY 1 VIEW on DOS: 06/16/24, XY CHEST XRAY 1 VIEW on DOS: 06/15/24, XY CHEST XR AY 1 VIEW on DOS: 06/14/24, XY CHEST XRAY 1 VIEW on DOS: 06/13/24, XY CHEST XRAY 1 VIEW on DOS: 06/12/24 FINDINGS: LUNGS AND PLEURAL SPACES: Pulmonary venous congestion. No consolidation. No pneumothorax. HEART: Unremarkable. No cardiomegaly. MEDIASTINUM: Unremarkable. Normal mediastinal contour. BONES/JOINTS: Unremarkable. No acute fracture. TUBES, LINES AND DEVICES: The endotracheal tube (ETT) is in satisfactory position. Right periphera lly inserted central catheter (PICC) tip in the superior vena cava. UPPER ABDOMEN: Lucency under the right hemidiaphragm is likely within the colon. If there is boom rn for pneumoperitoneum, further evaluation with CT is recommended. OTHER FINDINGS: . Enteric stemming. . IMPRESSION: 1. Lucency under the right hemidiaphragm is likely within the colon. If there is concern for pneumo peritoneum, further evaluation with CT is recommended. 2. Pulmonary venous congestion. 3. No significant change from the prior exam.
[2024-06-17] MEDS ORDERED: POTASSIUM CHL 20MEQ/100ML 100 ML IV ONE (06:30)
[2024-06-17 07:46] LABS: Base Excess -0.6 mmol/L (-2.0-3.0)
--- NOTE | 2024-06-17 12:38 | DVHPNRES ---
Progress Note Date Seen: Jun 17, 2024 Resident Creating Document: PAUL FRYE RESIDENT Medical Necessity Reason Pt with a Central, PICC or Fol: Yes The following are medically ne: PICC Line, Reeder Catheter Reason for reeder catheter: Strict I&O Subjective Review of Systems YOLI GALICIA is a 53-year-old male with a PMH of type 2 DM, ESRD on peritoneal dialysis, HTN presented to the ED with cardiopulmonary arrest. Patient seen and examined at the bedside along with the family. Unable to obtain ROS due to patient clinical status. Currently intubated with the mechanical ventilation. monitoring. Changes from previous H/P or p: No Changes Objective vital signs Vital Sign Date Time Temp Pulse Resp B/P (MAP) Pulse Ox O2 Delivery O2 Flow Rate FiO2 06/17/24 11:24 86 16 141/76 (97) 99 30 06/17/24 06:00 Mechanical Ventilator+ 06/17/24 04:00 98.8 98.8 Total Intake and Output 06/16/24 06/16/24 06/17/24 15:00 23:00 07:00 Intake Total 186.057 ml 6634.08 ml 6566.34 ml Output Total 6700 ml 6000 ml Balance 186.057 ml -65.92 ml 566.34 ml medications Current Medications Medications Dose Ordered Sig/Richard Route Start Time Stop Time Status Last Admin Dose Admin Midazolam HCl 50 ml @ 1 mls/hr Q24H IV 06/05/24 04:35 06/13/24 08:18 6 MLS/HR Albuterol 2.5 mg Q4HPRN PRN NEB 06/05/24 11:00 Albuterol 2.5 mg Q6HR NEB 06/05/24 12:00 06/17/24 11:49 2.5 MG Ipratropium [place] 0.5 mg Q4HPRN PRN NEB 06/05/24 11:00 Ipratropium [place] 0.5 mg Q6HR NEB 06/05/24 12:00 06/17/24 11:49 0.5 MG Pantoprazole Sodium 40 mg DAILY IV 06/06/24 10:00 06/17/24 09:42 40 MG Calcium Acetate 667 mg TID NG 06/06/24 14:00 06/17/24 05:40 667 MG Enteral Nutritional Formula 1,000 ml 30ML/HR GT 06/06/24 23:00 06/16/24 23:30 1,000 ML Docusate Sodium 100 mg BID GT 06/07/24 10:00 Hold Heparin Sodium (Porcine) 5,000 units Q12HR SC 06/07/24 10:00 06/17/24 09:41 5,000 UNITS Norepinephrine Bitartrate 250 ml @ 3.75 mls/hr Q24H IV 06/08/24 05:15 06/14/24 05:11 3.75 MLS/HR Peritoneal Dialysis Solution 2,000 ml @ 0 mls/hr Q4HR IP 06/08/24 14:00 06/17/24 09:49 0 MLS/HR Hydralazine HCl 10 mg Q6HP PRN IV 06/08/24 14:30 UNV Hydralazine HCl 10 mg Q6HP PRN IV 06/08/24 14:30 06/16/24 04:44 10 MG Lorazepam 1 mg Q5MINP PRN IV 06/09/24 19:30 06/15/24 11:56 1 MG Multivit/Ca Carb/ B Cmplx/FA/Prenat 1 tab DAILY NG 06/10/24 12:00 06/17/24 09:42 1 TAB Levetiracetam 750 mg/Sodium Chloride 107.5 ml @ 430 mls/hr BID IV 06/10/24 22:00 06/17/24 10:08 430 MLS/HR Sodium Chloride 10 ml QSHIFT@10,22 IV 06/11/24 22:00 06/17/24 09:42 10 ML Piperacillin Sod/ Tazobactam Sod 100 ml @ 25 mls/hr Q12H IV 06/11/24 20:00 06/17/24 07:40 25 MLS/HR Propofol 100 ml @ 2.124 mls/ hr Q24H IV 06/12/24 04:30 06/17/24 07:38 10.62 MLS/HR Mupirocin 1 applic DAILY TOP 06/14/24 11:30 06/17/24 09:58 1 APPLIC Labetalol HCl 5 mg Q2HPRN PRN IV 06/14/24 18:15 06/14/24 22:06 5 MG Insulin Glargine 13 units BID SC 06/16/24 10:00 06/17/24 10:44 13 UNITS Diagnostic Test (Pha) 1 strip Q6HR 06/16/24 12:00 06/17/24 12:17 1 STRIP Insulin Human Regular Q6HR SC 06/16/24 12:00 06/17/24 12:21 8 UNITS Dextrose 50 ml UD PRN IV 06/16/24 10:15 Examination Pt is lying on bed, General Appearance: Sedated, on mechanical ventilation RR 16, VT 500, peep 5, FiO2 30% HEENT: Atraumatic, Mucous membranes moist/pink Respiratory: Clear to auscultation, Normal air movement, No added sounds Cardiovascular: Regular rate, Normal S1, Normal S2, No murmurs Abdominal: Active bowel sounds, Soft, distended likely due to fluid , peritoneal dialysis catheter intact Extremities:No edema, no cyanosis, PICC line intact in RUE Skin: No Significant rash, except past surgical scars Neuro: pupils dilated, sluggish to react, weak cough and gag reflex laboratory and microbiology Laboratory Tests 06/17/24 03:25 Test 06/17/24 03:25 Range/Units Serum Glucose 249 H 74-106 mg/dL Microbiology Date/Time Source Procedure Growth Status 06/11/24 16:15 Catheter Tip Other Aerobic Culture - Final Complete 06/10/24 22:30 Sputum Gram Stain - Final Complete 06/10/24 22:30 Sputum Respiratory Culture - Final Complete 06/07/24 10:21 Peritoneal Fluid Gram Stain - Final Complete 06/07/24 10:21 Peritoneal Fluid Body Fluid Culture - Final Complete 06/05/24 05:00 Blood Blood Culture - Final NO GROWTH AFTER 5 DAYS OF INCUBATION. Complete Labs and/or images reviewed: Labs reviewed by me, Image(s) reviewed by me Problem List/Assessment/Plan Problem List/Assessment/Plan NEUROLOGY # ? anoxic/ hypoxic encephalopathy # ? anoxic brain injury - currently on mechanical ventilator - ordered head CT, no acute intracranial pathology except mild cortical atrophy and showed severe paranasal sinus disease with soft tissue swelling of left temporal scalp # ACute CVA, Ischemic stroke - New MRI showed acute to subacute posterior right cerebellum infarct changes - neuro on board # Seizure like activity r/o # Myoclonus # Rule out status epileptics -ordered MRI, Diffusion restriction of the bilateral medial occipital lobe sulci with prominence on the T2 Flair images could be seen with ishemic changes. -consulted neurology,advised to continue ongoing treatment along with Daniel CARDIOVASCULAR # cardiopulmonary arrest status post CPR with ROSC # Septic shock likely due to peritoneal origin # NSTEMI likely due to demand mediated # ? acute on chronic diastolic heart failure # ? Coronary artery disease, moderate degree # HX hypertension, uncontrolled # Dyslipidemia, newly diagnosed - ordered pancultures, along with peritoneal fluid analysis and culture, preliminary is negative - monitor lab - Off from Levophed, since 06/06 - started levophed today and later discontinued. - currently on Versed and Diprivan DC06/14 - added fentanyl 06/09 Dc06/14 - echo showed LVEF 45% - Currently on vancomycin and Zosyn - Cefepime DC 06/10 switched to Zosyn 06/10 - hydralazine p.r.n. - DC vancomysin 06/16 # Acute transient AFib with RVR - monitor - correct electrolytes if needed - cardiology on board RESPIRATORY # Acute hypoxic respiratory failure likely due to septic shock # septic shock # ? aspiration pneumonia - ABG reviewed, CXR dialy - CXR reviewed, , diffuse lung disease likely edema or pneumonia - Currently on vancomycin and Zosyn - Cefepime DC 06/10 switched to Zosyn 06/10 - Flagylstarted 06/07, DC06/10 - ventilatory settings: RR 16, VT 500, peep 5, FiO2 30% - Dc Vanco 06/16 GI/LIVER # Pneumoperitoneum # Thickened appendix with appendicoliths - Evident on CT abdominal pelvis - consulted surgeon, advised no surgical intervention for now # likely acute bacterial peritonitis - currently on antibiotics vancomysin, Zosyn - monitor lab - Fluid sent to cell count, negative but pending culture - Dc vancomysin 06/16 - PUD prophylaxis pantoprazole /KIDNEY/METABOLIC # ESRD on peritoneal dialysis - Nephrology onboard - currently undergoing peritoneal dialysis - Monitor renal function - Monitor electrolytes. Supplement as necessary. - Monitor ins and outs. ENDO # type 2 DM with HbA1c 6.3 - Accu-Cheks and ISS -Lantus 13 units BID and aggressive ISS MSK HEME # Thrombocytopenia - monitor lab - held heparin ID # likely bacterial peritonitis # septic shock likely due to above - currently on antibiotics - monitor lab - Fluid sent to cell count, negative but pending culture SKIN - Intact peritoneal dialysis catheter LINES Intubated 06/05 Right femoral vein catheter DC 06/10 PICC line 06/10 Reeder catheter DRIPS Versed, DC 06/14 Diprivan DC 06/14 Fetanyl DC 06/14 Currently Off from Levophed 06/10 Propofol started again 06/15 NUTRITION Nepro 30ml/hr Goals of care/advance care planning; FULL CODE; discussed on for 27 minutes. PUD prophylaxis: Pantoprazole DVT prophylaxis: Heparin Goals of care has been discussed with the for more than 27 minutes, full code status(no CPR or defibrillation if coded again) Critical care time including chart review, discussing with the patient's family excluding procedures: 117 minutes Family meeting today 06/15 to discuss goals of care for 40 mins , addressed and provided answers for all questions. Family meeting again done today, they want terminal weaning for patient tomorrow evening. Case discussed with Dr. Andino. Plan discussed with: Spouse, Son My Orders My Orders Orders - PAUL FRYE Procedure Category Date Status Time Chest Xray 1 View XY 06/17/24 Resulted 04:00 Abg W/ Co-Ox RT 06/17/24 Logged 04:00 Urine Bacterial DENNY 06/17/24 Uncollected Culture 12:29 Blood Culture DENNY 06/17/24 Uncollected 12:29 Respiratory Culture DENNY 06/17/24 Uncollected W/ Gs 12:29 Dietary Evaluation Review Comments: Inccrease protein intake to meet pt's needs. 1. TPN clinimix @41ml/hr provides 42.5g potein 510 kcal, can be a supplement to pt's nepro @30ml/hrproviding 58g pro and 1274 kcal The combined total will be 100.5g pro and 1784 kcal. 2. Offer only TF-Pivot 1.5 @50ml/hr providees 113g pro andd 1800 kcal. 3. Advance to PO 2 gNa high protein diet when pt is off Vent and back to peritoneal dialysis routine. Expected Outcomes/Goals: improved protein status, resume dialysis routine, [place] BW, Date of Service: Jun 17, 2024 Billing Provider: ALEXEI ANDINO MD Common Visit Codes: [id number] CARE 30-74 MIN PAUL FRYE RESIDENT Jun 17, 2024 12:38 ALEXEI ANDINO MD Jun 26, 2024 14:35
--- NOTE | 2024-06-17 18:02 | DVHPN2 ---
Progress Note - Dictate Date Seen: Jun 17, 2024 Medical Necessity Reason Pt with a Central, PICC or Fol: Yes The following are medically ne: PICC Line, Reeder Catheter Reason for reeder catheter: Strict I&O Subjective Mr. Montano is a 53 years old right-handed gentleman with a history of d iabetes, coronary artery disease, end-stage kidney failure on peritoneal dialysis, the patient was was brought to the [facility] on 06/05/24 with CPR ongoing. I have seen and examined the patient, discussed with his nurse. He only responsive to strong painful stimuli. His parents are in the room, and I have updated them about patient condition, and likely poor prognosis for meaningful recovery Blood culture, 06/05/24: No growth Peritoneal fluid culture, 06/07/2024: UDS, 06/06/2024: Benzo Urinalysis, 06/06/2024: WBC: 1, urine leukocyte esterase: Negative ABG, 06/05/2024: Combined metabolic and respiratory acidosis, WBC/HB/PLT/MCV, 06/08/2024: 19/10.3/106/90.9 Na, 06/06/2019 5:132, 06/08/2024: Moderate BUN/CR, 06/05/2024: 57/15.78, 06/08/2024: 78/14.78 Lactic acid, 06/05/24: 6.7, 3.5 HGB A1c, 06/05/2019 5:6.3 One high sensitivity, 05/1924: 566, 698, 643 Liver function tests, 06/08/2024: Normal TG/HDL/LDL/HDL, 06/05/2024: 174/208/143/33 TSH, 06/05/2024: 5.41 Chest x-ray, 06/08/2024: 1. Bibasilar opacities which may reflect atelectasis or pneumonia. 2. Stable position of the support lines and tubes CT head, 06/06/2024: No acute intracranial pathology in the brain. Mild cortical atrophy Severe paranasal sinus disease Soft tissue swelling left temporal scalp MRI head, 06/09/2024: 1. There is no acute intracranial process. 2. Nonspecific 8 mm focus of blooming artifact in the left thalamic region May relate to chronic microhemorrhage. There is no discrete lesion identified on the other sequences to suggest a cavernoma. 3. Nonspecific small hyperintense T2 and hypointense T1 focus in the left paramidline anterior erika. Small chronic ischemic focus is not excluded. (addendum: Diffusion restriction of the bilateral medial occipital lobe sulci with prominence on the T2 Flair images could be seen with ishemic changes. Consider Follow up MRI brain) MRI head, 06/13/2024: 1. New focus of restricted diffusion in the posterior right cerebellum compatible with an acute to subacute infarct. There is no evidence of acute hemorrhage or surrounding edema. There is no significant associated mass effect. 2. Stable nonspecific 8 mm focus of blooming artifact in the left thalamic region. 3. Stable nonspecific small hyperintense T2 and hypointense T1 focus in the left paramedian anterior erika vital signs Vital Sign Date Time Temp Pulse Resp B/P (MAP) Pulse Ox O2 Delivery O2 Flow Rate FiO2 06/17/24 17:36 30 06/17/24 17:36 87 06/17/24 17:36 18 99 Mechanical Ventilator+ 06/17/24 16:45 111/69 (83) 06/17/24 16:00 98.4 98.4 Total Intake and Output 06/16/24 06/16/24 06/17/24 15:00 23:00 07:00 Intake Total 186.057 ml 6634.08 ml 6576.96 ml Output Total 6700 ml 6000 ml Balance 186.057 ml -65.92 ml 576.96 ml medications Current Medications Medications Dose Ordered Sig/Richard Route Start Time Stop Time Status Last Admin Dose Admin Midazolam HCl 50 ml @ 1 mls/hr Q24H IV 06/05/24 04:35 06/13/24 08:18 6 MLS/HR Albuterol 2.5 mg Q4HPRN PRN NEB 06/05/24 11:00 Albuterol 2.5 mg Q6HR NEB 06/05/24 12:00 06/17/24 11:49 2.5 MG Ipratropium [place] 0.5 mg Q4HPRN PRN NEB 06/05/24 11:00 Ipratropium [place] 0.5 mg Q6HR NEB 06/05/24 12:00 06/17/24 11:49 0.5 MG Pantoprazole Sodium 40 mg DAILY IV 06/06/24 10:00 06/17/24 09:42 40 MG Calcium Acetate 667 mg TID NG 06/06/24 14:00 06/17/24 13:36 667 MG Enteral Nutritional Formula 1,000 ml 30ML/HR GT 06/06/24 23:00 06/16/24 23:30 1,000 ML Docusate Sodium 100 mg BID GT 06/07/24 10:00 Heparin Sodium (Porcine) 5,000 units Q12HR SC 06/07/24 10:00 06/17/24 09:41 5,000 UNITS Norepinephrine Bitartrate 250 ml @ 3.75 mls/hr Q24H IV 06/08/24 05:15 06/14/24 05:11 3.75 MLS/HR Peritoneal Dialysis Solution 2,000 ml @ 0 mls/hr Q4HR IP 06/08/24 14:00 06/17/24 13:41 0 MLS/HR Hydralazine HCl 10 mg Q6HP PRN IV 06/08/24 14:30 UNV Hydralazine HCl 10 mg Q6HP PRN IV 06/08/24 14:30 06/16/24 04:44 10 MG Lorazepam 1 mg Q5MINP PRN IV 06/09/24 19:30 06/15/24 11:56 1 MG Multivit/Ca Carb/ B Cmplx/FA/Prenat 1 tab DAILY NG 06/10/24 12:00 06/17/24 09:42 1 TAB Levetiracetam 750 mg/Sodium Chloride 107.5 ml @ 430 mls/hr BID IV 06/10/24 22:00 06/17/24 10:08 430 MLS/HR Sodium Chloride 10 ml QSHIFT@10,22 IV 06/11/24 22:00 06/17/24 09:42 10 ML Piperacillin Sod/ Tazobactam Sod 100 ml @ 25 mls/hr Q12H IV 06/11/24 20:00 06/17/24 07:40 25 MLS/HR Propofol 100 ml @ 2.124 mls/ hr Q24H IV 06/12/24 04:30 06/17/24 15:56 10.62 MLS/HR Mupirocin 1 applic DAILY TOP 06/14/24 11:30 06/17/24 09:58 1 APPLIC Labetalol HCl 5 mg Q2HPRN PRN IV 06/14/24 18:15 06/14/24 22:06 5 MG Insulin Glargine 13 units BID SC 06/16/24 10:00 06/17/24 10:44 13 UNITS Diagnostic Test (Pha) 1 strip Q6HR 06/16/24 12:00 06/17/24 17:24 1 STRIP Insulin Human Regular Q6HR SC 06/16/24 12:00 06/17/24 12:21 8 UNITS Dextrose 50 ml UD PRN IV 06/16/24 10:15 objective The patient is well-nourished and well-developed with no distress. The patient is intubated MENTAL STATUS: Subjective CRANIAL NERVES: Pupils are equal, round and reactive. There are corneal reflexes and doll's eyes phenomenon. No signs of facial weakness. There are gagging or coughing reflexes SENSATION: No responses to pain stimuli. MOTOR: Normal tone in the upper and lower extremity. Normal muscle bulk. No fasciculations. No spontaneous movement. REFLEXES: Deep tendon reflexes are symmetrical. No pathological reflexes. CEREBELLAR/COORDINATION: Deferred GAIT/STATION: deferred laboratory and microbiology Laboratory Tests 06/17/24 03:25 Test 06/17/24 03:25 Range/Units Serum Glucose 249 H 74-106 mg/dL Problem List Abnormal movement, Myoclonus Rule out status epileptics Coma Hypoxic encephalopathy Metabolic encephalopathy Toxic encephalopathy Cardiopulmonary arrest, status post CPR Metabolic acidosis Respiratory acidosis Coronary artery disease Heart attack Leukocytosis/sepsis/septic shock Pneumonia Assessment/Plan Monitoring Supportive screaming ICU care Respiratory support/vent management Stabilize vitals Oxygen IV antibiotics Versed drip with p.r.n. Ativan for tremor/myoclonus control Keppra 750 mg b.i.d., consider wean off Keppra later DVT prophylax/heparin GI prophylax/Protonix IV antibiotics Cardiology on case Pulmonology on case Nephrology on case He is likely to have a poor prognosis for meaningful recovery More recommendation per clinical course This medical document was created using an electronic medical record system with [employer] dictation system. Although this document has been carefully reviewed, there may still be some phonetic and typographical errors. These areas are purely typographical due to imperfections of the software programs, and do not reflect any compromise in the patient's medical care Prognosis poor Dietary Evaluation Review Comments: Inccrease protein intake to meet pt's needs. 1. TPN clinimix @41ml/hr provides 42.5g potein 510 kcal, can be a supplement to pt's nepro @30ml/hrproviding 58g pro and 1274 kcal The combined total will be 100.5g pro and 1784 kcal. 2. Offer only TF-Pivot 1.5 @50ml/hr providees 113g pro andd 1800 kcal. 3. Advance to PO 2 gNa high protein diet when pt is off Vent and back to peritoneal dialysis routine. Expected Outcomes/Goals: improved protein status, resume dialysis routine, kellie BEDOYA, Plan discussed with: Other Critical Care Time(min): 35 TINO DOLAN MD Jun 17, 2024 18:02
--- NOTE | 2024-06-17 18:42 | DVHPN2 ---
Progress Note Date Seen: Jun 17, 2024 Medical Necessity Reason Pt with a Central, PICC or Fol: Yes The following are medically ne: PICC Line, Reeder Catheter Reason for reeder catheter: Strict I&O Subjective Review of Systems: RESPIRATORY:Abnormal Objective vital signs Vital Sign Date Time Temp Pulse Resp B/P (MAP) Pulse Ox O2 Delivery O2 Flow Rate FiO2 06/17/24 18:15 86 16 96/64 (75) 99 30 06/17/24 17:36 Mechanical Ventilator+ 06/17/24 16:00 98.4 98.4 Total Intake and Output 06/16/24 06/16/24 06/17/24 15:00 23:00 07:00 Intake Total 186.057 ml 6634.08 ml 6576.96 ml Output Total 6700 ml 6000 ml Balance 186.057 ml -65.92 ml 576.96 ml medications Current Medications Medications Dose Ordered Sig/Richard Route Start Time Stop Time Status Last Admin Dose Admin Midazolam HCl 50 ml @ 1 mls/hr Q24H IV 06/05/24 04:35 06/13/24 08:18 6 MLS/HR Albuterol 2.5 mg Q4HPRN PRN NEB 06/05/24 11:00 Albuterol 2.5 mg Q6HR NEB 06/05/24 12:00 06/17/24 18:19 2.5 MG Ipratropium [place] 0.5 mg Q4HPRN PRN [facility] 06/05/24 11:00 Ipratropium [place] 0.5 mg Q6HR [facility] 06/05/24 12:00 06/17/24 18:19 0.5 MG Pantoprazole Sodium 40 mg DAILY IV 06/06/24 10:00 06/17/24 09:42 40 MG Calcium Acetate 667 mg TID NG 06/06/24 14:00 06/17/24 13:36 667 MG Enteral Nutritional Formula 1,000 ml 30ML/HR GT 06/06/24 23:00 06/16/24 23:30 1,000 ML Docusate Sodium 100 mg BID GT 06/07/24 10:00 Heparin Sodium (Porcine) 5,000 units Q12HR SC 06/07/24 10:00 06/17/24 09:41 5,000 UNITS Norepinephrine Bitartrate 250 ml @ 3.75 mls/hr Q24H IV 06/08/24 05:15 06/14/24 05:11 3.75 MLS/HR Peritoneal Dialysis Solution 2,000 ml @ 0 mls/hr Q4HR IP 06/08/24 14:00 06/17/24 13:41 0 MLS/HR Hydralazine HCl 10 mg Q6HP PRN IV 06/08/24 14:30 UNV Hydralazine HCl 10 mg Q6HP PRN IV 06/08/24 14:30 06/16/24 04:44 10 MG Lorazepam 1 mg Q5MINP PRN IV 06/09/24 19:30 06/15/24 11:56 1 MG Multivit/Ca Carb/ B Cmplx/FA/Prenat 1 tab DAILY NG 06/10/24 12:00 06/17/24 09:42 1 TAB Levetiracetam 750 mg/Sodium Chloride 107.5 ml @ 430 mls/hr BID IV 06/10/24 22:00 06/17/24 10:08 430 MLS/HR Sodium Chloride 10 ml QSHIFT@10,22 IV 06/11/24 22:00 06/17/24 09:42 10 ML Piperacillin Sod/ Tazobactam Sod 100 ml @ 25 mls/hr Q12H IV 06/11/24 20:00 06/17/24 07:40 25 MLS/HR Propofol 100 ml @ 2.124 mls/ hr Q24H IV 06/12/24 04:30 06/17/24 15:56 10.62 MLS/HR Mupirocin 1 applic DAILY TOP 06/14/24 11:30 06/17/24 09:58 1 APPLIC Labetalol HCl 5 mg Q2HPRN PRN IV 06/14/24 18:15 06/14/24 22:06 5 MG Insulin Glargine 13 units BID SC 06/16/24 10:00 06/17/24 10:44 13 UNITS Diagnostic Test (Pha) 1 strip Q6HR 06/16/24 12:00 06/17/24 17:24 1 STRIP Insulin Human Regular Q6HR SC 06/16/24 12:00 06/17/24 18:02 12 UNITS Dextrose 50 ml UD PRN IV 06/16/24 10:15 Examination: GENERAL:Abnormal, LUNGS:Abnormal, ABDOMEN:Abnormal laboratory and microbiology Laboratory Tests 06/17/24 03:25 Test 06/17/24 03:25 Range/Units Serum Glucose 249 H 74-106 mg/dL Microbiology Date/Time Source Procedure Growth Status 06/11/24 16:15 Catheter Tip Other Aerobic Culture - Final Complete 06/10/24 22:30 Sputum Gram Stain - Final Complete 06/10/24 22:30 Sputum Respiratory Culture - Final Complete 06/07/24 10:21 Peritoneal Fluid Gram Stain - Final Complete 06/07/24 10:21 Peritoneal Fluid Body Fluid Culture - Final Complete 06/05/24 05:00 Blood Blood Culture - Final NO GROWTH AFTER 5 DAYS OF INCUBATION. Complete Problem List/Assessment/Plan Problem List/Assessment/Plan End-stage renal disease on home peritioneal dialysis, out of the area Acute respiratory failure intubated on ventilator Status post cardiac arrest Septic shock Aspiration pneumonia Congestive heart failure, ejection fraction 45% Anemia of chronic kidney disease, well compensated Hyperphosphatemia Hypokalemia 7.5% dextrose 12 hour dwell today PD fluid is clear culture is negative Closely monitor fluid and electrolytes IV antibiotics Maintain map more than 65 mm Hg Calcium acetate per NG tube t.i.d. KCL replacement daily Renal vitamin daily Pulmonary consult Cardiology consult We will continue to follow poor overall prognosis, patient h as been off sedation for several days family plans possible terminal wean in am Plan discussed with: Daughter Dietary Evaluation Review Comments: Inccrease protein intake to meet pt's needs. 1. TPN clinimix @41ml/hr provides 42.5g potein 510 kcal, can be a supplement to pt's nepro @30ml/hrproviding 58g pro and 1274 kcal The combined total will be 100.5g pro and 1784 kcal. 2. Offer only TF-Pivot 1.5 @50ml/hr providees 113g pro andd 1800 kcal. 3. Advance to PO 2 gNa high protein diet when pt is off Vent and back to peritoneal dialysis routine. Expected Outcomes/Goals: improved protein status, resume dialysis routine, kellie BW, Critical Care Time (mins): 33 MARGY ANDRADE MD Jun 17, 2024 18:42
[2024-06-17] MEDS: DOCUSATE ORAL LIQUID 100 MG/10 ML UD GT SCH (22:26)
[2024-06-18] VITALS (105 sets, daily range): BP systolic 89–184; BP diastolic 56–103; PULSE 79–96; RESP 14–18; TEMP 98.4–99.3; O2SAT 97–100
[2024-06-18 04:01] LABS: Basophils # (auto) 0.1 10 ^3/uL (0-0.2); Basophils % (auto) 0.6 % (0.0-2.0); Eosinophils # (auto) 0.9 10 ^3/uL (0-0.8); Hematocrit 34.6 % (41.0-53.0); Hemoglobin 11.7 g/dL (13.5-17.5); Lymphocytes % (auto) 9.3 % (10.0-50.0); Mean Corpuscular Hemoglobin 30.6 pg (28.0-32.0); Mean Corpuscular Hgb Conc. 33.9 g/dL (32.0-36.0); Mean Corpuscular Volume 90.1 fL (80.0-100.0); Monocytes # (auto) 1.2 10 ^3/uL (0-1.3); Monocytes % (auto) 5.8 % (0.0-12.0); Neutrophils # (auto) 17.2 10 ^3/uL (1.6-8.6); Neutrophils % (auto) 80.3 % (37.0-80.0); Platelet Count (auto) 548 10^3/uL (140-450); Red Blood Cells 3.84 10^6/uL (4.5-5.90); Red Cell Distribution Width 17.6 % (11.8-14.3); White Blood Cell 21.4 10^3/uL (4.4-10.8)
[2024-06-18 04:21] LABS: Anion Gap 14 (5-15); BUN/Creatinine Ratio 6.6 (10.0-20.0); Carbon Dioxide 27 mmol/L (20-31); Glucose 83 mg/dL (74-106); Magnesium 2.2 mg/dL (1.6-2.6); Potassium 4.1 mmol/L (3.5-5.1)
[2024-06-18 04:22] LABS: Albumin 3.3 g/dL (3.2-4.8)
[2024-06-18 04:23] LABS: Total Protein 6.2 g/dL (5.7-8.2)
[2024-06-18 04:25] LABS: Alanine Aminotransferase 77 U/L (7-40); Alkaline Phosphatase 230 U/L (46-116); Aspartate Aminotransferase 62 U/L (13-40); Bilirubin, Total 0.2 mg/dL (0.2-1.0); Blood Urea Nitrogen 58 mg/dL (9-23); Calcium 10.8 mg/dL (8.7-10.4); Chloride 92 mmol/L (98-107); Sodium 133 mmol/L (136-145)
--- NOTE | 2024-06-18 05:45 | DVH ---
EXAM: XY CHEST XRAY 1 VIEW HISTORY: pna COMPARISON: XY CHEST XRAY 1 VIEW on DOS: 06/17/24, XY CHEST XRAY 1 VIEW on DOS: 06/16/24, XY CHEST XRAY 1 VIEW on DOS: 06/15/24, XY CHEST XRAY 1 VIEW on DOS: 06/14/24, XY CHEST XRAY 1 VIEW on DOS: 06/13/24 TECHNIQUE: Portable AP view of the chest was performed. FINDINGS: Endotracheal tube is re-identified with its tip 4.2 cm above the laurie. OG tube and right upper extr emity PICC line are re-identified. There is central interstitial prominence, slightly improved since the previous chest x-ray. No pneumothorax or new infiltrates. The heart is not enlarged. The aortic arch is calcific. IMPRESSION: 1. Mechanical ventilation with tubes and lines as above. 2. Central interstitial prominence is improved since the previous day. This may be due to reactive a irways disease or mild CHF.
[2024-06-18 09:43] LABS: Base Excess 2.7 mmol/L (-2.0-3.0)
--- NOTE | 2024-06-18 11:30 | DVHPN2 ---
Progress Note Date Seen: Jun 18, 2024 Medical Necessity Reason Pt with a Central, PICC or Fol: Yes The following are medically ne: PICC Line, Reeder Catheter Reason for reeder catheter: Strict I&O Subjective Patient reports: Other Review of Systems: RESPIRATORY:Abnormal Objective vital signs Vital Sign Date Time Temp Pulse Resp B/P (MAP) Pulse Ox O2 Delivery O2 Flow Rate FiO2 06/18/24 10:15 95 16 126/69 (88) 98 30 06/18/24 06:00 Mechanical Ventilator+ 06/18/24 04:00 98.6 98.6 Total Intake and Output 06/17/24 06/17/24 06/18/24 15:00 23:00 07:00 Intake Total 292.46 ml 6679.96 ml 2311.96 ml Output Total 6800 ml Balance 292.46 ml -120.04 ml 2311.96 ml medications Current Medications Medications Dose Ordered Sig/Richard Route Start Time Stop Time Status Last Admin Dose Admin Midazolam HCl 50 ml @ 1 mls/hr Q24H IV 06/05/24 04:35 06/13/24 08:18 6 MLS/HR Albuterol 2.5 mg Q4HPRN PRN NEB 06/05/24 11:00 Albuterol 2.5 mg Q6HR NEB 06/05/24 12:00 06/18/24 06:20 2.5 MG Ipratropium [place] 0.5 mg Q4HPRN PRN NEB 06/05/24 11:00 Ipratropium [place] 0.5 mg Q6HR NEB 06/05/24 12:00 06/18/24 06:20 0.5 MG Pantoprazole Sodium 40 mg DAILY IV 06/06/24 10:00 06/18/24 10:10 40 MG Calcium Acetate 667 mg TID NG 06/06/24 14:00 06/18/24 05:11 667 MG Enteral Nutritional Formula 1,000 ml 30ML/HR GT 06/06/24 23:00 06/17/24 22:44 1,000 ML Docusate Sodium 100 mg BID GT 06/07/24 10:00 06/18/24 10:10 100 MG Heparin Sodium (Porcine) 5,000 units Q12HR SC 06/07/24 10:00 06/18/24 10:27 5,000 UNITS Norepinephrine Bitartrate 250 ml @ 3.75 mls/hr Q24H IV 06/08/24 05:15 06/14/24 05:11 3.75 MLS/HR Peritoneal Dialysis Solution 2,000 ml @ 0 mls/hr Q4HR IP 06/08/24 14:00 06/17/24 13:41 0 MLS/HR Hydralazine HCl 10 mg Q6HP PRN IV 06/08/24 14:30 UNV Hydralazine HCl 10 mg Q6HP PRN IV 06/08/24 14:30 06/16/24 04:44 10 MG Lorazepam 1 mg Q5MINP PRN IV 06/09/24 19:30 06/15/24 11:56 1 MG Multivit/Ca Carb/ B Cmplx/FA/Prenat 1 tab DAILY NG 06/10/24 12:00 06/18/24 10:10 1 TAB Levetiracetam 750 mg/Sodium Chloride 107.5 ml @ 430 mls/hr BID IV 06/10/24 22:00 06/18/24 10:21 430 MLS/HR Sodium Chloride 10 ml QSHIFT@10,22 IV 06/11/24 22:00 06/18/24 10:22 10 ML Piperacillin Sod/ Tazobactam Sod 100 ml @ 25 mls/hr Q12H IV 06/11/24 20:00 06/18/24 08:28 25 MLS/HR Propofol 100 ml @ 2.124 mls/ hr Q24H IV 06/12/24 04:30 06/18/24 07:40 10.62 MLS/HR Mupirocin 1 applic DAILY TOP 06/14/24 11:30 06/18/24 10:34 1 APPLIC Labetalol HCl 5 mg Q2HPRN PRN IV 06/14/24 18:15 06/18/24 05:13 5 MG Insulin Glargine 13 units BID SC 06/16/24 10:00 06/17/24 22:34 13 UNITS Diagnostic Test (Pha) 1 strip Q6HR 06/16/24 12:00 06/18/24 05:12 1 STRIP Insulin Human Regular Q6HR SC 06/16/24 12:00 06/17/24 18:02 12 UNITS Dextrose 50 ml UD PRN IV 06/16/24 10:15 Examination: GENERAL:Abnormal, LUNGS:Abnormal, ABDOMEN:Abnormal laboratory and microbiology Laboratory Tests 06/18/24 03:15 Test 06/18/24 03:15 Range/Units Serum Glucose 83 # 74-106 mg/dL Microbiology Date/Time Source Procedure Growth Status 06/11/24 16:15 Catheter Tip Other Aerobic Culture - Final Complete 06/10/24 22:30 Sputum Gram Stain - Final Complete 06/10/24 22:30 Sputum Respiratory Culture - Final Complete 06/07/24 10:21 Peritoneal Fluid Gram Stain - Final Complete 06/07/24 10:21 Peritoneal Fluid Body Fluid Culture - Final Complete 06/05/24 05:00 Blood Blood Culture - Final NO GROWTH AFTER 5 DAYS OF INCUBATION. Complete Problem List/Assessment/Plan Problem List/Assessment/Plan End-stage renal disease on home peritioneal dialysis, out of the area Acute respiratory failure intubated on ventilator Status post cardiac arrest Septic shock Aspiration pneumonia Congestive heart failure, ejection fraction 45% Anemia of chronic kidney disease, well compensated Hyperphosphatemia Hypokalemia no further recs at this time supportive care, rest of care for comfort as per primary team family plans terminal wean Plan discussed with: Daughter Dietary Evaluation Review Comments: Inccrease protein intake to meet pt's needs. 1. TPN clinimix @41ml/hr provides 42.5g potein 510 kcal, can be a supplement to pt's nepro @30ml/hrproviding 58g pro and 1274 kcal The combined total will be 100.5g pro and 1784 kcal. 2. Offer only TF-Pivot 1.5 @50ml/hr providees 113g pro andd 1800 kcal. 3. Advance to PO 2 gNa high protein diet when pt is off Vent and back to peritoneal dialysis routine. Expected Outcomes/Goals: improved protein status, resume dialysis routine, kellie BEDOYA, MARGY ANDRADE MD Jun 18, 2024 11:30
[2024-06-18] MEDS ORDERED: LORazepam 2MG/ML-1ML VIAL IV PRN (14:45)
[2024-06-18] MEDS ORDERED: MORPHINE SULFATE INJ 2 MG/ml SYRG IV PRN (14:45)
--- NOTE | 2024-06-18 18:41 | DVHPN2 ---
Subjective 06/18 - plan for terminal weaning today. cough gag present, pupils pinpoint. Reviewed: Care Plan, H&P, Labs, Medications, Previous Orders, Radiology, Other (Consultations) Changes from previous H/P or p: No Changes General: Per HPI Objective Vitals Vital Signs Date Time Temp Pulse Resp B/P (MAP) Pulse Ox O2 Delivery O2 Flow Rate FiO2 06/18/24 18:15 85 16 133/78 (96) 97 06/18/24 18:13 30 06/18/24 16:00 98.9 98.9 06/18/24 16:00 Mechanical Ventilator+ Intake/Output Intake and Output 06/18/24 07:00 Intake Total 9284.38 ml Output Total 6800 ml Balance 2484.38 ml Intake Oral 120 ml IV Total 662.38 ml Tube Feeding 502 ml Intraperitoneal 8000 ml Other 6800 ml Exam General Appearance: Sedated, on mechanical ventilation RR 16, VT 500, peep 5, FiO2 30% HEENT: Atraumatic, Mucous membranes moist/pink Respiratory: Clear to auscultation, Normal air movement, No added sounds Cardiovascular: Regular rate, Normal S1, Normal S2, No murmurs Abdominal: Active bowel sounds, Soft, distended likely due to fluid , peritoneal dialysis catheter intact Extremities:No edema, no cyanosis, PICC line intact in RUE Skin: No Significant rash, except past surgical scars Neuro: pupils dilated, sluggish to react, weak cough and gag reflex General Appearance: Other (Intubated and sedated) HEENT: Atraumatic Lungs: Other (Mechanical ventilation sounds) Cardiovascular: Regular rate, Normal S1, Normal S2 Abdomen: Normal bowel sounds, Soft, Other (Peritoneal dialysis catheter in place) Genitourinary: Other (Castano's catheter) Neuro: Other (Sedated) Psych/Mental Status: Other (Sedated) Medications Current Medications Medications Dose Ordered Sig/Richard Route Start Time Stop Time Status Last Admin Dose Admin Midazolam HCl 50 ml @ 1 mls/hr Q24H IV 06/05/24 04:35 06/13/24 08:18 6 MLS/HR Albuterol 2.5 mg Q4HPRN PRN NEB 06/05/24 11:00 Albuterol 2.5 mg Q6HR NEB 06/05/24 12:00 06/18/24 11:47 2.5 MG Ipratropium [place] 0.5 mg Q4HPRN PRN NEB 06/05/24 11:00 Ipratropium [place] 0.5 mg Q6HR NEB 06/05/24 12:00 06/18/24 11:47 0.5 MG Pantoprazole Sodium 40 mg DAILY IV 06/06/24 10:00 06/18/24 10:10 40 MG Calcium Acetate 667 mg TID NG 06/06/24 14:00 06/18/24 05:11 667 MG Enteral Nutritional Formula 1,000 ml 30ML/HR GT 06/06/24 23:00 06/17/24 22:44 1,000 ML Docusate Sodium 100 mg BID GT 06/07/24 10:00 06/18/24 10:10 100 MG Heparin Sodium (Porcine) 5,000 units Q12HR SC 06/07/24 10:00 06/18/24 10:27 5,000 UNITS Norepinephrine Bitartrate 250 ml @ 3.75 mls/hr Q24H IV 06/08/24 05:15 06/14/24 05:11 3.75 MLS/HR Hydralazine HCl 10 mg Q6HP PRN IV 06/08/24 14:30 UNV Hydralazine HCl 10 mg Q6HP PRN IV 06/08/24 14:30 06/16/24 04:44 10 MG Lorazepam 1 mg Q5MINP PRN IV 06/09/24 19:30 06/15/24 11:56 1 MG Multivit/Ca Carb/ B Cmplx/FA/Prenat 1 tab DAILY NG 06/10/24 12:00 06/18/24 10:10 1 TAB Levetiracetam 750 mg/Sodium Chloride 107.5 ml @ 430 mls/hr BID IV 06/10/24 22:00 06/18/24 10:21 430 MLS/HR Sodium Chloride 10 ml QSHIFT@10,22 IV 06/11/24 22:00 06/18/24 10:22 10 ML Piperacillin Sod/ Tazobactam Sod 100 ml @ 25 mls/hr Q12H IV 06/11/24 20:00 06/18/24 08:28 25 MLS/HR Propofol 100 ml @ 2.124 mls/ hr Q24H IV 06/12/24 04:30 06/18/24 15:48 10.62 MLS/HR Mupirocin 1 applic DAILY TOP 06/14/24 11:30 06/18/24 10:34 1 APPLIC Labetalol HCl 5 mg Q2HPRN PRN IV 06/14/24 18:15 06/18/24 05:13 5 MG Insulin Glargine 13 units BID SC 06/16/24 10:00 06/17/24 22:34 13 UNITS Diagnostic Test (Pha) 1 strip Q6HR 06/16/24 12:00 06/18/24 18:21 1 STRIP Insulin Human Regular Q6HR SC 06/16/24 12:00 06/18/24 18:22 2 UNITS Dextrose 50 ml UD PRN IV 06/16/24 10:15 Morphine Sulfate 2 mg Q2HPRN PRN IV 06/18/24 14:45 Lorazepam 2 mg Q2HP PRN IV 06/18/24 14:45 Laboratory Results Laboratory Tests 06/18/24 03:15 Chemistry Test 06/18/24 03:15 Albumin 3.3 g/dL (3.2-4.8) Calcium Level 10.8 mg/dL (8.7-10.4) H Magnesium Level 2.2 mg/dL (1.6-2.6) Total Protein 6.2 g/dL (5.7-8.2) LFT Test 06/18/24 03:15 Alanine Aminotransferase (ALT) 77 U/L (7-40) H Alkaline Phosphatase 230 U/L (46-116) H Aspartate Amino Transferase (AST) 62 U/L (13-40) H Total Bilirubin 0.2 mg/dL (0.2-1.0) Urinalysis Test 06/06/24 15:21 Urine Color Colorless (Yellow) Urine Clarity Clear (Clear) Urine pH 7.5 (5.0-9.0) Urine Specific [place] 1.011 (1.001-1.035) Urine Protein 2+ (Negative) H Urine Ketones Negative (Negative) Urine Blood Trace /uL (Negative) H Urine Nitrite Negative (Negative) Urine Bilirubin Negative (Negative) Urine Urobilinogen Normal mg/dL (Negative) Urine Leukocyte Esterase Negative /uL (Negative) Urine RBC None seen /hpf (0 - 3) Urine WBC 1 /hpf (0 - 3) Urine Squamous Epithelial Cells None seen /hpf (<5) Urine Bacteria None seen /hpf (None Seen) Urine Creatinine 15.02 mg/dL (30.0-125.0) L Urine Protein/Creatinine Ratio 14.84 Urine Sodium 137 mmol/L (40-220) Urine Glucose 3+ mg/dL (Normal) H Urine Total Protein 222.9 mg/dL (1-14) H Blood Gas Results Test 06/18/24 09:19 Arterial Blood pH 7.419 (7.350-7.450) FiO2 % 30.0 Microbiology Microbiology Date/Time Source Procedure Growth Status 06/11/24 16:15 Catheter Tip Other Aerobic Culture - Final Complete 06/10/24 22:30 Sputum Gram Stain - Final Complete 06/10/24 22:30 Sputum Respiratory Culture - Final Complete 06/07/24 10:21 Peritoneal Fluid Gram Stain - Final Complete 06/07/24 10:21 Peritoneal Fluid Body Fluid Culture - Final Complete 06/05/24 05:00 Blood Blood Culture - Final NO GROWTH AFTER 5 DAYS OF INCUBATION. Complete Labs and/or images reviewed: Labs reviewed by me, Image(s) reviewed by me Assessment/Plan Assessment/Plan 06/18 - plan for terminal weaning today. cough gag present, pupils pinpoint. NEUROLOGY # ? anoxic/ hypoxic encephalopathy # ? anoxic brain injury - currently on mechanical ventilator - ordered head CT, no acute intracranial pathology except mild cortical atrophy and showed severe paranasal sinus disease with soft tissue swelling of left temporal scalp # Acute CVA, Ischemic stroke - New MRI showed acute to subacute posterior right cerebellum infarct changes - neuro on board # Seizure like activity r/o # Myoclonus # Rule out status epileptics -ordered MRI, Diffusion restriction of the bilateral medial occipital lobe sulci with prominence on the T2 Flair images could be seen with ishemic changes. -consulted neurology,advised to continue ongoing treatment along with Keppra CARDIOVASCULAR # cardiopulmonary arrest status post CPR with ROSC # Septic shock likely due to peritoneal origin # NSTEMI likely due to demand mediated # ? acute on chronic diastolic heart failure # ? Coronary artery disease, moderate degree # HX hypertension, uncontrolled # Dyslipidemia, newly diagnosed - ordered pancultures, along with peritoneal fluid analysis and culture, preliminary is negative - monitor lab - added fentanyl 06/09 Dc06/14 - echo showed LVEF 45% - Cefepime DC 06/10 switched to Zosyn 06/10. stop zosyn. DC vancomysin 06/16 - Currently stopped vancomycin and Zosyn - no abx - on versed and prop # Acute transient AFib with RVR - monitor - correct electrolytes if needed - cardiology on board RESPIRATORY # Acute hypoxic respiratory failure likely due to septic shock # septic shock # ?aspiration pneumonia - ABG reviewed, CXR dialy - CXR reviewed, , diffuse lung disease likely edema or pneumonia - Cefepime DC 06/10 switched to Zosyn 06/10. d/c-ed - Flagylstarted 06/07, DC06/10 - ventilatory settings: RR 16, VT 500, peep 5, FiO2 30% - Dc Vanco 06/16 - No Abx currently. - PLAN TERMINAL WEAN TODAY GI/LIVER # Pneumoperitoneum # Thickened appendix with appendicoliths - Evident on CT abdominal pelvis - consulted surgeon, advised no surgical intervention for now # likely acute bacterial peritonitis - currently on antibiotics vancomysin, Zosyn - monitor lab - Fluid sent to cell count, negative but pending culture - Dc vancomysin 06/16 - PUD prophylaxis pantoprazole /KIDNEY/METABOLIC # ESRD on peritoneal dialysis - Nephrology onboard - currently undergoing peritoneal dialysis - Monitor renal function - Monitor electrolytes. Supplement as necessary. - Monitor ins and outs. ENDO # type 2 DM with HbA1c 6.3 - Accu-Cheks and ISS - Lantus 13 units BID and aggressive ISS MSK HEME # Thrombocytopenia - monitor lab - held heparin ID # likely bacterial peritonitis # septic shock likely due to above - currently on antibiotics - monitor lab - Fluid sent to cell count, negative but pending culture SKIN - Intact peritoneal dialysis catheter LINES Intubated 06/05 Right femoral vein catheter DC 06/10 PICC line 06/10 Castano catheter DRIPS Versed, DC 06/14 Diprivan DC 06/14 Fetanyl DC 06/14 Currently Off from Levophed 06/10 Propofol started again 06/15 NUTRITION Nepro 30ml/hr Goals of care/advance care planning; FULL CODE; discussed on for 27 minutes. PUD prophylaxis: Pantoprazole DVT prophylaxis: Heparin Goals of care has been discussed with the for more than 27 minutes, full code status(no CPR or defibrillation if coded again) Plan discussed with: Patient My Orders Orders - BIANCA WYLIE MD Procedure Category Date Status Time Rt To Terminal Wean Pt ORDERS 06/18/24 Transmitted 10:29 DNR FAY 06/18/24 In Process 14:36 Morphine Sulfate PHA 06/18/24 In Process Injection 14:45 Lorazepam 2mg/Ml Inj PHA 06/18/24 In Process (Ativan Inj) 14:45 Date of Service: Jun 18, 2024 Billing Provider: BIANCA WYLIE MD Common Visit Codes: [id number] CARE-EACH +30MIN BIANCA WYLIE MD Jun 18, 2024 18:41
--- NOTE | 2024-06-18 23:31 | DVHPN2 ---
Progress Note - Dictate Date Seen: Jun 18, 2024 Medical Necessity Reason Pt with a Central, PICC or Fol: Yes The following are medically ne: PICC Line, Reeder Catheter Reason for reeder catheter: Strict I&O Subjective Patient seen and examined at bedside. Sedated, intubated on mechanical ventilator. Overnight events reviewed. vital signs Vital Sign Date Time Temp Pulse Resp B/P (MAP) Pulse Ox O2 Delivery O2 Flow Rate FiO2 06/18/24 22:07 89 16 111/68 (82) 98 30 06/18/24 20:00 Mechanical Ventilator+ 06/18/24 16:00 98.9 98.9 Total Intake and Output 06/17/24 06/17/24 06/18/24 14:59 22:59 06:59 Intake Total 292.46 ml 6554.96 ml 2436.96 ml Output Total 6800 ml Balance 292.46 ml -245.04 ml 2436.96 ml medications Current Medications Medications Dose Ordered Sig/Richard Route Start Time Stop Time Status Last Admin Dose Admin Midazolam HCl 50 ml @ 1 mls/hr Q24H IV 06/05/24 04:35 06/13/24 08:18 6 MLS/HR Albuterol 2.5 mg Q4HPRN PRN NEB 06/05/24 11:00 Albuterol 2.5 mg Q6HR NEB 06/05/24 12:00 06/18/24 11:47 2.5 MG Ipratropium [place] 0.5 mg Q4HPRN PRN NEB 06/05/24 11:00 Ipratropium [place] 0.5 mg Q6HR [facility] 06/05/24 12:00 06/18/24 11:47 0.5 MG Pantoprazole Sodium 40 mg DAILY IV 06/06/24 10:00 06/18/24 10:10 40 MG Calcium Acetate 667 mg TID NG 06/06/24 14:00 06/18/24 05:11 667 MG Enteral Nutritional Formula 1,000 ml 30ML/HR GT 06/06/24 23:00 06/17/24 22:44 1,000 ML Docusate Sodium 100 mg BID GT 06/07/24 10:00 06/18/24 10:10 100 MG Heparin Sodium (Porcine) 5,000 units Q12HR SC 06/07/24 10:00 06/18/24 10:27 5,000 UNITS Norepinephrine Bitartrate 250 ml @ 3.75 mls/hr Q24H IV 06/08/24 05:15 06/14/24 05:11 3.75 MLS/HR Hydralazine HCl 10 mg Q6HP PRN IV 06/08/24 14:30 UNV Hydralazine HCl 10 mg Q6HP PRN IV 06/08/24 14:30 06/16/24 04:44 10 MG Lorazepam 1 mg Q5MINP PRN IV 06/09/24 19:30 06/15/24 11:56 1 MG Multivit/Ca Carb/ B Cmplx/FA/Prenat 1 tab DAILY NG 06/10/24 12:00 06/18/24 10:10 1 TAB Levetiracetam 750 mg/Sodium Chloride 107.5 ml @ 430 mls/hr BID IV 06/10/24 22:00 06/18/24 21:10 430 MLS/HR Sodium Chloride 10 ml QSHIFT@10,22 IV 06/11/24 22:00 06/18/24 21:29 10 ML Piperacillin Sod/ Tazobactam Sod 100 ml @ 25 mls/hr Q12H IV 06/11/24 20:00 06/18/24 21:28 25 MLS/HR Propofol 100 ml @ 2.124 mls/ hr Q24H IV 06/12/24 04:30 06/18/24 21:29 10.62 MLS/HR Mupirocin 1 applic DAILY TOP 06/14/24 11:30 06/18/24 10:34 1 APPLIC Labetalol HCl 5 mg Q2HPRN PRN IV 06/14/24 18:15 06/18/24 05:13 5 MG Insulin Glargine 13 units BID SC 06/16/24 10:00 06/17/24 22:34 13 UNITS Diagnostic Test (Pha) 1 strip Q6HR 06/16/24 12:00 06/18/24 18:21 1 STRIP Insulin Human Regular Q6HR SC 06/16/24 12:00 06/18/24 18:22 2 UNITS Dextrose 50 ml UD PRN IV 06/16/24 10:15 Morphine Sulfate 2 mg Q2HPRN PRN IV 06/18/24 14:45 Lorazepam 2 mg Q2HP PRN IV 06/18/24 14:45 objective Gen.: Patient lying in bed in medical ICU. Sedated, intubated on mechanical ventilator. Head: Normocephalic, atraumatic. Eyes: PERRLA. Ears: Normal external anatomy. Throat: Endotracheal tube and orogastric tube in place. Neck: Supple, trachea midline. Chest: Transmitted breath sounds bilaterally. Decreased air entry bilaterally. No wheezing. Bibasilar crackles. Cardiovascular: Positive S1, positive S2. Regular rate and rhythm. Abdomen: Positive bowel sounds in all 4 quadrants. Soft, nontender, nondistended. : Reeder in place. Normal external genitalia. Rectal: Deferred. Skin: Warm, dry. Intact. Extremities: 2+ radial pulses bilaterally. No lower extremity edema. Neuro: Sedated. laboratory and microbiology Laboratory Tests 06/18/24 03:15 Test 06/18/24 03:15 Range/Units Serum Glucose 83 # 74-106 mg/dL Assessment/Plan Impression: Acute hypoxic respiratory failure On mechanical ventilator S/p cardiac arrest s/p ROSC Lactic acidosis Metabolic acidosis Elevated troponin End-stage renal disease, on peritoneal dialysis Pulmonary edema. Aspiration pneumonia Atelectasis Events: Remains on vent support On AC mode; RR 16, VT 500, PEEP 5, FiO2 30% Sedated on Propofol Continue antibiotics Tube feeds for nutritional support Family deciding on compassionate extubation. Supportive care. CT abdomen-pelvis: repeat with contrast PO/IV Rule out perforated bowel Surgery recs appreciated. ESRD, on PD PD per Nephrology Monitor renal function Prolonged down time Poor prognosis Followup Neurology recs Labs and imaging reviewed. Rest of plan as noted below. Plan: s/p intubation on mechanical ventilator. On AC mode; RR 16, VT 500, PEEP 5, FiO2 30% Titrate FIO2 to keep O2 saturation above 90%. VAP bundle. Daily ABG and CXR while intubated Sedate for ventilator synchrony Pressors as necessary for hemodynamic support Titrate to keep mean arterial pressure greater than 65 mmHg. Follow up Echo results Follow up Cardiology recommendations Continue antibiotics. F/u cultures. Monitor renal function Monitor electrolytes. Supplement as necessary. Monitor ins and outs. PD per Nephrology Nephrology recs appreciated GI prophylaxis. DVT prophylaxis. Prognosis: Poor given patient's multiple co-morbidities. Condition: Critical Rest of plan per hospitalist and other consultants. A total of 35 minutes of critical care time was spent reviewing the patient record, examining the patient, making a diagnostic and therapeutic plan, discussing this plan with the medical personnel, following up on diagnostic studies and following the patient for clinical stability excluding any and all procedures. At least 50% of this time was spent in direct, [id number] contact. Thank you, ALEXANDRIA Britton, for allowing me to participate in this patient's care. Further recommendations will depend on the patient's clinical course. Please do not hesitate to contact me if you have any questions or concerns. This medical document was created using an electronic medical record system with [employer] dictation system. Although these documentations are being carefully reviewed, there may still be some phonetic and typographical changes. The errors are purely typographical, due to imperfection on the software program, and do not reflect any compromise in the patient's medical care. Dietary Evaluation Review Comments: Inccrease protein intake to meet pt's needs. 1. TPN clinimix @41ml/hr provides 42.5g potein 510 kcal, can be a supplement to pt's nepro @30ml/hrproviding 58g pro and 1274 kcal The combined total will be 100.5g pro and 1784 kcal. 2. Offer only TF-Pivot 1.5 @50ml/hr providees 113g pro andd 1800 kcal. 3. Advance to PO 2 gNa high protein diet when pt is off Vent and back to peritoneal dialysis routine. Expected Outcomes/Goals: improved protein status, resume dialysis routine, kellie BEDOYA, Plan discussed with: Other (ALEKSANDAR Pelaez) Critical Care Time(min): 35 AJIT CARDONA MD Jun 18, 2024 23:31
[2024-06-19] VITALS (110 sets, daily range): BP systolic 106–196; BP diastolic 61–100; PULSE 77–93; RESP 13–25; TEMP 98–98.6; O2SAT 95–100
[2024-06-19 03:40] LABS: Basophils # (auto) 0.1 10 ^3/uL (0-0.2); Eosinophils # (auto) 0.6 10 ^3/uL (0-0.8); Lymphocytes # (auto) 1.4 10 ^3/uL (0.4-5.4); Lymphocytes % (auto) 8.6 % (10.0-50.0); Platelet Count (auto) 543 10^3/uL (140-450)
[2024-06-19 03:44] LABS: Basophils % (auto) 0.8 % (0.0-2.0); Eosinophils % (auto) 3.8 % (0.0-7.0); Hematocrit 32.5 % (41.0-53.0); Hemoglobin 10.7 g/dL (13.5-17.5); Mean Corpuscular Hemoglobin 29.8 pg (28.0-32.0); Mean Corpuscular Hgb Conc. 32.9 g/dL (32.0-36.0); Mean Corpuscular Volume 90.6 fL (80.0-100.0); Monocytes # (auto) 1.4 10 ^3/uL (0-1.3); Monocytes % (auto) 8.5 % (0.0-12.0); Neutrophils # (auto) 12.8 10 ^3/uL (1.6-8.6); Neutrophils % (auto) 78.3 % (37.0-80.0); Red Blood Cells 3.59 10^6/uL (4.5-5.90); Red Cell Distribution Width 17.4 % (11.8-14.3); White Blood Cell 16.3 10^3/uL (4.4-10.8)
[2024-06-19 03:58] LABS: Anion Gap 16 (5-15); BUN/Creatinine Ratio 7.5 (10.0-20.0); Carbon Dioxide 24 mmol/L (20-31); Magnesium 2.5 mg/dL (1.6-2.6); Potassium 4.3 mmol/L (3.5-5.1)
[2024-06-19 04:01] LABS: Total Protein 5.7 g/dL (5.7-8.2)
[2024-06-19 04:21] LABS: Alanine Aminotransferase 70 U/L (7-40); Albumin 3.1 g/dL (3.2-4.8); Alkaline Phosphatase 258 U/L (46-116); Aspartate Aminotransferase 53 U/L (13-40); Bilirubin, Total 0.2 mg/dL (0.2-1.0); Blood Urea Nitrogen 77 mg/dL (9-23); Chloride 89 mmol/L (98-107); Glucose 184 mg/dL (74-106); Sodium 129 mmol/L (136-145)
[2024-06-19 07:30] LABS: Base Excess -2.5 mmol/L (-2.0-3.0)
--- NOTE | 2024-06-19 10:42 | DVHPN2 ---
Subjective update 06/19 06/18 - plan for terminal weaning today. cough gag present, pupils pinpoint. 06/19 - no changes today. jian is on board and have had meeting with family yesterday. family delaying weaning, waiting for daughter in law who is in L&D. Reviewed: Care Plan, H&P, Labs, Medications, Previous Orders, Radiology, Other (Consultations) Changes from previous H/P or p: No Changes General: Per HPI Objective Vitals Vital Signs Date Time Temp Pulse Resp B/P (MAP) Pulse Ox O2 Delivery O2 Flow Rate FiO2 06/19/24 09:53 88 19 151/85 (107) 100 30 06/19/24 07:45 Mechanical Ventilator+ 06/19/24 04:00 98.0 98.0 Intake/Output Intake and Output 06/19/24 07:00 Intake Total 1337.82 ml Output Total 2300 ml Balance -962.18 ml IV Total 569.82 ml Tube Feeding 768 ml Other 2300 ml Exam General Appearance: Sedated, on mechanical ventilation RR 16, VT 500, peep 5, FiO2 30% HEENT: Atraumatic, Mucous membranes moist/pink Respiratory: Clear to auscultation, Normal air movement, No added sounds Cardiovascular: Regular rate, Normal S1, Normal S2, No murmurs Abdominal: Active bowel sounds, Soft, distended likely due to fluid , peritoneal dialysis catheter intact Extremities:No edema, no cyanosis, PICC line intact in RUE Skin: No Significant rash, except past surgical scars Neuro: pupils dilated, sluggish to react, weak cough and gag reflex General Appearance: Other (Intubated and sedated) HEENT: Atraumatic Lungs: Other (Mechanical ventilation sounds) Cardiovascular: Regular rate, Normal S1, Normal S2 Abdomen: Normal bowel sounds, Soft, Other (Peritoneal dialysis catheter in place) Genitourinary: Other (Castano's catheter) Neuro: Other (Sedated) Psych/Mental Status: Other (Sedated) Medications Current Medications Medications Dose Ordered Sig/Richard Route Start Time Stop Time Status Last Admin Dose Admin Midazolam HCl 50 ml @ 1 mls/hr Q24H IV 06/05/24 04:35 06/13/24 08:18 6 MLS/HR Albuterol 2.5 mg Q4HPRN PRN NEB 06/05/24 11:00 Albuterol 2.5 mg Q6HR NEB 06/05/24 12:00 06/19/24 06:49 2.5 MG Ipratropium [place] 0.5 mg Q4HPRN PRN NEB 06/05/24 11:00 Ipratropium [place] 0.5 mg Q6HR NEB 06/05/24 12:00 06/19/24 06:49 0.5 MG Pantoprazole Sodium 40 mg DAILY IV 06/06/24 10:00 06/19/24 09:33 40 MG Calcium Acetate 667 mg TID NG 06/06/24 14:00 06/18/24 05:11 667 MG Enteral Nutritional Formula 1,000 ml 30ML/HR GT 06/06/24 23:00 06/17/24 22:44 1,000 ML Docusate Sodium 100 mg BID GT 06/07/24 10:00 06/19/24 09:33 100 MG Heparin Sodium (Porcine) 5,000 units Q12HR SC 06/07/24 10:00 06/19/24 09:35 5,000 UNITS Norepinephrine Bitartrate 250 ml @ 3.75 mls/hr Q24H IV 06/08/24 05:15 06/14/24 05:11 3.75 MLS/HR Hydralazine HCl 10 mg Q6HP PRN IV 06/08/24 14:30 UNV Hydralazine HCl 10 mg Q6HP PRN IV 06/08/24 14:30 06/16/24 04:44 10 MG Lorazepam 1 mg Q5MINP PRN IV 06/09/24 19:30 06/15/24 11:56 1 MG Multivit/Ca Carb/ B Cmplx/FA/Prenat 1 tab DAILY NG 06/10/24 12:00 06/19/24 09:33 1 TAB Levetiracetam 750 mg/Sodium Chloride 107.5 ml @ 430 mls/hr BID IV 06/10/24 22:00 06/18/24 21:10 430 MLS/HR Sodium Chloride 10 ml QSHIFT@10,22 IV 06/11/24 22:00 06/19/24 09:33 10 ML Piperacillin Sod/ Tazobactam Sod 100 ml @ 25 mls/hr Q12H IV 06/11/24 20:00 06/19/24 08:13 25 MLS/HR Propofol 100 ml @ 2.124 mls/ hr Q24H IV 06/12/24 04:30 06/19/24 05:59 10.62 MLS/HR Mupirocin 1 applic DAILY TOP 06/14/24 11:30 06/19/24 09:20 1 APPLIC Labetalol HCl 5 mg Q2HPRN PRN IV 06/14/24 18:15 06/18/24 05:13 5 MG Insulin Glargine 13 units BID SC 06/16/24 10:00 06/17/24 22:34 13 UNITS Diagnostic Test (Pha) 1 strip Q6HR 06/16/24 12:00 06/19/24 05:56 1 STRIP Insulin Human Regular Q6HR SC 06/16/24 12:00 06/19/24 06:01 4 UNITS Dextrose 50 ml UD PRN IV 06/16/24 10:15 Morphine Sulfate 2 mg Q2HPRN PRN IV 06/18/24 14:45 Lorazepam 2 mg Q2HP PRN IV 06/18/24 14:45 Laboratory Results Laboratory Tests 06/19/24 02:46 Chemistry Test 06/19/24 02:46 Albumin 3.1 g/dL (3.2-4.8) L Calcium Level 10.0 mg/dL (8.7-10.4) Magnesium Level 2.5 mg/dL (1.6-2.6) Phosphorus Level 9.0 mg/dL (2.4-5.1) H Total Protein 5.7 g/dL (5.7-8.2) LFT Test 06/19/24 02:46 Alanine Aminotransferase (ALT) 70 U/L (7-40) H Alkaline Phosphatase 258 U/L (46-116) H Aspartate Amino Transferase (AST) 53 U/L (13-40) H Total Bilirubin 0.2 mg/dL (0.2-1.0) Urinalysis Test 06/06/24 15:21 Urine Color Colorless (Yellow) Urine Clarity Clear (Clear) Urine pH 7.5 (5.0-9.0) Urine Specific [place] 1.011 (1.001-1.035) Urine Protein 2+ (Negative) H Urine Ketones Negative (Negative) Urine Blood Trace /uL (Negative) H Urine Nitrite Negative (Negative) Urine Bilirubin Negative (Negative) Urine Urobilinogen Normal mg/dL (Negative) Urine Leukocyte Esterase Negative /uL (Negative) Urine RBC None seen /hpf (0 - 3) Urine WBC 1 /hpf (0 - 3) Urine Squamous Epithelial Cells None seen /hpf (<5) Urine Bacteria None seen /hpf (None Seen) Urine Creatinine 15.02 mg/dL (30.0-125.0) L Urine Protein/Creatinine Ratio 14.84 Urine Sodium 137 mmol/L (40-220) Urine Glucose 3+ mg/dL (Normal) H Urine Total Protein 222.9 mg/dL (1-14) H Blood Gas Results Test 06/19/24 07:14 Arterial Blood pH 7.375 (7.350-7.450) FiO2 % 30.0 Microbiology Microbiology Date/Time Source Procedure Growth Status 06/11/24 16:15 Catheter Tip Other Aerobic Culture - Final Complete 06/10/24 22:30 Sputum Gram Stain - Final Complete 06/10/24 22:30 Sputum Respiratory Culture - Final Complete 06/07/24 10:21 Peritoneal Fluid Gram Stain - Final Complete 06/07/24 10:21 Peritoneal Fluid Body Fluid Culture - Final Complete 06/05/24 05:00 Blood Blood Culture - Final NO GROWTH AFTER 5 DAYS OF INCUBATION. Complete Labs and/or images reviewed: Labs reviewed by me, Image(s) reviewed by me Assessment/Plan Assessment/Plan 06/19 - no changes today. jian is on board and have had meeting with family yesterday. family delaying weaning, waiting for daughter in law who is in L&D. NEUROLOGY # ? anoxic/ hypoxic encephalopathy # ? anoxic brain injury - currently on mechanical ventilator - ordered head CT, no acute intracranial pathology except mild cortical atrophy and showed severe paranasal sinus disease with soft tissue swelling of left temporal scalp # Acute CVA, Ischemic stroke - New MRI showed acute to subacute posterior right cerebellum infarct changes - neuro on board # Seizure like activity r/o # Myoclonus # Rule out status epileptics -ordered MRI, Diffusion restriction of the bilateral medial occipital lobe sulci with prominence on the T2 Flair images could be seen with ishemic changes. -consulted neurology,advised to continue ongoing treatment along with [facility] CARDIOVASCULAR # cardiopulmonary arrest status post CPR with ROSC # Septic shock likely due to peritoneal origin # NSTEMI likely due to demand mediated # ? acute on chronic diastolic heart failure # ? Coronary artery disease, moderate degree # HX hypertension, uncontrolled # Dyslipidemia, newly diagnosed - ordered pancultures, along with peritoneal fluid analysis and culture, preliminary is negative - monitor lab - added fentanyl 06/09 Dc06/14 - echo showed LVEF 45% - Cefepime DC 06/10 switched to Zosyn 06/10. stop zosyn. DC vancomysin 06/16 - Currently stopped vancomycin and Zosyn - no abx - on versed and prop # Acute transient AFib with RVR - monitor - correct electrolytes if needed - cardiology on board RESPIRATORY # Acute hypoxic respiratory failure likely due to septic shock # septic shock # ?aspiration pneumonia - ABG reviewed, CXR dialy - CXR reviewed, , diffuse lung disease likely edema or pneumonia - Cefepime DC 06/10 switched to Zosyn 06/10. d/c-ed - Flagylstarted 06/07, DC06/10 - ventilatory settings: RR 16, VT 500, peep 5, FiO2 30% - Dc Vanco 06/16 - No Abx currently. - PLAN TERMINAL WEAN TODAY GI/LIVER # Pneumoperitoneum # Thickened appendix with appendicoliths - Evident on CT abdominal pelvis - consulted surgeon, advised no surgical intervention for now # likely acute bacterial peritonitis - currently on antibiotics vancomysin, Zosyn - monitor lab - Fluid sent to cell count, negative but pending culture - Dc vancomysin 06/16 - PUD prophylaxis pantoprazole /KIDNEY/METABOLIC # ESRD on peritoneal dialysis - Nephrology onboard - currently undergoing peritoneal dialysis - Monitor renal function - Monitor electrolytes. Supplement as necessary. - Monitor ins and outs. ENDO # type 2 DM with HbA1c 6.3 - Accu-Cheks and ISS - Lantus 13 units BID and aggressive ISS MSK HEME # Thrombocytopenia - monitor lab - held heparin ID # likely bacterial peritonitis # septic shock likely due to above - currently on antibiotics - monitor lab - Fluid sent to cell count, negative but pending culture SKIN - Intact peritoneal dialysis catheter LINES Intubated 06/05 Right femoral vein catheter DC 06/10 PICC line 06/10 Castano catheter DRIPS Versed, DC 06/14 Diprivan DC 06/14 Fetanyl DC 06/14 Currently Off from Levophed 06/10 Propofol started again 06/15 NUTRITION Nepro 30ml/hr Goals of care/advance care planning; FULL CODE; discussed on for 27 minutes. PUD prophylaxis: Pantoprazole DVT prophylaxis: Heparin Goals of care has been discussed with the for more than 27 minutes, full code status(no CPR or defibrillation if coded again) Plan discussed with: Other My Orders Orders - BIANCA WYLIE MD Procedure Category Date Status Time DNR FAY 06/18/24 In Process 14:36 Morphine Sulfate PHA 06/18/24 In Process Injection 14:45 Lorazepam 2mg/Ml Inj PHA 06/18/24 In Process (Ativan Inj) 14:45 Code Status CODE 06/18/24 Transmitted 18:39 Date of Service: Jun 19, 2024 Billing Provider: BIANCA WYLIE MD Common Visit Codes: 30889-[id number] CARE-EACH +30MIN BIANCA WYLIE MD Jun 19, 2024 10:42
--- NOTE | 2024-06-19 18:58 | DVHPN2 ---
Progress Note Date Seen: Jun 19, 2024 Medical Necessity Reason Pt with a Central, PICC or Fol: Yes The following are medically ne: PICC Line, Reeder Catheter Reason for reeder catheter: Strict I&O Subjective Review of Systems: RESPIRATORY:Abnormal Objective vital signs Vital Sign Date Time Temp Pulse Resp B/P (MAP) Pulse Ox O2 Delivery O2 Flow Rate FiO2 06/19/24 18:29 87 18 138/68 (91) 96 30 06/19/24 18:15 98.4 98.4 06/19/24 07:45 Mechanical Ventilator+ Total Intake and Output 06/18/24 06/18/24 06/19/24 15:00 23:00 07:00 Intake Total 292.46 ml 570.46 ml 474.90 ml Output Total 2300 ml Balance 292.46 ml -1729.54 ml 474.90 ml medications Current Medications Medications Dose Ordered Sig/Richard Route Start Time Stop Time Status Last Admin Dose Admin Midazolam HCl 50 ml @ 1 mls/hr Q24H IV 06/05/24 04:35 06/13/24 08:18 6 MLS/HR Albuterol 2.5 mg Q4HPRN PRN NEB 06/05/24 11:00 Albuterol 2.5 mg Q6HR NEB 06/05/24 12:00 06/19/24 18:29 2.5 MG Ipratropium [place] 0.5 mg Q4HPRN PRN NEB 06/05/24 11:00 Ipratropium [place] 0.5 mg Q6HR [facility] 06/05/24 12:00 06/19/24 18:29 0.5 MG Pantoprazole Sodium 40 mg DAILY IV 06/06/24 10:00 06/19/24 09:33 40 MG Calcium Acetate 667 mg TID NG 06/06/24 14:00 06/19/24 13:21 667 MG Enteral Nutritional Formula 1,000 ml 30ML/HR GT 06/06/24 23:00 06/17/24 22:44 1,000 ML Docusate Sodium 100 mg BID GT 06/07/24 10:00 06/19/24 09:33 100 MG Heparin Sodium (Porcine) 5,000 units Q12HR SC 06/07/24 10:00 06/19/24 09:35 5,000 UNITS Norepinephrine Bitartrate 250 ml @ 3.75 mls/hr Q24H IV 06/08/24 05:15 06/14/24 05:11 3.75 MLS/HR Hydralazine HCl 10 mg Q6HP PRN IV 06/08/24 14:30 UNV Hydralazine HCl 10 mg Q6HP PRN IV 06/08/24 14:30 06/19/24 17:44 10 MG Lorazepam 1 mg Q5MINP PRN IV 06/09/24 19:30 06/15/24 11:56 1 MG Multivit/Ca Carb/ B Cmplx/FA/Prenat 1 tab DAILY NG 06/10/24 12:00 06/19/24 09:33 1 TAB Sodium Chloride 10 ml QSHIFT@10,22 IV 06/11/24 22:00 06/19/24 09:33 10 ML Piperacillin Sod/ Tazobactam Sod 100 ml @ 25 mls/hr Q12H IV 06/11/24 20:00 06/19/24 08:13 25 MLS/HR Propofol 100 ml @ 2.124 mls/ hr Q24H IV 06/12/24 04:30 06/19/24 18:03 10.62 MLS/HR Mupirocin 1 applic DAILY TOP 06/14/24 11:30 06/19/24 09:20 1 APPLIC Labetalol HCl 5 mg Q2HPRN PRN IV 06/14/24 18:15 06/19/24 16:59 5 MG Insulin Glargine 13 units BID SC 06/16/24 10:00 06/19/24 10:00 13 UNITS Diagnostic Test (Pha) 1 strip Q6HR 06/16/24 12:00 06/19/24 16:59 1 STRIP Insulin Human Regular Q6HR SC 06/16/24 12:00 06/19/24 16:57 4 UNITS Dextrose 50 ml UD PRN IV 06/16/24 10:15 Morphine Sulfate 2 mg Q2HPRN PRN IV 06/18/24 14:45 Lorazepam 2 mg Q2HP PRN IV 06/18/24 14:45 Levetiracetam 750 mg/Sodium Chloride 107.5 ml @ 430 mls/hr Q12H IV 06/19/24 20:00 Examination: GENERAL:Abnormal, LUNGS:Abnormal, ABDOMEN:Abnormal, SKIN:Abnormal laboratory and microbiology Laboratory Tests 06/19/24 02:46 Test 06/19/24 02:46 Range/Units Serum Glucose 184 #H 74-106 mg/dL Microbiology Date/Time Source Procedure Growth Status 06/11/24 16:15 Catheter Tip Other Aerobic Culture - Final Complete 06/10/24 22:30 Sputum Gram Stain - Final Complete 06/10/24 22:30 Sputum Respiratory Culture - Final Complete 06/07/24 10:21 Peritoneal Fluid Gram Stain - Final Complete 06/07/24 10:21 Peritoneal Fluid Body Fluid Culture - Final Complete 06/05/24 05:00 Blood Blood Culture - Final NO GROWTH AFTER 5 DAYS OF INCUBATION. Complete Problem List/Assessment/Plan Problem List/Assessment/Plan End-stage renal disease on home peritioneal dialysis, out of the area Acute respiratory failure intubated on ventilator Status post cardiac arrest Septic shock Aspiration pneumonia Congestive heart failure, ejection fraction 45% Anemia of chronic kidney disease, well compensated Hyperphosphatemia Hypokalemia anoxic brain injury supportive care family plans terminal wean Plan discussed with: Other Dietary Evaluation Review Comments: Inccrease protein intake to meet pt's needs. 1. TPN clinimix @41ml/hr provides 42.5g potein 510 kcal, can be a supplement to pt's nepro @30ml/hrproviding 58g pro and 1274 kcal The combined total will be 100.5g pro and 1784 kcal. 2. Offer only TF-Pivot 1.5 @50ml/hr providees 113g pro andd 1800 kcal. 3. Advance to PO 2 gNa high protein diet when pt is off Vent and back to peritoneal dialysis routine. Expected Outcomes/Goals: improved protein status, resume dialysis routine, kellie BEDOYA, MARGY ANDRADE MD Jun 19, 2024 18:58
[2024-06-19] MEDS: levETIRAcetam INJ 750 MG in SODIUM CHL 0.9% 100 ML IV SCH (20:25)
--- NOTE | 2024-06-19 20:29 | DVHPN2 ---
Progress Note - Dictate Date Seen: Jun 19, 2024 Medical Necessity Reason Pt with a Central, PICC or Fol: Yes The following are medically ne: PICC Line, Reeder Catheter Reason for reeder catheter: Strict I&O Subjective Patient seen and examined at bedside. Sedated, intubated on mechanical ventilator. Overnight events reviewed. vital signs Vital Sign Date Time Temp Pulse Resp B/P (MAP) Pulse Ox O2 Delivery O2 Flow Rate FiO2 06/19/24 18:37 88 19 112/61 (78) 95 30 06/19/24 18:15 98.4 98.4 06/19/24 07:45 Mechanical Ventilator+ Total Intake and Output 06/18/24 06/18/24 06/19/24 15:00 23:00 07:00 Intake Total 292.46 ml 570.46 ml 474.90 ml Output Total 2300 ml Balance 292.46 ml -1729.54 ml 474.90 ml medications Current Medications Medications Dose Ordered Sig/Richard Route Start Time Stop Time Status Last Admin Dose Admin Midazolam HCl 50 ml @ 1 mls/hr Q24H IV 06/05/24 04:35 06/13/24 08:18 6 MLS/HR Albuterol 2.5 mg Q4HPRN PRN NEB 06/05/24 11:00 Albuterol 2.5 mg Q6HR NEB 06/05/24 12:00 06/19/24 18:29 2.5 MG Ipratropium [place] 0.5 mg Q4HPRN PRN NEB 06/05/24 11:00 Ipratropium [place] 0.5 mg Q6HR [facility] 06/05/24 12:00 06/19/24 18:29 0.5 MG Pantoprazole Sodium 40 mg DAILY IV 06/06/24 10:00 06/19/24 09:33 40 MG Calcium Acetate 667 mg TID NG 06/06/24 14:00 06/19/24 13:21 667 MG Enteral Nutritional Formula 1,000 ml 30ML/HR GT 06/06/24 23:00 06/17/24 22:44 1,000 ML Docusate Sodium 100 mg BID GT 06/07/24 10:00 06/19/24 09:33 100 MG Heparin Sodium (Porcine) 5,000 units Q12HR SC 06/07/24 10:00 06/19/24 09:35 5,000 UNITS Norepinephrine Bitartrate 250 ml @ 3.75 mls/hr Q24H IV 06/08/24 05:15 06/14/24 05:11 3.75 MLS/HR Hydralazine HCl 10 mg Q6HP PRN IV 06/08/24 14:30 UNV Hydralazine HCl 10 mg Q6HP PRN IV 06/08/24 14:30 06/19/24 17:44 10 MG Lorazepam 1 mg Q5MINP PRN IV 06/09/24 19:30 06/15/24 11:56 1 MG Multivit/Ca Carb/ B Cmplx/FA/Prenat 1 tab DAILY NG 06/10/24 12:00 06/19/24 09:33 1 TAB Sodium Chloride 10 ml QSHIFT@10,22 IV 06/11/24 22:00 06/19/24 09:33 10 ML Piperacillin Sod/ Tazobactam Sod 100 ml @ 25 mls/hr Q12H IV 06/11/24 20:00 06/19/24 08:13 25 MLS/HR Propofol 100 ml @ 2.124 mls/ hr Q24H IV 06/12/24 04:30 06/19/24 18:03 10.62 MLS/HR Mupirocin 1 applic DAILY TOP 06/14/24 11:30 06/19/24 09:20 1 APPLIC Labetalol HCl 5 mg Q2HPRN PRN IV 06/14/24 18:15 06/19/24 16:59 5 MG Insulin Glargine 13 units BID SC 06/16/24 10:00 06/19/24 10:00 13 UNITS Diagnostic Test (Pha) 1 strip Q6HR 06/16/24 12:00 06/19/24 16:59 1 STRIP Insulin Human Regular Q6HR SC 06/16/24 12:00 06/19/24 16:57 4 UNITS Dextrose 50 ml UD PRN IV 06/16/24 10:15 Morphine Sulfate 2 mg Q2HPRN PRN IV 06/18/24 14:45 Lorazepam 2 mg Q2HP PRN IV 06/18/24 14:45 Levetiracetam 750 mg/Sodium Chloride 107.5 ml @ 430 mls/hr Q12H IV 06/19/24 20:00 Icodextrin 2,000 ml Q12HR IP 06/19/24 22:00 objective Gen.: Patient lying in bed in medical ICU. Sedated, intubated on mechanical ventilator. Head: Normocephalic, atraumatic. Eyes: PERRLA. Ears: Normal external anatomy. Throat: Endotracheal tube and orogastric tube in place. Neck: Supple, trachea midline. Chest: Transmitted breath sounds bilaterally. Decreased air entry bilaterally. No wheezing. Bibasilar crackles. Cardiovascular: Positive S1, positive S2. Regular rate and rhythm. Abdomen: Positive bowel sounds in all 4 quadrants. Soft, nontender, nondistended. : Reeder in place. Normal external genitalia. Rectal: Deferred. Skin: Warm, dry. Intact. Extremities: 2+ radial pulses bilaterally. No lower extremity edema. Neuro: Sedated. laboratory and microbiology Laboratory Tests 06/19/24 02:46 Test 06/19/24 02:46 Range/Units Serum Glucose 184 #H 74-106 mg/dL Assessment/Plan Impression: Acute hypoxic respiratory failure On mechanical ventilator S/p cardiac arrest s/p ROSC Lactic acidosis Metabolic acidosis Elevated troponin End-stage renal disease, on peritoneal dialysis Pulmonary edema. Aspiration pneumonia Atelectasis Events: Remains on vent support On AC mode; RR 16, VT 500, PEEP 5, FiO2 30% ABG reviewed, compensated. Sedated on Propofol Continue antibiotics Tube feeds for nutritional support Awaiting family for compassionate extubation. Supportive care. Plan for PD tonight Nephrology recs appreciated. Surgery recs appreciated. ESRD, on PD PD per Nephrology Monitor renal function Prolonged down time Poor prognosis Followup Neurology recs Labs and imaging reviewed. Rest of plan as noted below. Plan: s/p intubation on mechanical ventilator. On AC mode; RR 16, VT 500, PEEP 5, FiO2 30% Titrate FIO2 to keep O2 saturation above 90%. VAP bundle. Daily ABG and CXR while intubated Sedate for ventilator synchrony Pressors as necessary for hemodynamic support Titrate to keep mean arterial pressure greater than 65 mmHg. Follow up Echo results Follow up Cardiology recommendations Continue antibiotics. F/u cultures. Monitor renal function Monitor electrolytes. Supplement as necessary. Monitor ins and outs. PD per Nephrology Nephrology recs appreciated GI prophylaxis. DVT prophylaxis. Prognosis: Poor given patient's multiple co-morbidities. Condition: Critical Rest of plan per hospitalist and other consultants. A total of 35 minutes of critical care time was spent reviewing the patient record, examining the patient, making a diagnostic and therapeutic plan, discussing this plan with the medical personnel, following up on diagnostic studies and following the patient for clinical stability excluding any and all procedures. At least 50% of this time was spent in direct, [id number] contact. Thank you, ALEXANDRIA Britton, for allowing me to participate in this patient's care. Further recommendations will depend on the patient's clinical course. Please do not hesitate to contact me if you have any questions or concerns. This medical document was created using an electronic medical record system with [employer] dictation system. Although these documentations are being carefully reviewed, there may still be some phonetic and typographical changes. The errors are purely typographical, due to imperfection on the software program, and do not reflect any compromise in the patient's medical care. Dietary Evaluation Review Comments: Inccrease protein intake to meet pt's needs. 1. TPN clinimix @41ml/hr provides 42.5g potein 510 kcal, can be a supplement to pt's nepro @30ml/hrproviding 58g pro and 1274 kcal The combined total will be 100.5g pro and 1784 kcal. 2. Offer only TF-Pivot 1.5 @50ml/hr providees 113g pro andd 1800 kcal. 3. Advance to PO 2 gNa high protein diet when pt is off Vent and back to peritoneal dialysis routine. Expected Outcomes/Goals: improved protein status, resume dialysis routine, kellie BEDOYA, Plan discussed with: Other (ALEKSANDAR Burnette) Critical Care Time(min): 35 AJIT CARDONA MD Jun 19, 2024 20:29
[2024-06-19] MEDS: PERITONEAL DIALYSIS IP SCH (21:50)
[2024-06-20] VITALS (108 sets, daily range): BP systolic 115–195; BP diastolic 52–111; PULSE 61–93; RESP 12–19; TEMP 98.4–98.8; O2SAT 98–100
[2024-06-20 04:12] LABS: Basophils # (auto) 0.1 10 ^3/uL (0-0.2); Lymphocytes # (auto) 1.5 10 ^3/uL (0.4-5.4); Mean Corpuscular Hemoglobin 29.9 pg (28.0-32.0); Mean Corpuscular Hgb Conc. 33.4 g/dL (32.0-36.0); Mean Corpuscular Volume 89.4 fL (80.0-100.0); Monocytes # (auto) 1.4 10 ^3/uL (0-1.3)
[2024-06-20 04:19] LABS: Basophils % (auto) 0.3 % (0.0-2.0); Eosinophils # (auto) 0.7 10 ^3/uL (0-0.8); Eosinophils % (auto) 3.8 % (0.0-7.0); Hematocrit 35.9 % (41.0-53.0); Lymphocytes % (auto) 8.1 % (10.0-50.0); Monocytes % (auto) 7.2 % (0.0-12.0); Neutrophils # (auto) 15.2 10 ^3/uL (1.6-8.6); Neutrophils % (auto) 80.6 % (37.0-80.0); Platelet Count (auto) 661 10^3/uL (140-450); Red Blood Cells 4.01 10^6/uL (4.5-5.90); Red Cell Distribution Width 17.8 % (11.8-14.3); White Blood Cell 18.8 10^3/uL (4.4-10.8)
[2024-06-20 04:31] LABS: Albumin 3.5 g/dL (3.2-4.8); Anion Gap 20 (5-15); BUN/Creatinine Ratio 8.2 (10.0-20.0); Carbon Dioxide 21 mmol/L (20-31); Potassium 4.1 mmol/L (3.5-5.1); Total Protein 6.6 g/dL (5.7-8.2)
[2024-06-20 04:50] LABS: Alanine Aminotransferase 68 U/L (7-40); Alkaline Phosphatase 346 U/L (46-116); Aspartate Aminotransferase 51 U/L (13-40); Blood Urea Nitrogen 91 mg/dL (9-23); Calcium 10.5 mg/dL (8.7-10.4); Chloride 88 mmol/L (98-107); Glucose 160 mg/dL (74-106); Sodium 129 mmol/L (136-145)
[2024-06-20 04:51] LABS: Bilirubin, Total 0.2 mg/dL (0.2-1.0)
--- NOTE | 2024-06-20 05:17 | DVH ---
CHEST RADIOGRAPH Indication: intubated Technique: Single frontal view of the chest was obtained COMPARISON: XY CHEST XRAY 1 VIEW on DOS: 06/18/24, XY CHEST XRAY 1 VIEW on DOS: 06/17/24, XY CHEST XRAY 1 VIEW on DOS: 06/16/24, XY CHEST XRAY 1 VIEW on DOS: 06/15/24, XY CHEST XRAY 1 VIEW on DOS: 06/14/24 FINDINGS: Lines and Tubes: Endotracheal tube, enteric catheter in satisfactory position. Right PICC tip in the right atrium. Lungs: Congestion Pleura: No effusion. No pneumothorax. Cardiomediastinal contours: Cardiomegaly Bones: Unremarkable IMPRESSION: Lines and tubes in satisfactory position. No significant interval change.
[2024-06-20] MEDS ORDERED: LORazepam 2MG/ML-1ML VIAL IV PRN (07:45)
[2024-06-20] MEDS ORDERED: MORPHINE SULFATE INJ 2 MG/ml SYRG IV PRN (07:45)
--- NOTE | 2024-06-20 13:07 | DVHPN2 ---
Progress Note - Dictate Date Seen: Jun 20, 2024 Medical Necessity Reason Pt with a Central, PICC or Fol: Yes The following are medically ne: PICC Line, Reeder Catheter Reason for reeder catheter: Strict I&O Subjective Mr. Montano is a 53 years old right-handed gentleman with a history of d iabetes, coronary artery disease, end-stage kidney failure on peritoneal dialysis, the patient was was brought to the [facility] on 06/05/24 with CPR ongoing. I have seen and examined the patient, discussed with his nurse. He only responsive to strong painful stimuli. His and son are in the room with him, and have updated and discussed with them about his condition, in the likely poor prognosis for meaningful recovery The family has decided terminal wean on him I have discussed with the [employer] His parents are in the room, and I have updated them about patient condition, and likely poor prognosis for meaningful recovery He is on sedation Blood culture, 06/05/24: No growth Peritoneal fluid culture, 06/07/2024: UDS, 06/06/2024: Benzo Urinalysis, 06/06/2024: WBC: 1, urine leukocyte esterase: Negative ABG, 06/05/2024: Combined metabolic and respiratory acidosis, WBC/HB/PLT/MCV, 06/08/2024: 19/10.3/106/90.9 Na, 06/06/2019 5:132, 06/08/2024: Moderate BUN/CR, 06/05/2024: 57/15.78, 06/08/2024: 78/14.78 Lactic acid, 06/05/24: 6.7, 3.5 HGB A1c, 06/05/2019 5:6.3 One high sensitivity, 05/1924: 566, 698, 643 Liver function tests, 06/08/2024: Normal TG/HDL/LDL/HDL, 06/05/2024: 174/208/143/33 TSH, 06/05/2024: 5.41 Chest x-ray, 06/08/2024: 1. Bibasilar opacities which may reflect atelectasis or pneumonia. 2. Stable position of the support lines and tubes CT head, 06/06/2024: No acute intracranial pathology in the brain. Mild cortical atrophy Severe paranasal sinus disease Soft tissue swelling left temporal scalp MRI head, 06/09/2024: 1. There is no acute intracranial process. 2. Nonspecific 8 mm focus of blooming artifact in the left thalamic region May relate to chronic microhemorrhage. There is no discrete lesion identified on the other sequences to suggest a cavernoma. 3. Nonspecific small hyperintense T2 and hypointense T1 focus in the left paramidline anterior erika. Small chronic ischemic focus is not excluded. (addendum: Diffusion restriction of the bilateral medial occipital lobe sulci with prominence on the T2 Flair images could be seen with ishemic changes. Consider Follow up MRI brain) MRI head, 06/13/2024: 1. New focus of restricted diffusion in the posterior right cerebellum compatible with an acute to subacute infarct. There is no evidence of acute hemorrhage or surrounding edema. There is no significant associated mass effect. 2. Stable nonspecific 8 mm focus of blooming artifact in the left thalamic region. 3. Stable nonspecific small hyperintense T2 and hypointense T1 focus in the left paramedian anterior erika vital signs Vital Sign Date Time Temp Pulse Resp B/P (MAP) Pulse Ox O2 Delivery O2 Flow Rate FiO2 06/20/24 13:00 67 16 141/79 (99) 99 06/20/24 12:00 30 06/20/24 12:00 98.8 98.8 06/20/24 08:00 Mechanical Ventilator+ Total Intake and Output 06/19/24 06/19/24 06/20/24 15:00 23:00 07:00 Intake Total 84.96 ml 552.46 ml 1446.068 ml Output Total 0 ml 2 ml Balance 84.96 ml 552.46 ml 1444.068 ml medications Current Medications Medications Dose Ordered Sig/Richard Route Start Time Stop Time Status Last Admin Dose Admin Midazolam HCl 50 ml @ 1 mls/hr Q24H IV 06/05/24 04:35 06/13/24 08:18 6 MLS/HR Albuterol 2.5 mg Q4HPRN PRN NEB 06/05/24 11:00 Albuterol 2.5 mg Q6HR NEB 06/05/24 12:00 06/20/24 11:56 2.5 MG Ipratropium [place] 0.5 mg Q4HPRN PRN NEB 06/05/24 11:00 Ipratropium [place] 0.5 mg Q6HR NEB 06/05/24 12:00 06/20/24 11:56 0.5 MG Pantoprazole Sodium 40 mg DAILY IV 06/06/24 10:00 06/20/24 09:42 40 MG Calcium Acetate 667 mg TID NG 06/06/24 14:00 06/20/24 05:29 667 MG Enteral Nutritional Formula 1,000 ml 30ML/HR GT 06/06/24 23:00 06/17/24 22:44 1,000 ML Docusate Sodium 100 mg BID GT 06/07/24 10:00 06/19/24 21:48 100 MG Heparin Sodium (Porcine) 5,000 units Q12HR SC 06/07/24 10:00 06/20/24 09:43 5,000 UNITS Norepinephrine Bitartrate 250 ml @ 3.75 mls/hr Q24H IV 06/08/24 05:15 06/14/24 05:11 3.75 MLS/HR Hydralazine HCl 10 mg Q6HP PRN IV 06/08/24 14:30 UNV Hydralazine HCl 10 mg Q6HP PRN IV 06/08/24 14:30 06/20/24 06:51 10 MG Lorazepam 1 mg Q5MINP PRN IV 06/09/24 19:30 06/15/24 11:56 1 MG Multivit/Ca Carb/ B Cmplx/FA/Prenat 1 tab DAILY NG 06/10/24 12:00 06/20/24 09:41 1 TAB Sodium Chloride 10 ml QSHIFT@10,22 IV 06/11/24 22:00 06/20/24 09:42 10 ML Piperacillin Sod/ Tazobactam Sod 100 ml @ 25 mls/hr Q12H IV 06/11/24 20:00 06/20/24 08:52 25 MLS/HR Propofol 100 ml @ 2.124 mls/ hr Q24H IV 06/12/24 04:30 06/20/24 06:54 14.868 MLS/HR Mupirocin 1 applic DAILY TOP 06/14/24 11:30 06/20/24 09:42 1 APPLIC Labetalol HCl 5 mg Q2HPRN PRN IV 06/14/24 18:15 06/20/24 04:24 5 MG Insulin Glargine 13 units BID SC 06/16/24 10:00 06/19/24 21:50 13 UNITS Diagnostic Test (Pha) 1 strip Q6HR 06/16/24 12:00 06/20/24 12:00 1 STRIP Insulin Human Regular Q6HR SC 06/16/24 12:00 06/20/24 05:32 2 UNITS Dextrose 50 ml UD PRN IV 06/16/24 10:15 Morphine Sulfate 2 mg Q2HPRN PRN IV 06/18/24 14:45 Lorazepam 2 mg Q2HP PRN IV 06/18/24 14:45 Levetiracetam 750 mg/Sodium Chloride 107.5 ml @ 430 mls/hr Q12H IV 06/19/24 20:00 06/20/24 08:00 430 MLS/HR Icodextrin 2,000 ml Q12HR IP 06/19/24 22:00 06/20/24 10:10 2,000 ML objective The patient is well-nourished and well-developed with no distress. The patient is intubated MENTAL STATUS: Subjective CRANIAL NERVES: Pupils are equal, round and reactive. There are corneal reflexes and doll's eyes phenomenon. No signs of facial weakness. There are gagging or coughing reflexes SENSATION: No responses to pain stimuli. MOTOR: Normal tone in the upper and lower extremity. Normal muscle bulk. No fasciculations. No spontaneous movement. REFLEXES: Deep tendon reflexes are symmetrical. No pathological reflexes. CEREBELLAR/COORDINATION: Deferred GAIT/STATION: deferred laboratory and microbiology Laboratory Tests 06/20/24 03:22 Test 06/20/24 03:22 Range/Units Serum Glucose 160 H 74-106 mg/dL Problem List Abnormal movement, Myoclonus Rule out status epileptics Coma Hypoxic encephalopathy Metabolic encephalopathy Toxic encephalopathy Cardiopulmonary arrest, status post CPR Metabolic acidosis Respiratory acidosis Coronary artery disease Heart attack Leukocytosis/sepsis/septic shock Pneumonia Assessment/Plan Monitoring Supportive screaming ICU care Respiratory support/vent management Stabilize vitals Oxygen IV antibiotics Versed drip with p.r.n. Ativan for tremor/myoclonus control Keppra 750 mg b.i.d., consider wean off Keppra later DVT prophylax/heparin GI prophylax/Protonix IV antibiotics Cardiology on case Pulmonology on case Nephrology on case He is likely to have a poor prognosis for meaningful recovery More recommendation per clinical course This medical document was created using an electronic medical record system with [employer] computerized dictation system. Although this document has been carefully reviewed, there may still be some phonetic and typographical errors. These areas are purely typographical due to imperfections of the software programs, and do not reflect any compromise in the patient's medical care Prognosis guarded Dietary Evaluation Review Comments: Inccrease protein intake to meet pt's needs. 1. TPN clinimix @41ml/hr provides 42.5g potein 510 kcal, can be a supplement to pt's nepro @30ml/hrproviding 58g pro and 1274 kcal The combined total will be 100.5g pro and 1784 kcal. 2. Offer only TF-Pivot 1.5 @50ml/hr providees 113g pro andd 1800 kcal. 3. Advance to PO 2 gNa high protein diet when pt is off Vent and back to peritoneal dialysis routine. Expected Outcomes/Goals: improved protein status, resume dialysis routine, kellie BEDOYA, Plan discussed with: Other Critical Care Time(min): 40 TINO DOLAN MD Jun 20, 2024 13:07
--- NOTE | 2024-06-20 15:57 | DVHPN2 ---
Progress Note Date Seen: Jun 20, 2024 Medical Necessity Reason Pt with a Central, PICC or Fol: Yes The following are medically ne: PICC Line, Reeder Catheter Reason for reeder catheter: Strict I&O Subjective Patient reports: Other (Patient remains intubated son and bedside) Review of Systems: Deferred Objective vital signs Vital Sign Date Time Temp Pulse Resp B/P (MAP) Pulse Ox O2 Delivery O2 Flow Rate FiO2 06/20/24 15:45 65 16 125/74 (91) 99 06/20/24 14:11 30 06/20/24 12:00 98.8 98.8 06/20/24 08:00 Mechanical Ventilator+ Total Intake and Output 06/19/24 06/19/24 06/20/24 15:00 23:00 07:00 Intake Total 84.96 ml 552.46 ml 1446.068 ml Output Total 0 ml 2 ml Balance 84.96 ml 552.46 ml 1444.068 ml medications Current Medications Medications Dose Ordered Sig/Richard Route Start Time Stop Time Status Last Admin Dose Admin Midazolam HCl 50 ml @ 1 mls/hr Q24H IV 06/05/24 04:35 06/13/24 08:18 6 MLS/HR Albuterol 2.5 mg Q4HPRN PRN NEB 06/05/24 11:00 Albuterol 2.5 mg Q6HR NEB 06/05/24 12:00 06/20/24 11:56 2.5 MG Ipratropium [place] 0.5 mg Q4HPRN PRN [facility] 06/05/24 11:00 Ipratropium [place] 0.5 mg Q6HR [facility] 06/05/24 12:00 06/20/24 11:56 0.5 MG Pantoprazole Sodium 40 mg DAILY IV 06/06/24 10:00 06/20/24 09:42 40 MG Calcium Acetate 667 mg TID NG 06/06/24 14:00 06/20/24 14:59 667 MG Enteral Nutritional Formula 1,000 ml 30ML/HR GT 06/06/24 23:00 06/17/24 22:44 1,000 ML Docusate Sodium 100 mg BID GT 06/07/24 10:00 06/19/24 21:48 100 MG Heparin Sodium (Porcine) 5,000 units Q12HR SC 06/07/24 10:00 06/20/24 09:43 5,000 UNITS Norepinephrine Bitartrate 250 ml @ 3.75 mls/hr Q24H IV 06/08/24 05:15 06/14/24 05:11 3.75 MLS/HR Hydralazine HCl 10 mg Q6HP PRN IV 06/08/24 14:30 UNV Hydralazine HCl 10 mg Q6HP PRN IV 06/08/24 14:30 06/20/24 06:51 10 MG Lorazepam 1 mg Q5MINP PRN IV 06/09/24 19:30 06/15/24 11:56 1 MG Multivit/Ca Carb/ B Cmplx/FA/Prenat 1 tab DAILY NG 06/10/24 12:00 06/20/24 09:41 1 TAB Sodium Chloride 10 ml QSHIFT@10,22 IV 06/11/24 22:00 06/20/24 09:42 10 ML Propofol 100 ml @ 2.124 mls/ hr Q24H IV 06/12/24 04:30 06/20/24 13:24 14.868 MLS/HR Mupirocin 1 applic DAILY TOP 06/14/24 11:30 06/20/24 09:42 1 APPLIC Labetalol HCl 5 mg Q2HPRN PRN IV 06/14/24 18:15 06/20/24 04:24 5 MG Diagnostic Test (Pha) 1 strip Q6HR 06/16/24 12:00 06/20/24 12:00 1 STRIP Insulin Human Regular Q6HR SC 06/16/24 12:00 06/20/24 05:32 2 UNITS Dextrose 50 ml UD PRN IV 06/16/24 10:15 Morphine Sulfate 2 mg Q2HPRN PRN IV 06/18/24 14:45 Levetiracetam 750 mg/Sodium Chloride 107.5 ml @ 430 mls/hr Q12H IV 06/19/24 20:00 06/20/24 08:00 430 MLS/HR Examination: GENERAL:Abnormal, NEURO:Abnormal laboratory and microbiology Laboratory Tests 06/20/24 03:22 Test 06/20/24 03:22 Range/Units Serum Glucose 160 H 74-106 mg/dL Microbiology Date/Time Source Procedure Growth Status 06/11/24 16:15 Catheter Tip Other Aerobic Culture - Final Complete 06/10/24 22:30 Sputum Gram Stain - Final Complete 06/10/24 22:30 Sputum Respiratory Culture - Final Complete 06/07/24 10:21 Peritoneal Fluid Gram Stain - Final Complete 06/07/24 10:21 Peritoneal Fluid Body Fluid Culture - Final Complete 06/05/24 05:00 Blood Blood Culture - Final NO GROWTH AFTER 5 DAYS OF INCUBATION. Complete Problem List/Assessment/Plan Problem List/Assessment/Plan End-stage renal disease on home peritioneal dialysis, out of the area Acute respiratory failure intubated on ventilator Status post cardiac arrest Septic shock Aspiration pneumonia Congestive heart failure, ejection fraction 45% Anemia of chronic kidney disease, well compensated Hyperphosphatemia Hypokalemia anoxic brain injury recs Patient's and son bedside--patient's requested to stop peritoneal dialysis No further renal recommendations I will sign off this case Plan discussed with: Spouse, Son, Other Dietary Evaluation Review Comments: Inccrease protein intake to meet pt's needs. 1. TPN clinimix @41ml/hr provides 42.5g potein 510 kcal, can be a supplement to pt's nepro @30ml/hrproviding 58g pro and 1274 kcal The combined total will be 100.5g pro and 1784 kcal. 2. Offer only TF-Pivot 1.5 @50ml/hr providees 113g pro andd 1800 kcal. 3. Advance to PO 2 gNa high protein diet when pt is off Vent and back to peritoneal dialysis routine. Expected Outcomes/Goals: improved protein status, resume dialysis routine, kellie BEDOYA, STEFANIE JACKSON MD Jun 20, 2024 15:57
--- NOTE | 2024-06-20 18:48 | DVHPNRES ---
Progress Note Date Seen: Jun 20, 2024 Resident Creating Document: PAUL FRYE RESIDENT Medical Necessity Reason Pt with a Central, PICC or Fol: Yes The following are medically ne: PICC Line, Reeder Catheter Reason for reeder catheter: Strict I&O Subjective Review of Systems YOLI GALICIA is a 53-year-old male with a PMH of type 2 DM, ESRD on peritoneal dialysis, HTN presented to the ED with cardiopulmonary arrest. Patient seen and examined at the bedside along with the family. Unable to obtain ROS due to patient clinical status. Currently intubated with the mechanical ventilation. monitoring. Family refused dialysis. Changes from previous H/P or p: No Changes Objective vital signs Vital Sign Date Time Temp Pulse Resp B/P (MAP) Pulse Ox O2 Delivery O2 Flow Rate FiO2 06/20/24 18:00 67 06/20/24 18:00 30 06/20/24 17:30 17 130/77 (94) 99 06/20/24 12:00 98.8 98.8 06/20/24 08:00 Mechanical Ventilator+ Total Intake and Output 06/19/24 06/19/24 06/20/24 15:00 23:00 07:00 Intake Total 84.96 ml 552.46 ml 1446.068 ml Output Total 0 ml 2 ml Balance 84.96 ml 552.46 ml 1444.068 ml medications Current Medications Medications Dose Ordered Sig/Richard Route Start Time Stop Time Status Last Admin Dose Admin Midazolam HCl 50 ml @ 1 mls/hr Q24H IV 06/05/24 04:35 06/13/24 08:18 6 MLS/HR Albuterol 2.5 mg Q4HPRN PRN NEB 06/05/24 11:00 Albuterol 2.5 mg Q6HR NEB 06/05/24 12:00 06/20/24 11:56 2.5 MG Ipratropium [place] 0.5 mg Q4HPRN PRN NEB 06/05/24 11:00 Ipratropium [place] 0.5 mg Q6HR NEB 06/05/24 12:00 06/20/24 11:56 0.5 MG Pantoprazole Sodium 40 mg DAILY IV 06/06/24 10:00 06/20/24 09:42 40 MG Calcium Acetate 667 mg TID NG 06/06/24 14:00 06/20/24 14:59 667 MG Enteral Nutritional Formula 1,000 ml 30ML/HR GT 06/06/24 23:00 06/17/24 22:44 1,000 ML Docusate Sodium 100 mg BID GT 06/07/24 10:00 06/19/24 21:48 100 MG Heparin Sodium (Porcine) 5,000 units Q12HR SC 06/07/24 10:00 06/20/24 09:43 5,000 UNITS Norepinephrine Bitartrate 250 ml @ 3.75 mls/hr Q24H IV 06/08/24 05:15 06/14/24 05:11 3.75 MLS/HR Hydralazine HCl 10 mg Q6HP PRN IV 06/08/24 14:30 UNV Hydralazine HCl 10 mg Q6HP PRN IV 06/08/24 14:30 06/20/24 06:51 10 MG Lorazepam 1 mg Q5MINP PRN IV 06/09/24 19:30 06/15/24 11:56 1 MG Multivit/Ca Carb/ B Cmplx/FA/Prenat 1 tab DAILY NG 06/10/24 12:00 06/20/24 09:41 1 TAB Sodium Chloride 10 ml QSHIFT@10,22 IV 06/11/24 22:00 06/20/24 09:42 10 ML Propofol 100 ml @ 2.124 mls/ hr Q24H IV 06/12/24 04:30 06/20/24 13:24 14.868 MLS/HR Mupirocin 1 applic DAILY TOP 06/14/24 11:30 06/20/24 09:42 1 APPLIC Labetalol HCl 5 mg Q2HPRN PRN IV 06/14/24 18:15 06/20/24 04:24 5 MG Diagnostic Test (Pha) 1 strip Q6HR 06/16/24 12:00 06/20/24 17:47 1 STRIP Insulin Human Regular Q6HR SC 06/16/24 12:00 06/20/24 05:32 2 UNITS Dextrose 50 ml UD PRN IV 06/16/24 10:15 Morphine Sulfate 2 mg Q2HPRN PRN IV 06/18/24 14:45 Levetiracetam 750 mg/Sodium Chloride 107.5 ml @ 430 mls/hr Q12H IV 06/19/24 20:00 06/20/24 08:00 430 MLS/HR Examination Pt is lying on bed, General Appearance: Sedated, on mechanical ventilation RR 16, VT 500, peep 5, FiO2 30% HEENT: Atraumatic, Mucous membranes moist/pink Respiratory: Clear to auscultation, Normal air movement, No added sounds Cardiovascular: Regular rate, Normal S1, Normal S2, No murmurs Abdominal: Active bowel sounds, Soft, distended likely due to fluid , peritoneal dialysis catheter intact Extremities:No edema, no cyanosis, PICC line intact in RUE Skin: No Significant rash, except past surgical scars Neuro: pupils dilated, sluggish to react, weak cough and gag reflex laboratory and microbiology Laboratory Tests 06/20/24 03:22 Test 06/20/24 03:22 Range/Units Serum Glucose 160 H 74-106 mg/dL Microbiology Date/Time Source Procedure Growth Status 06/11/24 16:15 Catheter Tip Other Aerobic Culture - Final Complete 06/10/24 22:30 Sputum Gram Stain - Final Complete 06/10/24 22:30 Sputum Respiratory Culture - Final Complete 06/07/24 10:21 Peritoneal Fluid Gram Stain - Final Complete 06/07/24 10:21 Peritoneal Fluid Body Fluid Culture - Final Complete 06/05/24 05:00 Blood Blood Culture - Final NO GROWTH AFTER 5 DAYS OF INCUBATION. Complete Labs and/or images reviewed: Labs reviewed by me, Image(s) reviewed by me Problem List/Assessment/Plan Problem List/Assessment/Plan NEUROLOGY # ? anoxic/ hypoxic encephalopathy # ? anoxic brain injury - currently on mechanical ventilator - ordered head CT, no acute intracranial pathology except mild cortical atrophy and showed severe paranasal sinus disease with soft tissue swelling of left temporal scalp # ACute CVA, Ischemic stroke - New MRI showed acute to subacute posterior right cerebellum infarct changes - neuro on board # Seizure like activity r/o # Myoclonus # Rule out status epileptics -ordered MRI, Diffusion restriction of the bilateral medial occipital lobe sulci with prominence on the T2 Flair images could be seen with ishemic changes. -consulted neurology,advised to continue ongoing treatment along with Keppra CARDIOVASCULAR # cardiopulmonary arrest status post CPR with ROSC # Septic shock likely due to peritoneal origin # NSTEMI likely due to demand mediated # ? acute on chronic diastolic heart failure # ? Coronary artery disease, moderate degree # HX hypertension, uncontrolled # Dyslipidemia, newly diagnosed - ordered pancultures, along with peritoneal fluid analysis and culture, preliminary is negative - monitor lab - Off from Levophed, since 06/06 - started levophed today and later discontinued. - currently on Versed and Diprivan DC06/14 - added fentanyl 06/09 Dc06/14 - echo showed LVEF 45% - Currently on vancomycin and Zosyn - Cefepime DC 06/10 switched to Zosyn 06/10 - hydralazine p.r.n. - DC vancomysin 06/16 # Acute transient AFib with RVR - monitor - correct electrolytes if needed - cardiology on board RESPIRATORY # Acute hypoxic respiratory failure likely due to septic shock # septic shock # ? aspiration pneumonia - ABG reviewed, CXR dialy - CXR reviewed, , diffuse lung disease likely edema or pneumonia - Currently on vancomycin and Zosyn - Cefepime DC 06/10 switched to Zosyn 06/10 - Flagylstarted 06/07, DC06/10 - ventilatory settings: RR 16, VT 500, peep 5, FiO2 30% - Dc Vanco 06/16 GI/LIVER # Pneumoperitoneum # Thickened appendix with appendicoliths - Evident on CT abdominal pelvis - consulted surgeon, advised no surgical intervention for now # likely acute bacterial peritonitis - currently on antibiotics vancomysin, Zosyn - monitor lab - Fluid sent to cell count, negative but pending culture - Dc vancomysin 06/16 - PUD prophylaxis pantoprazole /KIDNEY/METABOLIC # ESRD on peritoneal dialysis - Nephrology onboard - no hemodialysis per family request as they choose terminal weaning - Monitor renal function - Monitor electrolytes. Supplement as necessary. - Monitor ins and outs. ENDO # type 2 DM with HbA1c 6.3 - Accu-Cheks and ISS -Lantus 13 units BID and aggressive ISS MSK HEME # Thrombocytopenia - monitor lab - held heparin ID # likely bacterial peritonitis # septic shock likely due to above - currently on antibiotics - monitor lab - Fluid sent to cell count, negative but pending culture SKIN - Intact peritoneal dialysis catheter LINES Intubated 06/05 Right femoral vein catheter DC 06/10 PICC line 06/10 Reeder catheter DRIPS Versed, DC 06/14 Diprivan DC 06/14 Fetanyl DC 06/14 Currently Off from Levophed 06/10 Propofol started again 06/15 NUTRITION Nepro 30ml/hr Goals of care/advance care planning; FULL CODE; discussed on for 27 minutes. PUD prophylaxis: Pantoprazole DVT prophylaxis: Heparin Goals of care has been discussed with the for more than 27 minutes, full code status(no CPR or defibrillation if coded again) Critical care time including chart review, discussing with the patient's family excluding procedures: 57 minutes Family meeting 06/15 to discuss goals of care for 40 mins , addressed and provided answers for all questions. Family meeting again done today, they want terminal weaning for patient whenever they are ready. Case discussed with Dr. Tanner. Plan discussed with: Spouse, Son Dietary Evaluation Review Comments: Inccrease protein intake to meet pt's needs. 1. TPN clinimix @41ml/hr provides 42.5g potein 510 kcal, can be a supplement to pt's nepro @30ml/hrproviding 58g pro and 1274 kcal The combined total will be 100.5g pro and 1784 kcal. 2. Offer only TF-Pivot 1.5 @50ml/hr providees 113g pro andd 1800 kcal. 3. Advance to PO 2 gNa high protein diet when pt is off Vent and back to peritoneal dialysis routine. Expected Outcomes/Goals: improved protein status, resume dialysis routine, kellie BW, Date of Service: Jun 20, 2024 Billing Provider: JOSE TANNER MD Common Visit Codes: [id number] CARE 30-74 MIN PAUL FRYE RESIDENT Jun 20, 2024 18:48 JOSE TANNER MD Jun 21, 2024 12:39
[2024-06-20] MEDS: NTG 0.1MG/HR TOPICAL PATCH TD ONE (23:31)
[2024-06-21] VITALS (105 sets, daily range): BP systolic 82–192; BP diastolic 51–101; PULSE 64–99; RESP 13–18; TEMP 96.3–97.9; O2SAT 95–100
[2024-06-21 00:19] LABS: Basophils # (auto) 0.2 10 ^3/uL (0-0.2); Hematocrit 22.4 % (41.0-53.0); Monocytes # (auto) 0.7 10 ^3/uL (0-1.3); Monocytes % (auto) 4.7 % (0.0-12.0); Neutrophils # (auto) 10.1 10 ^3/uL (1.6-8.6); Red Blood Cells 2.52 10^6/uL (4.5-5.90)
[2024-06-21 00:22] LABS: Basophils % (auto) 1.2 % (0.0-2.0); Eosinophils % (auto) 7.5 % (0.0-7.0); Hemoglobin 7.3 g/dL (13.5-17.5); Lymphocytes % (auto) 14.3 % (10.0-50.0); Mean Corpuscular Hgb Conc. 32.8 g/dL (32.0-36.0); Mean Corpuscular Volume 88.6 fL (80.0-100.0); Neutrophils % (auto) 72.3 % (37.0-80.0); Platelet Count (auto) 689 10^3/uL (140-450); Red Cell Distribution Width 17.6 % (11.8-14.3)
--- NOTE | 2024-06-21 00:28 | DVH ---
INDICATION: FOR [employer] TECHNIQUE: Multiple real-time sonographic images of the abdomen were obtained. COMPARISON: None FINDINGS: Liver is homogenous in echogenicity. The liver measures 16.5 cm. No intrahepatic biliary ductal dilatation is noted. The gallbladder is suboptimally visualized. The common bile duct is suboptimally visualized. The right kidney measures 8.9 cm. No hydronephrosis. The left kidney measures 8.5 cm. No hydronephros is. Right lower pole cyst measures 0.9 cm. The spleen measures 12.3 cm, within normal limits. The echogenicity is within normal limits. The pancreas is not well visualized due to obscuration from bowel gas. The visualized portions of the IVC and aorta are grossly unremarkable. IMPRESSION: Liver measures 16.5 cm. Right kidney measures 8.9 cm. Left kidney measures 8.5 cm. Spleen measures 12.3 cm.
[2024-06-21 00:30] LABS: Amylase 30 U/L (30-118); Anion Gap 19 (5-15); Glucose 96 mg/dL (74-106); Potassium 4.6 mmol/L (3.5-5.1)
[2024-06-21 00:31] LABS: Albumin 3.5 g/dL (3.2-4.8); Aspartate Aminotransferase 35 U/L (13-40); BUN/Creatinine Ratio 8.5 (10.0-20.0); Bilirubin, Direct 0.2 mg/dL (<0.3); Total Protein 6.3 g/dL (5.7-8.2)
[2024-06-21 00:32] LABS: Alanine Aminotransferase 55 U/L (7-40); Alkaline Phosphatase 277 U/L (46-116); Bilirubin, Total 0.2 mg/dL (0.2-1.0); Carbon Dioxide 20 mmol/L (20-31); Chloride 88 mmol/L (98-107); Creatine Kinase IFCC 31 U/L (46-171); Magnesium 2.8 mg/dL (1.6-2.6); Phosphorus 11.3 mg/dL (2.4-5.1); Sodium 127 mmol/L (136-145)
[2024-06-21 00:33] LABS: Blood Urea Nitrogen 98 mg/dL (9-23)
[2024-06-21 00:35] LABS: INR 1.05 (0.9-1.15); Partial Thromboplastin Time 29.3 SEC (24.5-34.5); Prothrombin Time 11.1 sec (9.3-11.8)
[2024-06-21 00:56] LABS: Lipase 233 U/L (12-53)
[2024-06-21] MEDS: PERITONEAL DIALYSIS IP SCH (00:57)
[2024-06-21 01:05] LABS: Base Excess -4.5 mmol/L (-2.0-3.0)
--- NOTE | 2024-06-21 01:40 | DVH ---
EXAM: XY CHEST PORTABLE CLINICAL HISTORY: INTUBATED, FOR [employer] TECHNIQUE: Single AP view of the chest WID: COMPARISON: XY CHEST PORTABLE on DOS: 06/20/24, FINDINGS: Lines and tubes: Endotracheal tube projects 5.7 cm above the laurie. Right PICC projects over the upp er right atrium. Gastric tube with the tip projecting over the body of the stomach. Chest: The heart size and pulmonary vasculature is within normal limits. Calcified plaque projects over the aortic arch. No pleural effusion, pneumothorax, or consolidation. The osseous structures are grossly intact. IMPRESSION: 1. No acute cardiopulmonary abnormality. 2. Indwelling support devices in place.
[2024-06-21] MEDS: ACCU-CHEK COMFORT CURVE STRIP VI SCH ×2 (01:53→23:41)
[2024-06-21] MEDS: fentaNYL Drip 2500mCg/250mlNS 250 ML IV SCH (04:35)
[2024-06-21 06:35] LABS: Basophils # (auto) 0.1 10 ^3/uL (0-0.2); Eosinophils # (auto) 0.6 10 ^3/uL (0-0.8); Eosinophils % (auto) 6.4 % (0.0-7.0); Hematocrit 35.7 % (41.0-53.0); Hemoglobin 11.7 g/dL (13.5-17.5); Lymphocytes # (auto) 1.1 10 ^3/uL (0.4-5.4); Lymphocytes % (auto) 12.4 % (10.0-50.0); Mean Corpuscular Hemoglobin 29.3 pg (28.0-32.0); Mean Corpuscular Hgb Conc. 32.8 g/dL (32.0-36.0); Mean Corpuscular Volume 89.4 fL (80.0-100.0); Monocytes # (auto) 0.3 10 ^3/uL (0-1.3); Monocytes % (auto) 3.9 % (0.0-12.0); Neutrophils # (auto) 6.7 10 ^3/uL (1.6-8.6); Neutrophils % (auto) 76.3 % (37.0-80.0); Platelet Count (auto) 559 10^3/uL (140-450); Red Cell Distribution Width 17.8 % (11.8-14.3); White Blood Cell 8.8 10^3/uL (4.4-10.8)
[2024-06-21 06:45] LABS: Albumin 3.2 g/dL (3.2-4.8); Anion Gap 21 (5-15); Aspartate Aminotransferase 33 U/L (13-40); BUN/Creatinine Ratio 8.7 (10.0-20.0); Potassium 4.6 mmol/L (3.5-5.1); Total Protein 6.1 g/dL (5.7-8.2)
[2024-06-21 06:52] LABS: Alanine Aminotransferase 48 U/L (7-40); Alkaline Phosphatase 251 U/L (46-116); Amylase 23 U/L (30-118); Bilirubin, Total 0.2 mg/dL (0.2-1.0); Carbon Dioxide 18 mmol/L (20-31); Chloride 88 mmol/L (98-107); Creatine Kinase IFCC 32 U/L (46-171); Glucose 115 mg/dL (74-106); Lipase 171 U/L (12-53); Magnesium 2.7 mg/dL (1.6-2.6); Phosphorus 10.4 mg/dL (2.4-5.1); Sodium 127 mmol/L (136-145)
[2024-06-21 06:54] LABS: Blood Urea Nitrogen 95 mg/dL (9-23)
--- NOTE | 2024-06-21 06:58 | DVH ---
EXAM: XR Cervical Spine, 6 or More Views CLINICAL INDICATION: INTUBATED, FOR [employer] TECHNIQUE: Frontal, lateral, oblique and flexion/extension views of the cervical spine. COMPARISON: XY CHEST PORTABLE on DOS: 06/21/24, XY CHEST PORTABLE on DOS: 06/20/24, XY CHEST XRAY 1 VIE W on DOS: 06/18/24, XY CHEST XRAY 1 VIEW on DOS: 06/17/24, XY CHEST XRAY 1 VIEW on DOS: 06/16/24 FINDINGS: VERTEBRAE: Unremarkable. No acute fracture. Normal alignment. No instability. DISC SPACES: No acute findings. No significant narrowing. SOFT TISSUES: Unremarkable. LUNG APICES: Bibasilar atelectasis or pneumonia. TUBES, LINES AND DEVICES: Stable tubes and lines. OTHER FINDINGS: . . . . .. IMPRESSION: Bibasilar atelectasis or pneumonia.
[2024-06-21 07:01] LABS: INR 0.99 (0.9-1.15); Partial Thromboplastin Time 29.6 SEC (24.5-34.5); Prothrombin Time 10.5 sec (9.3-11.8)
[2024-06-21 07:48] LABS: Bilirubin, Direct 0.2 mg/dL (<0.3)
[2024-06-21 08:10] LABS: Base Excess -6.8 mmol/L (-2.0-3.0)
--- NOTE | 2024-06-21 09:57 | DVHPNRES ---
Progress Note Date Seen: Jun 21, 2024 Resident Creating Document: PAUL FRYE RESIDENT Medical Necessity Reason Pt with a Central, PICC or Fol: Yes The following are medically ne: PICC Line, Reeder Catheter Reason for reeder catheter: Strict I&O Subjective Review of Systems YOLI GALICIA is a 53-year-old male with a PMH of type 2 DM, ESRD on peritoneal dialysis, HTN presented to the ED with cardiopulmonary arrest. Patient seen and examined at the bedside along with the family. Unable to obtain ROS due to patient clinical status. Currently intubated with the mechanical ventilation. monitoring. Changes from previous H/P or p: No Changes Objective vital signs Vital Sign Date Time Temp Pulse Resp B/P (MAP) Pulse Ox O2 Delivery O2 Flow Rate FiO2 06/21/24 09:41 85 16 114/68 (83) 97 30 06/20/24 20:00 98.6 98.6 06/20/24 08:00 Mechanical Ventilator+ Total Intake and Output 06/20/24 06/20/24 06/21/24 15:00 23:00 07:00 Intake Total 4226.444 ml 226.444 ml 2431.444 ml Output Total 620 ml 10 ml 1350 ml Balance 3606.444 ml 216.444 ml 1081.444 ml medications Current Medications Medications Dose Ordered Sig/Richard Route Start Time Stop Time Status Last Admin Dose Admin Midazolam HCl 50 ml @ 1 mls/hr Q24H IV 06/05/24 04:35 06/13/24 08:18 6 MLS/HR Albuterol 2.5 mg Q4HPRN PRN NEB 06/05/24 11:00 Albuterol 2.5 mg Q6HR NEB 06/05/24 12:00 06/21/24 06:20 2.5 MG Ipratropium [place] 0.5 mg Q4HPRN PRN NEB 06/05/24 11:00 Ipratropium [place] 0.5 mg Q6HR NEB 06/05/24 12:00 06/21/24 06:20 0.5 MG Pantoprazole Sodium 40 mg DAILY IV 06/06/24 10:00 06/21/24 09:41 40 MG Calcium Acetate 667 mg TID NG 06/06/24 14:00 06/21/24 05:57 667 MG Enteral Nutritional Formula 1,000 ml 30ML/HR GT 06/06/24 23:00 06/17/24 22:44 1,000 ML Docusate Sodium 100 mg BID GT 06/07/24 10:00 06/19/24 21:48 100 MG Heparin Sodium (Porcine) 5,000 units Q12HR SC 06/07/24 10:00 06/21/24 09:53 5,000 UNITS Norepinephrine Bitartrate 250 ml @ 3.75 mls/hr Q24H IV 06/08/24 05:15 06/14/24 05:11 3.75 MLS/HR Hydralazine HCl 10 mg Q6HP PRN IV 06/08/24 14:30 UNV Hydralazine HCl 10 mg Q6HP PRN IV 06/08/24 14:30 06/21/24 03:19 10 MG Lorazepam 1 mg Q5MINP PRN IV 06/09/24 19:30 06/15/24 11:56 1 MG Multivit/Ca Carb/ B Cmplx/FA/Prenat 1 tab DAILY NG 06/10/24 12:00 06/21/24 09:41 1 TAB Sodium Chloride 10 ml QSHIFT@10,22 IV 06/11/24 22:00 06/21/24 09:35 10 ML Propofol 100 ml @ 2.124 mls/ hr Q24H IV 06/12/24 04:30 06/21/24 07:13 14.868 MLS/HR Mupirocin 1 applic DAILY TOP 06/14/24 11:30 06/21/24 09:35 1 APPLIC Labetalol HCl 5 mg Q2HPRN PRN IV 06/14/24 18:15 06/20/24 04:24 5 MG Insulin Human Regular Q6HR SC 06/16/24 12:00 06/20/24 05:32 2 UNITS Dextrose 50 ml UD PRN IV 06/16/24 10:15 Morphine Sulfate 2 mg Q2HPRN PRN IV 06/18/24 14:45 Levetiracetam 750 mg/Sodium Chloride 107.5 ml @ 430 mls/hr Q12H IV 06/19/24 20:00 06/21/24 08:00 430 MLS/HR Icodextrin 2,000 ml Q12HR IP 06/20/24 22:00 06/21/24 00:57 2,000 ML Fentanyl Citrate 250 ml @ 2.5 mls/hr Q24H IV 06/20/24 22:45 06/21/24 04:35 2.5 MLS/HR Diagnostic Test (Pha) 1 strip Q2HR 06/21/24 02:00 06/21/24 09:53 1 STRIP Examination Pt is lying on bed, General Appearance: Sedated, on mechanical ventilation RR 16, VT 500, peep 5, FiO2 30% HEENT: Atraumatic, Mucous membranes moist/pink Respiratory: Clear to auscultation, Normal air movement, No added sounds Cardiovascular: Regular rate, Normal S1, Normal S2, No murmurs Abdominal: Active bowel sounds, Soft, distended likely due to fluid , peritoneal dialysis catheter intact Extremities:No edema, no cyanosis, PICC line intact in RUE Skin: No Significant rash, except past surgical scars Neuro: pupils sluggish to react, weak cough and gag reflex laboratory and microbiology Laboratory Tests 06/21/24 05:55 Test 06/21/24 05:55 Range/Units Serum Glucose 115 H 74-106 mg/dL Microbiology Date/Time Source Procedure Growth Status 06/11/24 16:15 Catheter Tip Other Aerobic Culture - Final Complete 06/10/24 22:30 Sputum Gram Stain - Final Complete 06/10/24 22:30 Sputum Respiratory Culture - Final Complete 06/07/24 10:21 Peritoneal Fluid Gram Stain - Final Complete 06/07/24 10:21 Peritoneal Fluid Body Fluid Culture - Final Complete 06/05/24 05:00 Blood Blood Culture - Final NO GROWTH AFTER 5 DAYS OF INCUBATION. Complete Labs and/or images reviewed: Labs reviewed by me, Image(s) reviewed by me Problem List/Assessment/Plan Problem List/Assessment/Plan NEUROLOGY # ? anoxic/ hypoxic encephalopathy # ? anoxic brain injury - currently on mechanical ventilator - ordered head CT, no acute intracranial pathology except mild cortical atrophy and showed severe paranasal sinus disease with soft tissue swelling of left temporal scalp # ACute CVA, Ischemic stroke - New MRI showed acute to subacute posterior right cerebellum infarct changes - neuro on board # Seizure like activity r/o # Myoclonus # Rule out status epileptics -ordered MRI, Diffusion restriction of the bilateral medial occipital lobe sulci with prominence on the T2 Flair images could be seen with ishemic changes. -consulted neurology,advised to continue ongoing treatment along with Mar[facility] CARDIOVASCULAR # cardiopulmonary arrest status post CPR with ROSC # Septic shock unknown origin # NSTEMI likely due to demand mediated # ? acute on chronic diastolic heart failure # ? Coronary artery disease, moderate degree # HX hypertension, uncontrolled # Dyslipidemia, newly diagnosed - ordered pancultures, along with peritoneal fluid analysis and culture, is negative - monitor lab - Off from Levophed, since 06/06 - Versed and Diprivan DC06/14 - back on Diprivan again - added fentanyl 06/09 Dc06/14 - echo showed LVEF 45% - Currently on vancomycin and Zosyn - Cefepime DC 06/10 switched to Zosyn 06/10 - hydralazine p.r.n. - DC vancomysin 06/16 # Acute transient AFib with RVR - monitor - correct electrolytes if needed - cardiology on board RESPIRATORY # Acute hypoxic respiratory failure likely due to septic shock # septic shock # ? aspiration pneumonia - ABG reviewed, CXR dialy - CXR reviewed, , diffuse lung disease likely edema or pneumonia - Currently on vancomycin and Zosyn - Cefepime DC 06/10 switched to Zosyn 06/10 - Flagylstarted 06/07, DC06/10 - ventilatory settings: RR 16, VT 500, peep 5, FiO2 30% - Dc Vanco 06/16 GI/LIVER # Pneumoperitoneum # Thickened appendix with appendicoliths - Evident on CT abdominal pelvis - consulted surgeon, advised no surgical intervention for now # Ruledout acute bacterial peritonitis - currently on antibiotics vancomysin, Zosyn - monitor lab - Fluid sent to cell count, negative culture - Dc vancomysin 06/16 - PUD prophylaxis pantoprazole /KIDNEY/METABOLIC # ESRD on peritoneal dialysis - Nephrology onboard - no hemodialysis per family request as they choose terminal weaning - Monitor renal function - Monitor electrolytes. Supplement as necessary. - Monitor ins and outs. ENDO # type 2 DM with HbA1c 6.3 - Accu-Cheks and ISS -Lantus 13 units BID and aggressive ISS MSK HEME # Thrombocytopenia - monitor lab - held heparin SKIN - Intact peritoneal dialysis catheter LINES Intubated 06/05 Right femoral vein catheter DC 06/10 PICC line 06/10 Reeder catheter DRIPS Versed, DC 06/14 Diprivan DC 06/14 Fetanyl DC 06/14 Currently Off from Levophed 06/10 Propofol started again 06/15 NUTRITION Nepro 30ml/hr PUD prophylaxis: Pantoprazole DVT prophylaxis: Heparin Goals of care has been discussed with the for more than 27 minutes, full code status(no CPR or defibrillation if coded again) Critical care time including chart review, discussing with the patient's family excluding procedures: 57 minutes Family meeting 06/15 to discuss goals of care for 40 mins , addressed and provided answers for all questions. Case discussed with Dr. Tanner. Plan discussed with: Spouse, Son Dietary Evaluation Review Comments: Inccrease protein intake to meet pt's needs. 1. TPN clinimix @41ml/hr provides 42.5g potein 510 kcal, can be a supplement to pt's nepro @30ml/hrproviding 58g pro and 1274 kcal The combined total will be 100.5g pro and 1784 kcal. 2. Offer only TF-Pivot 1.5 @50ml/hr providees 113g pro andd 1800 kcal. 3. Advance to PO 2 gNa high protein diet when pt is off Vent and back to peritoneal dialysis routine. Expected Outcomes/Goals: improved protein status, resume dialysis routine, kellie BW, Date of Service: Jun 21, 2024 Billing Provider: JOSE TANNER MD Common Visit Codes: [id number] CARE 30-74 MIN PAUL FRYE RESIDENT Jun 21, 2024 09:56 JOSE TANNER MD Jun 26, 2024 12:37
--- NOTE | 2024-06-21 10:43 | DVHPN2 ---
Progress Note - Dictate Date Seen: Jun 21, 2024 Medical Necessity Reason Pt with a Central, PICC or Fol: Yes The following are medically ne: PICC Line, Reeder Catheter Reason for reeder catheter: Strict I&O Subjective Mr. Montano is a 53 years old right-handed gentleman with a history of d iabetes, coronary artery disease, end-stage kidney failure on peritoneal dialysis, the patient was was brought to the [facility] on 06/05/24 with CPR ongoing. I have seen and examined the patient, discussed with his nurse. He is not responsive to strong painful stimuli. I have discussed with the [employer] Propofol 30 mcg/minutes, fentanyl 50 mcg/hour Blood culture, 06/05/24: No growth Peritoneal fluid culture, 06/07/2024: UDS, 06/06/2024: Benzo Urinalysis, 06/06/2024: WBC: 1, urine leukocyte esterase: Negative ABG, 06/05/2024: Combined metabolic and respiratory acidosis, WBC/HB/PLT/MCV, 06/08/2024: 19/10.3/106/90.9 Na, 06/06/2019 5:132, 06/08/2024: Moderate BUN/CR, 06/05/2024: 57/15.78, 06/08/2024: 78/14.78 Lactic acid, 06/05/24: 6.7, 3.5 HGB A1c, 06/05/2019 5:6.3 One high sensitivity, 05/1924: 566, 698, 643 Liver function tests, 06/08/2024: Normal TG/HDL/LDL/HDL, 06/05/2024: 174/208/143/33 TSH, 06/05/2024: 5.41 Chest x-ray, 06/08/2024: 1. Bibasilar opacities which may reflect atelectasis or pneumonia. 2. Stable position of the support lines and tubes CT head, 06/06/2024: No acute intracranial pathology in the brain. Mild cortical atrophy Severe paranasal sinus disease Soft tissue swelling left temporal scalp MRI head, 06/09/2024: 1. There is no acute intracranial process. 2. Nonspecific 8 mm focus of blooming artifact in the left thalamic region May relate to chronic microhemorrhage. There is no discrete lesion identified on the other sequences to suggest a cavernoma. 3. Nonspecific small hyperintense T2 and hypointense T1 focus in the left paramidline anterior erika. Small chronic ischemic focus is not excluded. (addendum: Diffusion restriction of the bilateral medial occipital lobe sulci with prominence on the T2 Flair images could be seen with ishemic changes. Consider Follow up MRI brain) MRI head, 06/13/2024: 1. New focus of restricted diffusion in the posterior right cerebellum compatible with an acute to subacute infarct. There is no evidence of acute hemorrhage or surrounding edema. There is no significant associated mass effect. 2. Stable nonspecific 8 mm focus of blooming artifact in the left thalamic region. 3. Stable nonspecific small hyperintense T2 and hypointense T1 focus in the left paramedian anterior erika vital signs Vital Sign Date Time Temp Pulse Resp B/P (MAP) Pulse Ox O2 Delivery O2 Flow Rate FiO2 06/21/24 10:30 90 16 100/64 (76) 96 06/21/24 10:00 30 06/21/24 08:00 Mechanical Ventilator+ 06/21/24 08:00 96.3 96.3 Total Intake and Output 06/20/24 06/20/24 06/21/24 15:00 23:00 07:00 Intake Total 4226.444 ml 226.444 ml 2431.444 ml Output Total 620 ml 10 ml 1350 ml Balance 3606.444 ml 216.444 ml 1081.444 ml medications Current Medications Medications Dose Ordered Sig/Richard Route Start Time Stop Time Status Last Admin Dose Admin Midazolam HCl 50 ml @ 1 mls/hr Q24H IV 06/05/24 04:35 06/13/24 08:18 6 MLS/HR Albuterol 2.5 mg Q4HPRN PRN NEB 06/05/24 11:00 Albuterol 2.5 mg Q6HR NEB 06/05/24 12:00 06/21/24 06:20 2.5 MG Ipratropium [place] 0.5 mg Q4HPRN PRN NEB 06/05/24 11:00 Ipratropium [place] 0.5 mg Q6HR NEB 06/05/24 12:00 06/21/24 06:20 0.5 MG Pantoprazole Sodium 40 mg DAILY IV 06/06/24 10:00 06/21/24 09:41 40 MG Calcium Acetate 667 mg TID NG 06/06/24 14:00 06/21/24 05:57 667 MG Enteral Nutritional Formula 1,000 ml 30ML/HR GT 06/06/24 23:00 06/17/24 22:44 1,000 ML Docusate Sodium 100 mg BID GT 06/07/24 10:00 06/19/24 21:48 100 MG Heparin Sodium (Porcine) 5,000 units Q12HR SC 06/07/24 10:00 06/21/24 09:53 5,000 UNITS Norepinephrine Bitartrate 250 ml @ 3.75 mls/hr Q24H IV 06/08/24 05:15 06/14/24 05:11 3.75 MLS/HR Hydralazine HCl 10 mg Q6HP PRN IV 06/08/24 14:30 UNV Hydralazine HCl 10 mg Q6HP PRN IV 06/08/24 14:30 06/21/24 03:19 10 MG Lorazepam 1 mg Q5MINP PRN IV 06/09/24 19:30 06/15/24 11:56 1 MG Multivit/Ca Carb/ B Cmplx/FA/Prenat 1 tab DAILY NG 06/10/24 12:00 06/21/24 09:41 1 TAB Sodium Chloride 10 ml QSHIFT@10,22 IV 06/11/24 22:00 06/21/24 09:35 10 ML Propofol 100 ml @ 2.124 mls/ hr Q24H IV 06/12/24 04:30 06/21/24 07:13 14.868 MLS/HR Mupirocin 1 applic DAILY TOP 06/14/24 11:30 06/21/24 09:35 1 APPLIC Labetalol HCl 5 mg Q2HPRN PRN IV 06/14/24 18:15 06/20/24 04:24 5 MG Insulin Human Regular Q6HR SC 06/16/24 12:00 06/20/24 05:32 2 UNITS Dextrose 50 ml UD PRN IV 06/16/24 10:15 Morphine Sulfate 2 mg Q2HPRN PRN IV 06/18/24 14:45 Levetiracetam 750 mg/Sodium Chloride 107.5 ml @ 430 mls/hr Q12H IV 06/19/24 20:00 06/21/24 08:00 430 MLS/HR Icodextrin 2,000 ml Q12HR IP 06/20/24 22:00 06/21/24 00:57 2,000 ML Fentanyl Citrate 250 ml @ 2.5 mls/hr Q24H IV 06/20/24 22:45 06/21/24 04:35 2.5 MLS/HR Diagnostic Test (Pha) 1 strip Q2HR 06/21/24 02:00 06/21/24 09:53 1 STRIP objective The patient is well-nourished and well-developed with no distress. The patient is intubated MENTAL STATUS: Subjective CRANIAL NERVES: Pupils are equal, round and reactive. There are corneal reflexes and doll's eyes phenomenon. No signs of facial weakness. There are gagging or coughing reflexes SENSATION: No responses to pain stimuli. MOTOR: Normal tone in the upper and lower extremity. Normal muscle bulk. No fasciculations. No spontaneous movement. REFLEXES: Deep tendon reflexes are symmetrical. No pathological reflexes. CEREBELLAR/COORDINATION: Deferred GAIT/STATION: deferred laboratory and microbiology Laboratory Tests 06/21/24 05:55 Test 06/21/24 05:55 Range/Units Serum Glucose 115 H 74-106 mg/dL Problem List Abnormal movement, Myoclonus Rule out status epileptics Coma Hypoxic encephalopathy Metabolic encephalopathy Toxic encephalopathy Cardiopulmonary arrest, status post CPR Metabolic acidosis Respiratory acidosis Coronary artery disease Heart attack Leukocytosis/sepsis/septic shock Pneumonia Assessment/Plan Monitoring Supportive screaming ICU care Respiratory support/vent management Stabilize vitals Oxygen IV antibiotics Versed drip with p.r.n. Ativan for tremor/myoclonus control Keppra 750 mg b.i.d., consider wean off Keppra later DVT prophylax/heparin GI prophylax/Protonix IV antibiotics Cardiology on case Pulmonology on case Nephrology on case He is likely to have a poor prognosis for meaningful recovery More recommendation per clinical course This medical document was created using an electronic medical record system with [employer] dictation system. Although this document has been carefully reviewed, there may still be some phonetic and typographical errors. These areas are purely typographical due to imperfections of the software programs, and do not reflect any compromise in the patient's medical care Prognosis poor, guarded Dietary Evaluation Review Comments: Inccrease protein intake to meet pt's needs. 1. TPN clinimix @41ml/hr provides 42.5g potein 510 kcal, can be a supplement to pt's nepro @30ml/hrproviding 58g pro and 1274 kcal The combined total will be 100.5g pro and 1784 kcal. 2. Offer only TF-Pivot 1.5 @50ml/hr providees 113g pro andd 1800 kcal. 3. Advance to PO 2 gNa high protein diet when pt is off Vent and back to peritoneal dialysis routine. Expected Outcomes/Goals: improved protein status, resume dialysis routine, kellie BEDOYA, Plan discussed with: Other TINO DOLAN MD Jun 21, 2024 10:43
--- NOTE | 2024-06-21 10:48 | ECG ---
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
[2024-06-21] MEDS: IOHEXOL 300 MG/ML 100ML BOTTLE IJ ONE (10:51)
[2024-06-21 12:26] LABS: Basophils # (auto) 0.1 10 ^3/uL (0-0.2); Basophils % (auto) 1.3 % (0.0-2.0); Eosinophils # (auto) 0.7 10 ^3/uL (0-0.8); Eosinophils % (auto) 7.5 % (0.0-7.0); Hematocrit 34.9 % (41.0-53.0); Lymphocytes % (auto) 10.7 % (10.0-50.0); Mean Corpuscular Hemoglobin 30.2 pg (28.0-32.0); Mean Corpuscular Hgb Conc. 34.3 g/dL (32.0-36.0); Mean Corpuscular Volume 88.1 fL (80.0-100.0); Monocytes # (auto) 0.5 10 ^3/uL (0-1.3); Monocytes % (auto) 5.9 % (0.0-12.0); Neutrophils # (auto) 6.8 10 ^3/uL (1.6-8.6); Neutrophils % (auto) 74.6 % (37.0-80.0); Platelet Count (auto) 663 10^3/uL (140-450); Red Blood Cells 3.96 10^6/uL (4.5-5.90); White Blood Cell 9.2 10^3/uL (4.4-10.8)
--- NOTE | 2024-06-21 12:39 | DVH ---
EXAM: XY CHEST PORTABLE Indication: INTUBATED, FOR ONE LEGACY Technique: Single frontal view of the chest was obtained Comparison: XY CHEST PORTABLE on DOS: 06/21/24, XY CHEST PORTABLE on DOS: 06/21/24, XY CHEST PORTABLE on DOS: 06/20/24, XY CHEST XRAY 1 VIEW on DOS: 06/18/24, XY CHEST XRAY 1 VIEW on DOS: 06/17/24 FINDINGS: Lines and Tubes: Endotracheal tube projects 6 cm above the laurie. Enteric tube tip projects over the expected region of the stomach. Right PICC tip projects over the expected region of the superior tayla a cava. Lungs: Small left pleural effusion. Pleura: No effusion. No pneumothorax. Cardiomediastinal contours: Unremarkable. Atherosclerotic vascular calcifications of the thoracic ao rta are noted. Bones: No acute osseous abnormality. IMPRESSION: No significant change compared to prior exam.
[2024-06-21 12:43] LABS: Base Excess -5.1 mmol/L (-2.0-3.0)
[2024-06-21 12:45] LABS: Partial Thromboplastin Time 29.4 SEC (24.5-34.5); Prothrombin Time 10.6 sec (9.3-11.8)
[2024-06-21 12:55] LABS: Albumin 3.5 g/dL (3.2-4.8); Anion Gap 21 (5-15); Aspartate Aminotransferase 37 U/L (13-40); BUN/Creatinine Ratio 9.1 (10.0-20.0); Potassium 4.9 mmol/L (3.5-5.1)
[2024-06-21 12:56] LABS: Total Protein 6.7 g/dL (5.7-8.2)
[2024-06-21 13:10] LABS: Alanine Aminotransferase 51 U/L (7-40); Alkaline Phosphatase 264 U/L (46-116); Amylase 23 U/L (30-118); Bilirubin, Total 0.2 mg/dL (0.2-1.0); Carbon Dioxide 20 mmol/L (20-31); Chloride 86 mmol/L (98-107); Creatine Kinase IFCC 24 U/L (46-171); Glucose 112 mg/dL (74-106); Lipase 126 U/L (12-53); Magnesium 2.7 mg/dL (1.6-2.6); Phosphorus 10.8 mg/dL (2.4-5.1); Sodium 127 mmol/L (136-145)
[2024-06-21 13:12] LABS: Blood Urea Nitrogen 100 mg/dL (9-23)
[2024-06-21 13:25] LABS: Bilirubin, Direct 0.2 mg/dL (<0.3)
--- NOTE | 2024-06-21 15:06 | DVHPN2 ---
Progress Note Date Seen: Jun 21, 2024 Medical Necessity Reason Pt with a Central, PICC or Fol: Yes The following are medically ne: PICC Line, Reeder Catheter Reason for reeder catheter: Strict I&O Subjective Patient reports: Other Review of Systems: Deferred Objective vital signs Vital Sign Date Time Temp Pulse Resp B/P (MAP) Pulse Ox O2 Delivery O2 Flow Rate FiO2 06/21/24 14:45 93 16 102/62 (75) 95 06/21/24 14:00 30 06/21/24 08:00 Mechanical Ventilator+ 06/21/24 08:00 96.3 96.3 Total Intake and Output 06/20/24 06/20/24 06/21/24 15:00 23:00 07:00 Intake Total 4226.444 ml 226.444 ml 2431.444 ml Output Total 620 ml 10 ml 1350 ml Balance 3606.444 ml 216.444 ml 1081.444 ml medications Current Medications Medications Dose Ordered Sig/Richard Route Start Time Stop Time Status Last Admin Dose Admin Midazolam HCl 50 ml @ 1 mls/hr Q24H IV 06/05/24 04:35 06/13/24 08:18 6 MLS/HR Albuterol 2.5 mg Q4HPRN PRN NEB 06/05/24 11:00 Albuterol 2.5 mg Q6HR [facility] 06/05/24 12:00 06/21/24 11:10 2.5 MG Ipratropium [place] 0.5 mg Q4HPRN PRN [facility] 06/05/24 11:00 Ipratropium [place] 0.5 mg Q6HR [facility] 06/05/24 12:00 06/21/24 11:10 0.5 MG Pantoprazole Sodium 40 mg DAILY IV 06/06/24 10:00 06/21/24 09:41 40 MG Calcium Acetate 667 mg TID NG 06/06/24 14:00 06/21/24 05:57 667 MG Enteral Nutritional Formula 1,000 ml 30ML/HR GT 06/06/24 23:00 06/17/24 22:44 1,000 ML Docusate Sodium 100 mg BID GT 06/07/24 10:00 06/19/24 21:48 100 MG Heparin Sodium (Porcine) 5,000 units Q12HR SC 06/07/24 10:00 06/21/24 09:53 5,000 UNITS Norepinephrine Bitartrate 250 ml @ 3.75 mls/hr Q24H IV 06/08/24 05:15 06/14/24 05:11 3.75 MLS/HR Hydralazine HCl 10 mg Q6HP PRN IV 06/08/24 14:30 UNV Hydralazine HCl 10 mg Q6HP PRN IV 06/08/24 14:30 06/21/24 03:19 10 MG Lorazepam 1 mg Q5MINP PRN IV 06/09/24 19:30 06/15/24 11:56 1 MG Multivit/Ca Carb/ B Cmplx/FA/Prenat 1 tab DAILY NG 06/10/24 12:00 06/21/24 09:41 1 TAB Sodium Chloride 10 ml QSHIFT@10,22 IV 06/11/24 22:00 06/21/24 09:35 10 ML Propofol 100 ml @ 2.124 mls/ hr Q24H IV 06/12/24 04:30 06/21/24 07:13 14.868 MLS/HR Mupirocin 1 applic DAILY TOP 06/14/24 11:30 06/21/24 09:35 1 APPLIC Labetalol HCl 5 mg Q2HPRN PRN IV 06/14/24 18:15 06/20/24 04:24 5 MG Insulin Human Regular Q6HR SC 06/16/24 12:00 06/20/24 05:32 2 UNITS Dextrose 50 ml UD PRN IV 06/16/24 10:15 Morphine Sulfate 2 mg Q2HPRN PRN IV 06/18/24 14:45 Levetiracetam 750 mg/Sodium Chloride 107.5 ml @ 430 mls/hr Q12H IV 06/19/24 20:00 06/21/24 08:00 430 MLS/HR Icodextrin 2,000 ml Q12HR IP 06/20/24 22:00 06/21/24 00:57 2,000 ML Fentanyl Citrate 250 ml @ 2.5 mls/hr Q24H IV 06/20/24 22:45 06/21/24 04:35 2.5 MLS/HR Diagnostic Test (Pha) 1 strip Q2HR 06/21/24 02:00 06/21/24 11:27 1 STRIP Examination: MSK:Abnormal, NEURO:Abnormal laboratory and microbiology Laboratory Tests 06/21/24 11:55 Test 06/21/24 11:55 Range/Units Serum Glucose 112 H 74-106 mg/dL Microbiology Date/Time Source Procedure Growth Status 06/11/24 16:15 Catheter Tip Other Aerobic Culture - Final Complete 06/10/24 22:30 Sputum Gram Stain - Final Complete 06/10/24 22:30 Sputum Respiratory Culture - Final Complete 06/07/24 10:21 Peritoneal Fluid Gram Stain - Final Complete 06/07/24 10:21 Peritoneal Fluid Body Fluid Culture - Final Complete 06/05/24 05:00 Blood Blood Culture - Final NO GROWTH AFTER 5 DAYS OF INCUBATION. Complete Problem List/Assessment/Plan Problem List/Assessment/Plan End-stage renal disease on home peritioneal dialysis, out of the area Acute respiratory failure intubated on ventilator Status post cardiac arrest Septic shock Aspiration pneumonia Congestive heart failure, ejection fraction 45% Anemia of chronic kidney disease, well compensated Hyperphosphatemia Hypokalemia anoxic brain injury recs pt is an organ donor PD as ordered q6 hrs Plan discussed with: Other My Orders My Orders Orders - STEFANIE JACKSON MD Procedure Category Date Status Time Peritoneal Dialysis PHA 06/20/24 In Process 7.5% Soln 22:00 Peritoneal Dial2.5% PHA 06/21/24 Verified 2l Q6hr 18:00 Dietary Evaluation Review Comments: Inccrease protein intake to meet pt's needs. 1. TPN clinimix @41ml/hr provides 42.5g potein 510 kcal, can be a supplement to pt's nepro @30ml/hrproviding 58g pro and 1274 kcal The combined total will be 100.5g pro and 1784 kcal. 2. Offer only TF-Pivot 1.5 @50ml/hr providees 113g pro andd 1800 kcal. 3. Advance to PO 2 gNa high protein diet when pt is off Vent and back to peritoneal dialysis routine. Expected Outcomes/Goals: improved protein status, resume dialysis routine, kellie BEDOYA, STEFANIE JACKSON MD Jun 21, 2024 15:06
[2024-06-21 19:37] LABS: Base Excess -6.8 mmol/L (-2.0-3.0)
--- NOTE | 2024-06-21 20:17 | DVHNC2 ---
Procedure - Radial arterial line procedure note Indication: Hemodynamic monitoring, frequent blood ABG draws. [facility] Therapist: Dr. Armstrong Date: 06/21/2024 Time: 1945 pm Consent: Consent was obtained from patient's healthcare proxy prior to procedure. Indications, risks, and benefits were explained at length. Procedure summary: A time-out was performed. My hands were washed immediately prior to the procedure. I wore surgical cap, mask with protective eyewear, sterile gown and sterile gloves throughout the procedure. After an Kevin test was performed to ensure adequate perfusion, the RIGHT wrist was prepped using chlorhexidine scrub and draped in sterile fashion using sterile towels. The radial pulse was identified with the use of ultrasound. The wrist was positioned in the usual fashion. Anesthesia was achieved using 1% lidocaine. Using the radial arterial line kit, needle was inserted into the radial artery using ultrasound guidance. Arterial blood flow was seen to pulsate in the flash chamber. The internal guidewire was advanced easily into the radial artery. The catheter was then advanced over the wire and the needle and wire were withdrawn. The catheter was sutured into place with 1 sutures. A sterile Biopatch and Tegaderm was placed over the catheter at the insertion site. The patient tolerated the procedure without any hemodynamic compromise. At the time of procedure completion, the catheter was connected to the nuclear monitoring technician and calibrated. Appropriate waveform and blood pressure tracing was observed. Estimated blood loss: less than 5 mL. CPT: 86104 Arterial line insertion CPT: 12667 US add-on AJIT ARMSTRONG MD Jun 21, 2024 20:17
[2024-06-22] VITALS (49 sets, daily range): BP systolic 87–176; BP diastolic 50–92; PULSE 81–98; RESP 10–26; TEMP 97.7–98.2; O2SAT 92–100
[2024-06-22 00:17] LABS: Eosinophils # (auto) 0.7 10 ^3/uL (0-0.8); Hemoglobin 10.4 g/dL (13.5-17.5); Monocytes # (auto) 0.8 10 ^3/uL (0-1.3)
[2024-06-22 00:19] LABS: Basophils # (auto) 0.2 10 ^3/uL (0-0.2); Basophils % (auto) 1.5 % (0.0-2.0); Eosinophils % (auto) 6.5 % (0.0-7.0); Hematocrit 30.2 % (41.0-53.0); Lymphocytes # (auto) 1.5 10 ^3/uL (0.4-5.4); Lymphocytes % (auto) 14.5 % (10.0-50.0); Mean Corpuscular Hemoglobin 30.4 pg (28.0-32.0); Mean Corpuscular Hgb Conc. 34.4 g/dL (32.0-36.0); Mean Corpuscular Volume 88.2 fL (80.0-100.0); Monocytes % (auto) 7.3 % (0.0-12.0); Neutrophils # (auto) 7.3 10 ^3/uL (1.6-8.6); Neutrophils % (auto) 70.2 % (37.0-80.0); Nucleated Red Blood Cells % 0.1 %; Platelet Count (auto) 608 10^3/uL (140-450); Red Blood Cells 3.43 10^6/uL (4.5-5.90); Red Cell Distribution Width 17.5 % (11.8-14.3); White Blood Cell 10.4 10^3/uL (4.4-10.8)
[2024-06-22 00:38] LABS: INR 0.98 (0.9-1.15); Partial Thromboplastin Time 29.4 SEC (24.5-34.5); Prothrombin Time 10.4 sec (9.3-11.8)
[2024-06-22 00:42] LABS: Amylase 38 U/L (30-118); Anion Gap 19 (5-15); Aspartate Aminotransferase 36 U/L (13-40); Calcium 9.4 mg/dL (8.7-10.4); Glucose 89 mg/dL (74-106); Magnesium 2.6 mg/dL (1.6-2.6)
[2024-06-22 00:43] LABS: Albumin 3.1 g/dL (3.2-4.8); Bilirubin, Total 0.2 mg/dL (0.2-1.0); Creatine Kinase IFCC 22 U/L (46-171); Phosphorus 10.7 mg/dL (2.4-5.1); Total Protein 5.9 g/dL (5.7-8.2)
[2024-06-22 00:44] LABS: Carbon Dioxide 19 mmol/L (20-31); Chloride 88 mmol/L (98-107); Sodium 126 mmol/L (136-145)
[2024-06-22 00:45] LABS: Alanine Aminotransferase 42 U/L (7-40); Alkaline Phosphatase 224 U/L (46-116); Blood Urea Nitrogen 101 mg/dL (9-23); Lipase 148 U/L (12-53)
[2024-06-22 00:56] LABS: Base Excess -3.7 mmol/L (-2.0-3.0)
[2024-06-22 01:39] LABS: Bilirubin, Direct 0.1 mg/dL (<0.3)
[2024-06-22] MEDS ORDERED: PERITONEAL DIALYSIS 2.5% SOLN 2,000 ML IP SCH (06:00)
[2024-06-22] MEDS: PERITONEAL DIALYSIS 4.25% SOLN 2,000 ML IP SCH (06:00)
[2024-06-22 07:01] LABS: Base Excess -6.2 mmol/L (-2.0-3.0)
--- NOTE | 2024-06-22 10:56 | DVHPN2 ---
Progress Note - Dictate Date Seen: Jun 22, 2024 Medical Necessity Reason Pt with a Central, PICC or Fol: Yes The following are medically ne: PICC Line, Reeder Catheter Reason for reeder catheter: Strict I&O Subjective Mr. Montano is a 53 years old right-handed gentleman with a history of d iabetes, coronary artery disease, end-stage kidney failure on peritoneal dialysis, the patient was was brought to the [facility] on 06/05/24 with CPR ongoing. I have seen and examined the patient, discussed with his nurse. He is not responsive to strong painful stimuli. Pupils are nonreactive, I have discussed with the [employer] Propofol 15 mcg/minutes, fentanyl 50 mcg/hour Blood culture, 06/05/24: No growth Peritoneal fluid culture, 06/07/2024: UDS, 06/06/2024: Benzo Urinalysis, 06/06/2024: WBC: 1, urine leukocyte esterase: Negative ABG, 06/05/2024: Combined metabolic and respiratory acidosis, WBC/HB/PLT/MCV, 06/08/2024: 19/10.3/106/90.9 Na, 06/06/2019 5:132, 06/08/2024: Moderate BUN/CR, 06/05/2024: 57/15.78, 06/08/2024: 78/14.78 Lactic acid, 06/05/24: 6.7, 3.5 HGB A1c, 06/05/2019 5:6.3 One high sensitivity, 05/1924: 566, 698, 643 Liver function tests, 06/08/2024: Normal TG/HDL/LDL/HDL, 06/05/2024: 174/208/143/33 TSH, 06/05/2024: 5.41 Chest x-ray, 06/08/2024: 1. Bibasilar opacities which may reflect atelectasis or pneumonia. 2. Stable position of the support lines and tubes CT head, 06/06/2024: No acute intracranial pathology in the brain. Mild cortical atrophy Severe paranasal sinus disease Soft tissue swelling left temporal scalp MRI head, 06/09/2024: 1. There is no acute intracranial process. 2. Nonspecific 8 mm focus of blooming artifact in the left thalamic region May relate to chronic microhemorrhage. There is no discrete lesion identified on the other sequences to suggest a cavernoma. 3. Nonspecific small hyperintense T2 and hypointense T1 focus in the left paramidline anterior erika. Small chronic ischemic focus is not excluded. (addendum: Diffusion restriction of the bilateral medial occipital lobe sulci with prominence on the T2 Flair images could be seen with ishemic changes. Consider Follow up MRI brain) MRI head, 06/13/2024: 1. New focus of restricted diffusion in the posterior right cerebellum compatible with an acute to subacute infarct. There is no evidence of acute hemorrhage or surrounding edema. There is no significant associated mass effect. 2. Stable nonspecific 8 mm focus of blooming artifact in the left thalamic region. 3. Stable nonspecific small hyperintense T2 and hypointense T1 focus in the left paramedian anterior erika vital signs Vital Sign Date Time Temp Pulse Resp B/P (MAP) Pulse Ox O2 Delivery O2 Flow Rate FiO2 06/22/24 10:00 30 06/22/24 10:00 99 Mechanical Ventilator 06/22/24 10:00 97 06/22/24 09:30 13 118/61 (80) 138/82 (100) 06/22/24 08:00 97.7 97.7 Total Intake and Output 06/21/24 06/21/24 06/22/24 15:00 23:00 07:00 Intake Total 2253.700 ml 275.468 ml 2201.952 ml Output Total 1000 ml 200 ml 800 ml Balance 1253.700 ml 75.468 ml 1401.952 ml medications Current Medications Medications Dose Ordered Sig/Richard Route Start Time Stop Time Status Last Admin Dose Admin Midazolam HCl 50 ml @ 1 mls/hr Q24H IV 06/05/24 04:35 06/13/24 08:18 6 MLS/HR Albuterol 2.5 mg Q4HPRN PRN NEB 06/05/24 11:00 Albuterol 2.5 mg Q6HR NEB 06/05/24 12:00 06/22/24 06:36 2.5 MG Ipratropium Blevins 0.5 mg Q4HPRN PRN NEB 06/05/24 11:00 Ipratropium Blevins 0.5 mg Q6HR NEB 06/05/24 12:00 06/22/24 06:36 0.5 MG Pantoprazole Sodium 40 mg DAILY IV 06/06/24 10:00 06/22/24 08:54 40 MG Calcium Acetate 667 mg TID NG 06/06/24 14:00 06/22/24 05:55 667 MG Enteral Nutritional Formula 1,000 ml 30ML/HR GT 06/06/24 23:00 06/22/24 01:33 1,000 ML Docusate Sodium 100 mg BID GT 06/07/24 10:00 06/19/24 21:48 100 MG Heparin Sodium (Porcine) 5,000 units Q12HR SC 06/07/24 10:00 06/22/24 09:12 5,000 UNITS Norepinephrine Bitartrate 250 ml @ 3.75 mls/hr Q24H IV 06/08/24 05:15 06/14/24 05:11 3.75 MLS/HR Hydralazine HCl 10 mg Q6HP PRN IV 06/08/24 14:30 UNV Hydralazine HCl 10 mg Q6HP PRN IV 06/08/24 14:30 06/22/24 01:46 10 MG Lorazepam 1 mg Q5MINP PRN IV 06/09/24 19:30 06/22/24 01:13 1 MG Multivit/Ca Carb/ B Cmplx/FA/Prenat 1 tab DAILY NG 06/10/24 12:00 06/22/24 08:54 1 TAB Sodium Chloride 10 ml QSHIFT@10,22 IV 06/11/24 22:00 06/22/24 08:54 10 ML Propofol 100 ml @ 2.124 mls/ hr Q24H IV 06/12/24 04:30 06/22/24 01:14 8.496 MLS/HR Mupirocin 1 applic DAILY TOP 06/14/24 11:30 06/22/24 09:15 1 APPLIC Labetalol HCl 5 mg Q2HPRN PRN IV 06/14/24 18:15 06/20/24 04:24 5 MG Insulin Human Regular Q6HR SC 06/16/24 12:00 06/20/24 05:32 2 UNITS Dextrose 50 ml UD PRN IV 06/16/24 10:15 Morphine Sulfate 2 mg Q2HPRN PRN IV 06/18/24 14:45 Levetiracetam 750 mg/Sodium Chloride 107.5 ml @ 430 mls/hr Q12H IV 06/19/24 20:00 06/22/24 08:55 430 MLS/HR Fentanyl Citrate 250 ml @ 2.5 mls/hr Q24H IV 06/20/24 22:45 06/21/24 04:35 2.5 MLS/HR Peritoneal Dialysis Solution 2,000 ml @ 0 mls/hr Q6HR IP 06/22/24 06:00 06/22/24 06:00 2,000 MLS/HR Diagnostic Test (Pha) 1 strip Q6HR 06/22/24 00:00 06/22/24 05:56 1 STRIP objective The patient is well-nourished and well-developed with no distress. The patient is intubated MENTAL STATUS: Subjective CRANIAL NERVES: Pupils are equal, round and non-reactive. There are weak corneal reflexes and doll's eyes phenomenon. No signs of facial weakness. There are weak gagging or coughing reflexes SENSATION: No responses to pain stimuli. MOTOR: Normal tone in the upper and lower extremity. Normal muscle bulk. No fasciculations. No spontaneous movement. REFLEXES: Deep tendon reflexes are symmetrical. No pathological reflexes. CEREBELLAR/COORDINATION: Deferred GAIT/STATION: deferred laboratory and microbiology Laboratory Tests 06/22/24 00:00 Test 06/22/24 00:00 Range/Units Serum Glucose 89 74-106 mg/dL Problem List Abnormal movement, Myoclonus Rule out status epileptics Coma Hypoxic encephalopathy Metabolic encephalopathy Toxic encephalopathy Cardiopulmonary arrest, status post CPR Metabolic acidosis Respiratory acidosis Coronary artery disease Heart attack Leukocytosis/sepsis/septic shock Pneumonia Assessment/Plan Monitoring Supportive screaming ICU care Respiratory support/vent management Stabilize vitals Oxygen IV antibiotics Versed drip with p.r.n. Ativan for tremor/myoclonus control Keppra 750 mg b.i.d., consider wean off Keppra later DVT prophylax/heparin GI prophylax/Protonix IV antibiotics Cardiology on case Pulmonology on case Nephrology on case He is likely to have a poor prognosis for meaningful recovery More recommendation per clinical course This medical document was created using an electronic medical record system with [employer] (formerly [employer]ation system. Although this document has been carefully reviewed, there may still be some phonetic and typographical errors. These areas are purely typographical due to imperfections of the software programs, and do not reflect any compromise in the patient's medical care Prognosis poor, guarded Dietary Evaluation Review Comments: Inccrease protein intake to meet pt's needs. 1. TPN clinimix @41ml/hr provides 42.5g potein 510 kcal, can be a supplement to pt's nepro @30ml/hrproviding 58g pro and 1274 kcal The combined total will be 100.5g pro and 1784 kcal. 2. Offer only TF-Pivot 1.5 @50ml/hr providees 113g pro andd 1800 kcal. 3. Advance to PO 2 gNa high protein diet when pt is off Vent and back to peritoneal dialysis routine. Expected Outcomes/Goals: improved protein status, resume dialysis routine, kellie BEDOYA, Plan discussed with: Other TINO DOLAN MD Jun 22, 2024 10:56
--- NOTE | 2024-06-22 11:23 | DVH ---
EXAM: XY CHEST PORTABLE Indication: resp failure Technique: Single frontal view of the chest was obtained Comparison: XY CHEST PORTABLE on DOS: 06/21/24, XY CHEST PORTABLE on DOS: 06/21/24, XY CHEST PORTABLE on DOS: 06/21/24, XY CHEST PORTABLE on DOS: 06/20/24, XY CHEST XRAY 1 VIEW on DOS: 06/18/24, XY CHEST PORTABLE on DOS: 06/21/24 FINDINGS: Lines and Tubes: Endotracheal tube projects 4 cm above the laurie. Enteric tube tip projects over the expected region of the stomach. Right PICC tip projects over the expected region of the superior tayla a cava. Lungs: Small left pleural effusion. Pleura: No effusion. No pneumothorax. Cardiomediastinal contours: Unremarkable. Atherosclerotic vascular calcifications of the thoracic ao rta are noted. Bones: No acute osseous abnormality. IMPRESSION: No significant change compared to prior exam.
[2024-06-23 22:05] LABS: Base Excess -10.9 mmol/L (-2.0-3.0)
[2024-06-23 22:26] LABS: Base Excess -10.9 mmol/L (-2.0-3.0)
== END 2024-06-20 18:24 | DRG 870 ==
LOC: EDBD 03:49 → ER 03:49 → OVERFLOW 10:03 → ICU WEST 18:24
PROVIDERS: ADMIT Internal Medicine; ATTEND Emergency Medicine
PROC: 5A1955Z Respiratory Ventilation, Greater than 96 Consecutive Hours (ICD-10-PCS; principal; 2024-06-05)
PROC: 0BH17EZ Insertion of Endotracheal Airway into Trachea, Via Natural or Artificial Opening (ICD-10-PCS; 2024-06-05)
PROC: 5A12012 Performance of Cardiac Output, Single, Manual (ICD-10-PCS; 2024-06-05)
PROC: 06HY33Z Insertion of Infusion Device into Lower Vein, Percutaneous Approach (ICD-10-PCS; 2024-06-05)
PROC: 04HY32Z Insertion of Monitoring Device into Lower Artery, Percutaneous Approach (ICD-10-PCS; 2024-06-05)
PROC: 02HV33Z Insertion of Infusion Device into Superior Vena Cava, Percutaneous Approach (ICD-10-PCS; 2024-06-11)
PROC: B548ZZA Ultrasonography of Superior Vena Cava, Guidance (ICD-10-PCS; 2024-06-11)
PROC: 03HY32Z Insertion of Monitoring Device into Upper Artery, Percutaneous Approach (ICD-10-PCS; 2024-06-20)
DX: A41.9 Sepsis, unspecified organism (principal); I21.A1 Myocardial infarction type 2; J69.0 Pneumonitis due to inhalation of food and vomit; J96.01 Acute respiratory failure with hypoxia; N18.6 End stage renal disease; R65.21 Severe sepsis with septic shock; I50.33 Acute on chronic diastolic (congestive) heart failure; G92.8 Other toxic encephalopathy; E87.20 Acidosis, unspecified; I13.2 Hypertensive heart and chronic kidney disease with heart failure and with stage 5 chronic kidney disease, or end stage renal disease; N17.9 Acute kidney failure, unspecified; G93.1 Anoxic brain damage, not elsewhere classified; K38.1 Appendicular concretions; I46.9 Cardiac arrest, cause unspecified; D63.1 Anemia in chronic kidney disease; E83.39 Other disorders of phosphorus metabolism; D69.6 Thrombocytopenia, unspecified; E87.6 Hypokalemia; E11.22 Type 2 diabetes mellitus with diabetic chronic kidney disease; E11.649 Type 2 diabetes mellitus with hypoglycemia without coma; G25.3 Myoclonus; E78.5 Hyperlipidemia, unspecified; I25.10 Atherosclerotic heart disease of native coronary artery without angina pectoris; I48.91 Unspecified atrial fibrillation; Z79.4 Long term (current) use of insulin; Z99.2 Dependence on renal dialysis; Z83.3 Family history of diabetes mellitus; Z82.49 Family history of ischemic heart disease and other diseases of the circulatory system; Z80.0 Family history of malignant neoplasm of digestive organs
CPT/HCPCS: 31500; 36415; 36556; 36569; 36600; 36620; 70450; 70551; 71045; 74018; 74176; 74177; 76700; 76775; 76937; 80048; 80053; 80061; 80202; 80307; 81001; 82150; 82248; 82550; 82553; 82570; 82805; 82962; 82977; 83036; 83605; 83615; 83690; 83735; 83880; 83930; 83986; 84100; 84156; 84300; 84443; 84484; 85007; 85025; 85027; 85610; 85730; 86803; 86850; 86900; 86901; 87040; 87070; 87077; 87081; 87086; 87186; 87205; 87340; 89051; 93005; 93306; 94003; 94640; 95819; 96365; 99291; G0378; J0171; J1815; J2250; J2470; J2543; J2704; J3480; J3490; J7060

== ENCOUNTER 2024-06-20 18:25 | Inpatient (IN) | payer OTHER ==
[~2024-06-20] VITALS: Ht 170.2 cm; Wt 71.6 kg
[2024-06-22] VITALS (51 sets, daily range): BP systolic 100–212; BP diastolic 51–91; PULSE 79–95; RESP 15–19; TEMP 98.7–99; O2SAT 96–100
[2024-06-22] MEDS ORDERED: ALBUTEROL SULF 2.5 MG/0.5ML(0.5%) NEB SOLN NEB PRN (12:00)
[2024-06-22] MEDS ORDERED: IPRATROPIUM BROM 0.5 MG/2.5ML INH SOL NEB PRN (12:00)
[2024-06-22] MEDS ORDERED: ACETAMINOPHEN 650 mg PER 20.3 mL UD GT PRN (12:15)
[2024-06-22] MEDS: fentaNYL Drip 2500mCg/250mlNS 250 ML IV SCH (12:15)
[2024-06-22] MEDS: PROPOFOL 100 ML IV SCH (12:15)
[2024-06-22] MEDS: MIDAZOLAM DRIP 50 mg/50mL 50 ML IV SCH (12:15)
[2024-06-22] MEDS ORDERED: DEXTROSE (50%) 50ML SYRG IV PRN ×2 (12:15→12:30)
[2024-06-22] MEDS ORDERED: Nepro With Carb Steady 1 Liter Bottle GT SCH (12:45)
[2024-06-22] MEDS ORDERED: MORPHINE SULFATE INJ 2 MG/ml SYRG IV PRN (12:45)
[2024-06-22] MEDS: LORazepam 2MG/ML-1ML VIAL IV PRN (13:27)
[2024-06-22] MEDS: hydrALAZINE HCL 20 MG/ML VL IV PRN (13:28)
[2024-06-22] MEDS ORDERED: VANCOMYCIN PER PHARMACY 0 MG IV SCH (13:45)
[2024-06-22] MEDS: InsuLIN REG 1unit/0.01ml Soln (100units/ml) SC SCH (14:00)
[2024-06-22] MEDS: ACCU-CHEK COMFORT CURVE STRIP VI SCH (14:00)
[2024-06-22] MEDS ORDERED: PERITONEAL DIALYSIS 2.5% SOLN 2,000 ML IP SCH (15:15)
--- NOTE | 2024-06-22 15:21 | DVHPN2 ---
Progress Note Date Seen: Jun 22, 2024 Medical Necessity Reason Pt with a Central, PICC or Fol: No Subjective Patient reports: Other Objective vital signs Vital Sign Date Time Temp Pulse Resp B/P (MAP) Pulse Ox O2 Delivery O2 Flow Rate FiO2 06/22/24 14:23 30 06/22/24 14:13 165/69 06/22/24 14:00 88 06/22/24 13:07 18 100 06/22/24 12:16 98.8 98.8 06/22/24 12:00 Mechanical Ventilator+ medications Current Medications Medications Dose Ordered Sig/Richard Route Start Time Stop Time Status Last Admin Dose Admin Hydralazine HCl 10 mg Q6HP PRN IV 06/22/24 12:00 06/22/24 13:28 10 MG Albuterol 2.5 mg Q4HPRN PRN NEB 06/22/24 12:00 Ipratropium Noti 0.5 mg Q4HPRN PRN NEB 06/22/24 12:00 Insulin Human Regular Q6HR SC 06/22/24 18:00 Cancel Dextrose 50 ml UD PRN IV 06/22/24 12:15 Cancel Midazolam HCl 50 ml @ 1 mls/hr Q24H IV 06/22/24 12:15 06/22/24 14:13 2 MLS/HR Fentanyl Citrate 250 ml @ 2.5 mls/hr Q24H IV 06/22/24 12:15 06/22/24 12:15 5 MLS/HR Acetaminophen 650 mg Q6HP PRN GT 06/22/24 12:15 Lorazepam 1 mg Q5MINP PRN IV 06/22/24 12:15 Propofol 100 ml @ 2.175 mls/ hr Q24H IV 06/22/24 12:15 06/22/24 12:15 8.7 MLS/HR Diagnostic Test (Pha) 1 strip Q6HR 06/22/24 18:00 UNV Dextrose 50 ml UD PRN IV 06/22/24 12:30 Morphine Sulfate 2 mg Q2HPRN PRN IV 06/22/24 12:45 Multivit/Ca Carb/ B Cmplx/FA/Prenat 1 tab DAILY PO 06/23/24 10:00 Heparin Sodium (Porcine) 5,000 units Q12HR SC 06/22/24 22:00 Enteral Nutritional Formula 1,000 ml 30ML/HR GT 06/22/24 12:45 Calcium Acetate 667 mg TIDWMEALS PO 06/22/24 18:00 Pantoprazole Sodium 40 mg DAILY IV 06/23/24 10:00 Levetiracetam 750 mg/Sodium Chloride 107.5 ml @ 430 mls/hr BID IV 06/22/24 22:00 Vancomycin HCl 0 ml @ 0 mls/hr UD IV 06/22/24 13:45 Insulin Human Regular Q6HR SC 06/22/24 14:00 Diagnostic Test (Pha) 1 strip Q6HR 06/22/24 14:00 06/22/24 14:00 1 STRIP Peritoneal Dialysis Solution 2,000 ml @ 0 mls/hr Q8HR IP 06/22/24 15:15 UNV Examination: GENERAL:Abnormal, LUNGS:Abnormal, NEURO:Abnormal Problem List/Assessment/Plan Problem List/Assessment/Plan End-stage renal disease on home peritioneal dialysis, out of the area Acute respiratory failure intubated on ventilator Status post cardiac arrest Septic shock Aspiration pneumonia Congestive heart failure, ejection fraction 45% Anemia of chronic kidney disease, well compensated Hyperphosphatemia Hypokalemia anoxic brain injury recs pt is an organ donor harvest likely thursday PD as ordered q8 hrs per pharmacy there is pd fluid shortage in hospital Plan discussed with: Other My Orders My Orders Orders - STEFANIE JACKSON MD Procedure Category Date Status Time Document Fluid Input FAY 06/22/24 In Process And Outpu 15:12 Peritoneal Dialysis PHA 06/22/24 Logged 2.5% Soln 15:15 STEFANIE JACKSON MD Jun 22, 2024 15:21
[2024-06-22 15:29] LABS: Basophils # (auto) 0.1 10 ^3/uL (0-0.2); Monocytes # (auto) 0.9 10 ^3/uL (0-1.3); White Blood Cell 9.9 10^3/uL (4.4-10.8)
[2024-06-22 15:31] LABS: Basophils % (auto) 1.1 % (0.0-2.0); Eosinophils # (auto) 0.7 10 ^3/uL (0-0.8); Eosinophils % (auto) 6.6 % (0.0-7.0); Hematocrit 31.1 % (41.0-53.0); Hemoglobin 10.3 g/dL (13.5-17.5); Lymphocytes # (auto) 1.5 10 ^3/uL (0.4-5.4); Lymphocytes % (auto) 15.6 % (10.0-50.0); Mean Corpuscular Hemoglobin 29.2 pg (28.0-32.0); Mean Corpuscular Hgb Conc. 33.3 g/dL (32.0-36.0); Mean Corpuscular Volume 87.9 fL (80.0-100.0); Monocytes % (auto) 9.6 % (0.0-12.0); Neutrophils # (auto) 6.6 10 ^3/uL (1.6-8.6); Neutrophils % (auto) 67.1 % (37.0-80.0); Nucleated Red Blood Cells % 0.1 %; Platelet Count (auto) 625 10^3/uL (140-450); Red Blood Cells 3.54 10^6/uL (4.5-5.90); Red Cell Distribution Width 17.5 % (11.8-14.3)
[2024-06-22 15:46] LABS: Alanine Aminotransferase 36 U/L (7-40); Albumin 3.4 g/dL (3.2-4.8); Amylase 65 U/L (30-118); Anion Gap 20 (5-15); Aspartate Aminotransferase 28 U/L (13-40); BUN/Creatinine Ratio 8.6 (10.0-20.0); Bilirubin, Direct 0.2 mg/dL (<0.3); Calcium 9.5 mg/dL (8.7-10.4); Potassium 4.1 mmol/L (3.5-5.1)
[2024-06-22 15:56] LABS: Alkaline Phosphatase 240 U/L (46-116); Bilirubin, Total 0.2 mg/dL (0.2-1.0); Carbon Dioxide 18 mmol/L (20-31); Chloride 89 mmol/L (98-107); Creatine Kinase IFCC 17 U/L (46-171); Glucose 170 mg/dL (74-106); Magnesium 2.7 mg/dL (1.6-2.6); Phosphorus 9.8 mg/dL (2.4-5.1); Sodium 127 mmol/L (136-145)
[2024-06-22 15:57] LABS: INR 0.97 (0.9-1.15); Prothrombin Time 10.3 sec (9.3-11.8)
[2024-06-22 15:58] LABS: Blood Urea Nitrogen 102 mg/dL (9-23)
[2024-06-22] MEDS: VANCOMYCIN 1.25GM/250ML 250 ML IV ONE (16:03)
[2024-06-22 16:17] LABS: Lipase 278 U/L (12-53)
[2024-06-22] MEDS ORDERED: ACCU-CHEK COMFORT CURVE STRIP VI SCH ×2 (18:00)
[2024-06-22] MEDS ORDERED: InsuLIN REG 1unit/0.01ml Soln (100units/ml) SC SCH ×2 (18:00)
[2024-06-22] MEDS: CALCIUM ACETATE 667 MG CAP PO SCH (18:00)
--- NOTE | 2024-06-22 18:38 | DVHPNRES ---
Progress Note Date Seen: Jun 22, 2024 Resident Creating Document: PAUL FRYE RESIDENT Medical Necessity Reason Pt with a Central, PICC or Fol: Yes The following are medically ne: PICC Line, Castano Catheter Subjective Review of Systems YOLI GALICIA is a 53-year-old male with a PMH of type 2 DM, ESRD on peritoneal dialysis, HTN presented to the ED with cardiopulmonary arrest. Patient seen and examined at the bedside along with the family. Unable to obtain ROS due to patient clinical status. Currently intubated with the mechanical ventilation. monitoring. Start vancomycin due to new cultures showed Gram-positive cocci in clusters. Changes from previous H/P or p: No Changes Objective vital signs Vital Sign Date Time Temp Pulse Resp B/P (MAP) Pulse Ox O2 Delivery O2 Flow Rate FiO2 06/22/24 18:09 80 17 128/61 (83) 99 30 06/22/24 18:00 Mechanical Ventilator+ 06/22/24 12:16 98.8 98.8 medications Current Medications Medications Dose Ordered Sig/Richard Route Start Time Stop Time Status Last Admin Dose Admin Hydralazine HCl 10 mg Q6HP PRN IV 06/22/24 12:00 06/22/24 13:28 10 MG Albuterol 2.5 mg Q4HPRN PRN NEB 06/22/24 12:00 Ipratropium Mantee 0.5 mg Q4HPRN PRN NEB 06/22/24 12:00 Insulin Human Regular Q6HR SC 06/22/24 18:00 Cancel Dextrose 50 ml UD PRN IV 06/22/24 12:15 Cancel Midazolam HCl 50 ml @ 1 mls/hr Q24H IV 06/22/24 12:15 06/22/24 14:13 2 MLS/HR Fentanyl Citrate 250 ml @ 2.5 mls/hr Q24H IV 06/22/24 12:15 06/22/24 12:15 5 MLS/HR Acetaminophen 650 mg Q6HP PRN GT 06/22/24 12:15 Lorazepam 1 mg Q5MINP PRN IV 06/22/24 12:15 Propofol 100 ml @ 2.175 mls/ hr Q24H IV 06/22/24 12:15 06/22/24 12:15 8.7 MLS/HR Diagnostic Test (Pha) 1 strip Q6HR 06/22/24 18:00 UNV Dextrose 50 ml UD PRN IV 06/22/24 12:30 Morphine Sulfate 2 mg Q2HPRN PRN IV 06/22/24 12:45 Multivit/Ca Carb/ B Cmplx/FA/Prenat 1 tab DAILY PO 06/23/24 10:00 Heparin Sodium (Porcine) 5,000 units Q12HR SC 06/22/24 22:00 Enteral Nutritional Formula 1,000 ml 30ML/HR GT 06/22/24 12:45 Calcium Acetate 667 mg TIDWMEALS PO 06/22/24 18:00 Pantoprazole Sodium 40 mg DAILY IV 06/23/24 10:00 Levetiracetam 750 mg/Sodium Chloride 107.5 ml @ 430 mls/hr BID IV 06/22/24 22:00 Vancomycin HCl 0 ml @ 0 mls/hr UD IV 06/22/24 13:45 Insulin Human Regular Q6HR SC 06/22/24 14:00 06/22/24 14:00 4 UNITS Diagnostic Test (Pha) 1 strip Q6HR 06/22/24 14:00 06/22/24 14:00 1 STRIP Peritoneal Dialysis Solution 2,000 ml @ 0 mls/hr Q8HR IP 06/22/24 15:15 Hold Examination Pt is lying on bed, General Appearance: Sedated, on mechanical ventilation RR 16, VT 500, peep 5, FiO2 30% HEENT: Atraumatic, Mucous membranes moist/pink Respiratory: Clear to auscultation, Normal air movement, No added sounds Cardiovascular: Regular rate, Normal S1, Normal S2, No murmurs Abdominal: Active bowel sounds, Soft, distended likely due to fluid , peritoneal dialysis catheter intact Extremities:No edema, no cyanosis, PICC line intact in RUE Skin: No Significant rash, except past surgical scars Neuro: pupils sluggish to react, weak cough and gag reflex laboratory and microbiology Laboratory Tests 06/22/24 15:00 Test 06/22/24 15:00 Range/Units Serum Glucose 170 H 74-106 mg/dL Labs and/or images reviewed: Labs reviewed by me, Image(s) reviewed by me Problem List/Assessment/Plan Problem List/Assessment/Plan NEUROLOGY # ? anoxic/ hypoxic encephalopathy # ? anoxic brain injury - currently on mechanical ventilator - ordered head CT, no acute intracranial pathology except mild cortical atrophy and showed severe paranasal sinus disease with soft tissue swelling of left temporal scalp # ACute CVA, Ischemic stroke - New MRI showed acute to subacute posterior right cerebellum infarct changes - neuro on board # Seizure like activity r/o # Myoclonus # Rule out status epileptics -ordered MRI, Diffusion restriction of the bilateral medial occipital lobe sulci with prominence on the T2 Flair images could be seen with ishemic changes. -consulted neurology,advised to continue ongoing treatment along with Mariel C[facility]IOVASCULAR # cardiopulmonary arrest status post CPR with ROSC # Septic shock unknown origin # NSTEMI likely due to demand mediated # ? acute on chronic diastolic heart failure # ? Coronary artery disease, moderate degree # HX hypertension, uncontrolled # Dyslipidemia, newly diagnosed - ordered pancultures, along with peritoneal fluid analysis and culture, is negative - monitor lab - Off from Levophed, since 06/06 - Versed and Diprivan DC06/14 - back on Diprivan again - added fentanyl 06/09 Dc06/14 - echo showed LVEF 45% - Currently on vancomycin and Zosyn - Cefepime DC 06/10 switched to Zosyn 06/10 - hydralazine p.r.n. - DC vancomysin 06/16 # Acute transient AFib with RVR - monitor - correct electrolytes if needed - cardiology on board RESPIRATORY # Acute hypoxic respiratory failure likely due to septic shock # septic shock # ? aspiration pneumonia - ABG reviewed, CXR dialy - CXR reviewed, , diffuse lung disease likely edema or pneumonia - Currently on vancomycin and Zosyn - Cefepime DC 06/10 switched to Zosyn 06/10 - Flagylstarted 06/07, DC06/10 - ventilatory settings: RR 16, VT 500, peep 5, FiO2 30% - Dc Vanco 06/16 GI/LIVER # Pneumoperitoneum # Thickened appendix with appendicoliths - Evident on CT abdominal pelvis - consulted surgeon, advised no surgical intervention for now # Ruledout acute bacterial peritonitis - currently on antibiotics vancomysin, Zosyn - monitor lab - Fluid sent to cell count, negative culture - Dc vancomysin 06/16 - PUD prophylaxis pantoprazole /KIDNEY/METABOLIC # ESRD on peritoneal dialysis - Nephrology onboard - no hemodialysis per family request as they choose terminal weaning - Monitor renal function - Monitor electrolytes. Supplement as necessary. - Monitor ins and outs. ENDO # type 2 DM with HbA1c 6.3 - Accu-Cheks and ISS -Lantus 13 units BID and aggressive ISS MSK HEME # Thrombocytopenia - monitor lab - held heparin SKIN - Intact peritoneal dialysis catheter LINES Intubated 06/05 Right femoral vein catheter DC 06/10 PICC line 06/10 Castano catheter DRIPS Versed, DC 06/14 Diprivan DC 06/14 Fetanyl DC 06/14 Currently Off from Levophed 06/10 Propofol started again 06/15 NUTRITION Nepro 30ml/hr PUD prophylaxis: Pantoprazole DVT prophylaxis: Heparin Goals of care has been discussed with the for more than 27 minutes, full code status(no CPR or defibrillation if coded again) Critical care time including chart review, discussing with the patient's family excluding procedures: 57 minutes Family meeting 06/15 to discuss goals of care for 40 mins , addressed and provided answers for all questions. Terminal weaning likely on Thursday Case discussed with Dr. Tanner. New culture showed Gram-positive cocci in clusters, started vancomycin. Plan discussed with: Patient, Spouse, Son My Orders My Orders Orders - PAUL FRYE RESIDENT Procedure Category Date Status Time Ventilator Setup RT 06/22/24 Logged 11:58 Abg W/ Co-Ox RT 06/22/24 Logged 22:00 Abg W/ Co-Ox RT 06/23/24 Logged 10:00 Abg W/ Co-Ox RT 06/23/24 Logged 22:00 Abg W/ Co-Ox RT 06/24/24 Logged 10:00 Abg W/ Co-Ox RT 06/24/24 Logged 22:00 Abg W/ Co-Ox RT 06/25/24 Logged 10:00 Abg W/ Co-Ox RT 06/25/24 Logged 22:00 Albuterol Medneb PHA 06/22/24 In Process (Ventolin Medneb) 12:00 Ipratropium Medneb PHA 06/22/24 In Process (Atrovent Medneb) 12:00 Med Christophe Sub Treatment RT 06/22/24 Logged 11:58 Midazolam Drip 50 PHA 06/22/24 In Process Mg/50ml (Versed Drip 5 12:15 Fentanyl Drip PHA 06/22/24 In Process 2500mcg/250mlns 12:15 Acetaminophen PHA 06/22/24 In Process Solution Oral 12:15 Lorazepam 2mg/Ml Inj PHA 06/22/24 In Process (Ativan Inj) 12:15 Propofol (Diprivan) PHA 06/22/24 In Process 12:15 Dextrose 50% Syringe PHA 06/22/24 In Process 12:30 Morphine Sulfate PHA 06/22/24 In Process Injection 12:45 B-Complex W/ C & PHA 06/23/24 In Process Folic Tablet 10:00 Heparin Sodium PHA 06/22/24 In Process (Porcine) 22:00 Nutritional PHA 06/22/24 In Process Supplements (Nepro 12:45 Calcium Acetate PHA 06/22/24 In Process Capsule (Phoslo 18:00 Pantoprazole PHA 06/23/24 In Process (Protonix) 10:00 Amylase LAB 06/23/24 Verified 10:00 Amylase LAB 06/23/24 Verified 22:00 Amylase LAB 06/24/24 Verified 10:00 Amylase LAB 06/24/24 Verified 22:00 Bilirubin, Direct LAB 06/23/24 Verified 10:00 Bilirubin, Direct LAB 06/23/24 Verified 22:00 Bilirubin, Direct LAB 06/24/24 Verified 10:00 Bilirubin, Direct LAB 06/24/24 Verified 22:00 Complete Blood Count LAB 06/23/24 Verified 10:00 Complete Blood Count LAB 06/23/24 Verified 22:00 Complete Blood Count LAB 06/24/24 Verified 10:00 Complete Blood Count LAB 06/24/24 Verified 22:00 Comprehensive LAB 06/23/24 Verified Metabolic Panel 10:00 Comprehensive LAB 06/23/24 Verified Metabolic Panel 22:00 Comprehensive LAB 06/24/24 Verified Metabolic Panel 10:00 Comprehensive LAB 06/24/24 Verified Metabolic Panel 22:00 Creatine Kinase Ckmb LAB 06/23/24 Verified 10:00 Creatine Kinase Ckmb LAB 06/23/24 Verified 22:00 Creatine Kinase Ckmb LAB 06/24/24 Verified 10:00 Creatine Kinase Ckmb LAB 06/24/24 Verified 22:00 Creatine Kinase LAB 06/23/24 Verified 10:00 Creatine Kinase LAB 06/23/24 Verified 22:00 Creatine Kinase LAB 06/24/24 Verified 10:00 Creatine Kinase LAB 06/24/24 Verified 22:00 Lactate Dehydrogenase LAB 06/23/24 Verified 10:00 Lactate Dehydrogenase LAB 06/23/24 Verified 22:00 Lactate Dehydrogenase LAB 06/24/24 Verified 10:00 Lactate Dehydrogenase LAB 06/24/24 Verified 22:00 Lactic Acid W/ Reflex LAB 06/23/24 Verified Order 10:00 Lactic Acid W/ Reflex LAB 06/23/24 Verified Order 22:00 Lactic Acid W/ Reflex LAB 06/24/24 Verified Order 10:00 Lactic Acid W/ Reflex LAB 06/24/24 Verified Order 22:00 Lipase LAB 06/23/24 Verified 10:00 Lipase LAB 06/23/24 Verified 22:00 Lipase LAB 06/24/24 Verified 10:00 Lipase LAB 06/24/24 Verified 22:00 Magnesium LAB 06/23/24 Verified 10:00 Magnesium LAB 06/23/24 Verified 22:00 Magnesium LAB 06/24/24 Verified 10:00 Magnesium LAB 06/24/24 Verified 22:00 Osmolality, Serum LAB 06/23/24 Verified 10:00 Osmolality, Serum LAB 06/23/24 Verified 22:00 Osmolality, Serum LAB 06/24/24 Verified 10:00 Osmolality, Serum LAB 06/24/24 Verified 22:00 Phosphorus LAB 06/23/24 Verified 10:00 Phosphorus LAB 06/23/24 Verified 22:00 Phosphorus LAB 06/24/24 Verified 10:00 Phosphorus LAB 06/24/24 Verified 22:00 PTPTT LAB 06/23/24 Verified 10:00 PTPTT LAB 06/23/24 Verified 22:00 PTPTT LAB 06/24/24 Verified 10:00 PTPTT LAB 06/24/24 Verified 22:00 Troponin-I Hs LAB 06/23/24 Verified 10:00 Troponin-I Hs LAB 06/23/24 Verified 22:00 Troponin-I Hs LAB 06/24/24 Verified 10:00 Troponin-I Hs LAB 06/24/24 Verified 22:00 Troponin-I Hs LAB 06/23/24 Verified 04:00 Levetiracetam Inj PHA 06/22/24 In Process (Keppra) 22:00 Vancomycin Per PHA 06/22/24 In Process Pharmacy 13:45 Insulin R (Human) PHA 06/22/24 In Process (Insulin R) 14:00 Glucose Blood PHA 06/22/24 In Process (Accu-Chek Comfort 14:00 Vancomycin,Random LAB 06/23/24 Verified 05:00 Vancomycin Per FAY 06/22/24 In Process Pharmacy Protoc 14:30 Type And Screen BBK 06/22/24 Logged 22:00 Date of Service: Jun 22, 2024 Billing Provider: JOSE TANNER MD Common Visit Codes: [id number] CARE 30-74 MIN PAUL FRYE RESIDENT Jun 22, 2024 18:38 JOSE TANNER MD Jun 23, 2024 11:17
[2024-06-22] MEDS: levETIRAcetam INJ 750 MG in SODIUM CHL 0.9% 100 ML IV SCH (21:57)
[2024-06-22] MEDS: HEPARIN SODIUM (PORCINE) 5000 UNITS/ML 1ML VIAL SC SCH (21:58)
[2024-06-22 22:18] LABS: Base Excess -4.4 mmol/L (-2.0-3.0)
[2024-06-23] VITALS (106 sets, daily range): BP systolic 98–199; BP diastolic 49–148; PULSE 81–98; RESP 15–22; TEMP 95.7–98.8; O2SAT 94–100
[2024-06-23 04:04] LABS: Basophils # (auto) 0.2 10 ^3/uL (0-0.2); Basophils % (auto) 1.4 % (0.0-2.0); Eosinophils # (auto) 0.8 10 ^3/uL (0-0.8); Eosinophils % (auto) 7.5 % (0.0-7.0); Hematocrit 30.8 % (41.0-53.0); Hemoglobin 10.4 g/dL (13.5-17.5); Lymphocytes # (auto) 2.2 10 ^3/uL (0.4-5.4); Lymphocytes % (auto) 19.8 % (10.0-50.0); Mean Corpuscular Hemoglobin 29.6 pg (28.0-32.0); Mean Corpuscular Hgb Conc. 33.6 g/dL (32.0-36.0); Mean Corpuscular Volume 88.2 fL (80.0-100.0); Monocytes # (auto) 1.1 10 ^3/uL (0-1.3); Neutrophils # (auto) 6.9 10 ^3/uL (1.6-8.6); Neutrophils % (auto) 61.3 % (37.0-80.0); Platelet Count (auto) 641 10^3/uL (140-450); Red Blood Cells 3.49 10^6/uL (4.5-5.90); Red Cell Distribution Width 18.1 % (11.8-14.3); White Blood Cell 11.3 10^3/uL (4.4-10.8)
[2024-06-23 04:23] LABS: Partial Thromboplastin Time 28.9 SEC (24.5-34.5); Prothrombin Time 10.6 sec (9.3-11.8)
[2024-06-23 04:27] LABS: Alanine Aminotransferase 38 U/L (7-40); Albumin 3.4 g/dL (3.2-4.8); Amylase 69 U/L (30-118); Anion Gap 21 (5-15); BUN/Creatinine Ratio 8.5 (10.0-20.0); Bilirubin, Direct 0.2 mg/dL (<0.3); Calcium 9.6 mg/dL (8.7-10.4); Cholesterol 200 mg/dL (< 200); Glucose 103 mg/dL (74-106); Potassium 4.4 mmol/L (3.5-5.1)
[2024-06-23 04:41] LABS: Alkaline Phosphatase 252 U/L (46-116); Aspartate Aminotransferase 42 U/L (13-40); Bilirubin, Total 0.2 mg/dL (0.2-1.0); Carbon Dioxide 18 mmol/L (20-31); Chloride 88 mmol/L (98-107); Creatine Kinase IFCC 20 U/L (46-171); HDL Cholesterol 34 mg/dL (40-59); LDL Cholesterol 133 mg/dL (< 100); Magnesium 2.6 mg/dL (1.6-2.6); Phosphorus 10.3 mg/dL (2.4-5.1); Sodium 127 mmol/L (136-145); Triglycerides 232 mg/dL (< 150)
[2024-06-23 04:43] LABS: Blood Urea Nitrogen 107 mg/dL (9-23)
[2024-06-23 04:54] LABS: Lipase 308 U/L (12-53)
--- NOTE | 2024-06-23 05:14 | DVH ---
CHEST RADIOGRAPH Indication: pna Technique: Single frontal view of the chest was obtained Comparison: XY CHEST PORTABLE on DOS: 06/22/24 FINDINGS: Lines and Tubes: Right PICC terminates in the superior vena cava. The endotracheal tube terminates 5 .6 cm above the laurie. The enteric tube courses below the left hemidiaphragm and the tip extends out side the field of view. Lungs: Bibasilar opacities. Pleura: Trace left pleural effusion. No pneumothorax. Cardiomediastinal contours: Unremarkable Bones: No acute osseous abnormality. IMPRESSION: 1. Stable position of the support lines and tubes. 2. Bibasilar opacities and trace left pleural effusion.
[2024-06-23] MEDS: PANTOPRAZOLE 40 MG/10 ML VIAL INJ IV SCH (09:45)
[2024-06-23] MEDS: B-COMPLEX W/ C & FOLIC ACID(NEPHROVITE TAB) PO SCH (09:46)
[2024-06-23 10:43] LABS: Basophils # (auto) 0.2 10 ^3/uL (0-0.2); Basophils % (auto) 1.3 % (0.0-2.0); Eosinophils # (auto) 0.9 10 ^3/uL (0-0.8); Eosinophils % (auto) 7.4 % (0.0-7.0); Hematocrit 31.7 % (41.0-53.0); Hemoglobin 10.7 g/dL (13.5-17.5); Lymphocytes % (auto) 16.3 % (10.0-50.0); Mean Corpuscular Hemoglobin 30.1 pg (28.0-32.0); Mean Corpuscular Hgb Conc. 33.9 g/dL (32.0-36.0); Mean Corpuscular Volume 88.9 fL (80.0-100.0); Monocytes % (auto) 8.1 % (0.0-12.0); Neutrophils # (auto) 8.4 10 ^3/uL (1.6-8.6); Neutrophils % (auto) 66.9 % (37.0-80.0); Platelet Count (auto) 624 10^3/uL (140-450); Red Blood Cells 3.56 10^6/uL (4.5-5.90); White Blood Cell 12.5 10^3/uL (4.4-10.8)
[2024-06-23 11:02] LABS: INR 0.97 (0.9-1.15); Partial Thromboplastin Time 29.2 SEC (24.5-34.5); Prothrombin Time 10.3 sec (9.3-11.8)
[2024-06-23 11:08] LABS: Albumin 3.5 g/dL (3.2-4.8); Amylase 83 U/L (30-118); Anion Gap 22 (5-15); Aspartate Aminotransferase 37 U/L (13-40); BUN/Creatinine Ratio 8.4 (10.0-20.0); Calcium 9.6 mg/dL (8.7-10.4); Glucose 103 mg/dL (74-106); Potassium 4.6 mmol/L (3.5-5.1); Total Protein 6.1 g/dL (5.7-8.2)
[2024-06-23 11:16] LABS: Alanine Aminotransferase 45 U/L (7-40); Alkaline Phosphatase 268 U/L (46-116); Bilirubin, Total 0.2 mg/dL (0.2-1.0); Carbon Dioxide 18 mmol/L (20-31); Chloride 87 mmol/L (98-107); Sodium 127 mmol/L (136-145)
[2024-06-23 11:19] LABS: Blood Urea Nitrogen 109 mg/dL (9-23)
[2024-06-23 11:26] LABS: Lipase 375 U/L (12-53)
--- NOTE | 2024-06-23 11:41 | DVHPN2 ---
Progress Note Date Seen: Jun 23, 2024 Medical Necessity Reason Pt with a Central, PICC or Fol: Yes The following are medically ne: PICC Line, Castano Catheter Subjective Patient reports: Other (events noted + blood cx) Review of Systems: Deferred Objective vital signs Vital Sign Date Time Temp Pulse Resp B/P (MAP) Pulse Ox O2 Delivery O2 Flow Rate FiO2 06/23/24 11:00 96.6 93 16 167/61 (96) 99 205.9 167/80 (109) 06/23/24 10:14 30 06/23/24 10:00 Mechanical Ventilator+ Total Intake and Output 06/22/24 06/22/24 06/23/24 15:00 23:00 07:00 Intake Total 47.1 ml 2353.1 ml 236.9 ml Output Total 1000 ml Balance 47.1 ml 1353.1 ml 236.9 ml medications Current Medications Medications Dose Ordered Sig/Richard Route Start Time Stop Time Status Last Admin Dose Admin Hydralazine HCl 10 mg Q6HP PRN IV 06/22/24 12:00 06/23/24 10:06 10 MG Albuterol 2.5 mg Q4HPRN PRN NEB 06/22/24 12:00 Ipratropium [place] 0.5 mg Q4HPRN PRN NEB 06/22/24 12:00 Insulin Human Regular Q6HR SC 06/22/24 18:00 Cancel Dextrose 50 ml UD PRN IV 06/22/24 12:15 Cancel Midazolam HCl 50 ml @ 1 mls/hr Q24H IV 06/22/24 12:15 06/22/24 14:13 2 MLS/HR Fentanyl Citrate 250 ml @ 2.5 mls/hr Q24H IV 06/22/24 12:15 06/22/24 20:34 5 MLS/HR Acetaminophen 650 mg Q6HP PRN GT 06/22/24 12:15 Lorazepam 1 mg Q5MINP PRN IV 06/22/24 12:15 Propofol 100 ml @ 2.175 mls/ hr Q24H IV 06/22/24 12:15 06/23/24 07:41 10.875 MLS/HR Diagnostic Test (Pha) 1 strip Q6HR 06/22/24 18:00 UNV Dextrose 50 ml UD PRN IV 06/22/24 12:30 Morphine Sulfate 2 mg Q2HPRN PRN IV 06/22/24 12:45 Multivit/Ca Carb/ B Cmplx/FA/Prenat 1 tab DAILY PO 06/23/24 10:00 06/23/24 09:46 1 TAB Heparin Sodium (Porcine) 5,000 units Q12HR SC 06/22/24 22:00 06/23/24 09:47 5,000 UNITS Enteral Nutritional Formula 1,000 ml 30ML/HR GT 06/22/24 12:45 Calcium Acetate 667 mg TIDWMEALS PO 06/22/24 18:00 06/23/24 08:03 667 MG Pantoprazole Sodium 40 mg DAILY IV 06/23/24 10:00 06/23/24 09:45 40 MG Levetiracetam 750 mg/Sodium Chloride 107.5 ml @ 430 mls/hr BID IV 06/22/24 22:00 06/23/24 10:26 430 MLS/HR Vancomycin HCl 0 ml @ 0 mls/hr UD IV 06/22/24 13:45 Insulin Human Regular Q6HR SC 06/22/24 14:00 06/22/24 14:00 4 UNITS Diagnostic Test (Pha) 1 strip Q6HR 06/22/24 14:00 06/23/24 00:06 1 STRIP Examination: GENERAL:Abnormal, MSK:Abnormal, NEURO:Abnormal laboratory and microbiology Laboratory Tests 06/23/24 10:23 Test 06/23/24 10:23 Range/Units Serum Glucose 103 74-106 mg/dL Problem List/Assessment/Plan Problem List/Assessment/Plan End-stage renal disease on home peritioneal dialysis, out of the area Acute respiratory failure intubated on ventilator Status post cardiac arrest Septic shock Aspiration pneumonia Congestive heart failure, ejection fraction 45% Anemia of chronic kidney disease, well compensated Hyperphosphatemia Hypokalemia anoxic brain injury recs pt is an organ donor harvest likely thursday PD cant be done per pharmacy there is pd fluid shortage in hospital no fluid bags i recommended keyana cathter and hemodialysis however pt family did not consent for cath insertion-- Plan discussed with: Other My Orders My Orders Orders - STEFANIE JACKSON MD Procedure Category Date Status Time Document Fluid Input [facility] 06/22/24 In Process And Outpu 15:12 STEFANIE JACKSON MD Jun 23, 2024 11:41
--- NOTE | 2024-06-23 16:55 | DVHPNRES ---
Progress Note Date Seen: Jun 23, 2024 Resident Creating Document: PAUL FRYE RESIDENT Medical Necessity Reason Pt with a Central, PICC or Fol: Yes The following are medically ne: PICC Line, Castano Catheter Subjective Review of Systems YOLI GALICIA is a 53-year-old male with a PMH of type 2 DM, ESRD on peritoneal dialysis, HTN presented to the ED with cardiopulmonary arrest. Patient seen and examined at the bedside along with the family. Unable to obtain ROS due to patient clinical status. Currently intubated with the mechanical ventilation. monitoring. Patient reports: No new complaints Changes from previous H/P or p: No Changes Objective vital signs Vital Sign Date Time Temp Pulse Resp B/P (MAP) Pulse Ox O2 Delivery O2 Flow Rate FiO2 06/23/24 15:45 96.3 82 16 137/59 (85) 98 205.3 06/23/24 14:12 30 06/23/24 14:10 Mechanical Ventilator+ Total Intake and Output 06/22/24 06/22/24 06/23/24 15:00 23:00 07:00 Intake Total 47.1 ml 2353.1 ml 248.16 ml Output Total 1000 ml Balance 47.1 ml 1353.1 ml 248.16 ml medications Current Medications Medications Dose Ordered Sig/Richard Route Start Time Stop Time Status Last Admin Dose Admin Hydralazine HCl 10 mg Q6HP PRN IV 06/22/24 12:00 06/23/24 10:06 10 MG Albuterol 2.5 mg Q4HPRN PRN NEB 06/22/24 12:00 Ipratropium [place] 0.5 mg Q4HPRN PRN NEB 06/22/24 12:00 Insulin Human Regular Q6HR SC 06/22/24 18:00 Cancel Dextrose 50 ml UD PRN IV 06/22/24 12:15 Cancel Midazolam HCl 50 ml @ 1 mls/hr Q24H IV 06/22/24 12:15 06/23/24 14:57 2 MLS/HR Fentanyl Citrate 250 ml @ 2.5 mls/hr Q24H IV 06/22/24 12:15 06/22/24 20:34 5 MLS/HR Acetaminophen 650 mg Q6HP PRN GT 06/22/24 12:15 Lorazepam 1 mg Q5MINP PRN IV 06/22/24 12:15 Propofol 100 ml @ 2.175 mls/ hr Q24H IV 06/22/24 12:15 06/23/24 14:47 10.875 MLS/HR Diagnostic Test (Pha) 1 strip Q6HR 06/22/24 18:00 UNV Dextrose 50 ml UD PRN IV 06/22/24 12:30 Morphine Sulfate 2 mg Q2HPRN PRN IV 06/22/24 12:45 Multivit/Ca Carb/ B Cmplx/FA/Prenat 1 tab DAILY PO 06/23/24 10:00 06/23/24 09:46 1 TAB Heparin Sodium (Porcine) 5,000 units Q12HR SC 06/22/24 22:00 06/23/24 09:47 5,000 UNITS Enteral Nutritional Formula 1,000 ml 30ML/HR GT 06/22/24 12:45 Pantoprazole Sodium 40 mg DAILY IV 06/23/24 10:00 06/23/24 09:45 40 MG Levetiracetam 750 mg/Sodium Chloride 107.5 ml @ 430 mls/hr BID IV 06/22/24 22:00 06/23/24 10:26 430 MLS/HR Vancomycin HCl 0 ml @ 0 mls/hr UD IV 06/22/24 13:45 Insulin Human Regular Q6HR SC 06/22/24 14:00 06/22/24 14:00 4 UNITS Diagnostic Test (Pha) 1 strip Q6HR 06/22/24 14:00 06/23/24 11:52 1 STRIP Examination Pt is lying on bed, General Appearance: Sedated, on mechanical ventilation RR 16, VT 500, peep 5, FiO2 30% HEENT: Atraumatic, Mucous membranes moist/pink Respiratory: Clear to auscultation, Normal air movement, No added sounds Cardiovascular: Regular rate, Normal S1, Normal S2, No murmurs Abdominal: Active bowel sounds, Soft, distended likely due to fluid , peritoneal dialysis catheter intact Extremities:No edema, no cyanosis, PICC line intact in RUE Skin: No Significant rash, except past surgical scars Neuro: pupils sluggish to react, weak cough and gag reflex laboratory and microbiology Laboratory Tests 06/23/24 10:23 Test 06/23/24 10:23 Range/Units Serum Glucose 103 74-106 mg/dL Labs and/or images reviewed: Labs reviewed by me, Image(s) reviewed by me Problem List/Assessment/Plan Problem List/Assessment/Plan NEUROLOGY # ? anoxic/ hypoxic encephalopathy # ? anoxic brain injury - currently on mechanical ventilator - ordered head CT, no acute intracranial pathology except mild cortical atrophy and showed severe paranasal sinus disease with soft tissue swelling of left temporal scalp # ACute CVA, Ischemic stroke - New MRI showed acute to subacute posterior right cerebellum infarct changes - neuro on board # Seizure like activity r/o # Myoclonus # Rule out status epileptics -ordered MRI, Diffusion restriction of the bilateral medial occipital lobe sulci with prominence on the T2 Flair images could be seen with ishemic changes. -consulted neurology,advised to continue ongoing treatment along with [facility] CARDIOVASCULAR # cardiopulmonary arrest status post CPR with ROSC # Septic shock unknown origin # NSTEMI likely due to demand mediated # ? acute on chronic diastolic heart failure # ? Coronary artery disease, moderate degree # HX hypertension, uncontrolled # Dyslipidemia, newly diagnosed - ordered pancultures, along with peritoneal fluid analysis and culture, is negative - monitor lab - Off from Levophed, since 06/06 - Versed and Diprivan DC06/14 - back on Diprivan again - added fentanyl 06/09 Dc06/14 - echo showed LVEF 45% - Currently on vancomycin and Zosyn - Cefepime DC 06/10 switched to Zosyn 06/10 - hydralazine p.r.n. - DC vancomysin 06/16 # Acute transient AFib with RVR - monitor - correct electrolytes if needed - cardiology on board RESPIRATORY # Acute hypoxic respiratory failure likely due to septic shock # septic shock # ? aspiration pneumonia - ABG reviewed, CXR dialy - CXR reviewed, , diffuse lung disease likely edema or pneumonia - Currently on vancomycin and Zosyn - Cefepime DC 06/10 switched to Zosyn 06/10 - Flagylstarted 06/07, DC06/10 - ventilatory settings: RR 16, VT 500, peep 5, FiO2 30% - Dc Vanco 06/16 GI/LIVER # Pneumoperitoneum # Thickened appendix with appendicoliths - Evident on CT abdominal pelvis - consulted surgeon, advised no surgical intervention for now # Ruledout acute bacterial peritonitis - currently on antibiotics vancomysin, Zosyn - monitor lab - Fluid sent to cell count, negative culture - Dc vancomysin 06/16 - PUD prophylaxis pantoprazole /KIDNEY/METABOLIC # ESRD on peritoneal dialysis - Nephrology onboard - no hemodialysis per family request as they choose terminal weaning - Monitor renal function - Monitor electrolytes. Supplement as necessary. - Monitor ins and outs. ENDO # type 2 DM with HbA1c 6.3 - Accu-Cheks and ISS -Lantus 13 units BID and aggressive ISS MSK HEME # Thrombocytopenia - monitor lab - held heparin SKIN - Intact peritoneal dialysis catheter LINES Intubated 06/05 Right femoral vein catheter DC 06/10 PICC line 06/10 Castano catheter DRIPS Versed, DC 06/14 Diprivan DC 06/14 Fetanyl DC 06/14 Currently Off from Levophed 06/10 Propofol started again 06/15 NUTRITION Nepro 30ml/hr PUD prophylaxis: Pantoprazole DVT prophylaxis: Heparin Goals of care has been discussed with the for more than 27 minutes, full code status Critical care time including chart review, discussing with the patient's family excluding procedures: 57 minutes Family meeting 06/15 to discuss goals of care for 40 mins , addressed and provided answers for all questions. Terminal weaning likely on Thursday Case discussed with Dr. Tanner. New culture showed Gram-positive cocci in clusters, started vancomycin. Plan discussed with: Spouse, Son My Orders My Orders Orders - PAUL FRYE Procedure Category Date Status Time Type And Screen BBK 06/22/24 In Process 22:00 Chest Xray 1 View XY 06/23/24 Resulted 04:00 Abg W/ Co-Ox RT 06/23/24 Logged 04:00 Creatine Kinase Ckmb LAB 06/23/24 In Process 04:00 Vancomycin,Random LAB 06/24/24 Verified 10:00 Vancomycin Per FAY 06/23/24 In Process Pharmacy Protoc 11:36 Complete Blood Count LAB 06/24/24 Verified 04:00 Comprehensive LAB 06/24/24 Verified Metabolic Panel 04:00 Chest Xray 1 View XY 06/24/24 Transmitted 04:00 Abg W/ Co-Ox RT 06/24/24 Transmitted 04:00 Date of Service: Jun 23, 2024 Billing Provider: JOSE TANNER MD Common Visit Codes: [id number] CARE 30-74 MIN PAUL FRYE Jun 23, 2024 16:55 JOSE TANNER MD Jun 26, 2024 12:53
[2024-06-23 22:11] LABS: Basophils # (auto) 0.2 10 ^3/uL (0-0.2); Eosinophils # (auto) 0.8 10 ^3/uL (0-0.8); Lymphocytes # (auto) 1.5 10 ^3/uL (0.4-5.4); Mean Corpuscular Hemoglobin 29.5 pg (28.0-32.0); Mean Corpuscular Volume 88.6 fL (80.0-100.0)
[2024-06-23 22:12] LABS: Basophils % (auto) 1.2 % (0.0-2.0); Eosinophils % (auto) 6.3 % (0.0-7.0); Hematocrit 31.2 % (41.0-53.0); Hemoglobin 10.4 g/dL (13.5-17.5); Lymphocytes % (auto) 11.2 % (10.0-50.0); Mean Corpuscular Hgb Conc. 33.2 g/dL (32.0-36.0); Monocytes # (auto) 0.8 10 ^3/uL (0-1.3); Monocytes % (auto) 6.4 % (0.0-12.0); Neutrophils # (auto) 9.7 10 ^3/uL (1.6-8.6); Neutrophils % (auto) 74.9 % (37.0-80.0); Nucleated Red Blood Cells % 0.1 %; Platelet Count (auto) 594 10^3/uL (140-450); Red Blood Cells 3.52 10^6/uL (4.5-5.90)
[2024-06-23 22:30] LABS: Albumin 3.5 g/dL (3.2-4.8); Amylase 47 U/L (30-118); Anion Gap 22 (5-15); BUN/Creatinine Ratio 8.7 (10.0-20.0); Bilirubin, Direct 0.2 mg/dL (<0.3); Calcium 9.8 mg/dL (8.7-10.4); INR 0.97 (0.9-1.15); Partial Thromboplastin Time 31.3 SEC (24.5-34.5); Prothrombin Time 10.3 sec (9.3-11.8)
[2024-06-23 22:31] LABS: Total Protein 6.1 g/dL (5.7-8.2)
[2024-06-23 22:31] LABS: Base Excess -10.9 mmol/L (-2.0-3.0)
[2024-06-23 22:37] LABS: Potassium 5.4 mmol/L (3.5-5.1); Sodium 125 mmol/L (136-145)
[2024-06-23 22:38] LABS: Alanine Aminotransferase 50 U/L (7-40); Alkaline Phosphatase 270 U/L (46-116); Aspartate Aminotransferase 45 U/L (13-40); Bilirubin, Total 0.2 mg/dL (0.2-1.0); Carbon Dioxide 15 mmol/L (20-31); Chloride 88 mmol/L (98-107); Glucose 111 mg/dL (74-106); Magnesium 2.8 mg/dL (1.6-2.6); Phosphorus 12.3 mg/dL (2.4-5.1)
[2024-06-23 22:39] LABS: Blood Urea Nitrogen 117 mg/dL (9-23)
[2024-06-23 22:48] LABS: Lipase 249 U/L (12-53)
[2024-06-24] VITALS (43 sets, daily range): BP systolic 106–179; BP diastolic 49–79; PULSE 76–98; RESP 14–21; TEMP 97–99.1; O2SAT 93–100
--- NOTE | 2024-06-24 05:28 | DVH ---
EXAM: XR Chest, 1 View CLINICAL INDICATION: pneumonia TECHNIQUE: Frontal view of the chest. COMPARISON: XY CHEST XRAY 1 VIEW on DOS: 06/23/24, XY CHEST PORTABLE on DOS: 06/22/24, XY CHEST XRAY 1 VIEW on DOS: 06/22/24, XY CHEST PORTABLE on DOS: 06/21/24, XY CHEST PORTABLE on DOS: 06/21/24 FINDINGS: LUNGS AND PLEURAL SPACES: Congestion. No consolidation. No pneumothorax. HEART: Unremarkable. No cardiomegaly. MEDIASTINUM: Unremarkable. Normal mediastinal contour. BONES/JOINTS: Unremarkable. No acute fracture. TUBES, LINES AND DEVICES: The endotracheal tube (ETT) is in satisfactory position. Right internal jugular central venous catheter tip in the superior vena cava. OTHER FINDINGS: . None. . .. IMPRESSION: Congestion. .
[2024-06-24 07:14] LABS: Basophils # (auto) 0.1 10 ^3/uL (0-0.2); Basophils % (auto) 0.9 % (0.0-2.0); Eosinophils # (auto) 0.9 10 ^3/uL (0-0.8); Eosinophils % (auto) 6.8 % (0.0-7.0); Hematocrit 30.4 % (41.0-53.0); Hemoglobin 10.1 g/dL (13.5-17.5); Lymphocytes # (auto) 1.6 10 ^3/uL (0.4-5.4); Lymphocytes % (auto) 12.4 % (10.0-50.0); Mean Corpuscular Hemoglobin 29.8 pg (28.0-32.0); Mean Corpuscular Hgb Conc. 33.2 g/dL (32.0-36.0); Mean Corpuscular Volume 89.6 fL (80.0-100.0); Monocytes % (auto) 8.1 % (0.0-12.0); Neutrophils # (auto) 9.2 10 ^3/uL (1.6-8.6); Neutrophils % (auto) 71.8 % (37.0-80.0); Platelet Count (auto) 632 10^3/uL (140-450); Red Cell Distribution Width 17.8 % (11.8-14.3); White Blood Cell 12.8 10^3/uL (4.4-10.8)
[2024-06-24 07:21] LABS: INR 0.96 (0.9-1.15); Partial Thromboplastin Time 29.5 SEC (24.5-34.5); Prothrombin Time 10.2 sec (9.3-11.8)
[2024-06-24 07:25] LABS: Albumin 3.5 g/dL (3.2-4.8); Amylase 45 U/L (30-118); Anion Gap 24 (5-15); BUN/Creatinine Ratio 8.4 (10.0-20.0); Calcium 9.9 mg/dL (8.7-10.4); Glucose 89 mg/dL (74-106)
[2024-06-24 07:26] LABS: Alanine Aminotransferase 58 U/L (7-40); Alkaline Phosphatase 284 U/L (46-116); Aspartate Aminotransferase 52 U/L (13-40); Bilirubin, Direct 0.2 mg/dL (<0.3); Carbon Dioxide 14 mmol/L (20-31); Chloride 88 mmol/L (98-107); Magnesium 2.9 mg/dL (1.6-2.6); Potassium 5.5 mmol/L (3.5-5.1); Sodium 126 mmol/L (136-145); Total Protein 6.1 g/dL (5.7-8.2)
[2024-06-24 07:28] LABS: Blood Urea Nitrogen 118 mg/dL (9-23)
[2024-06-24 07:29] LABS: Bilirubin, Total 0.2 mg/dL (0.2-1.0); Phosphorus 12.9 mg/dL (2.4-5.1)
[2024-06-24 07:45] LABS: Lipase 243 U/L (12-53)
[2024-06-24] MEDS: ALBUMIN 5% 250 ML IV ONE ×4 (09:00)
[2024-06-24] MEDS ORDERED: LORazepam 2MG/ML-1ML VIAL IV PRN ×3 (09:15→10:00)
[2024-06-24] MEDS ORDERED: MORPHINE SULFATE INJ 2 MG/ml SYRG IV PRN ×2 (09:15)
[2024-06-24] MEDS: HEPARIN SODIUM (PORCINE) 5000 UNITS/ML 1ML VIAL IV ONE (09:15)
[2024-06-24] MEDS: LORazepam 2MG/ML-1ML VIAL ONE (09:54)
--- NOTE | 2024-06-24 11:35 | PRN ---
PAUL FRYE RESIDENT 06/24/24 1135: Misceleneous Note Note Note To pronounce Patient seen and pronounced at 1123 on 06/24/2024. pt was unresponsive to stimuli. Heart and Lung sounds were absent. No spontaneous cardiac or respiratory activity was present. No pupillary reflexes were present. Pupils were fixed and dilated. Time of : 1123 06/24/2024 JOSE TANNER MD 06/24/24 1227: PAUL FRYE RESIDENT Jun 24, 2024 11:35 JOSE TANNER MD Jun 24, 2024 12:27
--- NOTE | 2024-06-24 12:00 | DVHPNRES ---
Progress Note Date Seen: Jun 24, 2024 Resident Creating Document: PAUL FRYE RESIDENT Medical Necessity Reason Pt with a Central, PICC or Fol: Yes The following are medically ne: PICC Line, Castano Catheter Subjective Review of Systems YOLI GALICIA is a 53-year-old male with a PMH of type 2 DM, ESRD on peritoneal dialysis, HTN presented to the ED with cardiopulmonary arrest. Patient seen and examined at the bedside along with the family. Unable to obtain ROS due to patient clinical status. Currently intubated with the mechanical ventilation. Changes from previous H/P or p: No Changes Objective vital signs Vital Sign Date Time Temp Pulse Resp B/P (MAP) Pulse Ox O2 Delivery O2 Flow Rate FiO2 06/24/24 09:00 98.4 92 16 154/62 (92) 99 209.1 144/74 (97) 06/24/24 08:00 Mechanical Ventilator+ 30 30 Total Intake and Output 06/23/24 06/23/24 06/24/24 15:00 23:00 07:00 Intake Total 246.08 ml 304.155 ml 143.000 ml Output Total 25 ml 10 ml Balance 246.08 ml 279.155 ml 133.000 ml medications Current Medications Medications Dose Ordered Sig/Richard Route Start Time Stop Time Status Last Admin Dose Admin Hydralazine HCl 10 mg Q6HP PRN IV 06/22/24 12:00 06/23/24 17:08 10 MG Albuterol 2.5 mg Q4HPRN PRN NEB 06/22/24 12:00 Ipratropium [place] 0.5 mg Q4HPRN PRN NEB 06/22/24 12:00 Insulin Human Regular Q6HR SC 06/22/24 18:00 Cancel Dextrose 50 ml UD PRN IV 06/22/24 12:15 Cancel Midazolam HCl 50 ml @ 1 mls/hr Q24H IV 06/22/24 12:15 06/23/24 14:57 2 MLS/HR Fentanyl Citrate 250 ml @ 2.5 mls/hr Q24H IV 06/22/24 12:15 06/22/24 20:34 5 MLS/HR Acetaminophen 650 mg Q6HP PRN GT 06/22/24 12:15 Lorazepam 1 mg Q5MINP PRN IV 06/22/24 12:15 Propofol 100 ml @ 2.175 mls/ hr Q24H IV 06/22/24 12:15 06/24/24 05:44 10.875 MLS/HR Diagnostic Test (Pha) 1 strip Q6HR 06/22/24 18:00 UNV Dextrose 50 ml UD PRN IV 06/22/24 12:30 Morphine Sulfate 2 mg Q2HPRN PRN IV 06/22/24 12:45 Multivit/Ca Carb/ B Cmplx/FA/Prenat 1 tab DAILY PO 06/23/24 10:00 06/23/24 09:46 1 TAB Heparin Sodium (Porcine) 5,000 units Q12HR SC 06/22/24 22:00 06/23/24 21:14 5,000 UNITS Enteral Nutritional Formula 1,000 ml 30ML/HR GT 06/22/24 12:45 Pantoprazole Sodium 40 mg DAILY IV 06/23/24 10:00 06/23/24 09:45 40 MG Levetiracetam 750 mg/Sodium Chloride 107.5 ml @ 430 mls/hr BID IV 06/22/24 22:00 06/23/24 22:22 430 MLS/HR Vancomycin HCl 0 ml @ 0 mls/hr UD IV 06/22/24 13:45 Insulin Human Regular Q6HR SC 06/22/24 14:00 06/22/24 14:00 4 UNITS Diagnostic Test (Pha) 1 strip Q6HR 06/22/24 14:00 06/24/24 06:01 1 STRIP Morphine Sulfate 2 mg Q2HPRN PRN IV 06/24/24 09:15 Lorazepam 2 mg Q1HP PRN IV 06/24/24 10:00 Examination Pt is lying on bed, General Appearance: Sedated, on mechanical ventilation RR 16, VT 500, peep 5, FiO2 30% HEENT: Atraumatic, Mucous membranes moist/pink Respiratory: Clear to auscultation, Normal air movement, No added sounds Cardiovascular: Regular rate, Normal S1, Normal S2, No murmurs Abdominal: Active bowel sounds, Soft, distended likely due to fluid , peritoneal dialysis catheter intact Extremities:No edema, no cyanosis, PICC line intact in RUE Skin: No Significant rash, except past surgical scars Neuro: pupils sluggish to react, weak cough and gag reflex laboratory and microbiology Laboratory Tests 06/24/24 06:00 Test 06/24/24 06:00 Range/Units Serum Glucose 89 74-106 mg/dL Labs and/or images reviewed: Labs reviewed by me, Image(s) reviewed by me Problem List/Assessment/Plan Problem List/Assessment/Plan NEUROLOGY # ? anoxic/ hypoxic encephalopathy # ? anoxic brain injury - currently on mechanical ventilator - ordered head CT, no acute intracranial pathology except mild cortical atrophy and showed severe paranasal sinus disease with soft tissue swelling of left temporal scalp # ACute CVA, Ischemic stroke - New MRI showed acute to subacute posterior right cerebellum infarct changes - neuro on board # Seizure like activity r/o # Myoclonus # Rule out status epileptics -ordered MRI, Diffusion restriction of the bilateral medial occipital lobe sulci with prominence on the T2 Flair images could be seen with ishemic changes. -consulted neurology,advised to continue ongoing treatment along with Keppra CARDIOVASCULAR # cardiopulmonary arrest status post CPR with ROSC # Septic shock unknown origin # NSTEMI likely due to demand mediated # ? acute on chronic diastolic heart failure # ? Coronary artery disease, moderate degree # HX hypertension, uncontrolled # Dyslipidemia, newly diagnosed - ordered pancultures, along with peritoneal fluid analysis and culture, is negative - monitor lab - Off from Levophed, since 06/06 - Versed and Diprivan DC06/14 - back on Diprivan again - added fentanyl 06/09 Dc06/14 - echo showed LVEF 45% - Currently on vancomycin and Zosyn - Cefepime DC 06/10 switched to Zosyn 06/10 - hydralazine p.r.n. - DC vancomysin 06/16 # Acute transient AFib with RVR - monitor - correct electrolytes if needed - cardiology on board RESPIRATORY # Acute hypoxic respiratory failure likely due to septic shock # septic shock # ? aspiration pneumonia - ABG reviewed, CXR dialy - CXR reviewed, , diffuse lung disease likely edema or pneumonia - Currently on vancomycin and Zosyn - Cefepime DC 06/10 switched to Zosyn 06/10 - Flagylstarted 06/07, DC06/10 - ventilatory settings: RR 16, VT 500, peep 5, FiO2 30% - Dc Vanco 06/16 GI/LIVER # Pneumoperitoneum # Thickened appendix with appendicoliths - Evident on CT abdominal pelvis - consulted surgeon, advised no surgical intervention for now # Ruledout acute bacterial peritonitis - currently on antibiotics vancomysin, Zosyn - monitor lab - Fluid sent to cell count, negative culture - Dc vancomysin 06/16 - PUD prophylaxis pantoprazole /KIDNEY/METABOLIC # ESRD on peritoneal dialysis - Nephrology onboard - no hemodialysis per family request as they choose terminal weaning - Monitor renal function - Monitor electrolytes. Supplement as necessary. - Monitor ins and outs. ENDO # type 2 DM with HbA1c 6.3 - Accu-Cheks and ISS -Lantus 13 units BID and aggressive ISS MSK HEME # Thrombocytopenia - monitor lab - held heparin SKIN - Intact peritoneal dialysis catheter LINES Intubated 06/05 Right femoral vein catheter DC 06/10 PICC line 06/10 Castano catheter DRIPS Versed, DC 06/14 Diprivan DC 06/14 Fetanyl DC 06/14 Currently Off from Levophed 06/10 Propofol started again 06/15 NUTRITION Nepro 30ml/hr PUD prophylaxis: Pantoprazole DVT prophylaxis: Heparin Goals of care has been discussed with the for more than 27 minutes, full code status Critical care time including chart review, discussing with the patient's family excluding procedures: 122 minutes Family meeting 06/15 to discuss goals of care for 40 mins , addressed and provided answers for all questions. Terminal weaning Today Case discussed with Plan discussed with: Spouse, Son My Orders My Orders Orders - PAUL FRYE Procedure Category Date Status Time Abg W/ Co-Ox RT 06/24/24 Logged 04:00 Abg W/ Co-Ox RT 06/23/24 Logged 06:00 Morphine Sulfate PHA 06/24/24 In Process Injection 09:15 Extubate FAY 06/24/24 In Process 09:07 Communication Order ORDERS 06/24/24 Transmitted 09:07 Date of Service: Jun 24, 2024 Billing Provider: JOSE TANNER MD Common Visit Codes: [id number] CARE 30-74 MIN, [id number] CARE-EACH +30MIN (x2) PAUL FRYE Jun 24, 2024 12:00 JOSE TANNER MD Jun 26, 2024 13:12
--- NOTE | 2024-06-24 18:42 | DVHDS2 ---
Summary Date of Admission Jun 20, 2024 at 18:25 Date and Time of Expiration: Jun 24, 2024 11:23 Reason for Admission: Cardiopulmonary arrest Labs/Diagnostic Data: Laboratory Results Test 06/24/24 06:00 06/24/24 05:58 06/23/24 21:56 06/23/24 03:17 White Blood Count 12.8 10^3/uL (4.4-10.8) Red Blood Count 3.40 10^6/uL (4.5-5.90) Hemoglobin 10.1 g/dL (13.5-17.5) Hematocrit 30.4 % (41.0-53.0) Mean Corpuscular Volume 89.6 fL (80.0-100.0) Mean Corpuscular Hemoglobin 29.8 pg (28.0-32.0) Mean Corpuscular Hemoglobin Concent 33.2 g/dL (32.0-36.0) Red Cell Distribution Width 17.8 % (11.8-14.3) Platelet Count 632 10^3/uL (140-450) Mean Platelet Volume 7.0 fL (6.9-10.8) Neutrophils (%) (Auto) 71.8 % (37.0-80.0) Lymphocytes (%) (Auto) 12.4 % (10.0-50.0) Monocytes (%) (Auto) 8.1 % (0.0-12.0) Eosinophils (%) (Auto) 6.8 % (0.0-7.0) Basophils (%) (Auto) 0.9 % (0.0-2.0) Neutrophils # (Auto) 9.2 10 ^3/uL (1.6-8.6) Lymphocytes # (Auto) 1.6 10 ^3/uL (0.4-5.4) Monocytes # (Auto) 1.0 10 ^3/uL (0-1.3) Eosinophils # (Auto) 0.9 10 ^3/uL (0-0.8) Basophils # (Auto) 0.1 10 ^3/uL (0-0.2) Nucleated Red Blood Cells 0.0 % Prothrombin Time 10.2 sec (9.3-11.8) Prothrombin Time INR 0.96 (0.9-1.15) Activated Partial Thromboplast Time 29.5 SEC (24.5-34.5) Sodium Level 126 mmol/L (136-145) Potassium Level 5.5 mmol/L (3.5-5.1) Chloride Level 88 mmol/L (98-107) Carbon Dioxide Level 14 mmol/L (20-31) Anion Gap 24 (5-15) Blood Urea Nitrogen 118 mg/dL (9-23) Creatinine 14.00 mg/dL (0.700-1.30) Glomerular Filtration Rate Calc 4 mL/min (>90) BUN/Creatinine Ratio 8.4 (10.0-20.0) Serum Glucose 89 mg/dL (74-106) Serum Osmolality 324 mOsm/kg (278-298) Lactic Acid Level 0.5 mmol/L (0.4-2.0) Calcium Level 9.9 mg/dL (8.7-10.4) Phosphorus Level 12.9 mg/dL (2.4-5.1) Magnesium Level 2.9 mg/dL (1.6-2.6) Total Bilirubin 0.2 mg/dL (0.2-1.0) Direct Bilirubin 0.2 mg/dL (<0.3) Aspartate Amino Transferase (AST) 52 U/L (13-40) Alanine Aminotransferase (ALT) 58 U/L (7-40) Alkaline Phosphatase 284 U/L (46-116) Lactate Dehydrogenase 242 U/L (120-246) Creatine Kinase 28 U/L (46-171) Troponin I High Sensitivity 1607 ng/L (</=54) Total Protein 6.1 g/dL (5.7-8.2) Albumin 3.5 g/dL (3.2-4.8) Amylase Level 45 U/L (30-118) Lipase 243 U/L (12-53) Random Vancomycin Level 31.1 ug/mL (5-10) POC Glucose 88 mg/dl (70-106) Blood Gas Specimen Type Arterial Blood Gas Sample Site Arterial line Blood Gas Patient Temperature 37.0 Arterial Blood Date Drawn Arterial Blood pH 7.278 (7.350-7.450) Arterial Blood Partial Pressure CO2 32.3 mmHg (35.0-48.0) Arterial Blood Partial Pressure O2 122.0 mmHg (83.0-108.0) Arterial Blood HCO3 14.8 mmol/L (21.0-28.0) Arterial Blood Oxygen Saturation 97.3 % (94.0-98.0) Arterial Blood Base Excess -10.9 mmol/L (-2.0-3.0) Arterial Blood Oxyhemoglobin 96.7 % (94.0-98.0) Arterial Blood Carboxyhemoglobin 0.2 % (0.5-1.5) Arterial Blood Methemoglobin 0.4 % (0.0-1.5) Kevin Test N/a Blood Gas Total Hemoglobin 11.40 g/dL (13.5-17.5) Blood Gas Set Respiration Rate 16.0 Blood Gas Modality Vent - ac Blood Gas Spontaneous Rate 16 FiO2 % 30.0 Blood Gas Tidal Volume 500.0 Blood Gas PEEP or CPAP 5.0 Triglycerides Level 232 mg/dL (< 150) Cholesterol Level 200 mg/dL (< 200) LDL Cholesterol 133 mg/dL (< 100) HDL Cholesterol 34 mg/dL (40-59) Test 06/22/24 22:07 Blood Gas Spontaneous Tidal Volume 549 Bl Gas Inspiratory/Expiratory Ratio 1i:3.2 Specimen Drawn By Abhay parkinson rt Other Laboratory Tests 06/24/24 06:00 Brief Hx & Hospital Course: YOLI GALICIA is a 53-year-old male with a PMH of type 2 DM, ESRD on peritoneal dialysis, HTN presented to the ED with cardiopulmonary arrest. Per on the day of admission patient went to the bathroom in the middle of the night at 2:00 a.m., and he is unable to respond properly when call him become quickly unresponsive, diaphoretic, pale, call me and blood sugar was 50s then called EMS, arrived, patient was able to communicate at the time and spontaneously collapse, initiated CPR, and in ER CPR was continued for 14 minutes and obtain his ROSC., patient is sedated intubated, on mechanical ventilation shifted to ICU. Patient had questionable anoxic or hypoxic encephalopathy, ordered head CT no acute intracranial pathology except mild cortical atrophy and showed severe paranasal sinus disease with soft tissue swelling of left temporal scalp, ordered MRI, Diffusion restriction of the bilateral medial occipital lobe sulci with prominence on the T2 Flair images could be seen with ishemic changes. MRI showed acute to subacute posterior right cerebellum infarct changes, neurology was on board. Patient was in septic shock initially thought of the peritoneal origin, ordered pancultures along with the peritoneal fluid cultures which showed no growth so unknown etiology, patient was on vancomycin and Zosyn. patient was initially on Levophed later discontinued, patient started having myoclonus for which we started Ativan as needed. Patient has NSTEMI likely due to demand mediated and possible acute on chronic diastolic heart failure. Echo showed EF 45%. Patient developed questionable aspiration pneumonia for which she called with the antibiotics. ESRD patient was continuously monitored by Nephrology with the peritoneal dialysis and monitor renal function, electrolytes and supplemented as needed. Due to uncontrolled type 2 diabetes mellitus patient was on Accu-Cheks and Lantus. patient has been monitored continuously but patient condition is not improving. patient is organ donor, [facility] team was on board, explained to family, on 06/24/2024 at 11:23 a.m. patient was pronounced as after terminal weaning. Operations or Procedures CT brain without contrast IMPRESSION: 1. No acute intracranial pathology in the brain. Mild cortical atrophy Severe paranasal sinus disease Soft tissue swelling left temporal scalp ----- Exam: XY KUB ABDOMEN SINGLE VIEW Impression: Nonobstructive bowel gas pattern noted. -------- Exam: CT CT ABD PELVIS W CON-ORAL IV IMPRESSION: 1. Peritoneal dialysis catheter in place with fluid around the liver spleen and scattered throughout the abdomen and pelvis May all be secondary to pollicis and dialysate liquid. 2. No change amount of free air when compared with CT abdomen and pelvis done 8:20 a.m. On 06/12/[address] scans at this medical facility are performed using dose modulation techniques as appropriate to a performed exam including the following: Automated exposure control was utilized; adjustment of the MA and/or KV according to patient size; and use of iterative reconstruction technique. ADDENDUM # 1 Diffusion restriction of the bilateral medial occipital lobe sulci with prominence on the T2 Flair images could be seen with ishemic changes. Consider Follow up MRI brain . ORIGINAL REPORT MRI BRAIN WITHOUT CONTRAST CLINICAL HISTORY: post cardiac arrest TECHNIQUE: Multiplanar, multisequence MR images of the brain without intravenous contrast. Comparison: CT head 06/06/2024 FINDINGS: There is no restricted diffusion. There is an 8 mm focus of blooming artifact in the left thalamic region. There is no discrete lesion identified on the T2 and T1 images. There is a small hyperintense T2 and hypointense T1 focus in the left paramidline anterior erika. There is no evidence of acute hemorrhage. There is no evidence of a discrete mass, mass effect or midline shift. There is no hydrocephalus or extra-axial fluid collection. The visualized intracranial vasculature demonstrates appropriate flow-voids. The sagittal midline structures appear unremarkable. The craniocervical junction is within normal limits. The calvarium demonstrates normal marrow signal. There is moderate mucosal thickening in the paranasal sinuses, worse in the right maxillary sinus. There is small amount of fluid in the bilateral mastoid air cells. IMPRESSION: 1. There is no acute intracranial process. 2. Nonspecific 8 mm focus of blooming artifact in the left thalamic region May relate to chronic microhemorrhage. There is no discrete lesion identified on the other sequences to suggest a cavernoma. 3. Nonspecific small hyperintense T2 and hypointense T1 focus in the left paramidline anterior erika. Small chronic ischemic focus is not excluded. HS:Y ATED BY: ARMAND TRIVEDI MD DICTATED DATE/TIME: 06/13/24 1115 SIGNED BY: ARMAND TRIVEDI MD SIGNED DATE/TIME: 06/13/24 1115 CC: MRI BRAIN WITHOUT CONTRAST CLINICAL HISTORY: post cardiac arrest TECHNIQUE: Multiplanar, multisequence MR images of the brain without intravenous contrast. Comparison: CT head 06/06/2024 FINDINGS: There is no restricted diffusion. There is an 8 mm focus of blooming artifact in the left thalamic region. There is no discrete lesion identified on the T2 and T1 images. There is a small hyperintense T2 and hypointense T1 focus in the left paramidline anterior erika. There is no evidence of acute hemorrhage. There is no evidence of a discrete mass, mass effect or midline shift. There is no hydrocephalus or extra-axial fluid collection. The visualized intracranial vasculature demonstrates appropriate flow-voids. The sagittal midline structures appear unremarkable. The craniocervical junction is within normal limits. The calvarium demonstrates normal marrow signal. There is moderate mucosal thickening in the paranasal sinuses, worse in the right maxillary sinus. There is small amount of fluid in the bilateral mastoid air cells. IMPRESSION: 1. There is no acute intracranial process. 2. Nonspecific 8 mm focus of blooming artifact in the left thalamic region May relate to chronic microhemorrhage. There is no discrete lesion identified on the other sequences to suggest a cavernoma. 3. Nonspecific small hyperintense T2 and hypointense T1 focus in the left paramidline anterior erika. Small chronic ischemic focus is not excluded. HS:Y MRI BRAIN WITHOUT CONTRAST IMPRESSION: 1. New focus of restricted diffusion in the posterior right cerebellum compatible with an acute to subacute infarct. There is no evidence of acute hemorrhage or surrounding edema. There is no significant associated mass effect. 2. Stable nonspecific 8 mm focus of blooming artifact in the left thalamic region. 3. Stable nonspecific small hyperintense T2 and hypointense T1 focus in the left paramedian anterior erika. HS:Y Final Diagnosis/Problems List # cardiopulmonary arrest status post CPR with ROSC # Septic shock unknown origin # NSTEMI likely due to demand mediated # ? acute on chronic diastolic heart failure # ? Coronary artery disease, moderate degree # ? anoxic/ hypoxic encephalopathy # ? anoxic brain injury # ACute CVA, Ischemic stroke # Acute hypoxic respiratory failure likely due to septic shock # septic shock Unspecified origin # Seizure like activity r/o # Myoclonus # Rule out status epileptics # HX hypertension, uncontrolled # Dyslipidemia, newly diagnosed # Acute transient AFib with RVR # ? aspiration pneumonia # Pneumoperitoneum # Thickened appendix with appendicoliths # Ruledout acute bacterial peritonitis # ESRD on peritoneal dialysis # type 2 DM with HbA1c 6.3 # Thrombocytopenia Discharge Disposition: at Hospital MELVAPAUL DUPREE RESIDENT Jun 24, 2024 18:42
== END 2024-06-24 11:23 | DRG 871 ==
LOC: ICU WEST 18:25
PROVIDERS: ADMIT Internal Medicine Pulmonary Disease; ATTEND Internal Medicine Pulmonary Disease
PROC: 5A12012 Performance of Cardiac Output, Single, Manual (ICD-10-PCS; 2024-06-20)
PROC: 5A1945Z Respiratory Ventilation, 24-96 Consecutive Hours (ICD-10-PCS; principal; 2024-06-22)
DX: A41.9 Sepsis, unspecified organism (principal); I21.A1 Myocardial infarction type 2; I63.9 Cerebral infarction, unspecified; I50.33 Acute on chronic diastolic (congestive) heart failure; R65.21 Severe sepsis with septic shock; J96.01 Acute respiratory failure with hypoxia; J69.0 Pneumonitis due to inhalation of food and vomit; N18.6 End stage renal disease; G93.1 Anoxic brain damage, not elsewhere classified; I13.2 Hypertensive heart and chronic kidney disease with heart failure and with stage 5 chronic kidney disease, or end stage renal disease; I48.20 Chronic atrial fibrillation, unspecified; R56.9 Unspecified convulsions; D63.1 Anemia in chronic kidney disease; E83.39 Other disorders of phosphorus metabolism; E87.6 Hypokalemia; D69.6 Thrombocytopenia, unspecified; I46.9 Cardiac arrest, cause unspecified; I25.10 Atherosclerotic heart disease of native coronary artery without angina pectoris; E78.5 Hyperlipidemia, unspecified; E11.22 Type 2 diabetes mellitus with diabetic chronic kidney disease; G25.3 Myoclonus; Z99.2 Dependence on renal dialysis; Z79.899 Other long term (current) drug therapy
CPT/HCPCS: 36415; 36600; 71045; 80053; 80061; 80202; 82150; 82248; 82550; 82553; 82805; 82962; 83605; 83615; 83690; 83735; 83930; 84100; 84484; 85025; 85610; 85730; 86850; 86900; 86901; 86920; 94003; G0378; J2470; J2704